=== PATIENT | female | born 1945 | race American Indian/Alaskan Native ===

== ENCOUNTER 2016-12-10 11:34 | Emergency (ER) | payer MEDICARE, OTHER ==
[2016-12-10 12:04] VITALS: TEMP 98.1; O2SAT 99; BMI 25.9
--- NOTE | 2016-12-10 12:32 | ED PDOC ---
Arrival/HPI - General Historian: Patient <Janna Christianson - Last Filed: 12/10/16 17:42> - History of Present Illness Time/Duration: Other (1 month) Symptom Onset: Gradual Symptom Course: Unchanged Severity Level: Mild Activities at Onset: Rest <Alejandro Nixon - Last Filed: 12/10/16 19:41> - General Chief Complaint: Abdominal Pain Time Seen by Provider: 12/10/16 12:10 - History of Present Illness Narrative History of Present Illness (Text): 12/10/16 12:29 This is a 70Y F with PMH HTN, NIDDM, PUD who came in today for abdominal pain with diarrhea x 1 month. The patient reports that the abdominal pain is located in the epigastric region described as burning and has been radiating to her back , but denies nausea or vomiting. She also has been having on and off constipation with the diarrhea, but denies black stools or blood in stool. The patient started Terazosin and Rovustatin 2 weeks ago and reports she has been getting generalized body aches with feeling hot and cold. She is not sure why she is taking the Terazosin. She was talking to her pharmacist and told the patient that she should come to the ED for her symptoms. 12/10/16 13:43 (Janna Christianson) Past Medical History - Provider Review Nursing Documentation Reviewed: Yes - Infectious Disease Hx of Infectious Diseases: None - Cardiac Hx Cardiac Disorders: Yes Hx Hypertension: Yes - Pulmonary Hx Respiratory Disorders: No - Neurological Hx Neurological Disorder: Yes Hx Dizziness: Yes (vertigo) - HEENT Hx HEENT Disorder: Yes (reading glasses) - Renal Hx Renal Disorder: No - Endocrine/Metabolic Hx Endocrine Disorders: Yes Hx Diabetes Mellitus Type 2: Yes - Hematological/Oncological Hx Blood Disorders: No - Integumentary Hx Dermatological Disorder: No - Musculoskeletal/Rheumatological Hx Falls: No - Gastrointestinal Hx Gastrointestinal Disorders: Yes (chronic constipation) Hx Gastroesophageal Reflux: Yes Other/Comment: s/p colonoscopy/endoscopy with polyp removal - Genitourinary/Gynecological Hx Genitourinary Disorders: No - Psychiatric Hx Psychophysiologic Disorder: Yes Hx Depression: Yes Hx Substance Use: No - Surgical History Hx Appendectomy: Yes Hx Orthopedic Surgery: Yes (R foot orn ligament repair) Other/Comment: section x3 - Anesthesia Hx Anesthesia Reactions: No Hx Malignant Hyperthermia: No <MimaJanna gan - Last Filed: 12/10/16 17:42> Family/Social History - Physician Review Nursing Documentation Reviewed: Yes Family/Social History: Hypertension Smoking Status: Never Smoked Hx Alcohol Use: No Hx Substance Use: No <LeighaEdilson hewittJanna - Last Filed: 12/10/16 17:42> Allergies/Home Meds <LeighamarcelinaJanna - Last Filed: 12/10/16 17:42> <TiffaniAlejandro - Last Filed: 12/10/16 19:41> Allergies/Adverse Reactions: Allergies Penicillins Allergy (Verified 12/10/16 12:04) SWELLING Home Medications: Home Meds Medication Instructions Recorded Confirmed metFORMIN [glucOPHAGE] 500 mg PO DAILY 02/06/16 12/10/16 Pantoprazole Sodium [Protonix] 40 mg PO DAILY 02/07/16 12/10/16 Zolpidem [Ambien] 10 mg PO HS 07/12/16 12/10/16 Donepezil [Aricept] 5 mg PO DAILY 12/10/16 12/10/16 Rosuvastatin Calcium [Crestor] 10 mg PO DAILY 12/10/16 12/10/16 Terazosin [Hytrin] 1 mg PO HS 12/10/16 12/10/16 amLODIPine [Norvasc] 10 mg PO DAILY 12/10/16 12/10/16 Review of Systems - Physician Review All systems were reviewed & negative as marked: Yes - Review of Systems Constitutional: Normal. absent: Fatigue, Weight Change, Fevers Eyes: Normal. absent: Vision Changes, Photophobia ENT: Normal. absent: Hearing Changes Respiratory: Normal. absent: SOB, Cough Cardiovascular: Normal. absent: Chest Pain, Palpitations Gastrointestinal: Abdominal Pain, Stool Changes, Constipation, Diarrhea. absent : Nausea, Vomiting, Hematochezia, Hematemesis, Food Intolerance Genitourinary Female: Normal. absent: Dysuria, Frequency Musculoskeletal: Arthralgias, Myalgias Skin: Normal. absent: Rash, Pruritis, Skin Lesions Neurological: Normal. absent: Headache, Dizziness, Focal Weakness Endocrine: Normal Hemo/Lymphatic: Normal. absent: Adenopathy Psychiatric: Normal. absent: Anxiety, Depression <LeighamarcelinaJanna - Last Filed: 12/10/16 17:42> Physical Exam Vital Signs Reviewed: Yes Temperature: Afebrile Blood Pressure: Hypertensive Pulse: Regular Respiratory Rate: Normal Appearance: Positive for: Well-Appearing, Non-Toxic, Comfortable Pain Distress: None Mental Status: Positive for: Alert and Oriented X 3 - Systems Exam Head: Present: Atraumatic, Normocephalic Pupils: Present: PERRL Extroacular Muscles: Present: EOMI Conjunctiva: Present: Normal Mouth: Present: Moist Mucous Membranes Neck: Present: Normal Range of Motion Respiratory/Chest: Present: Clear to Auscultation, Good Air Exchange. No: Respiratory Distress, Accessory Muscle Use Cardiovascular: Present: Regular Rate and Rhythm, Normal S1, S2. No: Murmurs Abdomen: Present: Normal Bowel Sounds. No: Tenderness, Distention, Peritoneal Signs Back: Present: Normal Inspection Upper Extremity: Present: Normal Inspection. No: Cyanosis, Edema Lower Extremity: Present: Normal Inspection. No: Edema Neurological: Present: GCS=15, CN II-XII Intact, Speech Normal Skin: Present: Warm, Dry, Normal Color. No: Rashes Psychiatric: Present: Alert, Oriented x 3, Normal Insight, Normal Concentration <Janna Christianson - Last Filed: 12/10/16 17:42> <Alejandro Nixon - Last Filed: 12/10/16 19:41> Vital Signs Temp Pulse Resp BP Pulse Ox 12/10/16 17:28 75 18 155/75 H 99 12/10/16 16:25 79 18 158/79 H 99 12/10/16 12:00 98.1 F 84 16 162/83 H 99 Medical Decision Making Re-evaluation Time: 14:45 Reassessment Condition: Unchanged - Lab Interpretations I have reviewed the lab results: Yes Interpretation: All labs normal - RAD Interpretation Driver Sales: Radiologist - EKG Interpretation Interpreted by ED Physician: Yes Type: 12 lead EKG <Janna Christianson - Last Filed: 12/10/16 17:42> <Alejandro Nixon - Last Filed: 12/10/16 19:41> ED Course and Treatment: 12/10/16 12:33 Impression: This is a 70Y F with PMH of HTN, NIDDM, and PUD here for abdominal pain x 1 month and worsening myalgias for 2 weeks. DDX: Rhabdo secondary to statin v. peptic ulcer v. r/o DE Plan: -- EKG, CXR -- CT abd/pelvis -- CBC, CMP, Cardiac ISO, CK --Reassess Prior Visits: Notes and results from previous visits were reviewed. Progress Note: Labs within normal limits. No acute findings seen on CXR and CT abd/pelvis. Will order CTA to r/o dissection and give tramadol and Protonix for pain/ discomfort. Patient reports pain is much better. She does complain of anxiety. Xanax 0.25mg given. Discharge Instructions: Re-evaluation. Patient feels better. Discussed results and plan with patient who expresses understanding. All questions answered and there is agreement with the plan to discharge home with instructions. Patient stable for discharge. Return if symptoms persist or worsen. 12/10/16 17:13 (Janna Christianson) In agreement with resident note, which includes further HPI details. Patient was seen and evaluated with resident, came up with plan and treatment together. 12/10/16 19:39 Patient with long-standing symptoms that she says started after starting the statin - workup is negative including negative CTA showing no dissection. Patient told to stop the statin and f/u pmd - she says she will not f/u Dr. Ross but will go to Dr. Yan. (Alejandro Nixon) - Lab Interpretations Lab Results: 12/10/16 12:30 12/10/16 12:30 Lab Results 12/10/16 12:30: Urine Color Yellow, Urine Appearance Clear, Urine pH 6.5, Ur Specific [place] <= 1.005, Urine Protein Negative, Urine Glucose (UA) Negative, Urine Ketones Negative, Urine Blood Negative, Urine Nitrate Negative, Urine Bilirubin Negative, Urine Urobilinogen 0.2, Ur Leukocyte Esterase Negative 12/10/16 12:30: Sodium 139, Potassium 4.1, Chloride 103, Carbon Dioxide 28, Anion Gap 12, BUN 12, Creatinine 0.8, Est GFR ( Amer) > 60, Est GFR (Non- Af Amer) > 60, Random Glucose 112 H, Calcium 9.7, Total Bilirubin 0.5, AST 31, ALT 31, Alkaline Phosphatase 74, Lactate Dehydrogenase 621, Total Creatine Kinase 329 H, CK-MB (CK-2) 1.0, CK-MB (CK-2) % Cancelled, Troponin I < 0.01, Total Protein 7.9, Albumin 4.8, Globulin 3.1, Albumin/Globulin Ratio 1.5 12/10/16 12:30: WBC 7.4 D, RBC 4.56, Hgb 12.8, Hct 38.7, MCV 84.9, MCH 28.1, MCHC 33.1, RDW 13.7, Plt Count 257, MPV 10.7 - RAD Interpretation Narrative RAD Interpretations (Text): CT abd/pelvis without contrast HISTORY: abdominal pain radiating to back with diarrhea COMPARISON: 07/15/2016 TECHNIQUE: Without contrast.. This CT exam was performed using one or more of the following dose reduction techniques: Automated exposure control, adjustment of the mA and/or kV according to patient size, and/or use of iterative reconstruction technique. FINDINGS: LOWER THORAX: Unremarkable. LIVER: Unremarkable. No gross lesion or ductal dilatation. GALLBLADDER AND BILE DUCTS: Unremarkable. PANCREAS: Unremarkable. No gross lesion or ductal dilatation. SPLEEN: Unremarkable. ADRENALS: Unremarkable. No mass. KIDNEYS AND URETERS: Left upper pole renal cyst, 1.6 cm unchanged from prior CT examination. No other renal mass. No renal calculus or hydronephrosis. VASCULATURE: Unremarkable. No aortic aneurysm. BOWEL: No bowel obstruction. No abnormal bowel loops are identified. Gastric mural thickening likely due to inadequate distention. APPENDIX: Not identified. No secondary findings of appendicitis. PERITONEUM: Unremarkable. No free fluid. No free air. LYMPH NODES: Unremarkable. No enlarged lymph nodes. BLADDER: Unremarkable. REPRODUCTIVE: Unremarkable uterus. BONES: No acute fracture. Grade 1 anterolisthesis at L4-5 without spondylolysis. OTHER FINDINGS: None. IMPRESSION: No abnormality of the bowel. No bowel obstruction. No evidence of ileus. Mural thickening of the stomach likely due to inadequate distention. No other acute abnormality identified. Chest XR (Portable) COMPARISON: 07/12/2016 FINDINGS: LUNGS: No active pulmonary disease. PLEURA: No significant pleural effusion identified, no pneumothorax apparent. CARDIOVASCULAR: Normal. OSSEOUS STRUCTURES: No significant abnormalities. VISUALIZED UPPER ABDOMEN: Normal. OTHER FINDINGS: None. IMPRESSION: No active disease. 12/10/16 17:42 CT abdomen and pelvis with IV contrast Indication: Chest pain, abdominal pain, back pain Technique: Contiguous axial images utilizing CT angiography dissection protocol. Coronal and Sagittal reformats generated and reviewed. This CT exam was performed using 1 or more of the falling dose reduction techniques: Automated exposure control, adjustment of the MAA and/or kV according to patient size, and/or use of iterative reconstruction technique. Radiation dose: Total exam DLP = 1372.96 MGy-cm. Comparison: CT abdomen and pelvis with IV and oral contrast performed 07/15/16 Findings: Visualized portions of the thyroid gland appear unremarkable. Heart size appears top normal. No evidence of significant pericardial effusion. Mild dependent atelectasis. No focal consolidation. No pleural effusion. No pneumothorax. The thoracic and abdominal aorta appears within normal limits of caliber. No evidence of dissection. 16 mm low-density lesion, left kidney; possibly cyst. Hypoattenuation of the liver compatible with hepatic steatosis. The spleen, kidneys, pancreas, adrenal glands, and gallbladder appear otherwise unremarkable. The stomach is nondistended. Lack of oral contrast limits evaluation for bowel pathology. The bowel loops appear within normal limits of caliber without evidence of intestinal obstruction. There is no definite free air. Uterus is present. The urinary bladder appears unremarkable. No acute osseous abnormality is detected. Impression: No evidence of thoracic or abdominal aortic aneurysm or dissection. Hepatic steatosis. 16 mm probable left renal cyst. (Jnana Christianson) Radiology Orders: 12/10/16 12:21 CXR [CHEST PORTABLE] [RAD] Stat 12/10/16 12:26 ABD & PELVIS W/O PO OR IV CONT [CT] Stat 12/10/16 13:48 ANGIOGRAPHY DISECTION PROTOCOL [CT] Stat - EKG Interpretation EKG Interpretation (Text): 12/10/16 13:51 Hr@66. Intervals within normal limits. NSR. L axis deviation. LVH (Janna Christianson) - Medication Orders Current Medication Orders: Discontinued Medications Alprazolam (Xanax) 0.25 mg PO STAT STA PRN Reason: Protocol Stop: 12/10/16 17:13 Last Admin: 12/10/16 17:30 Dose: 0.25 mg Iodixanol (Visipaque 320 Mg/Ml 100 Ml) Confirm Administered Dose 100 ml IV .STK- MED ONE Stop: 12/10/16 15:57 Pantoprazole Sodium (Protonix Inj) 40 mg IVP STAT STA Stop: 12/10/16 14:46 Last Admin: 12/10/16 14:55 Dose: 40 mg Tramadol/Acetaminophen (Ultracet 37.5/325 Mg) 1 tab PO STAT STA Stop: 12/10/16 13:49 Last Admin: 12/10/16 14:33 Dose: 1 tab - PA / BUNCHER HAND / Resident Statement / has reviewed & agrees with the documentation as recorded. / has examined the patient and agrees with the treatment plan. <Alejandro Nixon - Last Filed: 12/10/16 19:41> Disposition/Present on Arrival - Present on Arrival Any Indicators Present on Arrival: No History of DVT/PE: No History of Uncontrolled Diabetes: No Urinary Catheter: No History of Decub. Ulcer: No History Surgical Site Infection Following: None - Disposition Have Diagnosis and Disposition been Completed?: Yes Disposition Time: 17:01 Patient Plan: Discharge <Janna Christianson - Last Filed: 12/10/16 17:42> <Alejandro Nixon - Last Filed: 12/10/16 19:41> - Disposition Diagnosis: GERD (gastroesophageal reflux disease) Disposition: HOME/ ROUTINE Condition: FAIR Discharge Instructions (ExitCare): Diet for Ulcers and Gastritis (GEN), Gastroesophageal Reflux Disease (ED) Print Language: TURKMEN Additional Instructions: Ms. Campos, thank you for letting us take care of you today. Your provider was Dr. Christianson. You were treated for GERD and gastritis. The emergency medical care you received today was directed at your acute symptoms. If you were prescribed any medication, please fill it and take as directed. It may take several days for your symptoms to resolve. Return to the Emergency Department if your symptoms worsen, do not improve, or if you have any other problems. Please contact your doctor or call one of the physicians/clinics you have been referred to that are listed on the Patient Visit Information form that is included in your discharge packet. Bring any paperwork you were given at discharge with you along with any medications you are taking to your follow up visit. Our treatment cannot replace ongoing medical care by a primary care provider (PCP) outside of the emergency department. Thank you for allowing the [facility] team to be part of your care today. If you had an X-Ray or CT scan: A Radiologist will review the ED reading if any change in treatment is needed we will contact you. Please follow up with Dr. Yan in 1 week. Stop taking Rovustatin and follow up with Dr. Yan. Do not take Metformin for 2 days because you have had IV contrast. Please restart Metformin on December 13. Please follow up with a crisis intervention specialist for peptic ulcer disease. Referrals: [facility] [Outside] - Follow up with primary Erick Yan MD [Primary Care Provider] - Follow up with primary Juan Jose Clifford MD [Staff Provider] - Follow up with primary Gaston Jerez MD [Medical Doctor] - Follow up with primary
[2016-12-10 13:08] LABS: HEMATOCRIT 38.7 % (36.0-48.0); MEAN CELL VOLUME 84.9 fL (80.0-105.0); MEAN CORPUSCULAR HEMOGLOBIN 28.1 pg (25.0-35.0); MEAN CORPUSCULAR HGB CONC 33.1 g/dl (31.0-37.0); MEAN PLATELET VOLUME 10.7 fl (7.0-11.0); RED CELL DISTRIBUTION WIDTH 13.7 % (11.5-14.5); WHITE BLOOD COUNT 7.4 10^3/ul (4.5-11.0)
[2016-12-10 13:11] LABS: ALB/GLOB RATIO 1.5 (1.1-1.8); ALKALINE PHOSPHATASE 74 U/L (38-133); ALT/SGPT 31 U/L (7-56); AST/SGOT 31 U/L (15-39); BILIRUBIN,TOTAL 0.5 mg/dL (0.2-1.3); BLOOD UREA NITROGEN 12 mg/dL (7-21); CALCIUM 9.7 mg/dL (8.4-10.5); CARBON DIOXIDE 28 mmol/L (21-33); CHLORIDE 103 mmol/L (98-107); GFR AFRICAN-AMERICAN > 60; GLUCOSE,RANDOM 112 mg/dL (70-110); POTASSIUM 4.1 mmol/L (3.6-5.0); SODIUM 139 mmol/L (132-148); TOTAL PROTEIN 7.9 g/dL (5.8-8.3)
[2016-12-10 13:23] LABS: PH,URINE 6.5 (4.7-8.0); URINE BILIRUBIN NEGATIVE (NEGATIVE); URINE BLOOD NEGATIVE (NEGATIVE); URINE GLUCOSE (UA) NEGATIVE (NEGATIVE); URINE KETONE NEGATIVE (NEGATIVE); URINE LEUKOCYTE ESTERASE NEGATIVE Leu/uL (NEGATIVE); URINE PROTEIN NEGATIVE mg/dL (<30 mg/dL); URINE UROBILINOGEN 0.2 E.U./dL (<1 E.U./dL)
--- NOTE | 2016-12-10 13:26 | CT ---
PROCEDURE: CT Abdomen and Pelvis without intravenous contrast HISTORY: abdominal pain radiating to back with diarrhea COMPARISON: 07/15/2016 TECHNIQUE: Without contrast.. Contrast Dose: 0 Radiation dose: Total exam DLP = 400.01 mGy-cm. This CT exam was performed using one or more of the following dose reduction techniques: Automated exposure control, adjustment of the mA and/or kV according to patient size, and/or use of iterative reconstruction technique. FINDINGS: LOWER THORAX: Unremarkable. LIVER: Unremarkable. No gross lesion or ductal dilatation. GALLBLADDER AND BILE DUCTS: Unremarkable. PANCREAS: Unremarkable. No gross lesion or ductal dilatation. SPLEEN: Unremarkable. ADRENALS: Unremarkable. No mass. KIDNEYS AND URETERS: Left upper pole renal cyst, 1.6 cm unchanged from prior CT examination. No other renal mass. No renal calculus or hydronephrosis. VASCULATURE: Unremarkable. No aortic aneurysm. BOWEL: No bowel obstruction. No abnormal bowel loops are identified. Gastric mural thickening likely due to inadequate distention. APPENDIX: Not identified. No secondary findings of appendicitis. PERITONEUM: Unremarkable. No free fluid. No free air. LYMPH NODES: Unremarkable. No enlarged lymph nodes. BLADDER: Unremarkable. REPRODUCTIVE: Unremarkable uterus. BONES: No acute fracture. Grade 1 anterolisthesis at L4-5 without spondylolysis. OTHER FINDINGS: None. IMPRESSION: No abnormality of the bowel. No bowel obstruction. No evidence of ileus. Mural thickening of the stomach likely due to inadequate distention. No other acute abnormality identified.
[2016-12-10 13:36] LABS: URINE APPEARANCE CLEAR (CLEAR); URINE COLOR YELLOW (YELLOW)
[2016-12-10 13:37] LABS: TROPONIN I < 0.01 ng/mL
--- NOTE | 2016-12-10 13:41 | RAD ---
HISTORY: pain COMPARISON: 07/12/2016 FINDINGS: LUNGS: No active pulmonary disease. PLEURA: No significant pleural effusion identified, no pneumothorax apparent. CARDIOVASCULAR: Normal. OSSEOUS STRUCTURES: No significant abnormalities. VISUALIZED UPPER ABDOMEN: Normal. OTHER FINDINGS: None. IMPRESSION: No active disease.
[2016-12-10] MEDS ORDERED: TraMADol/Apap 37.5/325 mg Tab PO STA (13:48)
[2016-12-10] MEDS ORDERED: Iodixanol 320 MG/ML 100 ML BOTTLE IV ONE (15:56)
[2016-12-10 16:25] VITALS: RESP 18
[2016-12-10 17:29] VITALS: BP 155/75; PULSE 75
--- NOTE | 2016-12-10 17:29 | CT ---
CT abdomen and pelvis with IV contrast Indication: Chest pain, abdominal pain, back pain Technique: Contiguous axial images utilizing CT angiography dissection protocol. Coronal and Sagittal reformats generated and reviewed. Oral contrast was not administered. 100 cc visi opaque [address] exam was performed using 1 or more of the falling dose reduction techniques: Automated exposure control, adjustment of the MAA and/or kV according to patient size, and/or use of iterative reconstruction technique. Radiation dose: Total exam DLP = 1372.96 MGy-cm. Comparison: CT abdomen and pelvis with IV and oral contrast performed 07/15/16 Findings: Visualized portions of the thyroid gland appear unremarkable. Heart size appears top normal. No evidence of significant pericardial effusion. Mild dependent atelectasis. No focal consolidation. No pleural effusion. No pneumothorax. The thoracic and abdominal aorta appears within normal limits of caliber. No evidence of dissection. 16 mm low-density lesion, left kidney; possibly cyst. Hypoattenuation of the liver compatible with hepatic steatosis. The spleen, kidneys, pancreas, adrenal glands, and gallbladder appear otherwise unremarkable. The stomach is nondistended. Lack of oral contrast limits evaluation for bowel pathology. The bowel loops appear within normal limits of caliber without evidence of intestinal obstruction. There is no definite free air. Uterus is present. The urinary bladder appears unremarkable. No acute osseous abnormality is detected. Impression: No evidence of thoracic or abdominal aortic aneurysm or dissection. Hepatic steatosis. 16 mm probable left renal cyst.
--- NOTE | 2016-12-11 01:33 | CARD ---
APPROVED REPORT EKG Measurement Heart [id number] <Conclusion> Normal sinus rhythm Left axis deviation Voltage criteria for left ventricular hypertrophy Abnormal ECG
== END 2016-12-10 17:42 | disposition home or self-care (01) ==
LOC: ED 11:34
DX: K21.9 Gastro-esophageal reflux disease without esophagitis (principal); E11.9 Type 2 diabetes mellitus without complications; I10 Essential (primary) hypertension
CPT/HCPCS: 71010; 71275; 74175; 74176; 80053; 81003; 82550; 82553; 83615; 84484; 85027; 87086; 93005; 96374; 99284; C9113; Q9967

== ENCOUNTER 2017-02-09 14:36 | Observation (INO) | payer MEDICARE, OTHER ==
[2017-02-09] MEDS ORDERED: Morphine 2 mg/ml ISec IVP STA ×2 (14:59→16:25)
[2017-02-09] MEDS ORDERED: Sodium Chloride 0.9% 500 ML IV STA (14:59)
--- NOTE | 2017-02-09 15:03 | ED PDOC ---
Arrival/HPI - General Chief Complaint: Abdominal Pain Time Seen by Provider: 02/09/17 14:43 Historian: Patient - History of Present Illness Narrative History of Present Illness (Text): 02/09/17 15:00 71yr old female presents today with diffuse abdominal pain greatest in the upper abdomen. pt states she was eating lunch and after lunch she developed sudden onset of severe sharp stabbing abdominal pain radiating to the back. denies cp or sob. no fever/chills. c/o nausea. no vomiting or diarrhea. no dizziness or weakness. denies numbness, weakness, or tingling in the lower extremities. Pt states she has never had pain this severe before. no other complaints. Time/Duration: Prior to Arrival Symptom Onset: Sudden Symptom Course: Unchanged Quality: Stabbing Severity Level: 10 Past Medical History - Provider Review Nursing Documentation Reviewed: Yes - Travel History Have you recently traveled outside [place] w/in the past 3 mons?: No - Infectious Disease Hx of Infectious Diseases: None - Reproductive Menopause: Yes - Cardiac Hx Cardiac Disorders: Yes Hx Hypertension: Yes - Pulmonary Hx Respiratory Disorders: No - Neurological Hx Neurological Disorder: Yes Hx Dizziness: Yes (vertigo) - HEENT Hx HEENT Disorder: Yes (reading glasses) - Renal Hx Renal Disorder: No - Endocrine/Metabolic Hx Endocrine Disorders: Yes Hx Diabetes Mellitus Type 2: Yes - Hematological/Oncological Hx Blood Disorders: No - Integumentary Hx Dermatological Disorder: No - Musculoskeletal/Rheumatological Hx Falls: No - Gastrointestinal Hx Gastrointestinal Disorders: Yes (chronic constipation) Hx Gastroesophageal Reflux: Yes Other/Comment: s/p colonoscopy/endoscopy with polyp removal - Genitourinary/Gynecological Hx Genitourinary Disorders: No - Psychiatric Hx Psychophysiologic Disorder: Yes Hx Depression: Yes Hx Substance Use: No - Surgical History Hx Appendectomy: Yes Hx Orthopedic Surgery: Yes (R foot orn ligament repair) Other/Comment: section x3 - Anesthesia Hx Anesthesia: Yes Hx Anesthesia Reactions: No Hx Malignant Hyperthermia: No Family/Social History - Physician Review Nursing Documentation Reviewed: Yes Family/Social History: Unknown Family HX Smoking Status: Never Smoked Hx Alcohol Use: No Hx Substance Use: No Allergies/Home Meds Allergies/Adverse Reactions: Allergies Penicillins Allergy (Verified 02/09/17 14:52) SWELLING Home Medications: Home Meds Medication Instructions Recorded Confirmed metFORMIN [glucOPHAGE] 500 mg PO DAILY 02/06/16 02/09/17 Donepezil [Aricept] 5 mg PO DAILY 12/10/16 02/09/17 Rosuvastatin Calcium [Crestor] 10 mg PO DAILY 12/10/16 02/09/17 Terazosin [Hytrin] 1 mg PO HS 12/10/16 02/09/17 amLODIPine [Norvasc] 10 mg PO DAILY 12/10/16 02/09/17 Review of Systems - Review of Systems Constitutional: absent: Fatigue, Fevers Respiratory: absent: SOB, Cough Cardiovascular: absent: Chest Pain Gastrointestinal: Abdominal Pain, Nausea. absent: Diarrhea, Vomiting Genitourinary Female: absent: Dysuria, Frequency, Hematuria Musculoskeletal: Back Pain. absent: Arthralgias Skin: absent: Rash, Pruritis Neurological: absent: Headache, Dizziness Psychiatric: absent: Anxiety, Depression Physical Exam Vital Signs Reviewed: Yes Vital Signs Temp Pulse Resp BP Pulse Ox 02/09/17 18:30 55 L 15 127/78 97 02/09/17 16:25 69 16 129/99 H 99 02/09/17 14:48 97.7 F 85 20 130/82 99 Temperature: Afebrile Blood Pressure: Normal Pulse: Regular Respiratory Rate: Normal Appearance: Positive for: Well-Appearing, Non-Toxic, Uncomfortable Pain Distress: None Mental Status: Positive for: Alert and Oriented X 3 - Systems Exam Head: Present: Atraumatic Mouth: Present: Moist Mucous Membranes Neck: Present: Normal Range of Motion Respiratory/Chest: Present: Clear to Auscultation, Good Air Exchange. No: Respiratory Distress, Accessory Muscle Use Cardiovascular: Present: Regular Rate and Rhythm Abdomen: Present: Tenderness (diffuse tendernes, greatest in the upper abdomen, ruq, epigastric. ), Normal Bowel Sounds, Guarding. No: Distention, Peritoneal Signs, Rebound Back: Present: Normal Inspection. No: CVA Tenderness, Midline Tenderness, Paraspinal Tenderness Upper Extremity: Present: Normal ROM Lower Extremity: Present: Normal ROM Neurological: Present: GCS=15 Skin: Present: Warm, Dry, Normal Color. No: Rashes Psychiatric: Present: Alert, Oriented x 3 Medical Decision Making ED Course and Treatment: 02/09/17 15:06 Patient is nontoxic well appearing with stable vital signs presenting with severe diffuse abdominal pain CBC wnl CMP glucose; 156 Amylase wnl Lipase wnl Urinalysis wnl cxr; wnl ekg; sinus rhythm with first-degree AV block at 64 bpm, left axis deviation no ST elevations CAT scan : CT CHEST WITH CONTRAST: LUNGS: Bilateral basilar dependent atelectasis identified without definitive mass. The central airways are clear. MEDIASTINUM: Once again there is no evidence of aortic dissection throughout the chest and abdomen. The aorta is normal in caliber throughout, through its bifurcation. It is widely patent. No aneurysmal dilatation. No significant lymphadenopathy in the mediastinum. Cardiomegaly is noted. There is no pulmonary vascular derangement identified. LYMPH NODES: Unremarkable. PLEURA: Unremarkable. No pneumothorax. No pleural fluid. BONES: Multilevel thoracic spondylosis including severe degenerative disc disease at the T11-12 disc interspace. OTHER FINDINGS: None. CT ABDOMEN AND PELVIS: LIVER: Unremarkable. No gross lesion or ductal dilatation. GALLBLADDER AND BILE DUCTS: Unremarkable. PANCREAS: Unremarkable. No gross lesion or ductal dilatation. SPLEEN: Unremarkable. ADRENALS: Unremarkable. No mass. KIDNEYS AND URETERS: Stable 1.5 cm cyst upper pole left kidney. Right kidney remains unremarkable diffusely. No obstructive uropathy bilaterally. VASCULATURE: Unremarkable. No aortic aneurysm. BOWEL: Splenic flexure is interposed between the right-sided abdominal wall in the right lobe liver once again. No obstruction. No gross mural thickening. APPENDIX: Normal appendix. PERITONEUM: Unremarkable. No free fluid. No free air. LYMPH NODES: Unremarkable. No enlarged lymph nodes. BLADDER: Unremarkable. REPRODUCTIVE: Unremarkable. BONES: Severe degenerate disease at L2-3 with a grade 1 spondylolisthesis seen at L4-5 , L4 slightly anterior to L5. OTHER FINDINGS: None. IMPRESSION: No evidence to suggest thoracic aortic dissection or aneurysm with the abdominal aorta also normal appearing once again. No signal interval change. Bilateral basilar dependent atelectasis. Stable left renal cyst again noted. Lesser additional findings as discussed above. Patient reassessment: pt with continued pain; requiring multiple doses of pain medications. pt of dr. navarrete; case discussed with dr. marquez; will admit observational status to med/surg with GI consult. dr cohen. Discussed all results with patient in depth Impression: Abdominal pain, intractable observational status to med/surg - Lab Interpretations Lab Results: 02/09/17 14:55 02/09/17 14:55 Lab Results 02/09/17 17:45: Urine Color Yellow, Urine Appearance Clear, Urine pH 6.5, Ur Specific [place] 1.010, Urine Protein Negative, Urine Glucose (UA) Negative, Urine Ketones Negative, Urine Blood Negative, Urine Nitrate Negative, Urine Bilirubin Negative, Urine Urobilinogen 0.2, Ur Leukocyte Esterase Negative 02/09/17 14:55: PT 10.7, INR 0.99, APTT 22.0 L 02/09/17 14:55: WBC 10.1 D, RBC 4.52, Hgb 12.5, Hct 38.5, MCV 85.2, MCH 27.7, MCHC 32.5, RDW 14.3, Plt Count 230, MPV 10.1, Gran % 69.3 H, Lymph % (Auto) 25.2 , Arthur % (Auto) 4.5, Eos % (Auto) 0.7 L, Baso % (Auto) 0.3, Gran # 6.97 H, Lymph # 2.5, Arthur # 0.5, Eos # 0.1, Baso # 0.03 02/09/17 14:55: Sodium 141, Potassium 4.0, Chloride 103, Carbon Dioxide 30, Anion Gap 12, BUN 17, Creatinine 0.7, Est GFR ( Amer) > 60, Est GFR (Non- Af Amer) > 60, Random Glucose 156 H, Calcium 9.3, Total Bilirubin 0.4, AST 26, ALT 26, Alkaline Phosphatase 86, Lactate Dehydrogenase 484, Total Creatine Kinase 136, Troponin I < 0.01, Total Protein 7.0, Albumin 4.2, Globulin 2.8, Albumin/Globulin Ratio 1.5, Amylase 91, Lipase 99 - RAD Interpretation Radiology Orders: 02/09/17 14:54 CHEST PORTABLE [RAD] Stat 02/09/17 14:58 ANGIOGRAPHY DISECTION PROTOCOL [CT] Stat - Medication Orders Current Medication Orders: Amlodipine Besylate (Norvasc) 10 mg PO DAILY [facility] Atorvastatin Calcium (Lipitor) 40 mg PO DAILY [facility] Donepezil HCl (Aricept) 5 mg PO DAILY [facility] Sodium Chloride (Sodium Chloride 0.9%) 1,000 mls @ 70 mls/hr IV .[id number] STA Stop: 02/10/17 08:52 Non-Formulary Medication (Terazosin [Hytrin]) 1 mg PO HS TRISTA Discontinued Medications Sodium Chloride (Sodium Chloride 0.9%) 500 mls @ 999 mls/hr IV .Q31M STA Stop: 02/09/17 15:29 Last Admin: 02/09/17 15:17 Dose: 999 mls/hr Iohexol (Omnipaque 350 100 Ml) Confirm Administered Dose 350 mg .ROUTE .STK-MED ONE Stop: 02/09/17 15:36 Morphine Sulfate (Morphine) 2 mg IVP STAT STA Stop: 02/09/17 15:00 Last Admin: 02/09/17 15:17 Dose: 2 mg Morphine Sulfate (Morphine) 2 mg IVP STAT STA Stop: 02/09/17 16:26 Last Admin: 02/09/17 16:31 Dose: 2 mg Morphine Sulfate (Morphine) 4 mg IVP STAT STA Stop: 02/09/17 18:30 Last Admin: 02/09/17 18:40 Dose: 4 mg Ondansetron HCl (Zofran Inj) 4 mg IVP STAT STA Stop: 02/09/17 15:00 Last Admin: 02/09/17 15:16 Dose: 4 mg Pantoprazole Sodium (Protonix Inj) 40 mg IVP STAT STA Stop: 02/09/17 15:00 Last Admin: 02/09/17 15:17 Dose: 40 mg Disposition/Present on Arrival - Present on Arrival Any Indicators Present on Arrival: No History of DVT/PE: No History of Uncontrolled Diabetes: No Urinary Catheter: No History of Decub. Ulcer: No History Surgical Site Infection Following: None - Disposition Have Diagnosis and Disposition been Completed?: Yes Diagnosis: Intractable abdominal pain Disposition: HOSPITALIZED Disposition Time: 18:00 Patient Plan: Observation Condition: FAIR
[2017-02-09 15:09] LABS: ADD MANUAL DIFF? NO
[2017-02-09 15:17] LABS: BASO # 0.03 K/mm3 (0.0-2.0); BASO % 0.3 % (0.0-3.0); EOS # 0.1 (0.0-0.7); EOS % 0.7 % (1.5-5.0); GRAN # 6.97 (1.4-6.5); GRAN % 69.3 % (50.0-68.0); HEMATOCRIT 38.5 % (36.0-48.0); LYMPH # 2.5 (1.2-3.4); LYMPH % 25.2 % (22.0-35.0); MEAN CELL VOLUME 85.2 fL (80.0-105.0); MEAN CORPUSCULAR HEMOGLOBIN 27.7 pg (25.0-35.0); MEAN CORPUSCULAR HGB CONC 32.5 g/dl (31.0-37.0); MEAN PLATELET VOLUME 10.1 fl (7.0-11.0); MONO # 0.5 (0.1-0.6); MONO % 4.5 % (1.0-6.0); PLATELET COUNT 230 10^3/uL (120.0-450.0); RED CELL DISTRIBUTION WIDTH 14.3 % (11.5-14.5); WHITE BLOOD COUNT 10.1 10^3/ul (4.5-11.0)
--- NOTE | 2017-02-09 15:18 | RAD ---
HISTORY: abd pain COMPARISON: Portable chest 12/10/2016. FINDINGS: LUNGS: No active pulmonary disease. PLEURA: No significant pleural effusion identified, no pneumothorax apparent. CARDIOVASCULAR: Normal. OSSEOUS STRUCTURES: No significant abnormalities. VISUALIZED UPPER ABDOMEN: Gas seen distending the gastric viscous medially inferior to the left hemidiaphragm. Interposed colon is seen between the right hemidiaphragm and liver at the right hemidiaphragm. OTHER FINDINGS: None. IMPRESSION: No acute infiltrate or pleural effusion. Caps
[2017-02-09 15:25] LABS: ALB/GLOB RATIO 1.5 (1.1-1.8); ALKALINE PHOSPHATASE 86 U/L (38-133); ALT/SGPT 26 U/L (7-56); AMYLASE 91 U/L (35-125); AST/SGOT 26 U/L (15-39); BILIRUBIN,TOTAL 0.4 mg/dL (0.2-1.3); BLOOD UREA NITROGEN 17 mg/dL (7-21); CALCIUM 9.3 mg/dL (8.4-10.5); CARBON DIOXIDE 30 mmol/L (21-33); CHLORIDE 103 mmol/L (98-107); GFR AFRICAN-AMERICAN > 60; GLUCOSE,RANDOM 156 mg/dL (70-110); LIPASE 99 U/L (23-300); SODIUM 141 mmol/L (132-148)
[2017-02-09 15:27] LABS: INR 0.99 (0.93-1.08)
[2017-02-09] MEDS ORDERED: Iohexol 350 MG/100 ML VIAL ONE (15:35)
[2017-02-09 15:39] LABS: TROPONIN I < 0.01 ng/mL
--- NOTE | 2017-02-09 16:52 | CT ---
PROCEDURE: CT Chest, Abdomen and Pelvis with intravenous contrast HISTORY: abd pain COMPARISON: chest abdomen and pelvis CT examination dated 12/10/2016 TECHNIQUE: Following intravenous administration 100 contrast material, a CT examination of the chest, abdomen and pelvis was performed to evaluate the abdominal AA and thoracic aortic segments for dissection. Comparison is made to prior chest abdomen and pelvis CT examination dated 12/10/2016. I V dose administered: Omnipaque 350, 96 cc Radiation dose: Total exam DLP = 738 mGy-cm. This CT exam was performed using one or more of the following dose reduction techniques: Automated exposure control, adjustment of the mA and/or kV according to patient size, and/or use of iterative reconstruction technique. FINDINGS: CT CHEST WITH CONTRAST: LUNGS: Bilateral basilar dependent atelectasis identified without definitive mass. The central airways are clear. MEDIASTINUM: Once again there is no evidence of aortic dissection throughout the chest and abdomen. The aorta is normal in caliber throughout, through its bifurcation. It is widely patent. No aneurysmal dilatation. No significant lymphadenopathy in the mediastinum. Cardiomegaly is noted. There is no pulmonary vascular derangement identified. LYMPH NODES: Unremarkable. PLEURA: Unremarkable. No pneumothorax. No pleural fluid. BONES: Multilevel thoracic spondylosis including severe degenerative disc disease at the T11-12 disc interspace. OTHER FINDINGS: None. CT ABDOMEN AND PELVIS: LIVER: Unremarkable. No gross lesion or ductal dilatation. GALLBLADDER AND BILE DUCTS: Unremarkable. PANCREAS: Unremarkable. No gross lesion or ductal dilatation. SPLEEN: Unremarkable. ADRENALS: Unremarkable. No mass. KIDNEYS AND URETERS: Stable 1.5 cm cyst upper pole left kidney. Right kidney remains unremarkable diffusely. No obstructive uropathy bilaterally. VASCULATURE: Unremarkable. No aortic aneurysm. BOWEL: Splenic flexure is interposed between the right-sided abdominal wall in the right lobe liver once again. No obstruction. No gross mural thickening. APPENDIX: Normal appendix. PERITONEUM: Unremarkable. No free fluid. No free air. LYMPH NODES: Unremarkable. No enlarged lymph nodes. BLADDER: Unremarkable. REPRODUCTIVE: Unremarkable. BONES: Severe degenerate disease at L2-3 with a grade 1 spondylolisthesis seen at L4-5, L4 slightly anterior to L5. OTHER FINDINGS: None. IMPRESSION: No evidence to suggest thoracic aortic dissection or aneurysm with the abdominal aorta also normal appearing once again. No signal interval change. Bilateral basilar dependent atelectasis. Stable left renal cyst again noted. Lesser additional findings as discussed above.
[2017-02-09 17:56] LABS: PH,URINE 6.5 (4.7-8.0); URINE BILIRUBIN NEGATIVE (NEGATIVE); URINE BLOOD NEGATIVE (NEGATIVE); URINE GLUCOSE (UA) NEGATIVE (NEGATIVE); URINE KETONE NEGATIVE (NEGATIVE); URINE LEUKOCYTE ESTERASE NEGATIVE Leu/uL (NEGATIVE); URINE PROTEIN NEGATIVE mg/dL (<30 mg/dL); URINE UROBILINOGEN 0.2 E.U./dL (<1 E.U./dL)
[2017-02-09 17:59] LABS: URINE APPEARANCE CLEAR (CLEAR); URINE COLOR YELLOW (YELLOW)
[2017-02-09] MEDS ORDERED: Morphine 4 mg/ml ISec IVP STA (18:29)
[2017-02-09] MEDS ORDERED: Sodium Chloride 0.9% 1,000 ML IV STA (18:35)
[2017-02-09 20:54] VITALS: BMI 24.5
[2017-02-09] MEDS ORDERED: Morphine 4 mg/ml ISec IVP PRN (21:00)
[2017-02-09] MEDS: TERAZOSIN 1 MG PO SCH (21:18)
[2017-02-10] MEDS: Insulin Reg-LOW-Coverage SC SCH ×3 (11:15→21:38)
[2017-02-10] MEDS ORDERED: Sodium Chloride 0.9% 1,000 ML IV SCH (14:00)
[2017-02-10] MEDS ORDERED: Propofol 10 mg/ml Inj (20 ML) ONE ×2 (14:17→14:33)
--- NOTE | 2017-02-10 16:04 | CON ---
DATE: REASON FOR CONSULTATION: Seen and examined at the bedside earlier today. The chart was reviewed. Request for consult is for intractable abdominal pain. HISTORY OF PRESENT ILLNESS: This is a 71-year-old female with a past medical history of diabetes mellitus, GERD, chronic constipation, hypertension, history of polyps, peptic ulcer disease, came to the emergency room with complaints of diffuse pain, mostly in upper abdomen. The patient states that the pain occurs after eating lunch. She had an acute onset that was described as a severe sharp stabbing pain that radiated to her back. Denies any fevers or chills. No shortness of breath or chest pain. She does complain of nausea. No vomiting or diarrhea. On admission she had a CT angio and reported no evidence of thoracic aorta dissection or aneurysm with abdominal aorta. The patient states that she had an endoscopy in [facility] around June 2016. She had peptic ulcers, ulcers were found, and she was placed on stomach medication. She also had a colonoscopy at the same time and she was found to have polyps. She did have soft stool. No reports of any melena or bright red blood per rectum. She was admitted back on July 2016 for hyponatremia at that time. She was seen by Dr. Maya in GI for complaint of constipation and headache. A CT scan of the abdomen and pelvis was done in July and that was with oral and IV and that was unremarkable. Previous possible abnormal loop of the bowel in the right upper quadrant has been resolved. She did have another CAT scan done on November 2016 without contrast and that was negative for any abnormality bowel. No obstruction. No evidence of ileus. There was gastric mural thickening, but likely due to inadequate distention. PAST MEDICAL HISTORY: GI colon polyp, peptic ulcer disease, diabetes mellitus, GERD, chronic constipation, vertigo, arthritis, glaucoma, history of dizziness, and vertigo. PAST SURGICAL HISTORY: She had appendectomy, x2, right foot ligament repair, colonoscopy, and endoscopy in 2015. ALLERGIES: PENICILLIN. MEDICATIONS: Reviewed as per SEP. FAMILY HISTORY: Normocephalic at this time. SOCIAL HISTORY: Denies tobacco, ETOH, or drug. REVIEW OF SYSTEMS: Systems reviewed with positive findings. See HPI. PHYSICAL EXAMINATION: HEENT: Sclerae is anicteric. NECK: Supple. CARDIAC: S1 and S2. LUNGS: Decreased breath sounds, but good air entry. No rales or wheeze. ABDOMEN: Bowel sounds. Soft. Not distended. There is positive tenderness in the mid abdomen, in the epigastric right upper quadrant area. No rebound, guarding, or organomegaly. EXTREMITIES: Positive pedal pulses. No edema. NEUROLOGIC: Awake, alert, and oriented. LABORATORY DATA: CT angio report reviewed shows for aortic dissection through the chest and abdomen. Aorta is normal in caliber throughout. Through its bifurcation it is widely dilatation. No aneurysmal dilatation. No significant lymphadenopathy in the mediastinum. Cardiomegaly is noted. There is no pulmonary vascular derangement identified. Liver, gallbladder, and pancreas are unremarkable, as well as spleen and adrenals. There is a stable 1.5 cyst in the upper pole of the left kidney. The splenic flexures between the right-sided abdominal wall and the right lobe of the liver. Once no obstruction. No gross mural thickening. ASSESSMENT: This is a 71-year-old female with a past medical history of peptic ulcer disease, gastroesophageal reflux disease, chronic constipation, history of colon polyps, hypertension came to the emergency room with complaints of diffuse abdominal pain after eating postprandial. She does have a history of peptic ulcer disease, rule out any gastroparesis. CT angiogram was negative for any evidence of aortic dissection or aneurysmal dilatation. PLAN: Discussed with the patient. We will do endoscopy this afternoon. The patient was offered a clear liquid diet, but she does not want to eat right now. We will continue IV fluids for hydration. Continue PPI. We will reorder her Protonix 40. She is on Norvasc and insulin coverage. Thank you for this consult and for allowing us to participate in your patient's care. We will make further recommendations based upon the patient's clinical course. The patient was seen and case discussed with Dr. Jerez. COURT Jones
--- NOTE | 2017-02-10 17:16 | HP ---
DATE: 02/10/2017 PRIMARY DOCTOR: Dr. Jones. HISTORY OF PRESENT ILLNESS: This is a 71-year-old female who was coming into the hospital on complaining of abdominal pain. She says it is diffuse. She states that the pain started after lunch yesterday. She said it was 10/10. She said it was sharp at times and stabbing at times. She denies any nausea or any diarrhea. No chest pain, no vomiting, no fevers or chills. No back pain. No dysuria or frequency. No nocturia. She got multiple doses of morphine to help to control her pain. She says this morning, she is hungry. She says that she had an endoscopy many years ago at [facility] and had ulcers that was treated and improved. All other review of symptoms are within normal limits except what is mentioned. ALLERGIES: PENICILLIN. HOME MEDICATIONS: Glucophage, Aricept, Crestor, Hytrin, Norvasc. PAST MEDICAL HISTORY: Diabetes, dyslipidemia, and hypertension. SOCIAL HISTORY: She does not smoke. Denies alcohol and substance abuse. FAMILY HISTORY: Noncontributory. PHYSICAL EXAMINATION: VITAL SIGNS: Temperature is 97.7, pulse of 85, respirations 20, blood pressure is 130/82, O2 saturation is 99%. GENERAL: The patient is lying in bed, flat, and in no apparent distress. HEAD AND NECK EXAM: Atraumatic, normocephalic. Conjunctivae are pink. Throat is clear and mouth with moist mucosa. Oropharynx is benign. EYES: Extraocular movements are intact. PERRLA. NECK: Supple. No JVD, thyromegaly, or adenopathy. No bruits. HEART: S1 and S2 regular rate and rhythm. No murmurs, rubs, or gallops. LUNGS: Clear to auscultation bilaterally. No wheezing, rales, or rhonchi appreciated. No retractions on exam. ABDOMEN: Bowel sounds are positive, soft. There is a flank tenderness. No rebound. No guarding. No hepatosplenomegaly. EXTREMITIES: No cyanosis, clubbing, or edema. NEUROLOGIC: No facial asymmetry. Tongue is midline. No uvula deviation. Power is 5/5 in upper extremity and 5/5 in lower extremity. Sensation is normal in upper extremities and lower extremities. PSYCHIATRIC: Awake, alert, oriented x3. No anxiety or depression symptoms. Good insight. Normal affect. GENITOURINARY: No CVA tenderness. VASCULAR: 2+ pulses in carotid and pedal pulses. SKIN: No erythema or abnormal nodules noted. SPINE: Normal curvature. LYMPHADENOPATHY: No anterior cervical or posterior cervical adenopathy. No inguinal adenopathy. CT scan of the chest done shows no evidence of thoracic aortic dissection or aneurysm with abdominal aorta also being normal. She has severe degenerative disease of L2-L3. Chest x-ray shows no acute infiltrates. ASSESSMENT: 1. Abdominal pain. 2. Diabetes type 2. 3. Hypertension. 4. Dyslipidemia. 5. 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 6. Left renal cyst. PLAN: The patient is currently comfortable. She is on warfarin for pain. She is n.p.o. We will get GI to evaluate the patient. Her blood work has reviewed and is fairly normal. She has a white count 10.1, hemoglobin 12.5. Her amylase and lipase is normal. Creatinine function is normal with creatinine is being 0.7. Urinalysis is normal, no abnormalities. I will place her on a finger strips. She is going to continue her Norvasc for hypertension. She is on terazosin for hypertension as well as she is on Aricept. We will await input from the consultants. Paddy Cross MD
--- NOTE | 2017-02-10 18:43 | CARD ---
APPROVED REPORT EKG Measurement Heart [id number] <Conclusion> Sinus rhythm with 1st degree AV block Possible Left atrial enlargement Left axis deviation Left ventricular hypertrophy Nonspecific T wave abnormality Abnormal ECG
[2017-02-11] MEDS: TERAZOSIN 1 MG PO SCH (00:04)
[2017-02-11] MEDS ORDERED: Sodium Chloride 0.9% 1,000 ML IV SCH (06:07)
--- NOTE | 2017-02-11 06:47 | CP.PCM.CON ---
<Pee Garcia - Last Filed: 02/11/17 06:41> History of Present Illness - History of Present Illness History of Present Illness: SURGERY CONSULT NOTE FOR DR. NORWOOD 71F presents to [facility] with abdominal pain that have resolved. Patient states pain stated on Friday after eating. The pain was described as diffuse and radiating to the pain. Not associated with nausea/vomiting, no fevers/chills. Patient denies change in bowel function. She is now eating soft diet and tolerating it well. PMH: DM, HTN, HLD PSH: , appendectomy Social: denies tobacco, alcohol, illicit drugs Allergies: penicillins Past Patient History - Infectious Disease Hx of Infectious Diseases: None - Past Social History Smoking Status: Never Smoked - CARDIAC Hx Cardiac Disorders: Yes Hx Hypertension: Yes - PULMONARY Hx Respiratory Disorders: No - NEUROLOGICAL Hx Neurological Disorder: Yes Hx Dizziness: Yes (vertigo) - HEENT Hx HEENT Problems: Yes (reading glasses) - RENAL Hx Chronic Kidney Disease: No - ENDOCRINE/METABOLIC Hx Endocrine Disorders: Yes Hx Diabetes Mellitus Type 2: Yes - HEMATOLOGICAL/ONCOLOGICAL Hx Blood Transfusions: No - INTEGUMENTARY Hx Dermatological Problems: No - MUSCULOSKELETAL/RHEUMATOLOGICAL Hx Falls: No - GASTROINTESTINAL Hx Gastrointestinal Disorders: Yes (chronic constipation) Hx Gastroesophageal Reflux: Yes Other/Comment: s/p colonoscopy/endoscopy with polyp removal - GENITOURINARY/GYNECOLOGICAL Hx Genitourinary Disorders: No - PSYCHIATRIC Hx Psychophysiologic Disorder: Yes Hx Depression: Yes Hx Substance Use: No - SURGICAL HISTORY Hx Surgeries: Yes - ANESTHESIA Hx Anesthesia Reactions: No Hx Malignant Hyperthermia: No Meds Allergies/Adverse Reactions: Allergies Allergy/AdvReac Type Severity Reaction Status Date / Time Penicillins Allergy SWELLING Verified 02/09/17 14:52 - Medications Medications: Current Medications Acetaminophen (Tylenol 325mg Tab) 650 mg PO Q4H PRN PRN Reason: Headache Amlodipine Besylate (Norvasc) 10 mg PO DAILY [facility] Last Admin: 02/10/17 09:32 Dose: 10 mg Atorvastatin Calcium (Lipitor) 40 mg PO DAILY [facility] Last Admin: 02/10/17 09:31 Dose: Not Given Donepezil HCl (Aricept) 5 mg PO DAILY [facility] Last Admin: 02/10/17 09:31 Dose: Not Given Sodium Chloride (Sodium Chloride 0.9%) 1,000 mls @ 50 mls/hr IV .Q20H [facility] Insulin Human Regular (Humulin R Low) 0 units SC ACHS TRISTA PRN Reason: Protocol Last Admin: 02/10/17 21:38 Dose: Not Given Morphine Sulfate (Morphine) 4 mg IVP Q4H PRN PRN Reason: Pain, severe (8-10) Last Admin: 02/10/17 21:31 Dose: 4 mg Non-Formulary Medication (Terazosin [Hytrin]) 1 mg PO HS [facility] Last Admin: 02/11/17 00:04 Dose: Not Given Pantoprazole Sodium (Protonix Inj) 40 mg IVP DAILY [facility] Last Admin: 02/10/17 16:42 Dose: 40 mg Physical Exam - Constitutional Appears: Non-toxic, No Acute Distress - Head Exam Head Exam: ATRAUMATIC - Eye Exam Eye Exam: EOMI, PERRL - ENT Exam ENT Exam: Mucous Membranes Moist - Respiratory Exam Respiratory Exam: Clear to Auscultation Bilateral, NORMAL BREATHING PATTERN - Cardiovascular Exam Cardiovascular Exam: REGULAR RHYTHM, +S1, +S2 - GI/Abdominal Exam GI & Abdominal Exam: Soft. absent: Distended, Firm, Guarding, Rebound, Rigid, Tenderness - Extremities Exam Extremities exam: Negative for: pedal edema, tenderness - Neurological Exam Neurological exam: Alert, Oriented x3 - Psychiatric Exam Psychiatric exam: Normal Affect, Normal Mood - Skin Skin Exam: Dry, Intact, Normal Color, Warm Results - Vital Signs Recent Vital Signs: Last Vital Signs Temp 98.3 F 02/10/17 16:00 Pulse 54 L 02/10/17 16:00 Resp 18 02/10/17 16:00 BP 143/78 02/10/17 16:00 Pulse Ox 96 02/10/17 16:00 - Labs Result Diagrams: 02/09/17 14:55 02/09/17 14:55 Labs: Laboratory Results - last 24 hr 02/10/17 02/10/17 02/10/17 08:39 10:59 16:28 POC Glucose (mg/dL) 94 105 87 02/10/17 21:27 POC Glucose (mg/dL) 128 H Assessment & Plan - Assessment and Plan (Free Text) Assessment: 71F presents with abdominal pain, surgery consulted for partial gastric torsion as seen on endoscopy Plan: - symptoms resolved - ADAT, pain control - serial abdominal exams - No surgical intervention at this time Further recs discuss with Dr. Sergio Garcia, PGY2 <Haider Nicholas - Last Filed: 02/11/17 08:09> Meds - Medications Medications: Current Medications Acetaminophen (Tylenol 325mg Tab) 650 mg PO Q4H PRN PRN Reason: Headache Amlodipine Besylate (Norvasc) 10 mg PO DAILY [facility] Last Admin: 02/10/17 09:32 Dose: 10 mg Atorvastatin Calcium (Lipitor) 40 mg PO DAILY [facility] Last Admin: 02/10/17 09:31 Dose: Not Given Donepezil HCl (Aricept) 5 mg PO DAILY [facility] Last Admin: 02/10/17 09:31 Dose: Not Given Sodium Chloride (Sodium Chloride 0.9%) 1,000 mls @ 50 mls/hr IV .Q20H [facility] Insulin Human Regular (Humulin R Low) 0 units SC ACHS TRISTA PRN Reason: Protocol Last Admin: 02/10/17 21:38 Dose: Not Given Morphine Sulfate (Morphine) 4 mg IVP Q4H PRN PRN Reason: Pain, severe (8-10) Last Admin: 02/10/17 21:31 Dose: 4 mg Non-Formulary Medication (Terazosin [Hytrin]) 1 mg PO HS [facility] Last Admin: 02/11/17 00:04 Dose: Not Given Pantoprazole Sodium (Protonix Inj) 40 mg IVP DAILY [facility] Last Admin: 02/10/17 16:42 Dose: 40 mg Results - Vital Signs Recent Vital Signs: Last Vital Signs Temp 97.9 F 02/11/17 08:05 Pulse 54 L 02/11/17 08:05 Resp 20 02/11/17 08:05 BP 128/81 02/11/17 08:05 Pulse Ox 97 02/11/17 08:05 - Labs Result Diagrams: 02/09/17 14:55 02/09/17 14:55 Labs: Laboratory Results - last 24 hr 02/10/17 02/10/17 02/10/17 08:39 10:59 16:28 POC Glucose (mg/dL) 94 105 87 02/10/17 21:27 POC Glucose (mg/dL) 128 H Assessment & Plan - Assessment and Plan (Free Text) Plan: Pt to be seen by Dr Norwood this morning clear for d/c from surgery if tolerating regular diet instruct pt to return if sx return or worsen -Yu, PGY3
[2017-02-11 06:55] VITALS: RESP 20
[2017-02-11 06:57] VITALS: PULSE 54; O2SAT 97
--- NOTE | 2017-02-11 07:22 | DS ---
HISTORY OF PRESENT ILLNESS: This is a 71-year-old female who is coming into the hospital with abdominal pain. The patient was given multiple doses of morphine for her pain. She had consultation with Dr. Jerez who had done an EGD. The patient was not having gastric torsion. After the procedure, she had improvement of her symptoms. She is the way for a surgical evaluation. She has no complaints of any headaches or dizziness, no nausea. She states the pain is resolved. PHYSICAL EXAMINATION VITAL SIGNS: Temperature is 98.3, pulse is 54, blood pressure is 143/78, respirations 18, O2 saturation is 96%. GENERAL: The patient is lying in bed, flat, comfortable. HEENT: No oral lesion. Anicteric sclerae. Moist mucosa. NECK: No JVD, adenopathy, or thyromegaly. CARDIOVASCULAR: S1 and S2, regular. No murmurs, rubs, or gallops. LUNGS: Clear to auscultation bilaterally. No wheeze, rales, or rhonchi. ABDOMEN: Bowel sounds are positive, soft, nontender and nondistended. EXTREMITIES: No cyanosis, clubbing or edema. ASSESSMENT: 1. Abdominal pain secondary to gastric torsion. 2. Gastric polyps. 3. Gastritis. 4. Hiatal hernia. 5. Diabetes type 2. 6. Hypertension. 7. Dyslipidemia. 8. 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 9. Left renal cyst. PLAN: The patient is currently comfortable. He is going to continue on Lipitor for dyslipidemia and morphine for pain. The patient has neurovascular hypertension. He is on Protonix daily for gastritis. The patient is on Tylenol as needed. He is on IV fluids. We will await further input from surgery. I do not think that at this point there is surgical intervention that needs to be done. She continues to tolerate her diet today. We will discharge home and will follow up as an outpatient with primary care doctor. CONDITION: Stable. ACTIVITIES: As tolerated. Paddy Cross MD
[2017-02-11 07:40] VITALS: TEMP 97.9
[2017-02-11] MEDS: Insulin Reg-LOW-Coverage SC SCH (08:47)
[2017-02-11 09:48] VITALS: BP 128/88
--- NOTE | 2017-02-23 19:30 | CP.PCM.CON ---
Past Patient History - Infectious Disease Hx of Infectious Diseases: None - Past Social History Smoking Status: Never Smoked - CARDIAC Hx Cardiac Disorders: Yes Hx Hypertension: Yes - PULMONARY Hx Respiratory Disorders: No - NEUROLOGICAL Hx Neurological Disorder: Yes Hx Dizziness: Yes (vertigo) - HEENT Hx HEENT Problems: Yes (reading glasses) - RENAL Hx Chronic Kidney Disease: No - ENDOCRINE/METABOLIC Hx Endocrine Disorders: Yes Hx Diabetes Mellitus Type 2: Yes - HEMATOLOGICAL/ONCOLOGICAL Hx Blood Transfusions: No - INTEGUMENTARY Hx Dermatological Problems: No - MUSCULOSKELETAL/RHEUMATOLOGICAL Hx Falls: No - GASTROINTESTINAL Hx Gastrointestinal Disorders: Yes (chronic constipation) Hx Gastroesophageal Reflux: Yes Other/Comment: s/p colonoscopy/endoscopy with polyp removal - GENITOURINARY/GYNECOLOGICAL Hx Genitourinary Disorders: No - PSYCHIATRIC Hx Psychophysiologic Disorder: Yes Hx Depression: Yes Hx Substance Use: No - SURGICAL HISTORY Hx Surgeries: Yes - ANESTHESIA Hx Anesthesia Reactions: No Hx Malignant Hyperthermia: No Meds Home Medications: Home Medication List Medication Instructions Recorded Confirmed Type metFORMIN [glucOPHAGE] 500 mg PO DAILY #0 02/11/17 02/09/17 Rx Allergies/Adverse Reactions: Allergies Allergy/AdvReac Type Severity Reaction Status Date / Time Penicillins Allergy SWELLING Verified 02/09/17 14:52 Results - Vital Signs Recent Vital Signs: Last Vital Signs Temp 97.9 F 02/11/17 08:12 Pulse 54 L 02/11/17 08:12 Resp 20 02/11/17 08:12 BP 128/88 02/11/17 09:45 Pulse Ox 97 02/11/17 08:12 - Labs Result Diagrams: 02/09/17 14:55 02/09/17 14:55 Assessment & Plan - Assessment and Plan (Free Text) Assessment: this 71-year-old patient with a history of recurrent abdominal pain admitted with a worsening of the symptoms squeezing type of pain on and off patient did have CT ANGIO which was reviewed patient would benefit from upper GI endoscopy risk benefits and alternatives explained informed consent was obtained This is a delayed dictation patient was ultimately seen along with the jacquie lee APN on 02/10/17 at 11 AM. Patient subsequently underwent upper GI endoscopy. The patient was again seen on the floor post procedure explained in detail about the findings requested for surgical evaluation for partial gastric torsion which was un twisted during EGD. Patient probably has intermittent episodes of this incomplete torsion which could explain her cramping squeezing type of pain. - Date & Time Date: 02/10/17 Time: 11:00
== END 2017-02-11 10:41 | disposition home or self-care (01) ==
LOC: ED 14:36 → ERH 18:38 → 5RNO 20:13
PROVIDERS: ADMIT Internal Medicine Nephrology; ATTEND Internal Medicine Nephrology
DX: K31.7 Polyp of stomach and duodenum (principal); K31.89 Other diseases of stomach and duodenum; K29.70 Gastritis, unspecified, without bleeding; K44.9 Diaphragmatic hernia without obstruction or gangrene; I10 Essential (primary) hypertension; E78.5 Hyperlipidemia, unspecified; E11.9 Type 2 diabetes mellitus without complications; N28.1 Cyst of kidney, acquired; M47.896 Other spondylosis, lumbar region; K21.9 Gastro-esophageal reflux disease without esophagitis; K59.09 Other constipation; K27.9 Peptic ulcer, site unspecified, unspecified as acute or chronic, without hemorrhage or perforation; H40.9 Unspecified glaucoma; R42 Dizziness and giddiness; Z79.84 Long term (current) use of oral hypoglycemic drugs; Z88.0 Allergy status to penicillin
CPT/HCPCS: 43239; 71010; 71275; 74175; 80053; 81003; 82150; 82550; 82948; 83615; 83690; 84484; 85025; 85610; 85730; 88305; 88342; 93005; 96361; 96374; 96375; 96376; 99285; C9113; G0378; J2001; J2270; J2405; J2704; J3010; J7040; Q9967

== ENCOUNTER 2018-09-19 18:05 | Inpatient (IN) | payer MEDICARE ==
[2018-09-19] MEDS ORDERED: Morphine 2 mg/ml ISec IVP STA ×2 (18:43→19:22)
[2018-09-19] MEDS ORDERED: Sodium Chloride 0.9% 500 ML IV STA (18:43)
--- NOTE | 2018-09-19 19:08 | ED PDOC ---
Arrival/HPI - General Chief Complaint: Abdominal Pain Historian: Patient - History of Present Illness Narrative History of Present Illness (Text): 09/19/18 19:03 A 72 year old female presents to the emergency department complaining of sudden onset of upper abdominal pain at about noon today. Patient reports pain radiates to her back and has been constant and progressively worsening. States last moved her bowels this morning, which was normal. Patient denies any chest pain, shortness of breath, vomiting, bloody/dark stools. Also, patient mentions abdominal pain is similar to when she was last admitted here in 2017. She denies any exertional symptoms. States that she feels like burping. Pain has been progressively worsening and at times is worse with certain positions. Pain will radiate from left to right side and to the back at times. No pleuritic pain. Past Medical History - Provider Review Nursing Documentation Reviewed: Yes - Infectious Disease Hx of Infectious Diseases: None - Reproductive Menopause: Yes - Cardiac Hx Cardiac Disorders: Yes Hx Hypertension: Yes - Pulmonary Hx Respiratory Disorders: No - Neurological Hx Neurological Disorder: Yes Hx Dizziness: Yes (vertigo) - HEENT Hx HEENT Disorder: Yes (reading glasses) - Renal Hx Renal Disorder: No - Endocrine/Metabolic Hx Endocrine Disorders: Yes Hx Diabetes Mellitus Type 2: Yes - Hematological/Oncological Hx Blood Transfusions: No - Integumentary Hx Dermatological Disorder: No - Musculoskeletal/Rheumatological Hx Falls: No - Gastrointestinal Hx Gastrointestinal Disorders: Yes (chronic constipation) Hx Gastroesophageal Reflux: Yes Other/Comment: s/p colonoscopy/endoscopy with polyp removal - Genitourinary/Gynecological Hx Genitourinary Disorders: No - Psychiatric Hx Psychophysiologic Disorder: Yes Hx Depression: Yes Hx Substance Use: No - Surgical History Hx Appendectomy: Yes Hx Orthopedic Surgery: Yes (R foot orn ligament repair) Other/Comment: section x3 - Anesthesia Hx Anesthesia Reactions: No Hx Malignant Hyperthermia: No Family/Social History - Physician Review Nursing Documentation Reviewed: Yes Family/Social History: No Known Family HX Smoking Status: Never Smoked Hx Alcohol Use: No Hx Substance Use: No Allergies/Home Meds Allergies/Adverse Reactions: Allergies Penicillins Allergy (Verified 02/09/17 14:52) SWELLING Home Medications: Home Meds Medication Instructions Recorded Confirmed Donepezil [Aricept] 5 mg PO DAILY 12/10/16 02/09/17 Rosuvastatin Calcium [Crestor] 10 mg PO DAILY 12/10/16 02/09/17 Terazosin [Hytrin] 1 mg PO HS 12/10/16 02/09/17 amLODIPine [Norvasc] 10 mg PO DAILY 12/10/16 02/09/17 Review of Systems - Review of Systems Constitutional: Fatigue. absent: Fevers Eyes: absent: Vision Changes ENT: absent: Hearing Changes Respiratory: absent: SOB, Cough Cardiovascular: absent: Chest Pain, GRADY Gastrointestinal: Abdominal Pain, Stool Changes, Nausea. absent: Diarrhea, Appetite Changes, Hematochezia, Hematemesis Genitourinary Female: absent: Dysuria, Frequency, Vaginal Bleeding Musculoskeletal: absent: Back Pain, Neck Pain Skin: absent: Rash Neurological: absent: Headache, Dizziness, Focal Weakness Endocrine: absent: Polyuria Hemo/Lymphatic: absent: Easy Bleeding Psychiatric: absent: Depression Physical Exam - Physical Exam Narrative Physical Exam (Text): Head: Atraumatic. Normocephalic. Eyes: PERRL. EOMI. Conjunctivae are not pale. Sclera anicteric. ENT: Mucous membranes are dry.. Neck: Supple. Full ROM. No JVD. No lymphadenopathy. Cardiovascular: Regular rate. Regular rhythm. No murmurs, rubs, or gallops. Distal pulses are 2+ and symmetric. Pulmonary/Chest: No evidence of respiratory distress. Clear to auscultation bilaterally. No wheezing, rales or rhonchi. Abdominal: Soft but diffusely tender in upper quadrants. Hypoactive bowel sounds. No pulsatile masses. Rebound in upper quadrants. Back: No CVA tenderness. No midline tenderness. Extremities: No edema. No cyanosis. No clubbing. Full range of motion in all extremities. No calf tenderness. Skin: Skin is warm and dry. No petechiae. No purpura. Rectal: patient at this time too uncomortable to position, will reassess Neurological: Alert, awake, and oriented. Motor and sensory exam intact. Psychiatric: Good eye contact. Normal interaction, affect, and behavior. Vital Signs Reviewed: Yes Vital Signs Temp Pulse Resp BP Pulse Ox 09/19/18 18:05 98.3 F 93 H 18 142/92 H 98 Temperature: Afebrile Appearance: Positive for: Ill-Appearing Pain Distress: Severe Mental Status: Positive for: Alert and Oriented X 3 Medical Decision Making ED Course and Treatment: 09/19/18 19:04 Impression: 72 year old female with abdominal pain. Pain is progressively more severe over past 6 hours after reported sudden onset. She has hx of diabetes and HTN however significantly she has has prior episode of this pain which was described as a gastric volvulus per review of prior consultations from past admissions. Plan: -cardiac monitoring -stat surgical consultation based on exam -iv fluids -iv pain medication -serial exams -stat ct abdomen/pelvis -stat gi consultations Progress Notes: 09/19/18 19:04 Immediately after evaluation of patient, reviewed past records and consulted surgery for suspicion of acute abdomen. Also, consulted Dr. Jerez for garment parts cutter machine, who reports patient had prior gastric volvules. At this time, will keep patient NPO, and administer IV Fluids, IV Morphine, and Zofran. 09/19/18 19:36 With serial exams, patient has episodes of bradycardia when she sits up, suspect vagal episode as quickly resolved with repositioning. NO syncope or LOC or ch est pain noted. IV fluids continued. Morphine ordered as patient with severe pain and was closely monitored as pain medication administered. Dr. Wood from surgical team evaluated patient in ED. I communicated also directly with Dr. Jeronimo, surgeon on-call. These consultations obtained prior to labs or CT as patient with suspicious hx and exam for acute abdominal process. CT and labs pending at this time. 09/19/18 20:25 Dr. Jerez updated. Surgical team has reviewed CT, still awaiting radiologist read although patient still with pain, mildly inproved but remains severe. NG tube to be placed buy surgical team. I have communicated with Dr. Cross covering for patient's PMD, updated PMD on patient's presentation as well as consultations. Patient will be admitted to ICU given concern for acute abdominal process with comorbities. Case d/w Dr. Burgos, outboard motor mechanic, who had evaluated patient in ED and reviewed case with surgical team. Care turned over to ICU team. 09/19/18 20:26 Based on past history I am suspicious of gastric volvulus, although given hx of diabetes and risk factors for cardiac disease, have recommended icu admission. 09/19/2018 Abd/Pelvis CT FINDINGS: LUNG BASES: The lung bases appear clear. No pleural effusions are seen. LIVER: Unremarkable. GALLBLADDER AND BILE DUCTS: The gallbladder appears within normal limits. No radioopaque gallstones are seen. No biliary ductal dilatation is evident. PANCREAS: Unremarkable. SPLEEN: Unremarkable. ADRENAL GLANDS: Unremarkable. KIDNEYS, URETERS, AND BLADDER: The kidneys appear within normal limits. There is no hydronephrosis or hydroureter. No urinary calculi are seen. The urinary bladder is normal in size and configuration. STOMACH AND BOWEL: The stomach is mildly distended with fluid and thick walled consistent with gastritis. Dilated loops of small bowel are noted with "fecalization" and apparent transition point distally highly suspicious for obstruction. Consider follow-up with CT performed without IV and oral contrast. A very redundant ascending colon is noted. The ascending colon is filled with liquid stool and fluid in the hepatic flexure region. This could be compatible with colitis involving the ascending colon. Infectious or inflammatory etiologies are thought most likely. APPENDIX: No evidence of acute appendicitis on CT examination. PERITONEUM: No free fluid. No free air. LYMPH NODES: No lymphadenopathy is evident. REPRODUCTIVE: Unremarkable as visualized. VASCULATURE: No evidence of abdominal aortic aneurysm. BONES: No aggressive appearing osseous lesion. No acute osseous pathology evident. There is evidence of degenerative disc disease at T11-12 and L2-3. Grade 1 anterior spondylolisthesis of L4 on L5 is noted. No pars defects are detected. IMPRESSION: 1. Dilated loops of small bowel are noted with "fecalization" and apparent transition point distally highly suspicious for obstruction. Consider follow-up with CT performed without IV and oral contrast. 2. Gastritis. 3. Colitis of the ascending colon; most pronounced in the hepatic flexure region. Dictator: Trey Guteirres MD CT reviewed by surgical team and gastroenterology team. Patient denies any abdominal pain or diarrhea prior to sudden onset this afternoon. She denies any recent fevers or chills or nausea or vomiting PRIOR to onset of symptoms today. - Critical Care Critical Care Minutes: 60 minutes - RAD Interpretation Radiology Orders: 09/19/18 18:42 CHEST PORTABLE [RAD] Stat 09/19/18 18:45 ABD & PELVIS W/O PO OR IV CONT [CT] Stat - Medication Orders Current Medication Orders: Sodium Chloride (Sodium Chloride 0.9%) 500 mls @ 1,000 mls/hr IV .Q30M STA Stop: 09/19/18 19:12 Last Admin: 09/19/18 18:56 Dose: 1,000 mls/hr eMAR Start Stop Document 09/19/18 18:56 GMD (Rec: 09/19/18 18:56 GMD [email or web address]) Intravenous Solution Start Date 09/19/18 Start Time 18:56 End Date 09/19/18 End time 19:26 Total Infusion Time 30 Discontinued Medications Famotidine (Pepcid) 20 mg IVP STAT STA Stop: 09/19/18 18:44 Last Admin: 09/19/18 18:56 Dose: 20 mg IVP Administration Document 09/19/18 18:56 GMD (Rec: 09/19/18 18:56 GMD [id number]) Charges for Administration # of IVP Administrations 1 Morphine Sulfate (Morphine) 2 mg IVP STAT STA Stop: 09/19/18 18:44 Last Admin: 09/19/18 18:56 Dose: 2 mg MAR Pain Assessment Document 09/19/18 18:56 GMD (Rec: 09/19/18 18:56 GMD [email or web address]) Pain Reassessment Is this a pain reassessment? No IVP Administration Document 09/19/18 18:56 GMD (Rec: 09/19/18 18:56 GMD [email or web address]) Charges for Administration # of IVP Administrations 1 Ondansetron HCl (Zofran Inj) 4 mg IVP ONCE ONE Stop: 09/19/18 18:54 Last Admin: 09/19/18 18:58 Dose: 4 mg IVP Administration Document 09/19/18 18:58 GMD (Rec: 09/19/18 18:58 GMD [id number]) Charges for Administration # of IVP Administrations 1 - Scribe Statement The provider has reviewed the documentation as recorded by the Layne Del Toro Provider Scribe Attestation: All medical record entries made by the Scribe were at my direction and personally dictated by me. I have reviewed the chart and agree that the record accurately reflects my personal performance of the history, physical exam, [facility] decision making, and the department course for this patient. I have also personally directed, reviewed, and agree with the discharge instructions and disposition. Disposition/Present on Arrival - Present on Arrival Any Indicators Present on Arrival: No History of DVT/PE: No History of Uncontrolled Diabetes: No Urinary Catheter: No History of Decub. Ulcer: No History Surgical Site Infection Following: None - Disposition Have Diagnosis and Disposition been Completed?: Yes Diagnosis: Abdominal pain, Intractable abdominal pain, Bowel obstruction Disposition: HOSPITALIZED Disposition Time: 19:59 Patient Plan: Admission, ICU Patient Problems: Current Active Problems Problem Status Onset Abdominal pain Acute Bowel obstruction Acute Intractable abdominal pain Acute Condition: CRITICAL
[2018-09-19] MEDS ORDERED: Sodium Chloride 0.9% 1,000 ML IV STA (19:22)
[2018-09-19 19:32] LABS: BASO # 0.02 K/mm3 (0.0-2.0); BASO % 0.3 % (0.0-3.0); EOS # 0.1 (0.0-0.7); EOS % 0.9 % (1.5-5.0); HEMOGLOBIN 13.1 g/dL (12.0-16.0); LYMPH # 1.7 (1.2-3.4); LYMPH % 25.4 % (22.0-35.0); MEAN CELL VOLUME 86.8 fl (80.0-105.0); MEAN CORPUSCULAR HEMOGLOBIN 27.1 pg (25.0-35.0); MEAN CORPUSCULAR HGB CONC 31.2 g/dl (31.0-37.0); MEAN PLATELET VOLUME 10.1 fl (7.0-11.0); MONO # 0.3 (0.1-0.6); MONO % 4.6 % (1.0-6.0); RBC 4.84 10^6/uL (3.5-6.1); RED CELL DISTRIBUTION WIDTH 13.9 % (11.5-14.5); WHITE BLOOD COUNT 6.8 10^3/uL (4.5-11.0)
[2018-09-19 19:35] LABS: VENOUS BLOOD GAS BASE EXCESS 3.1 mmol/L (0.0-2.0); VENOUS BLOOD GAS PO2 45 mm/Hg (30-55); VENOUS BLOOD PH 7.34 (7.32-7.43)
[2018-09-19 19:41] LABS: INR 0.96; PROTHROMBIN TIME 10.7 SECONDS (9.4-12.5)
[2018-09-19 19:43] LABS: ALB/GLOB RATIO 1.6 (1.1-1.8); ALBUMIN 4.8 g/dL (3.0-4.8); ALT/SGPT 38 U/L (7-56); AMYLASE 115 U/L (35-125); AST/SGOT 34 U/L (14-36); BLOOD UREA NITROGEN 15 mg/dL (7-21); CALCIUM 9.7 mg/dL (8.4-10.5); GFR NON-AFRICAN AMERICAN > 60; LIPASE 90 U/L (23-300)
[2018-09-19 19:53] LABS: TROPONIN I < 0.01 ng/mL
--- NOTE | 2018-09-19 19:58 | CP.PCM.CON ---
History of Present Illness - History of Present Illness History of Present Illness: 72F with HTN, DM,PUD, GERD, constipation, arthritis, B/L varicose veins, glaucoma, hx of dizziness/ vertigo presents with abdominal pain to [facility] ED. Patient reports feeling sudden epigastric pain this afternoon which increased in severity as time went on. Patient denied fever/chills, nausea/vomiting, hematemesis/hematochezia, dysuria. At time of examination patient was retching. During NGT insertion attempt patient vomitted approximately 500ccs. After some time NGT insertion was attempted once again. NGT was inserted successfully and ~500ccs of gastric contents evacuated. Upon reevaluation, patient stated her pain had significantly improved and felt much more comfortable. 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, wears reading glasses PMD: Ambika Mccormick at [facility] Home meds: HCTZ, Metformin, Metamucil, Senna, Protonix, Lexapro, Benicar Past Patient History - Infectious Disease Hx of Infectious Diseases: None - Past Social History Smoking Status: Never Smoked - CARDIAC Hx Cardiac Disorders: Yes Hx Hypertension: Yes - PULMONARY Hx Respiratory Disorders: No - NEUROLOGICAL Hx Neurological Disorder: Yes Hx Dizziness: Yes (vertigo) - HEENT Hx HEENT Problems: Yes (reading glasses) - RENAL Hx Chronic Kidney Disease: No - ENDOCRINE/METABOLIC Hx Endocrine Disorders: Yes Hx Diabetes Mellitus Type 2: Yes - HEMATOLOGICAL/ONCOLOGICAL Hx Blood Transfusions: No - INTEGUMENTARY Hx Dermatological Problems: No - MUSCULOSKELETAL/RHEUMATOLOGICAL Hx Falls: No - GASTROINTESTINAL Hx Gastrointestinal Disorders: Yes (chronic constipation) Hx Gastroesophageal Reflux: Yes Other/Comment: s/p colonoscopy/endoscopy with polyp removal - GENITOURINARY/GYNECOLOGICAL Hx Genitourinary Disorders: No - PSYCHIATRIC Hx Psychophysiologic Disorder: Yes Hx Depression: Yes Hx Substance Use: No - SURGICAL HISTORY Hx Appendectomy: Yes Hx Orthopedic Surgery: Yes (R foot orn ligament repair) Other/Comment: section x3 - ANESTHESIA Hx Anesthesia Reactions: No Hx Malignant Hyperthermia: No Meds Allergies/Adverse Reactions: Allergies Allergy/AdvReac Type Severity Reaction Status Date / Time Penicillins Allergy SWELLING Verified 02/09/17 14:52 - Medications Medications: Current Medications Sodium Chloride (Sodium Chloride 0.9%) 1,000 mls @ 1,000 mls/hr IV .Q1H STA Stop: 09/19/18 20:21 Physical Exam - Constitutional Appears: Non-toxic, No Acute Distress - Head Exam Head Exam: NORMOCEPHALIC - Eye Exam Eye Exam: EOMI, Normal appearance - ENT Exam ENT Exam: Mucous Membranes Moist, Normal Exam - Respiratory Exam Respiratory Exam: NORMAL BREATHING PATTERN - Cardiovascular Exam Cardiovascular Exam: +S1, +S2 - GI/Abdominal Exam GI & Abdominal Exam: Soft, Tenderness. absent: Distended, Firm, Guarding, Rebound, Rigid Additional comments: epigastric tenderness - Neurological Exam Neurological exam: Alert, Oriented x3 - Psychiatric Exam Psychiatric exam: Normal Mood - Skin Skin Exam: Dry, Intact, Warm Results - Vital Signs Recent Vital Signs: Last Vital Signs Temp 98.3 F 09/19/18 18:05 Pulse 66 09/19/18 19:09 Resp 18 09/19/18 19:09 BP 104/67 09/19/18 19:09 Pulse Ox 98 09/19/18 19:09 - Labs Result Diagrams: 09/19/18 19:20 09/19/18 19:20 Labs: Laboratory Results - last 24 hr 09/19/18 09/19/18 09/19/18 19:20 19:20 19:20 WBC 6.8 RBC 4.84 Hgb 13.1 Hct 42.0 MCV 86.8 MCH 27.1 MCHC 31.2 RDW 13.9 Plt Count 254 MPV 10.1 Neut % (Auto) 68.8 H Lymph % (Auto) 25.4 [place] % (Auto) 4.6 Eos % (Auto) 0.9 L Baso % (Auto) 0.3 Lymph # (Auto) 1.7 [place] # (Auto) 0.3 Eos # (Auto) 0.1 Baso # (Auto) 0.02 Absolute Neuts (auto) 4.65 PT 10.7 INR 0.96 APTT 30.0 pO2 45 VBG pH 7.34 VBG pCO2 56.0 VBG HCO3 30.2 H VBG Total CO2 31.9 H VBG O2 Sat (Calc) 84.6 H VBG Base Excess 3.1 H VBG Potassium 4.5 Sodium 141.0 Chloride 105.0 Glucose 169 H Lactate 1.7 FiO2 21.0 Potassium Carbon Dioxide Anion Gap BUN Creatinine Est GFR ( Amer) Est GFR (Non-Af Amer) Random Glucose Calcium Magnesium Total Bilirubin AST ALT Alkaline Phosphatase Lactate Dehydrogenase Total Creatine Kinase Troponin I Total Protein Albumin Globulin Albumin/Globulin Ratio Amylase Lipase Venous Blood Potassium 4.5 09/19/18 19:20 WBC RBC Hgb Hct MCV MCH MCHC RDW Plt Count MPV Neut % (Auto) Lymph % (Auto) [place] % (Auto) Eos % (Auto) Baso % (Auto) Lymph # (Auto) [place] # (Auto) Eos # (Auto) Baso # (Auto) Absolute Neuts (auto) PT INR APTT pO2 VBG pH VBG pCO2 VBG HCO3 VBG Total CO2 VBG O2 Sat (Calc) VBG Base Excess VBG Potassium Sodium 141 Chloride 104 Glucose Lactate FiO2 Potassium 3.9 Carbon Dioxide 31 Anion Gap 10 BUN 15 Creatinine 0.7 Est GFR ( Amer) > 60 Est GFR (Non-Af Amer) > 60 Random Glucose 168 H Calcium 9.7 Magnesium 2.1 Total Bilirubin 0.2 AST 34 ALT 38 Alkaline Phosphatase 98 Lactate Dehydrogenase 623 Total Creatine Kinase 250 H Troponin I < 0.01 Total Protein 7.9 Albumin 4.8 Globulin 3.1 Albumin/Globulin Ratio 1.6 Amylase 115 Lipase 90 Venous Blood Potassium Assessment & Plan - Assessment and Plan (Free Text) Assessment: 72F with abdominal pain with history of partial gastric torsion Plan: NPO IVF NGT to LIS anti-emetics prn analgesic prn Serial abdominal exams No acute surgical intervention at this present time F/u GI recs Will follow D/w Dr. Kandace Martínez PGY3
[2018-09-19] MEDS ORDERED: Lidocaine 2% Jelly (Uro-Jet) TOP ONE (20:13)
[2018-09-19] MEDS ORDERED: metroNIDAZOLE IV 500 mg/100 ml 500 MG/100 ML BAG IV ONE (20:42)
--- NOTE | 2018-09-19 20:55 | CP.PCM.CON ---
<MariliaAnaid - Last Filed: 09/20/18 00:20> History of Present Illness - History of Present Illness History of Present Illness: Anaid Capellan, PGY2, ICU Consult Note for Dr Burgos: CC: abdominal pain This is a 72 year old female with significant PMH partial gastric torsion, HTN, DM, PUD, GERD, is here for abdominal pain that started at 3:30 PM this afternoon today. Patient reports a sharp pain that started in her upper thoracic back, then migrated to her epigastric area, abdominal area. Patient reports that she was doing well until this afternoon, except for mild subjective fevers and chills last night. Patient reports passing hard stools this morning and passing gas as well. However, patient states that she has been burping a lot since this afternoon. Patient states that this episode is similar to her symptoms when she had "gastric torsion" in 01/2017. Denies chest pain, sob, diarrhea, hematochezia, cough, neck pain, headache, jaundice, urinary symptoms, leg swelling. Of note, her last EGD was on 02/10/17, which showed signs of partial gastric torsion, 1 cm hiatal hernia, multiple sessile polyps with biopsy results of gastric fundic polyp. In ED, patient afebrile with stable vitals. CAT abd pelvis showed possible SBO, gastritis, ascending colon colitis. Surgery at bedside, NGT to low intermittent suction placed, put out 600 cc gastric contents. Prior to the NGT entry, patient also vomited approximately 500 cc in ED. Patient reported feeling much better after NGT placement and drainage. GI at bedside as well, recommending monitoring, NPO. Further endoscopic measures as per clinical course. 12 point ROS obtained and negative, except as per HPI. 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, wears reading glasses PMD: Ambika Mccormick at [facility] Home meds: lipitor 10 mg daily, metformin 500 mg daily, protonix 40 mg daily, flexeril 10 mg at bedtime, Linzess Review of Systems - Review of Systems All systems: reviewed and no additional remarkable complaints except Review of Systems: as per hPI Past Patient History - Infectious Disease Hx of Infectious Diseases: None - Past Social History Smoking Status: Never Smoked - CARDIAC Hx Cardiac Disorders: Yes Hx Hypertension: Yes - PULMONARY Hx Respiratory Disorders: No - NEUROLOGICAL Hx Neurological Disorder: Yes Hx Dizziness: Yes (vertigo) - HEENT Hx HEENT Problems: Yes (reading glasses) - RENAL Hx Chronic Kidney Disease: No - ENDOCRINE/METABOLIC Hx Endocrine Disorders: Yes Hx Diabetes Mellitus Type 2: Yes - HEMATOLOGICAL/ONCOLOGICAL Hx Blood Transfusions: No - INTEGUMENTARY Hx Dermatological Problems: No - MUSCULOSKELETAL/RHEUMATOLOGICAL Hx Falls: No - GASTROINTESTINAL Hx Gastrointestinal Disorders: Yes (chronic constipation) Hx Gastroesophageal Reflux: Yes Other/Comment: s/p colonoscopy/endoscopy with polyp removal - GENITOURINARY/GYNECOLOGICAL Hx Genitourinary Disorders: No - PSYCHIATRIC Hx Psychophysiologic Disorder: Yes Hx Depression: Yes Hx Substance Use: No - SURGICAL HISTORY Hx Appendectomy: Yes Hx Orthopedic Surgery: Yes (R foot orn ligament repair) Other/Comment: section x3 - ANESTHESIA Hx Anesthesia Reactions: No Hx Malignant Hyperthermia: No Meds Allergies/Adverse Reactions: Allergies Allergy/AdvReac Type Severity Reaction Status Date / Time Penicillins Allergy SWELLING Verified 02/09/17 14:52 Physical Exam - Constitutional Appears: Non-toxic, No Acute Distress - Head Exam Head Exam: ATRAUMATIC, NORMOCEPHALIC - Eye Exam Eye Exam: EOMI, PERRL. absent: Conjunctival injection, Nystagmus, Scleral icterus Pupil Exam: NORMAL ACCOMODATION, PERRL. absent: Fixed, Irregular, Miosis, Mydriatic, Unequal - ENT Exam ENT Exam: Mucous Membranes Dry - Neck Exam Neck exam: Positive for: Full Rom - Respiratory Exam Respiratory Exam: Clear to Auscultation Bilateral, NORMAL BREATHING PATTERN. absent: Accessory Muscle Use, Prolonged Expiratory Phase, Rhonchi, Wheezes, Stridor - Cardiovascular Exam Cardiovascular Exam: RRR, +S1, +S2. absent: Systolic Murmur - GI/Abdominal Exam GI & Abdominal Exam: Distended, Guarding (RUQ and epigastric region), Hypoactive Bowel Sounds, Tenderness. absent: Firm, Rebound, Rigid - Extremities Exam Extremities exam: Positive for: normal inspection. Negative for: calf tenderness, pedal edema - Neurological Exam Neurological exam: Alert, Oriented x3 - Psychiatric Exam Psychiatric exam: Normal Affect, Normal Mood - Skin Skin Exam: Dry, Normal Color, Warm Results - Vital Signs Recent Vital Signs: Last Vital Signs Temp 98.3 F 09/19/18 18:05 Pulse 84 09/19/18 20:10 Resp 18 09/19/18 20:10 BP 129/84 09/19/18 20:10 Pulse Ox 97 09/19/18 20:10 - Labs Result Diagrams: 09/19/18 19:20 09/19/18 19:20 Labs: Laboratory Results - last 24 hr 09/19/18 09/19/18 09/19/18 19:20 19:20 19:20 WBC 6.8 RBC 4.84 Hgb 13.1 Hct 42.0 MCV 86.8 MCH 27.1 MCHC 31.2 RDW 13.9 Plt Count 254 MPV 10.1 Neut % (Auto) 68.8 H Lymph % (Auto) 25.4 [place] % (Auto) 4.6 Eos % (Auto) 0.9 L Baso % (Auto) 0.3 Lymph # (Auto) 1.7 [place] # (Auto) 0.3 Eos # (Auto) 0.1 Baso # (Auto) 0.02 Absolute Neuts (auto) 4.65 PT 10.7 INR 0.96 APTT 30.0 pO2 45 VBG pH 7.34 VBG pCO2 56.0 VBG HCO3 30.2 H VBG Total CO2 31.9 H VBG O2 Sat (Calc) 84.6 H VBG Base Excess 3.1 H VBG Potassium 4.5 Sodium 141.0 Chloride 105.0 Glucose 169 H Lactate 1.7 FiO2 21.0 Potassium Carbon Dioxide Anion Gap BUN Creatinine Est GFR ( Amer) Est GFR (Non-Af Amer) Random Glucose Calcium Magnesium Total Bilirubin AST ALT Alkaline Phosphatase Lactate Dehydrogenase Total Creatine Kinase CK-MB (CK-2) CK-MB (CK-2) % Troponin I Total Protein Albumin Globulin Albumin/Globulin Ratio Amylase Lipase Venous Blood Potassium 4.5 BBK History Checked 09/19/18 09/19/18 19:20 19:53 WBC RBC Hgb Hct MCV MCH MCHC RDW Plt Count MPV Neut % (Auto) Lymph % (Auto) [place] % (Auto) Eos % (Auto) Baso % (Auto) Lymph # (Auto) [place] # (Auto) Eos # (Auto) Baso # (Auto) Absolute Neuts (auto) PT INR APTT pO2 VBG pH VBG pCO2 VBG HCO3 VBG Total CO2 VBG O2 Sat (Calc) VBG Base Excess VBG Potassium Sodium 141 Chloride 104 Glucose Lactate FiO2 Potassium 3.9 Carbon Dioxide 31 Anion Gap 10 BUN 15 Creatinine 0.7 Est GFR ( Amer) > 60 Est GFR (Non-Af Amer) > 60 Random Glucose 168 H Calcium 9.7 Magnesium 2.1 Total Bilirubin 0.2 AST 34 ALT 38 Alkaline Phosphatase 98 Lactate Dehydrogenase 623 Total Creatine Kinase 250 H CK-MB (CK-2) 1.0 CK-MB (CK-2) % Cancelled Troponin I < 0.01 Total Protein 7.9 Albumin 4.8 Globulin 3.1 Albumin/Globulin Ratio 1.6 Amylase 115 Lipase 90 Venous Blood Potassium BBK History Checked No verified bt Assessment & Plan - Assessment and Plan (Free Text) Assessment: This is a 71 year old female with PMH partial gastric torsion, HTN, DM, PUD, GERD, is here for abdominal pain, found to have partial gastric torsion: Neuro : AAOx3 today. No change in mental status. Cont to monitor. No seizures. CV : BP 129/84, HR 73 NSR. Hx of HTN. Will hold anti-HTN meds for now. Since NPO, will start IVF at 100 cc per surgery. trop negx1, f/u trops x2 in AM. Maintain MAP>65. Hemodynamically stable. Cont to monitor. Pulm: On RA. Saturating well. Maintain O2 sat>90% GI: Abdominal pain: 2/2 partial gastric torsion, SBO vs colitis vs gastritis - received morphine, zofran in ED - Blood, urine cultures - Started on Cipro and flagyl (patient allergic to PCN) - obtain abdominal US, r/o cholecystitis - ID consulted. f/u recs. - GI and surgery consulted. appreciate recs. - NGT placed at bedside by surgery, 600 cc gastric contents drained, to low intermittent suction, continue to monitor output. - No acute GI/surgical intervention for now. Further EGD depending on clinical course. - NPO. - Protonix - Serial abdominal exams - monitor closely Renal : BUN/Cr 15/0.7. Replace lytes, maintain euvolemia. Continue to monitor. ID: - CAT scan showing SBO, colitis - will start Cipro and Flagyl. ID consulted. F/u recs. - afebrile, no leukocytosis. monitor. Endo: BG q6h. NPO. ISS low. Maintain euglycemia. Heme: Stable. Cont to monitor. Psych: Normal mood. DVT ppx -SCD GI ppx - Protonix Case seen, reviewed and discussed with Dr Burgos. <Gely Burgos - Last Filed: 09/20/18 00:37> Meds - Medications Medications: Current Medications Sodium Chloride (Sodium Chloride 0.9%) 1,000 mls @ 100 mls/hr IV .Q10H TRISTA Last Admin: 09/19/18 21:25 Dose: 100 mls/hr Metronidazole (Flagyl) 500 mg in 100 mls @ 100 mls/hr IVPB Q8 TRISTA; Protocol Last Admin: 09/19/18 22:58 Dose: 100 mls/hr Insulin Human Lispro (Humalog Low) 0 units SC ACHS TRISTA; Protocol Morphine Sulfate (Morphine) 2 mg IVP Q4H PRN PRN Reason: Pain, moderate (4-7) Last Admin: 09/19/18 22:18 Dose: 2 mg Pantoprazole Sodium (Protonix Inj) 40 mg IVP DAILY TRISTA Phenol/Menthol (Phenaseptic 1.4% Throat [place]) 0 ml MT Q2H PRN PRN Reason: Sore Throat Last Admin: 09/19/18 21:20 Dose: 3 spray Results - Vital Signs Recent Vital Signs: Last Vital Signs Temp 97.9 F 09/19/18 23:36 Pulse 76 09/20/18 00:20 Resp 16 09/20/18 00:20 BP 144/81 09/20/18 00:00 Pulse Ox 97 09/20/18 00:20 - Labs Result Diagrams: 09/19/18 19:20 09/19/18 19:20 Labs: Laboratory Results - last 24 hr 09/19/18 09/19/18 09/19/18 19:20 19:20 19:20 WBC 6.8 RBC 4.84 Hgb 13.1 Hct 42.0 MCV 86.8 MCH 27.1 MCHC 31.2 RDW 13.9 Plt Count 254 MPV 10.1 Neut % (Auto) 68.8 H Lymph % (Auto) 25.4 [place] % (Auto) 4.6 Eos % (Auto) 0.9 L Baso % (Auto) 0.3 Lymph # (Auto) 1.7 [place] # (Auto) 0.3 Eos # (Auto) 0.1 Baso # (Auto) 0.02 Absolute Neuts (auto) 4.65 PT 10.7 INR 0.96 APTT 30.0 pO2 45 VBG pH 7.34 VBG pCO2 56.0 VBG HCO3 30.2 H VBG Total CO2 31.9 H VBG O2 Sat (Calc) 84.6 H VBG Base Excess 3.1 H VBG Potassium 4.5 Sodium 141.0 Chloride 105.0 Glucose 169 H Lactate 1.7 FiO2 21.0 Potassium Carbon Dioxide Anion Gap BUN Creatinine Est GFR ( Amer) Est GFR (Non-Af Amer) POC Glucose (mg/dL) Random Glucose Calcium Magnesium Total Bilirubin AST ALT Alkaline Phosphatase Lactate Dehydrogenase Total Creatine Kinase CK-MB (CK-2) CK-MB (CK-2) % Troponin I Total Protein Albumin Globulin Albumin/Globulin Ratio Amylase Lipase Venous Blood Potassium 4.5 Blood Type Blood Type Confirm Antibody Screen BBK History Checked 09/19/18 09/19/18 09/19/18 19:20 19:53 20:51 WBC RBC Hgb Hct MCV MCH MCHC RDW Plt Count MPV Neut % (Auto) Lymph % (Auto) [place] % (Auto) Eos % (Auto) Baso % (Auto) Lymph # (Auto) [place] # (Auto) Eos # (Auto) Baso # (Auto) Absolute Neuts (auto) PT INR APTT pO2 VBG pH VBG pCO2 VBG HCO3 VBG Total CO2 VBG O2 Sat (Calc) VBG Base Excess VBG Potassium Sodium 141 Chloride 104 Glucose Lactate FiO2 Potassium 3.9 Carbon Dioxide 31 Anion Gap 10 BUN 15 Creatinine 0.7 Est GFR ( Amer) > 60 Est GFR (Non-Af Amer) > 60 POC Glucose (mg/dL) Random Glucose 168 H Calcium 9.7 Magnesium 2.1 Total Bilirubin 0.2 AST 34 ALT 38 Alkaline Phosphatase 98 Lactate Dehydrogenase 623 Total Creatine Kinase 250 H CK-MB (CK-2) 1.0 CK-MB (CK-2) % Cancelled Troponin I < 0.01 Total Protein 7.9 Albumin 4.8 Globulin 3.1 Albumin/Globulin Ratio 1.6 Amylase 115 Lipase 90 Venous Blood Potassium Blood Type B POSITIVE Blood Type Confirm B POSITIVE Antibody Screen Negative BBK History Checked No verified bt 09/19/18 23:41 WBC RBC Hgb Hct MCV MCH MCHC RDW Plt Count MPV Neut % (Auto) Lymph % (Auto) [place] % (Auto) Eos % (Auto) Baso % (Auto) Lymph # (Auto) [place] # (Auto) Eos # (Auto) Baso # (Auto) Absolute Neuts (auto) PT INR APTT pO2 VBG pH VBG pCO2 VBG HCO3 VBG Total CO2 VBG O2 Sat (Calc) VBG Base Excess VBG Potassium Sodium Chloride Glucose Lactate FiO2 Potassium Carbon Dioxide Anion Gap BUN Creatinine Est GFR ( Amer) Est GFR (Non-Af Amer) POC Glucose (mg/dL) 165 H Random Glucose Calcium Magnesium Total Bilirubin AST ALT Alkaline Phosphatase Lactate Dehydrogenase Total Creatine Kinase CK-MB (CK-2) CK-MB (CK-2) % Troponin I Total Protein Albumin Globulin Albumin/Globulin Ratio Amylase Lipase Venous Blood Potassium Blood Type Blood Type Confirm Antibody Screen BBK History Checked Attending/Attestation - Attestation I have personally seen and examined this patient.: Yes I have fully participated in the care of the patient.: Yes I have reviewed all pertinent clinical information: Yes Notes (Text): 09/20/18 00:37 seen and examined. Discussed with resident and formulated A&P with resident.
[2018-09-19] MEDS ORDERED: Phenol Topical 1.4% Throat Spray (180 ml) MT PRN (20:56)
--- NOTE | 2018-09-19 21:11 | CP.PCM.CON ---
<Cristopher Pfeiffer - Last Filed: 09/19/18 21:07> History of Present Illness - History of Present Illness History of Present Illness: PGY4 GI fellow consult note Patient is a 72-year-old black female with h/o partial gastric torsion, Hiatal hernia, HTN, DM, PUD, GERD, constipation, arthritis, B/L varicose veins, glaucoma, hx of dizziness/ vertigo presenting with abdominal pain. she states that she was in her normal state of health earlier today when in the afternoon she began to notice epigastric discomfort. She describes it as a "bubbly" sensation with some associated back discomfort. No precipitating or alleviating factors. she reports last bowel movement was earlier this a.m. with some mild constipation which is not atypical for her. She denies any nausea vomiting, fevers, chills, dysphagia, weight loss, melena, hematochezia. 12 point review of systems negative other than stated above Last EGD on file dated 02/10/17: signs of partial gastric torsion, 1 cm hiatal hernia, multiple sessile polyps with biopsy results of gastric fundic polyp PMH: see above PSH: Appendectomy, x 2, R foot ligament repair, Colonoscopy w/polypectomy (2016), EGD found to have partial gastric torsion Medications: Reviewed in chart Family history: Denied history of GI problems Social history: Denied 3 Allergies: Penicillinred rash Past Patient History - Infectious Disease Hx of Infectious Diseases: None - Past Social History Smoking Status: Never Smoked - CARDIAC Hx Cardiac Disorders: Yes Hx Hypertension: Yes - PULMONARY Hx Respiratory Disorders: No - NEUROLOGICAL Hx Neurological Disorder: Yes Hx Dizziness: Yes (vertigo) - HEENT Hx HEENT Problems: Yes (reading glasses) - RENAL Hx Chronic Kidney Disease: No - ENDOCRINE/METABOLIC Hx Endocrine Disorders: Yes Hx Diabetes Mellitus Type 2: Yes - HEMATOLOGICAL/ONCOLOGICAL Hx Blood Transfusions: No - INTEGUMENTARY Hx Dermatological Problems: No - MUSCULOSKELETAL/RHEUMATOLOGICAL Hx Falls: No - GASTROINTESTINAL Hx Gastrointestinal Disorders: Yes (chronic constipation) Hx Gastroesophageal Reflux: Yes Other/Comment: s/p colonoscopy/endoscopy with polyp removal - GENITOURINARY/GYNECOLOGICAL Hx Genitourinary Disorders: No - PSYCHIATRIC Hx Psychophysiologic Disorder: Yes Hx Depression: Yes Hx Substance Use: No - SURGICAL HISTORY Hx Appendectomy: Yes Hx Orthopedic Surgery: Yes (R foot orn ligament repair) Other/Comment: section x3 - ANESTHESIA Hx Anesthesia Reactions: No Hx Malignant Hyperthermia: No Meds Allergies/Adverse Reactions: Allergies Allergy/AdvReac Type Severity Reaction Status Date / Time Penicillins Allergy SWELLING Verified 02/09/17 14:52 - Medications Medications: Current Medications Sodium Chloride (Sodium Chloride 0.9%) 1,000 mls @ 100 mls/hr IV .Q10H TRISTA Phenol/Menthol (Phenaseptic 1.4% Throat [place]) 0 ml MT Q2H PRN PRN Reason: Sore Throat Physical Exam - Constitutional Appears: Well, No Acute Distress, Other - Head Exam Head Exam: ATRAUMATIC, NORMAL INSPECTION Additional comments: NG tube in place draining cloudy clear liquid with about 600 cc in the canister - Eye Exam Eye Exam: EOMI. absent: Scleral icterus - ENT Exam ENT Exam: Mucous Membranes Moist. absent: Mucous Membranes Dry - Respiratory Exam Respiratory Exam: Clear to Auscultation Bilateral, NORMAL BREATHING PATTERN. absent: Accessory Muscle Use - Cardiovascular Exam Cardiovascular Exam: REGULAR RHYTHM, RRR - GI/Abdominal Exam GI & Abdominal Exam: Distended (mildly), Normal Bowel Sounds, Soft, Tenderness (mildly tender to palpation in epigastrium and left upper quadrant without guarding). absent: Bruit, Diminished Bowel Sounds, Firm, Guarding, Hernia, Organomegaly, Pulsatile Mass, Rebound, Rigid - Rectal Exam Rectal Exam: Deferred - Extremities Exam Extremities exam: Positive for: normal inspection. Negative for: pedal edema - Neurological Exam Neurological exam: Alert, CN II-XII Intact - Psychiatric Exam Psychiatric exam: Normal Affect, Normal Mood - Skin Skin Exam: Normal Color, Warm Results - Vital Signs Recent Vital Signs: Last Vital Signs Temp 98.3 F 09/19/18 18:05 Pulse 84 09/19/18 20:10 Resp 18 09/19/18 20:10 BP 129/84 09/19/18 20:10 Pulse Ox 97 09/19/18 20:10 - Labs Result Diagrams: 09/19/18 19:20 09/19/18 19:20 Labs: Laboratory Results - last 24 hr 09/19/18 09/19/18 09/19/18 19:20 19:20 19:20 WBC 6.8 RBC 4.84 Hgb 13.1 Hct 42.0 MCV 86.8 MCH 27.1 MCHC 31.2 RDW 13.9 Plt Count 254 MPV 10.1 Neut % (Auto) 68.8 H Lymph % (Auto) 25.4 [place] % (Auto) 4.6 Eos % (Auto) 0.9 L Baso % (Auto) 0.3 Lymph # (Auto) 1.7 [place] # (Auto) 0.3 Eos # (Auto) 0.1 Baso # (Auto) 0.02 Absolute Neuts (auto) 4.65 PT 10.7 INR 0.96 APTT 30.0 pO2 45 VBG pH 7.34 VBG pCO2 56.0 VBG HCO3 30.2 H VBG Total CO2 31.9 H VBG O2 Sat (Calc) 84.6 H VBG Base Excess 3.1 H VBG Potassium 4.5 Sodium 141.0 Chloride 105.0 Glucose 169 H Lactate 1.7 FiO2 21.0 Potassium Carbon Dioxide Anion Gap BUN Creatinine Est GFR ( Amer) Est GFR (Non-Af Amer) Random Glucose Calcium Magnesium Total Bilirubin AST ALT Alkaline Phosphatase Lactate Dehydrogenase Total Creatine Kinase CK-MB (CK-2) CK-MB (CK-2) % Troponin I Total Protein Albumin Globulin Albumin/Globulin Ratio Amylase Lipase Venous Blood Potassium 4.5 Blood Type Blood Type Confirm Antibody Screen BBK History Checked 09/19/18 09/19/18 09/19/18 19:20 19:53 20:51 WBC RBC Hgb Hct MCV MCH MCHC RDW Plt Count MPV Neut % (Auto) Lymph % (Auto) [place] % (Auto) Eos % (Auto) Baso % (Auto) Lymph # (Auto) [place] # (Auto) Eos # (Auto) Baso # (Auto) Absolute Neuts (auto) PT INR APTT pO2 VBG pH VBG pCO2 VBG HCO3 VBG Total CO2 VBG O2 Sat (Calc) VBG Base Excess VBG Potassium Sodium 141 Chloride 104 Glucose Lactate FiO2 Potassium 3.9 Carbon Dioxide 31 Anion Gap 10 BUN 15 Creatinine 0.7 Est GFR ( Amer) > 60 Est GFR (Non-Af Amer) > 60 Random Glucose 168 H Calcium 9.7 Magnesium 2.1 Total Bilirubin 0.2 AST 34 ALT 38 Alkaline Phosphatase 98 Lactate Dehydrogenase 623 Total Creatine Kinase 250 H CK-MB (CK-2) 1.0 CK-MB (CK-2) % Cancelled Troponin I < 0.01 Total Protein 7.9 Albumin 4.8 Globulin 3.1 Albumin/Globulin Ratio 1.6 Amylase 115 Lipase 90 Venous Blood Potassium Blood Type B POSITIVE Blood Type Confirm B POSITIVE Antibody Screen Negative BBK History Checked No verified bt Assessment & Plan - Assessment and Plan (Free Text) Assessment: 72-year-old black female with history of partial gastric torsion, hiatal hernia, diabetes, hypertension, hyperlipidemia, GERD presenting with abdominal pain. #Abdominal pain: Most likely due to gastric torsion given history and CT findings (await final read). NG placed in the ED with significant output and some mild improvement in symptoms already. Bowel movements were normal prior to admission and patient was in normal state of health prior to presentation, with normal bowel movements, and without any SIRS criteria; therefore, doubt acute infectious colitis Plan: Continue NG decompression -Nothing by mouth Can hold off on further imaging for now given NG draining well We will reassess in a.m. and consider EGD pending course please notify if the patient worsens overnight and will consider reevaluation for emergent EGD Patient discussed with Dr. Jerez; please see attestation for further recommendations/changes <Gaston Jerez V - Last Filed: 09/19/18 22:12> Meds - Medications Medications: Current Medications Sodium Chloride (Sodium Chloride 0.9%) 1,000 mls @ 100 mls/hr IV .Q10H TRISTA Last Admin: 09/19/18 21:25 Dose: 100 mls/hr Ciprofloxacin (Cipro 400mg/200ml Dsw) 400 mg in 200 mls @ 133.3 mls/hr IVPB Q12 TRISTA; Protocol Stop: 09/19/18 23:31 Metronidazole (Flagyl) 500 mg in 100 mls @ 100 mls/hr IVPB Q8 TRISTA; Protocol Insulin Human Lispro (Humalog Low) 0 units SC ACHS TRISTA; Protocol Morphine Sulfate (Morphine) 2 mg IVP Q4H PRN PRN Reason: Pain, moderate (4-7) Phenol/Menthol (Phenaseptic 1.4% Throat [place]) 0 ml MT Q2H PRN PRN Reason: Sore Throat Last Admin: 09/19/18 21:20 Dose: 3 spray Results - Vital Signs Recent Vital Signs: Last Vital Signs Temp 98.3 F 09/19/18 18:05 Pulse 76 09/19/18 21:29 Resp 18 09/19/18 21:29 BP 122/82 09/19/18 21:29 Pulse Ox 97 09/19/18 21:29 - Labs Result Diagrams: 09/19/18 19:20 09/19/18 19:20 Labs: Laboratory Results - last 24 hr 09/19/18 09/19/18 09/19/18 19:20 19:20 19:20 WBC 6.8 RBC 4.84 Hgb 13.1 Hct 42.0 MCV 86.8 MCH 27.1 MCHC 31.2 RDW 13.9 Plt Count 254 MPV 10.1 Neut % (Auto) 68.8 H Lymph % (Auto) 25.4 [place] % (Auto) 4.6 Eos % (Auto) 0.9 L Baso % (Auto) 0.3 Lymph # (Auto) 1.7 [place] # (Auto) 0.3 Eos # (Auto) 0.1 Baso # (Auto) 0.02 Absolute Neuts (auto) 4.65 PT 10.7 INR 0.96 APTT 30.0 pO2 45 VBG pH 7.34 VBG pCO2 56.0 VBG HCO3 30.2 H VBG Total CO2 31.9 H VBG O2 Sat (Calc) 84.6 H VBG Base Excess 3.1 H VBG Potassium 4.5 Sodium 141.0 Chloride 105.0 Glucose 169 H Lactate 1.7 FiO2 21.0 Potassium Carbon Dioxide Anion Gap BUN Creatinine Est GFR ( Amer) Est GFR (Non-Af Amer) Random Glucose Calcium Magnesium Total Bilirubin AST ALT Alkaline Phosphatase Lactate Dehydrogenase Total Creatine Kinase CK-MB (CK-2) CK-MB (CK-2) % Troponin I Total Protein Albumin Globulin Albumin/Globulin Ratio Amylase Lipase Venous Blood Potassium 4.5 Blood Type Blood Type Confirm Antibody Screen BBK History Checked 09/19/18 09/19/18 09/19/18 19:20 19:53 20:51 WBC RBC Hgb Hct MCV MCH MCHC RDW Plt Count MPV Neut % (Auto) Lymph % (Auto) [place] % (Auto) Eos % (Auto) Baso % (Auto) Lymph # (Auto) [place] # (Auto) Eos # (Auto) Baso # (Auto) Absolute Neuts (auto) PT INR APTT pO2 VBG pH VBG pCO2 VBG HCO3 VBG Total CO2 VBG O2 Sat (Calc) VBG Base Excess VBG Potassium Sodium 141 Chloride 104 Glucose Lactate FiO2 Potassium 3.9 Carbon Dioxide 31 Anion Gap 10 BUN 15 Creatinine 0.7 Est GFR ( Amer) > 60 Est GFR (Non-Af Amer) > 60 Random Glucose 168 H Calcium 9.7 Magnesium 2.1 Total Bilirubin 0.2 AST 34 ALT 38 Alkaline Phosphatase 98 Lactate Dehydrogenase 623 Total Creatine Kinase 250 H CK-MB (CK-2) 1.0 CK-MB (CK-2) % Cancelled Troponin I < 0.01 Total Protein 7.9 Albumin 4.8 Globulin 3.1 Albumin/Globulin Ratio 1.6 Amylase 115 Lipase 90 Venous Blood Potassium Blood Type B POSITIVE Blood Type Confirm B POSITIVE Antibody Screen Negative BBK History Checked No verified bt Attending/Attestation - Attestation I have personally seen and examined this patient.: No I have fully participated in the care of the patient.: Yes I have reviewed all pertinent clinical information: Yes
[2018-09-19] MEDS: Sodium Chloride 0.9% 1,000 ML IV SCH (21:25)
[2018-09-19] MEDS ORDERED: Morphine 4 mg/ml ISec IVP PRN (21:27)
[2018-09-19] MEDS ORDERED: DiphenhydrAMINE 50 mg/ml Inj IVP STA (21:36)
[2018-09-19] MEDS ORDERED: Ciprofloxacin 400mg/200ml D5W 400 MG/200 ML BAG IVPB SCH (22:00)
[2018-09-19] MEDS: Morphine 2 mg/ml ISec IVP PRN (22:18)
[2018-09-19] MEDS: metroNIDAZOLE IV 500 mg/100 ml 500 MG/100 ML BAG IVPB SCH (22:58)
[2018-09-19] MEDS: Insulin Lispro (humaLOG) LOW Coverage SC SCH (23:00)
[2018-09-19 23:52] VITALS: BMI 27.8
[2018-09-20 01:07] LABS: URINE BILIRUBIN NEGATIVE (NEGATIVE); URINE BLOOD NEGATIVE (NEGATIVE); URINE GLUCOSE (UA) NEGATIVE (NEGATIVE); URINE LEUKOCYTE ESTERASE SMALL Leu/uL (NEGATIVE); URINE PROTEIN NEGATIVE mg/dL (<30 mg/dL); URINE UROBILINOGEN 0.2 E.U./dL (<1 E.U./dL)
[2018-09-20 01:21] LABS: URINE APPEARANCE SL CLOUDY (CLEAR); URINE COLOR LIGHT YELLOW (YELLOW)
[2018-09-20 01:36] LABS: URINE BACTERIA OCC /hpf; URINE EPITHELIAL CELLS 0 - 2 /hpf (0-5); URINE RBC 0 - 2 /hpf (0-2)
[2018-09-20] MEDS: Morphine 2 mg/ml ISec IVP PRN ×3 (03:05→14:29)
[2018-09-20] MEDS: metroNIDAZOLE IV 500 mg/100 ml 500 MG/100 ML BAG IVPB SCH (05:13)
[2018-09-20] MEDS: Insulin Lispro (humaLOG) LOW Coverage SC SCH ×3 (07:51→16:36)
--- NOTE | 2018-09-20 08:17 | CP.PCM.PN ---
Subjective - Date & Time of Evaluation Date of Evaluation: 09/20/18 Time of Evaluation: 07:00 - Subjective Subjective: Surgery Progress note. Dr. Jeronimo Pt seen and examined at bedside this morning. She states that her abdominal pain is improved compared to yesterday. C/o the urge to urinate but is unable to. She denies any more episodes of N/V. NGT in place with 800cc total output since placement. Does admit to passing flatus last night. Objective - Vital Signs/Intake and Output Vital Signs (last 24 hours): Temp Pulse Resp BP Pulse Ox 97.6 F 73 17 147/88 96 09/20/18 04:00 09/20/18 08:00 09/20/18 06:50 09/20/18 06:00 09/20/18 06:50 Intake and Output: 09/20/18 09/20/18 06:59 18:59 Intake Total Output Total Balance - Medications Medications: Current Medications Sodium Chloride (Sodium Chloride 0.9%) 1,000 mls @ 100 mls/hr IV .Q10H TRISTA Last Admin: 09/19/18 21:25 Dose: 100 mls/hr Insulin Human Lispro (Humalog Low) 0 units SC ACHS TRISTA; Protocol Last Admin: 09/20/18 07:51 Dose: Not Given Morphine Sulfate (Morphine) 2 mg IVP Q4H PRN PRN Reason: Pain, moderate (4-7) Last Admin: 09/20/18 07:51 Dose: 2 mg Pantoprazole Sodium (Protonix Inj) 40 mg IVP DAILY TRISTA Phenol/Menthol (Phenaseptic 1.4% Throat [place]) 0 ml MT Q2H PRN PRN Reason: Sore Throat Last Admin: 09/19/18 21:20 Dose: 3 spray - Labs Labs: 09/19/18 19:20 09/19/18 19:20 PT 10.7 SECONDS (9.4-12.5) 09/19/18 19:20 INR 0.96 09/19/18 19:20 APTT 30.0 Seconds (26.9-38.3) 09/19/18 19:20 - Constitutional Appears: Non-toxic, No Acute Distress - Head Exam Head Exam: ATRAUMATIC, NORMAL INSPECTION, NORMOCEPHALIC - Eye Exam Eye Exam: EOMI, Normal appearance. absent: Scleral icterus - ENT Exam ENT Exam: Mucous Membranes Moist - Respiratory Exam Respiratory Exam: NORMAL BREATHING PATTERN. absent: Accessory Muscle Use, Respiratory Distress - Cardiovascular Exam Cardiovascular Exam: absent: JVD - GI/Abdominal Exam GI & Abdominal Exam: Soft. absent: Distended, Firm, Guarding, Rebound Additional comments: Mild tenderness to palpation. - Neurological Exam Neurological Exam: Alert, Awake, Oriented x3 - Psychiatric Exam Psychiatric exam: Normal Affect, Normal Mood - Skin Skin Exam: Dry, Intact, Normal Color, Warm Assessment and Plan - Assessment and Plan (Free Text) Assessment: 72yo F with hx of partial gastric torsion, here with recurrent abd pain. Plan: - Maintain NPO - Conservative management for now - Continue NGT to Low suction for decompression - Pain control - f/u GI recs, consider EGD for re-evaluation - No acute surgical intervention warranted at this time Further recs as per Dr. Kandace Barron PGY2 surgery
--- NOTE | 2018-09-20 09:01 | RAD ---
Date of service: 09/19/2018 HISTORY: chest pain COMPARISON: Portable chest 02/09/2017. FINDINGS: LUNGS: No active pulmonary disease. PLEURA: No significant pleural effusion identified, no pneumothorax apparent. CARDIOVASCULAR: No aortic atherosclerotic calcification present. Normal cardiac size. No pulmonary vascular congestion. OSSEOUS STRUCTURES: No significant abnormalities. VISUALIZED UPPER ABDOMEN: Slightly elevated left hemidiaphragm reiterated. OTHER FINDINGS: None. IMPRESSION: No interval acute cardiopulmonary disease appreciated.
--- NOTE | 2018-09-20 09:36 | RAD ---
Date of service: 09/19/2018 HISTORY: ngt placement COMPARISON: Portable chest 09/19/2018, 7:10 p.m.. FINDINGS: LUNGS: Interval nasogastric tube is in placed terminating in the left hiro abdomen. PLEURA: No significant pleural effusion identified, no pneumothorax apparent. CARDIOVASCULAR: No aortic atherosclerotic calcification present. Normal cardiac size. No pulmonary vascular congestion. OSSEOUS STRUCTURES: No significant abnormalities. VISUALIZED UPPER ABDOMEN: Air is seen in the gastric viscus left upper quadrant which appears somewhat distended. OTHER FINDINGS: None. IMPRESSION: Adequate nasogastric tube deployment. No acute cardiopulmonary disease appreciable.
[2018-09-20 10:23] LABS: HEMOGLOBIN 12.8 g/dL (12.0-16.0); MEAN CELL VOLUME 86.8 fl (80.0-105.0); MEAN CORPUSCULAR HEMOGLOBIN 27.3 pg (25.0-35.0); MEAN CORPUSCULAR HGB CONC 31.4 g/dl (31.0-37.0); MEAN PLATELET VOLUME 10.1 fl (7.0-11.0); RBC 4.69 10^6/uL (3.5-6.1); RED CELL DISTRIBUTION WIDTH 14.1 % (11.5-14.5); WHITE BLOOD COUNT 8.9 10^3/uL (4.5-11.0)
[2018-09-20] MEDS: Sodium Chloride 0.9% 1,000 ML IV SCH (10:30)
--- NOTE | 2018-09-20 10:30 | PN ---
DATE: 09/20/2018 COLLATERAL CLERK NOTE SUBJECTIVE: The patient is resting in bed, but complains of lower abdominal pain that radiates to her back. No nausea or vomiting this morning. No diarrhea. The patient also stated that her bladder feels full and a Wright was placed. The patient had approximately 1000 mL of urine. No present fever, chills. No coughing or congestion. Hemodynamically, she seemed to be stable. The patient has been consulted by GI. PHYSICAL EXAMINATION: VITAL SIGNS: Her temperature is 97.6, pulse is 73, respirations of 17, BP is 147/88. SKIN: Warm and dry. HEENT: Head atraumatic, normocephalic. Eyes, reactive to light. Ears, nose, and throat seemed to be within normal limits. NECK: Supple. No JVD. No thyroid enlargement. No lymph nodes. HEART: Regular rate and rhythm. Normal S1, S2. LUNGS: Reveal good breath sounds bilaterally. ABDOMEN: Soft but tender to palpation in the lower regions. Positive bowel sounds. GENITALIA AND RECTAL: Deferred. MUSCULOSKELETAL: No joint deformities. EXTREMITIES: Reveal trace lower extremity edema. NEUROLOGIC: She seemed to be grossly intact. LABORATORY DATA: As far as her laboratories are concerned, her white count is 6.8, hemoglobin is 13.1, hematocrit 42 with platelets of 254,000. The patient's sodium is 141, potassium 3.9, chloride 104, CO2 of 31 with a BUN of 15, creatinine of 0.7, and glucose of 165. CT of the abdomen as well as chest x-ray readings are pending. IMPRESSION: This patient presents with acute abdominal pain and has a history of gastric volvulus, it is felt that there may be a reoccurrence of the gastric volvulus. The patient has a history of hypertension, diabetes, and is noted to have urinary retention on this admission. PLAN: As far as our plan, GI has been consulted. We are awaiting the reading of the CT scan of the abdomen. The patient has NG tube placement to suction. She has pain meds of morphine and Protonix. She is getting IV fluids. Surgery as well as GI has been consulted as well as Infectious Disease with Dr. West. We will continue to treat aggressively along with the other consultants and the primary care doctor. Jeyson Penaloza MD
[2018-09-20] MEDS ORDERED: DOPamine 400mg/250ml D5W 400 MG/250 ML BAG IV ONE (10:33)
[2018-09-20 10:38] LABS: ALB/GLOB RATIO 1.6 (1.1-1.8); ALBUMIN 4.4 g/dL (3.0-4.8); ALT/SGPT 35 U/L (7-56); AST/SGOT 27 U/L (14-36); BLOOD UREA NITROGEN 11 mg/dL (7-21); CALCIUM 8.7 mg/dL (8.4-10.5); GFR NON-AFRICAN AMERICAN > 60
[2018-09-20] MEDS ORDERED: DOPamine 400mg/250ml D5W 400 MG/250 ML BAG IV PRN (10:42)
[2018-09-20 12:12] LABS: ARTERIAL BLOOD GAS HCO3 26.6 mmol/L (21-28); ARTERIAL BLOOD GAS HEMOGLOBIN 13.1 g/dL (11.7-17.4); ARTERIAL BLOOD GAS PCO2 45 mm/Hg (35-45); ARTERIAL BLOOD GAS PH 7.38 (7.35-7.45)
[2018-09-20] MEDS ORDERED: Midazolam 2 MG/2 ML VIAL ONE (12:45)
[2018-09-20] MEDS ORDERED: Lidocaine PF 2% (5 ml) Inj (For Cardiac Arrhy) ONE (12:46)
--- NOTE | 2018-09-20 12:59 | CP.PCM.PN ---
<Cristopher Pfeiffer - Last Filed: 09/20/18 12:55> Subjective - Date & Time of Evaluation Date of Evaluation: 09/20/18 Time of Evaluation: 12:30 - Subjective Subjective: PGY4 GI fellow progress note Patient lying in bed when seen this morning. She reports some mild dizziness. States the abdominal discomfort is slightly improved but still present. NG has drained at least 1100 mL of cloudy phillips fluid Five-point review of systems negative other than stated above Objective - Vital Signs/Intake and Output Vital Signs (last 24 hours): Temp Pulse Resp BP Pulse Ox 97.4 F L 67 22 119/71 100 09/20/18 08:00 09/20/18 12:00 09/20/18 10:50 09/20/18 10:45 09/20/18 10:50 Intake and Output: 09/20/18 09/20/18 06:59 18:59 Intake Total Output Total 1000 Balance -1000 - Medications Medications: Current Medications Sodium Chloride (Sodium Chloride 0.9%) 1,000 mls @ 100 mls/hr IV .Q10H TRISTA Last Admin: 09/20/18 10:30 Dose: 100 mls/hr Dopamine HCl/Dextrose (Dopamine 400mg/250ml D5w) 400 mg in 250 mls @ 14.254 mls/hr IV .[id number] PRN; Protocol PRN Reason: TITRATE PER MD ORDER Last Admin: 09/20/18 10:30 Dose: 5 mcg/kg/min, 14.254 mls/hr Insulin Human Lispro (Humalog Low) 0 units SC ACHS [facility]; Protocol Last Admin: 09/20/18 12:47 Dose: Not Given Morphine Sulfate (Morphine) 2 mg IVP Q4H PRN PRN Reason: Pain, moderate (4-7) Last Admin: 09/20/18 07:51 Dose: 2 mg Ondansetron HCl (Zofran Inj) 4 mg IVP Q4H PRN PRN Reason: Nausea/Vomiting Pantoprazole Sodium (Protonix Inj) 40 mg IVP DAILY TRISTA Last Admin: 09/20/18 11:13 Dose: 40 mg Phenol/Menthol (Phenaseptic 1.4% Throat [place]) 0 ml MT Q2H PRN PRN Reason: Sore Throat Last Admin: 09/19/18 21:20 Dose: 3 spray - Labs Labs: 09/20/18 10:00 09/20/18 10:00 PT 10.7 SECONDS (9.4-12.5) 09/19/18 19:20 INR 0.96 09/19/18 19:20 APTT 30.0 Seconds (26.9-38.3) 09/19/18 19:20 - Constitutional Appears: Well - Head Exam Head Exam: ATRAUMATIC, NORMAL INSPECTION - Eye Exam Eye Exam: EOMI. absent: Scleral icterus - ENT Exam ENT Exam: Mucous Membranes Dry. absent: Mucous Membranes Moist Additional comments: NG tube in place - Respiratory Exam Respiratory Exam: NORMAL BREATHING PATTERN. absent: Accessory Muscle Use - GI/Abdominal Exam GI & Abdominal Exam: Soft, Tenderness (mildly tender to palpation in epigastrium and left upper quadrant without guarding), Normal Bowel Sounds. absent: Bruit, Distended, Firm, Guarding, Rigid, Pulsatile Mass, Rebound Assessment and Plan - Assessment and Plan (Free Text) Assessment: 72-year-old black female with history of partial gastric torsion, hiatal hernia, diabetes, hypertension, hyperlipidemia, GERD presenting with abdominal pain. #Abdominal pain: Most likely due to gastric torsion given history, CT with possible proximal small bowel obstruction. NG placed in the ED with significant output and some mild improvement in symptoms. Bowel movements were normal prior to admission and patient was in normal state of health prior to presentation, with normal bowel movements, and without any SIRS criteria; therefore, doubt acute infectious colitis #symptomatic bradycardia: Overnight patient with pauses and bradycardia. Primary team plans for pacemaker placement Plan: Continue NG decompression -Nothing by mouth Hold off on EGD at this time pending further cardiac evaluation We will reassess in a.m. and consider EGD pending course Please notify if the patient worsens overnight and will consider reevaluation for emergent EGD Patient seen and examined with Dr. Jerez; please see attestation for further recommendations/changes <Gaston Jerez V - Last Filed: 09/20/18 23:34> Objective - Vital Signs/Intake and Output Vital Signs (last 24 hours): Temp Pulse Resp BP Pulse Ox 98.4 F 59 L 20 159/84 H 100 09/20/18 16:00 09/20/18 18:00 09/20/18 17:10 09/20/18 17:00 09/20/18 17:10 Intake and Output: 09/20/18 09/21/18 18:59 06:59 Intake Total 1254 Output Total 2700 Balance -1446 - Medications Medications: Current Medications Sodium Chloride (Sodium Chloride 0.9%) 1,000 mls @ 100 mls/hr IV .Q10H [facility] Last Admin: 09/20/18 10:30 Dose: 100 mls/hr Insulin Human Lispro (Humalog Low) 0 units SC ACHS [facility]; Protocol Last Admin: 09/20/18 16:36 Dose: Not Given Morphine Sulfate (Morphine) 2 mg IVP Q4H PRN PRN Reason: Pain, moderate (4-7) Last Admin: 09/20/18 14:29 Dose: 2 mg Ondansetron HCl (Zofran Inj) 4 mg IVP Q4H PRN PRN Reason: Nausea/Vomiting Pantoprazole Sodium (Protonix Inj) 40 mg IVP DAILY [facility] Last Admin: 09/20/18 11:13 Dose: 40 mg Phenol/Menthol (Phenaseptic 1.4% Throat [place]) 0 ml MT Q2H PRN PRN Reason: Sore Throat Last Admin: 09/19/18 21:20 Dose: 3 spray Sodium Chloride ([place] Nasal [place]) 0 ml NS Q4H PRN PRN Reason: Nasal congestion - Labs Labs: 09/20/18 10:00 09/20/18 10:00 PT 10.7 SECONDS (9.4-12.5) 09/19/18 19:20 INR 0.96 09/19/18 19:20 APTT 30.0 Seconds (26.9-38.3) 09/19/18 19:20 Attending/Attestation - Attestation I have personally seen and examined this patient.: Yes I have fully participated in the care of the patient.: Yes I have reviewed all pertinent clinical information, including history, physical exam and plan: Yes Notes (Text): This is an addendum to GI progress report dictated by the GI Fellow. The patient was seen and examined earlier. Medical records, lab studies, imagings were reviewed. Last 24 hours events reviewed. Agreed with the above treatment plan as outlined in GI Fellow 's notes with the addition of the following 09/20/18 23:34
--- NOTE | 2018-09-20 13:06 | CT ---
Date of service: 09/19/2018 PROCEDURE: CT Abdomen and Pelvis without intravenous contrast HISTORY: abdominal pain COMPARISON: None. TECHNIQUE: Helical CT of the abdomen and pelvis was performed without oral or intravenous contrast as per referring physician request. Coronal and sagittal reformats were generated.. Contrast dose: None Radiation dose: Total exam DLP = 512.55 mGy-cm. This CT exam was performed using one or more of the following dose reduction techniques: Automated exposure control, adjustment of the mA and/or kV according to patient size, and/or use of iterative reconstruction technique. FINDINGS: LOWER THORAX: Minimal bilateral basilar dependent atelectasis appreciated bilaterally. Mild left hemidiaphragm elevation noted. LIVER: Unremarkable. No gross lesion or ductal dilatation. GALLBLADDER AND BILE DUCTS: Unremarkable. PANCREAS: Unremarkable. No gross lesion or ductal dilatation. SPLEEN: Unremarkable. ADRENALS: Unremarkable. No mass. KIDNEYS AND URETERS: Unremarkable. No hydronephrosis. No solid mass. VASCULATURE: Unremarkable. No aortic aneurysm. No aortic atherosclerotic calcification or mural plaque present. BOWEL: The stomach is distended with retained food fluid and air. Thickening of the antrum may reflect gastritis. There is a loop of distal small bowel which appears interposed between the right lobe of the liver and the abdominal wall/thoracic cage which appears to be obstructing the small bowel with fecalization of more proximal small bowel loops at the right hiro abdomen but without generalized small bowel dilatation appreciated at this time. Retained fecal material is identified in a relatively prominent basis at the mid large-bowel with lesser volumes at the proximal and distal segments. APPENDIX: Not clearly identified. No CT evidence of appendicitis at this time. PERITONEUM: Unremarkable. No free fluid. No free air. LYMPH NODES: No significant lymphadenopathy. BLADDER: Unremarkable. REPRODUCTIVE: Unremarkable. BONES: Degenerative spondylolisthesis L4 anterior to L5. No spondylolysis identified. OTHER FINDINGS: None. IMPRESSION: 1. Findings likely reflect distal small-bowel obstruction with a loop of small bowel interposed between the right lobe liver in the abdominal wall with immediately proximal small bowel fecalized and distended. Clinically correlate further. 2. Possible gastritis. Preliminary report provided by Rachel, 09/19/2018, 8:32 p.m..
--- NOTE | 2018-09-20 13:31 | CON ---
DATE: 09/20/2018 LOCATION: The patient is in CCU 129, bed 7. REASON FOR CONSULTATION: Bradycardia with pauses, hypertension, diabetes and abdominal pain. HISTORY OF PRESENT ILLNESS: A 72-year-old female admitted with sudden onset of abdominal pain. Yesterday, when she started having pain and she also felt nauseated. She felt like to get vomiting, but she did not vomit. Denies chest pain, shortness of breath or palpitations associated with that. The patient has a new feeding tube. The patient still feels nauseated. The patient is a known case of hypertension, diabetes mellitus. Denies any history of anginal symptoms or IA. Denies PND. PAST MEDICAL HISTORY: Positive for hypertension, diabetes, 3 C-sections, torn ligament foot Surgery. PERSONAL HISTORY: Denies smoking. Denies drinking. ALLERGIES: THE PATIENT IS ALLERGIC TO PENICILLIN. SHE SAYS THAT SHE GET SWELLING WITH PENICILLIN. LIST OF HOME MEDICATIONS: Metformin 500 mg p.o. daily, amlodipine 10 mg daily, Hytrin 1 mg daily, Crestor 10 mg daily, Aricept 5 mg daily. REVIEW OF SYSTEMS: All the systems reviewed, positive mentioned in the history, otherwise negative. PHYSICAL EXAMINATION: VITAL SIGNS: On admission blood pressure 144/79, respirations 17, pulse 63 at this present moment. HEENT: Head is normocephalic. Eyes; pupils normal. Conjunctivae normal. Nose and throat normal. NECK: JVP low. Carotid equal. THORAX: AP diameter normal. LUNGS: Clear. CARDIOVASCULAR: S1 and S2. ABDOMEN: Soft, there is tenderness in the epigastrium. No rigidity. EXTREMITIES: No clubbing. No cyanosis. LABORATORY DATA: Shows WBC 8.9, hemoglobin 12.8, hematocrit 40.7, and platelets 211. Sodium 139, potassium 3.7, BUN 11, and creatinine 0.6. Calcium, phosphorus, magnesium normal. AST and ALT normal. Troponin x2 negative. Total protein and albumin are normal. Chest x-ray is clear. EKG showed regular sinus rhythm. OR prolonged nonspecific ST-T changes. Rhythm monitor shows pause of 3 seconds, 1 pause of 6 seconds and 1 pause of 9 seconds pause. With the 9 second pause, the patient complained of dizziness. DIAGNOSES: Episode of pauses of 3 to 9 seconds, hypertension, diabetes mellitus, hypercholesterolemia, 3-9 Seconds sinus pauses, bradycardia, diabetes, hypertension, abdominal pain with nausea. PLAN: Bradycardia,partly may be related to nausea. We will check TSH and we will also do an echocardiogram to assess LV function. In the meantime, we will put also dopamine drip, External Pacemaker and we will check TSH. The patient already on insulin, famotidine 20 mg IV stat was given, Protonix 40 mg IV daily. IV Fluid getting sodium chloride 100 mL an hour. We will check TSH and we will do an echocardiogram and we will monitor closely. The patient also has standby external pacemaker, atropine IV can be also use, if the patient gets symptomatic bradyarrhythmia and we will follow with you closely. Dilcia Zhang MD MTDD
--- NOTE | 2018-09-20 16:33 | CARDCATH ---
PROCEDURE DATE: 09/20/2018 The case was referred to me by Dr. Zhang. The patient was initially admitted for abdominal pain and according to the surgical team was diagnosed with gastric volvulus. The patient was noted to have high-grade AV block with significant pauses for non-conducted atrial beats as long as 9 seconds, they were frequent ones. The patient did report recent new syncopal episode at that time. The plan was initially to place a bedside transvenous temporary pacemaker via internal jugular approach. The consent was obtained from the patient's daughter, however, attempts were unsuccessful. The right internal carotid artery was accessed in such attempt but hemostasis was achieved and they were no complications. A decision was made to proceed with temporary transvenous pacemaker in the medical lab technician under fluoroscopic guidance. The family did sign another consent. The patient was taken to the cardiac medical lab technician. The right groin was prepped and shaved with Betadine and after local infiltration with 1% lidocaine, a 5-[place]ut[place] sheath was placed in the right femoral vein. A 5-[place] temporary transvenous pacemaker was placed in the right ventricular apex and parameters of pacing were established. Testing revealed good position and good threshold which was less than 0.5 mA and the setting of the pacemaker were at 2 mA output, heart rate of 60 with maximum sensitivity. The patient will be taken back to the ICU. Case was discussed with the die inspector, nursing team and Dr. Zhang. Further decision for a need of any permanent pacemaker will be decided by Dr. Zhang from now on and my role was limited to urgent placement of the temporary transvenous pacemaker. In case, the patient needs any endoscopic or surgical intervention under general anesthesia. The nursing team was made aware of the fact that attention has to be paid during the patient movement for any reason not to pull on the pacemaker lead accidentally. Nicholas Jesus MD
--- NOTE | 2018-09-20 18:16 | RAD ---
Date of service: 09/20/2018 HISTORY: F/u gastric torsion post-NG COMPARISON: Abdomen pelvis CT without contrast 09/19/2018. FINDINGS: BOWEL: A nasogastric tube is in placed terminating at the epigastric region. Stomach appears at least partially decompressed. No visible gas in the lumen. No free intra peritoneal gas collection identified. Nonobstructive bowel gas pattern evident. Moderate retained fecal material is seen throughout the large bowel. No definite abnormal internal calcifications with phlebolith like calcification noted at the inferior pelvic soft tissues. BONES: No acute fracture appreciable. OTHER FINDINGS: None. IMPRESSION: Status post nasogastric tube deployment at least decompressing the stomach in part. Nonobstructive bowel gas pattern. No free intra peritoneal gas collection identified.
--- NOTE | 2018-09-20 18:39 | RAD ---
Date of service: 09/20/2018 HISTORY: post pacemaker COMPARISON: Portable chest 09/19/2018. FINDINGS: LUNGS: No active pulmonary disease. PLEURA: No significant pleural effusion identified, no pneumothorax apparent. CARDIOVASCULAR: No aortic atherosclerotic calcification present. Normal cardiac size. No pulmonary vascular congestion. OSSEOUS STRUCTURES: No significant abnormalities. VISUALIZED UPPER ABDOMEN: Nasogastric tube identified the left hiro abdomen with diminished gas seen at the left upper quadrant suggesting decompressing of the stomach. OTHER FINDINGS: None. IMPRESSION: No interval acute infiltrate, pleural effusion or pneumothorax bilaterally. No pulmonary vascular congestion. NG tube unchanged in position.
--- NOTE | 2018-09-20 18:53 | US ---
Date of service: 09/20/2018 HISTORY: rule out cholecystitis COMPARISON: Abdomen CT without contrast 09/19/2018. TECHNIQUE: Sonographic evaluation of the abdomen. FINDINGS: LIVER: Measures 14.9 cm. Normal echogenicity of the liver parenchyma. Normal directional blood flow is seen at the main portal vein. No mass. No intrahepatic bile duct dilatation. GALLBLADDER: Unremarkable. No gallstones. COMMON BILE DUCT: Measures 5.1 mm. No stones. No dilatation. PANCREAS: Unremarkable as visualized. No mass. No significant ductal dilatation. RIGHT KIDNEY: Measures 9.7cm. Normal echogenicity. No calculus, mass, or hydronephrosis. LEFT KIDNEY: Measures 9.8cm. Normal echogenicity. A simple cyst seen at the upper pole medially, measuring 2.7 x 2.2 x 2.5 cm. No calculus, mass, or hydronephrosis. SPLEEN: Normal in size and contour, measuring 7.1 cm greatest dimension. No mass. AORTA: No aneurysmal dilatation. IVC: Unremarkable. OTHER FINDINGS: None. IMPRESSION: 2.7 cm simple cyst upper pole right kidney with remainder of the examination unremarkable.
--- NOTE | 2018-09-20 19:28 | CON ---
DATE OF CONSULTATION: 09/20/2018 The patient was seen earlier today in [facility], bed 7. CHIEF COMPLAINT: Abdominal pain x1 to 2 days duration. HISTORY OF PRESENT ILLNESS: This is a 72-year-old female, who was admitted with abdominal pain, who reports that her back is worsening and progressively getting worse, and she last moved her bowels yesterday, and she denies any chest pain or shortness of breath, and no vomiting. No dysuria or frequency. REVIEW OF SYSTEMS: Reveals the patient to have 12-point review of systems as noted. PAST MEDICAL HISTORY: The patient's past medical history is significant for hypertension, coronary artery disease, diabetes mellitus, GERD, depression, and arthritis. PAST SURGICAL HISTORY: Significant for appendectomy, right foot surgery. ALLERGIES: THE PATIENT STATES SHE IS ALLERGIC TO PENICILLIN. SHE STATES SHE GETS SWELLING. MEDICATIONS: Home medications include metformin, amlodipine, Hytrin, rosuvastatin, and Aricept. PHYSICAL EXAMINATION: GENERAL: The patient is in bed, in no acute distress. However, she appears washed out. VITAL SIGNS: Temperature of 98; pulse of 67, it was up to 101 in the emergency room and also it was 95; respiratory rate of 16, it was up to 30 in the emergency room; blood pressure is 140/80. HEENT: Examination of HEENT is unremarkable. NECK: Supple. LUNGS: Have decreased breath sounds. HEART: Normal S1, S2. ABDOMEN: Soft. There is mild tenderness, but no rebound, no guarding, and no masses. LABORATORY DATA: Laboratory examination reveals a white count of 6.8, platelets of 254. BUN of 15, creatinine of 0.7. Urinalysis is unremarkable. The patient had a chest x-ray, the results are pending. Had a CT scan of the abdomen and pelvis, the results are pending. Emergency room chart by Dr. Charles Morales is reviewed. He states the patient has abdominal pain. The emergency room chart, CT scan results are noted that the patient's gallbladder is normal, lung bases are negative, the liver is unremarkable, pancreas is unremarkable, adrenal glands and kidneys are also unremarkable, there is dilated loops of small bowel, suspicious for small bowel obstruction, and the colitis of ascending colon read by . Consultation by is reviewed, who is the Gastroenterology fellow. His assessment is the patient has partial gastric torsion, without any SIRS criteria. He doubts acute infectious colitis. Dr. Gely Burgos's consultation is also reviewed. Partial gastric torsion is noted. ASSESSMENT AND PLAN: This is a 72-year-old female with history of appendectomy and history of in the past, admitted with abdominal pain with a partial gastric torsion and small bowel obstruction without any leukocytosis. No fevers and WAS ALLERGIC TO PENICILLIN. At this time, the patient is only on Flagyl. We will discontinue the Flagyl, and we will hold off on any antibiotics. We will check on panculture results. I will make further recommendations. Benny West MD
--- NOTE | 2018-09-20 19:51 | CARD ---
APPROVED REPORT Date of service: 09/19/2018 EKG Measurement Heart [id number] <Conclusion> Sinus rhythm with 1st degree AV block Nonspecific T wave abnormality Prolonged QT Abnormal ECG
--- NOTE | 2018-09-20 22:37 | CARD ---
APPROVED REPORT Date of service: 09/20/2018 EKG Measurement Heart [id number] <Conclusion> Sinus rhythm with 1st degree AV block Moderate voltage criteria for LVH, may be normal variant Nonspecific T wave abnormality Abnormal ECG
--- NOTE | 2018-09-20 23:24 | HP ---
DATE OF EXAM: 09/20/2018 CHIEF COMPLAINT AND HISTORY OF PRESENT ILLNESS: This is a 72-year-old female, who has come into the hospital with a past medical history of hypertension, diabetes type 2, reflux, constipation, and is having abdominal pain. The patient says that she started having abdominal pain at mid abdomen. She says that she also has had epigastric discomfort. The pain was getting worse, it was about 8/10. She denied any nausea or vomiting. She says that she has been having difficulty with urinating as well. She denies any fevers or chills. No rectal bleeding. The patient had an NG tube that was placed and had 500 mL of fluid that was taken out. She says she has been having improvement of symptoms after she had her NG tube suction. The patient states that she was here in 2016 and at that time she was having abdominal pain and had a volvulus. She has seen Dr. Jerez and has improvement of her symptoms. She had an EGD done in 01/2017 that showed partial gastric torsion and a 1 cm hiatal hernia. The patient had a CAT scan in the emergency room that showed possible small bowel obstruction and an ascending colitis. She says the morphine does help her pain. Currently her pain is mild, it is about 2 to 3/10. All other review of symptoms are within normal limits except what was mentioned. PAST MEDICAL HISTORY: Previously done is hypertension, GERD, constipation, osteoarthritis, and glaucoma. PAST SURGICAL HISTORY: 1. Right foot ligament repair. 2. EGD and colonoscopy in 2017. 3. Appendectomy. 4. x2. ALLERGIES: PENICILLIN. SOCIAL HISTORY: She denies smoking, drinking or drugs. 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 PHYSICAL EXAMINATION: VITAL SIGNS: Temperature is 98.4, pulse is 68, blood pressure is 153/82, respiration is 18, O2 saturations 100%. Height is 5 feet 5 inches. Weight is 167 pounds. BMI is 27. GENERAL: The patient is lying in bed, comfortable, and in no acute distress. HEENT: Atraumatic and normocephalic. Anicteric sclerae. Moist mucosa. [place] conjunctivae. No oral lesions. NECK: No JVD, anterior and posterior adenopathy, thyromegaly, or bruits. CARDIOVASCULAR: S1 and S2 regular. No murmurs, rubs or gallops. LUNGS: Clear to auscultation bilaterally. No wheezes, rales, or rhonchi. ABDOMEN: Bowel sounds are positive. There is tenderness in the umbilical area. No rebound. No guarding. Decreased bowel sounds. EXTREMITIES: No cyanosis, clubbing, or edema. NEUROLOGIC: No facial asymmetry. Tongue is midline. No uvula deviation. Power is 5/5 upper extremities and lower extremities. Sensation intact in upper extremities and lower extremities. PSYCHIATRIC: She is awake, alert and oriented x3. No anxiety or depression. She has normal affect. GENITOURINARY: No CVA tenderness. VASCULAR: 2+ pulses in the carotid pulses and pedal pulses. SKIN: No erythema or nodules. SPINE: Shows normal curvature. LABORATORY DATA: White count of 6.8, hemoglobin 13.1, and platelet count is 254. INR is 0.96. ABG done shows a pH of 7.38, pCO2 is 45, PaO2 of 138. Lactate is 1.7. Chemistry shows her sodium is 139, potassium is 3.9. She has creatinine of 0.6, troponin is 0.01, albumin is 4.4. Urine shows ketones are negative, blood is negative, nitrites are negative. She had a CT of the abdomen and pelvis that shows distal small bowel obstruction with a loop of small bowel interposed between the right lobe of the liver and the abdominal wall with immediate proximal small bowel fecalized and distended. There is possible gastritis. ASSESSMENT: 1. Right small bowel obstruction. 2. Degenerative joint disease at L4 and L5. 3. Diabetes type 2. 4. Hypertension. 5. Dyslipidemia. 6. Symptomatic bradycardia with syncope. PLAN: The patient is currently admitted to the ICU. She has been seen by multiple consultants including Surgery. GI is also following the patient. The patient had a small bowel obstruction by CAT scan and an NG tube is in place. She has asymptomatic bradycardia. She is being followed by Dr. Zhang. She is on morphine for her pain. The patient is on Protonix daily, is on Zofran as needed. An echo has been ordered by Dr. Zhang. She remains n.p.o. She will get repeat blood work tomorrow. She remains in critical condition in the ICU. She had been on dopamine, but that has been discontinued. The patient did have a procedure by Dr. Jesus and had a transvenous pacer placed. The patient had telemetry strips that showed third degree AV block. Paddy Cross MD
[2018-09-21] MEDS: Sodium Chloride 0.9% 1,000 ML IV SCH ×2 (00:13→17:25)
[2018-09-21] MEDS: Morphine 2 mg/ml ISec IVP PRN ×3 (00:13→21:12)
[2018-09-21] MEDS: Insulin Lispro (humaLOG) LOW Coverage SC SCH ×4 (00:14→23:00)
[2018-09-21 06:14] LABS: BASO # 0.02 K/mm3 (0.0-2.0); BASO % 0.2 % (0.0-3.0); EOS % 0.3 % (1.5-5.0); HEMOGLOBIN 13.2 g/dL (12.0-16.0); LYMPH % 21.8 % (22.0-35.0); MEAN CELL VOLUME 86.9 fl (80.0-105.0); MEAN CORPUSCULAR HEMOGLOBIN 27.1 pg (25.0-35.0); MEAN CORPUSCULAR HGB CONC 31.2 g/dl (31.0-37.0); MEAN PLATELET VOLUME 9.5 fl (7.0-11.0); MONO # 0.9 (0.1-0.6); MONO % 10.2 % (1.0-6.0); RBC 4.87 10^6/uL (3.5-6.1); RED CELL DISTRIBUTION WIDTH 13.9 % (11.5-14.5); WHITE BLOOD COUNT 9.3 10^3/uL (4.5-11.0)
[2018-09-21 06:49] LABS: ALB/GLOB RATIO 1.5 (1.1-1.8); ALT/SGPT 27 U/L (7-56); AST/SGOT 30 U/L (14-36); BLOOD UREA NITROGEN 8 mg/dL (7-21); GFR NON-AFRICAN AMERICAN > 60
[2018-09-21] MEDS ORDERED: Benzocaine/Menthol (Cepacol) Lozenge MT PRN (07:42)
--- NOTE | 2018-09-21 07:51 | CP.CCUPN ---
<George Jiménez - Last Filed: 09/21/18 13:36> CCU Subjective - Physician Review Subjective (Free Text): George Jiménez DO. Critical Care Progress note Patient seen and examined at bedside. No acute events overnight. She is in NAD, reports no symptoms. Abdominal pain resolved, NGT output 250 last night. No acute events overnight. Waiting for pacemaker placement this am. CCU Objective - Vital Signs / Intake & Output Intake and Output (Last 8hrs): Intake & Output 09/20/18 09/21/18 09/21/18 22:59 06:59 14:59 Intake Total 1200 Output Total 1300 Balance -100 Intake: IV 1200 IVF 1200 Output: Gastric Amount 500 Left Nares 500 Urine 800 Urethral (Wright) 800 - Physical Exam Head: Positive for: Atraumatic, Normocephalic Pupils: Positive for: PERRL Extroacular Muscles: Positive for: EOMI Conjunctiva: Positive for: Normal Mouth: Positive for: Moist Mucous Membranes Pharnyx: Positive for: Normal Neck: Positive for: Normal Range of Motion. Negative for: MIDLINE TENDERNESS, JVD, Bruit Respiratory/Chest: Positive for: Clear to Auscultation, Good Air Exchange. Negative for: Accessory Muscle Use, Wheezes, Rhonchi Cardiovascular: Positive for: Regular Rate and Rhythm, Normal S1, S2, Bradycardic Abdomen: Positive for: Normal Bowel Sounds. Negative for: Tenderness Back: Positive for: Normal Inspection. Negative for: CVA Tenderness Neurological: Positive for: GCS=15, CN II-XII Intact, Speech Normal Skin: Positive for: Warm, Dry, Normal Color. Negative for: Rashes Psychiatric: Positive for: Alert, Oriented x 3, Normal Insight - Medications Active Medications: Active Medications Generic Name Dose Route Start Last Admin Trade Name Freq PRN Reason Stop Dose Admin Benzocaine/Menthol 1 matthieu 09/21/18 07:42 Cepacol Sore Throat MT Q2H PRN Sore Throat Sodium Chloride 1,000 mls @ 100 mls/hr 09/19/18 21:15 09/21/18 00:13 Sodium Chloride 0.9% IV 100 mls/hr .Q10H TRISTA Administration Insulin Human Lispro 0 units 09/19/18 22:00 09/21/18 00:14 Humalog Low SC Not Given ACHS TRISTA Protocol Lidocaine 1 ea 09/21/18 10:00 Lidoderm TD DAILY [facility] Morphine Sulfate 2 mg 09/19/18 21:30 09/21/18 00:13 Morphine IVP 2 mg Q4H PRN Administration Pain, moderate (4-7) Ondansetron HCl 4 mg 09/20/18 11:58 Zofran Inj IVP Q4H PRN Nausea/Vomiting Pantoprazole Sodium 40 mg 09/20/18 10:00 09/20/18 11:13 Protonix Inj IVP 40 mg DAILY [facility] Administration Sodium Chloride 0 ml 09/20/18 18:20 [place] Nasal [place] NS Q4H PRN Nasal congestion - Patient Studies Lab Studies: Microbiology Studies 09/19/18 22:15 Blood Culture - Preliminary Blood NO GROWTH AFTER 24 HOURS 09/19/18 22:00 Blood Culture - Preliminary Blood NO GROWTH AFTER 24 HOURS Lab Studies 09/21/18 09/21/18 09/20/18 Range/Units 05:40 05:40 21:52 WBC 9.3 (4.5-11.0) 10^3/uL RBC 4.87 (3.5-6.1) 10^6/uL Hgb 13.2 (12.0-16.0) g/dL Hct 42.3 (36.0-48.0) % MCV 86.9 (80.0-105.0) fl MCH 27.1 (25.0-35.0) pg MCHC 31.2 (31.0-37.0) g/dl RDW 13.9 (11.5-14.5) % Plt Count 166 (120.0-450.0) 10^3/uL MPV 9.5 (7.0-11.0) fl Neut % (Auto) 67.5 (50.0-68.0) % Lymph % (Auto) 21.8 L (22.0-35.0) % [place] % (Auto) 10.2 H (1.0-6.0) % Eos % (Auto) 0.3 L (1.5-5.0) % Baso % (Auto) 0.2 (0.0-3.0) % Lymph # (Auto) 2.0 (1.2-3.4) [place] # (Auto) 0.9 H (0.1-0.6) Eos # (Auto) 0.0 (0.0-0.7) Baso # (Auto) 0.02 (0.0-2.0) K/mm3 Absolute Neuts (auto) 6.25 (1.4-6.5) pCO2 (35-45) mm/Hg pO2 (80-100) mm/Hg HCO3 (21-28) mmol/L ABG pH (7.35-7.45) ABG Total CO2 (22-28) mmol.L ABG O2 Saturation (95-98) % ABG O2 Content (15-23) ML/dl ABG Base Excess (-2.0-3.0) mmol/L ABG Hemoglobin (11.7-17.4) g/dL ABG Carboxyhemoglobin (0.5-1.5) % POC ABG HHb (Measured) (0-5) % ABG Methemoglobin (0.0-3.0) % ABG O2 Capacity (16-24) mL/dl Hgb O2 Saturation (95.0-98.0) % FiO2 % Sodium 138 (132-148) mmol/L Potassium (3.6-5.0) mmol/L Chloride 100 (98-107) mmol/L Carbon Dioxide 33 (21-33) mmol/L Anion Gap (10-20) BUN 8 (7-21) mg/dL Creatinine 0.6 L (0.7-1.2) mg/dl Est GFR ( Amer) > 60 Est GFR (Non-Af Amer) > 60 POC Glucose (mg/dL) 96 (65-110) mg/dL Random Glucose 131 H (70-110) mg/dL Calcium 9.0 (8.4-10.5) mg/dL Phosphorus (2.5-4.5) mg/dL Magnesium 2.4 H (1.7-2.2) mg/dL Total Bilirubin 0.6 (0.2-1.3) mg/dL AST 30 (14-36) U/L ALT 27 (7-56) U/L Alkaline Phosphatase 73 (38-126) U/L Troponin I ng/mL Total Protein 6.8 (5.8-8.3) g/dL Albumin 4.0 (3.0-4.8) g/dL Globulin 2.7 gm/dL Albumin/Globulin Ratio 1.5 (1.1-1.8) TSH 3rd Generation (0.46-4.68) mIU/mL 09/20/18 09/20/18 09/20/18 Range/Units 16:20 12:03 11:06 WBC (4.5-11.0) 10^3/uL RBC (3.5-6.1) 10^6/uL Hgb (12.0-16.0) g/dL Hct (36.0-48.0) % MCV (80.0-105.0) fl MCH (25.0-35.0) pg MCHC (31.0-37.0) g/dl RDW (11.5-14.5) % Plt Count (120.0-450.0) 10^3/uL MPV (7.0-11.0) fl Neut % (Auto) (50.0-68.0) % Lymph % (Auto) (22.0-35.0) % [place] % (Auto) (1.0-6.0) % Eos % (Auto) (1.5-5.0) % Baso % (Auto) (0.0-3.0) % Lymph # (Auto) (1.2-3.4) [place] # (Auto) (0.1-0.6) Eos # (Auto) (0.0-0.7) Baso # (Auto) (0.0-2.0) K/mm3 Absolute Neuts (auto) (1.4-6.5) pCO2 45 (35-45) mm/Hg pO2 138.0 H (80-100) mm/Hg HCO3 26.6 (21-28) mmol/L ABG pH 7.38 (7.35-7.45) ABG Total CO2 28.0 (22-28) mmol.L ABG O2 Saturation 100.0 H (95-98) % ABG O2 Content 18.0 (15-23) ML/dl ABG Base Excess 1.0 (-2.0-3.0) mmol/L ABG Hemoglobin 13.1 (11.7-17.4) g/dL ABG Carboxyhemoglobin 2.1 H (0.5-1.5) % POC ABG HHb (Measured) 0 (0-5) % ABG Methemoglobin 1.1 (0.0-3.0) % ABG O2 Capacity 18.0 (16-24) mL/dl Hgb O2 Saturation 96.7 (95.0-98.0) % FiO2 28.0 % Sodium (132-148) mmol/L Potassium (3.6-5.0) mmol/L Chloride (98-107) mmol/L Carbon Dioxide (21-33) mmol/L Anion Gap (10-20) BUN (7-21) mg/dL Creatinine (0.7-1.2) mg/dl Est GFR ( Amer) Est GFR (Non-Af Amer) POC Glucose (mg/dL) 127 H 144 H (65-110) mg/dL Random Glucose (70-110) mg/dL Calcium (8.4-10.5) mg/dL Phosphorus (2.5-4.5) mg/dL Magnesium (1.7-2.2) mg/dL Total Bilirubin (0.2-1.3) mg/dL AST (14-36) U/L ALT (7-56) U/L Alkaline Phosphatase (38-126) U/L Troponin I ng/mL Total Protein (5.8-8.3) g/dL Albumin (3.0-4.8) g/dL Globulin gm/dL Albumin/Globulin Ratio (1.1-1.8) TSH 3rd Generation (0.46-4.68) mIU/mL 09/20/18 09/20/18 09/20/18 Range/Units 11:00 10:00 10:00 WBC 8.9 D (4.5-11.0) 10^3/uL RBC 4.69 (3.5-6.1) 10^6/uL Hgb 12.8 (12.0-16.0) g/dL Hct 40.7 (36.0-48.0) % MCV 86.8 (80.0-105.0) fl MCH 27.3 (25.0-35.0) pg MCHC 31.4 (31.0-37.0) g/dl RDW 14.1 (11.5-14.5) % Plt Count 211 (120.0-450.0) 10^3/uL MPV 10.1 (7.0-11.0) fl Neut % (Auto) (50.0-68.0) % Lymph % (Auto) (22.0-35.0) % [place] % (Auto) (1.0-6.0) % Eos % (Auto) (1.5-5.0) % Baso % (Auto) (0.0-3.0) % Lymph # (Auto) (1.2-3.4) [place] # (Auto) (0.1-0.6) Eos # (Auto) (0.0-0.7) Baso # (Auto) (0.0-2.0) K/mm3 Absolute Neuts (auto) (1.4-6.5) pCO2 (35-45) mm/Hg pO2 (80-100) mm/Hg HCO3 (21-28) mmol/L ABG pH (7.35-7.45) ABG Total CO2 (22-28) mmol.L ABG O2 Saturation (95-98) % ABG O2 Content (15-23) ML/dl ABG Base Excess (-2.0-3.0) mmol/L ABG Hemoglobin (11.7-17.4) g/dL ABG Carboxyhemoglobin (0.5-1.5) % POC ABG HHb (Measured) (0-5) % ABG Methemoglobin (0.0-3.0) % ABG O2 Capacity (16-24) mL/dl Hgb O2 Saturation (95.0-98.0) % FiO2 % Sodium 139 (132-148) mmol/L Potassium 3.7 (3.6-5.0) mmol/L Chloride 105 (98-107) mmol/L Carbon Dioxide 24 (21-33) mmol/L Anion Gap 14 (10-20) BUN 11 (7-21) mg/dL Creatinine 0.6 L (0.7-1.2) mg/dl Est GFR ( Amer) > 60 Est GFR (Non-Af Amer) > 60 POC Glucose (mg/dL) (65-110) mg/dL Random Glucose 173 H (70-110) mg/dL Calcium 8.7 (8.4-10.5) mg/dL Phosphorus 3.0 (2.5-4.5) mg/dL Magnesium 2.0 (1.7-2.2) mg/dL Total Bilirubin 0.2 (0.2-1.3) mg/dL AST 27 (14-36) U/L ALT 35 (7-56) U/L Alkaline Phosphatase 81 (38-126) U/L Troponin I ng/mL Total Protein 7.2 (5.8-8.3) g/dL Albumin 4.4 (3.0-4.8) g/dL Globulin 2.8 gm/dL Albumin/Globulin Ratio 1.6 (1.1-1.8) TSH 3rd Generation 1.24 (0.46-4.68) mIU/mL 09/20/18 09/20/18 Range/Units 09:20 07:19 WBC (4.5-11.0) 10^3/uL RBC (3.5-6.1) 10^6/uL Hgb (12.0-16.0) g/dL Hct (36.0-48.0) % MCV (80.0-105.0) fl MCH (25.0-35.0) pg MCHC (31.0-37.0) g/dl RDW (11.5-14.5) % Plt Count (120.0-450.0) 10^3/uL MPV (7.0-11.0) fl Neut % (Auto) (50.0-68.0) % Lymph % (Auto) (22.0-35.0) % [place] % (Auto) (1.0-6.0) % Eos % (Auto) (1.5-5.0) % Baso % (Auto) (0.0-3.0) % Lymph # (Auto) (1.2-3.4) [place] # (Auto) (0.1-0.6) Eos # (Auto) (0.0-0.7) Baso # (Auto) (0.0-2.0) K/mm3 Absolute Neuts (auto) (1.4-6.5) pCO2 (35-45) mm/Hg pO2 (80-100) mm/Hg HCO3 (21-28) mmol/L ABG pH (7.35-7.45) ABG Total CO2 (22-28) mmol.L ABG O2 Saturation (95-98) % ABG O2 Content (15-23) ML/dl ABG Base Excess (-2.0-3.0) mmol/L ABG Hemoglobin (11.7-17.4) g/dL ABG Carboxyhemoglobin (0.5-1.5) % POC ABG HHb (Measured) (0-5) % ABG Methemoglobin (0.0-3.0) % ABG O2 Capacity (16-24) mL/dl Hgb O2 Saturation (95.0-98.0) % FiO2 % Sodium (132-148) mmol/L Potassium (3.6-5.0) mmol/L Chloride (98-107) mmol/L Carbon Dioxide (21-33) mmol/L Anion Gap (10-20) BUN (7-21) mg/dL Creatinine (0.7-1.2) mg/dl Est GFR ( Amer) Est GFR (Non-Af Amer) POC Glucose (mg/dL) 162 H (65-110) mg/dL Random Glucose (70-110) mg/dL Calcium (8.4-10.5) mg/dL Phosphorus (2.5-4.5) mg/dL Magnesium (1.7-2.2) mg/dL Total Bilirubin (0.2-1.3) mg/dL AST (14-36) U/L ALT (7-56) U/L Alkaline Phosphatase (38-126) U/L Troponin I < 0.01 ng/mL Total Protein (5.8-8.3) g/dL Albumin (3.0-4.8) g/dL Globulin gm/dL Albumin/Globulin Ratio (1.1-1.8) TSH 3rd Generation (0.46-4.68) mIU/mL Laboratory Results - last 24 hr 09/20/18 09/20/18 09/20/18 07:19 09:20 10:00 WBC 8.9 D RBC 4.69 Hgb 12.8 Hct 40.7 MCV 86.8 MCH 27.3 MCHC 31.4 RDW 14.1 Plt Count 211 MPV 10.1 Neut % (Auto) Lymph % (Auto) [place] % (Auto) Eos % (Auto) Baso % (Auto) Lymph # (Auto) [place] # (Auto) Eos # (Auto) Baso # (Auto) Absolute Neuts (auto) pCO2 pO2 HCO3 ABG pH ABG Total CO2 ABG O2 Saturation ABG O2 Content ABG Base Excess ABG Hemoglobin ABG Carboxyhemoglobin POC ABG HHb (Measured) ABG Methemoglobin ABG O2 Capacity Hgb O2 Saturation FiO2 Sodium Potassium Chloride Carbon Dioxide Anion Gap BUN Creatinine Est GFR ( Amer) Est GFR (Non-Af Amer) POC Glucose (mg/dL) 162 H Random Glucose Calcium Phosphorus Magnesium Total Bilirubin AST ALT Alkaline Phosphatase Troponin I < 0.01 Total Protein Albumin Globulin Albumin/Globulin Ratio TSH 3rd Generation 09/20/18 09/20/18 09/20/18 10:00 11:00 11:06 WBC RBC Hgb Hct MCV MCH MCHC RDW Plt Count MPV Neut % (Auto) Lymph % (Auto) [place] % (Auto) Eos % (Auto) Baso % (Auto) Lymph # (Auto) [place] # (Auto) Eos # (Auto) Baso # (Auto) Absolute Neuts (auto) pCO2 pO2 HCO3 ABG pH ABG Total CO2 ABG O2 Saturation ABG O2 Content ABG Base Excess ABG Hemoglobin ABG Carboxyhemoglobin POC ABG HHb (Measured) ABG Methemoglobin ABG O2 Capacity Hgb O2 Saturation FiO2 Sodium 139 Potassium 3.7 Chloride 105 Carbon Dioxide 24 Anion Gap 14 BUN 11 Creatinine 0.6 L Est GFR ( Amer) > 60 Est GFR (Non-Af Amer) > 60 POC Glucose (mg/dL) 144 H Random Glucose 173 H Calcium 8.7 Phosphorus 3.0 Magnesium 2.0 Total Bilirubin 0.2 AST 27 ALT 35 Alkaline Phosphatase 81 Troponin I Total Protein 7.2 Albumin 4.4 Globulin 2.8 Albumin/Globulin Ratio 1.6 TSH 3rd Generation 1.24 09/20/18 09/20/18 09/20/18 12:03 16:20 21:52 WBC RBC Hgb Hct MCV MCH MCHC RDW Plt Count MPV Neut % (Auto) Lymph % (Auto) [place] % (Auto) Eos % (Auto) Baso % (Auto) Lymph # (Auto) [place] # (Auto) Eos # (Auto) Baso # (Auto) Absolute Neuts (auto) pCO2 45 pO2 138.0 H HCO3 26.6 ABG pH 7.38 ABG Total CO2 28.0 ABG O2 Saturation 100.0 H ABG O2 Content 18.0 ABG Base Excess 1.0 ABG Hemoglobin 13.1 ABG Carboxyhemoglobin 2.1 H POC ABG HHb (Measured) 0 ABG Methemoglobin 1.1 ABG O2 Capacity 18.0 Hgb O2 Saturation 96.7 FiO2 28.0 Sodium Potassium Chloride Carbon Dioxide Anion Gap BUN Creatinine Est GFR ( Amer) Est GFR (Non-Af Amer) POC Glucose (mg/dL) 127 H 96 Random Glucose Calcium Phosphorus Magnesium Total Bilirubin AST ALT Alkaline Phosphatase Troponin I Total Protein Albumin Globulin Albumin/Globulin Ratio [facility] 3rd Generation 09/21/18 09/21/18 05:40 05:40 WBC 9.3 RBC 4.87 Hgb 13.2 Hct 42.3 MCV 86.9 MCH 27.1 MCHC 31.2 RDW 13.9 Plt Count 166 MPV 9.5 Neut % (Auto) 67.5 Lymph % (Auto) 21.8 L [place] % (Auto) 10.2 H Eos % (Auto) 0.3 L Baso % (Auto) 0.2 Lymph # (Auto) 2.0 [place] # (Auto) 0.9 H Eos # (Auto) 0.0 Baso # (Auto) 0.02 Absolute Neuts (auto) 6.25 pCO2 pO2 HCO3 ABG pH ABG Total CO2 ABG O2 Saturation ABG O2 Content ABG Base Excess ABG Hemoglobin ABG Carboxyhemoglobin POC ABG HHb (Measured) ABG Methemoglobin ABG O2 Capacity Hgb O2 Saturation FiO2 Sodium 138 Potassium Chloride 100 Carbon Dioxide 33 Anion Gap BUN 8 Creatinine 0.6 L Est GFR ( Amer) > 60 Est GFR (Non-Af Amer) > 60 POC Glucose (mg/dL) Random Glucose 131 H Calcium 9.0 Phosphorus Magnesium 2.4 H Total Bilirubin 0.6 AST 30 ALT 27 Alkaline Phosphatase 73 Troponin I Total Protein 6.8 Albumin 4.0 Globulin 2.7 Albumin/Globulin Ratio 1.5 [facility] 3rd Generation Radiology Impressions: Radiology Impressions Chest X-Ray 09/19/18 18:42 IMPRESSION: No interval acute cardiopulmonary disease appreciated. Abdomen/Pelvis CT 09/19/18 18:45 IMPRESSION: 1. Findings likely reflect distal small-bowel obstruction with a loop of small bowel interposed between the right lobe liver in the abdominal wall with immediately proximal small bowel fecalized and distended. Clinically correlate further. 2. Possible gastritis. Preliminary report provided by Rachel, 09/19/2018, 8:32 p.m.. Chest X-Ray 09/19/18 20:28 IMPRESSION: Adequate nasogastric tube deployment. No acute cardiopulmonary disease appreciable. Abdomen Ultrasound 09/19/18 21:24 IMPRESSION: 2.7 cm simple cyst upper pole right kidney with remainder of the examination unremarkable. Abdomen X-Ray 09/20/18 10:43 IMPRESSION: Status post nasogastric tube deployment at least decompressing the stomach in part. Nonobstructive bowel gas pattern. No free intra peritoneal gas collection identified. Chest X-Ray 09/20/18 14:22 IMPRESSION: No interval acute infiltrate, pleural effusion or pneumothorax bilaterally. No pulmonary vascular congestion. NG tube unchanged in position. EKG/Cardiology Studies: Cardiology / EKG Studies 09/20/18 09:55 EKG [ELECTROCARDIOGRAM] Stat Comment: Reason For Exam: alan Fingerstick Blood Sugar Results: 96 Review of Systems - Constitutional Constitutional: absent: Fever, Chills - EENT Eyes: As Per HPI Ears: As Per HPI Nose/Mouth/Throat: As Per HPI - Gastrointestinal Gastrointestinal: Heartburn, Nausea. absent: Diarrhea, Dyspepsia, Hematemesis, Vomiting - Genitourinary Genitourinary: absent: Change in Urinary Stream, Dysuria, Flank Pain - Musculoskeletal Musculoskeletal: As Par HPI - Integumentary Integumentary: As Per HPI - Psychiatric Psychiatric: As Per HPI - Endocrine Endocrine: As Per HPI Critical Care Progress Note - Prophylaxis GI Prophylaxis GI: Pepsid - Nutrition Nutrition: Nutrition Category Date Time Status NPO Diet [DIET] Diets 09/19/18 Breakfast Ordered Assessment/Plan - Assessment and Plan (Free Text) Assessment: 72-year-old black female admitted for gastric torsion, on NGT decompression. Found to have complete heart block. Going for transvenous pacing today. Plan: Neuro: -AAOx3 -maintain norothermia GI: -NG output 250 bilious cc overnight -abdominal pain improved -continue NG decompression -continue NPO -continue IVF -consider EGD after pacemaker placement -zofran for nausea -GI/surgery following Cardio: -complete heart block -permanent pacemaker placement today Pulm: -no acute pulmonary symptoms -maintain O2 sat>90% -O2 NC prn Renal -replace lytes, -maintain euvolemia -continue to monitor Endo: -ISS for DM -accucheck -maintain euglucemia MSK: -lidoderm patch for shoulder pain -morphine prn Prophylaxis: -SCD -Protonix Case reviewed and plan discussed with attending physician Dr Fernandes <Tani Fernandes - Last Filed: 09/21/18 17:22> CCU Objective - Vital Signs / Intake & Output Intake and Output (Last 8hrs): Intake & Output 09/21/18 09/21/18 09/21/18 06:59 14:59 22:59 Intake Total 1200 Output Total 2650 Balance -1450 Weight 167 lb Intake: IV 1200 IVF 1200 Output: Urine 2650 Urethral (Wright) 2650 - Medications Active Medications: Active Medications Generic Name Dose Route Start Last Admin Trade Name Freq PRN Reason Stop Dose Admin Benzocaine/Menthol 1 matthieu 09/21/18 07:42 09/21/18 08:21 Cepacol Sore Throat MT 1 matthieu Q2H PRN Administration Sore Throat Sodium Chloride 1,000 mls @ 100 mls/hr 09/19/18 21:15 09/21/18 00:13 Sodium Chloride 0.9% IV 100 mls/hr .Q10H TRISTA Administration Levofloxacin/Dextrose 250 mg in 50 mls @ 50 mls/hr 09/21/18 13:30 09/21/18 13:54 Levaquin 250mg IVPB 09/25/18 23:59 50 mls/hr DAILY TRISTA Administration Protocol Insulin Human Lispro 0 units 09/19/18 22:00 09/21/18 13:46 Humalog Low SC Not Given ACHS TRISTA Protocol Lidocaine 1 ea 09/21/18 10:00 09/21/18 10:00 Lidoderm TD 1 ea DAILY TRISTA Administration Morphine Sulfate 2 mg 09/19/18 21:30 09/21/18 00:13 Morphine IVP 2 mg Q4H PRN Administration Pain, moderate (4-7) Ondansetron HCl 4 mg 09/20/18 11:58 Zofran Inj IVP Q4H PRN Nausea/Vomiting Pantoprazole Sodium 40 mg 09/20/18 10:00 09/21/18 10:30 Protonix Inj IVP 40 mg DAILY TRISTA Administration Sodium Chloride 0 ml 09/20/18 18:20 [place] Nasal [place] NS Q4H PRN Nasal congestion - Patient Studies Lab Studies: Microbiology Studies 09/19/18 22:50 MRSA Culture (Admit) - Final Nose MRSA NOT DETECTED 09/20/18 00:35 Urine Culture - Final Urine Random No Growth (<1,000 CFU/ML) 09/19/18 22:15 Blood Culture - Preliminary Blood NO GROWTH AFTER 24 HOURS 09/19/18 22:00 Blood Culture - Preliminary Blood NO GROWTH AFTER 24 HOURS Lab Studies 09/21/18 09/21/18 09/21/18 Range/Units 07:47 05:40 05:40 WBC 9.3 (4.5-11.0) 10^3/uL RBC 4.87 (3.5-6.1) 10^6/uL Hgb 13.2 (12.0-16.0) g/dL Hct 42.3 (36.0-48.0) % MCV 86.9 (80.0-105.0) fl MCH 27.1 (25.0-35.0) pg MCHC 31.2 (31.0-37.0) g/dl RDW 13.9 (11.5-14.5) % Plt Count 166 (120.0-450.0) 10^3/uL MPV 9.5 (7.0-11.0) fl Neut % (Auto) 67.5 (50.0-68.0) % Lymph % (Auto) 21.8 L (22.0-35.0) % [place] % (Auto) 10.2 H (1.0-6.0) % Eos % (Auto) 0.3 L (1.5-5.0) % Baso % (Auto) 0.2 (0.0-3.0) % Lymph # (Auto) 2.0 (1.2-3.4) [place] # (Auto) 0.9 H (0.1-0.6) Eos # (Auto) 0.0 (0.0-0.7) Baso # (Auto) 0.02 (0.0-2.0) K/mm3 Absolute Neuts (auto) 6.25 (1.4-6.5) Sodium 138 (132-148) mmol/L Potassium 4.7 (3.6-5.0) mmol/L Chloride 100 (98-107) mmol/L Carbon Dioxide 33 (21-33) mmol/L Anion Gap 10 (10-20) BUN 8 (7-21) mg/dL Creatinine 0.6 L (0.7-1.2) mg/dl Est GFR ( Amer) > 60 Est GFR (Non-Af Amer) > 60 POC Glucose (mg/dL) 117 H (65-110) mg/dL Random Glucose 131 H (70-110) mg/dL Calcium 9.0 (8.4-10.5) mg/dL Magnesium 2.4 H (1.7-2.2) mg/dL Total Bilirubin 0.6 (0.2-1.3) mg/dL AST 30 (14-36) U/L ALT 27 (7-56) U/L Alkaline Phosphatase 73 (38-126) U/L Total Protein 6.8 (5.8-8.3) g/dL Albumin 4.0 (3.0-4.8) g/dL Globulin 2.7 gm/dL Albumin/Globulin Ratio 1.5 (1.1-1.8) 09/20/18 Range/Units 21:52 WBC (4.5-11.0) 10^3/uL RBC (3.5-6.1) 10^6/uL Hgb (12.0-16.0) g/dL Hct (36.0-48.0) % MCV (80.0-105.0) fl MCH (25.0-35.0) pg MCHC (31.0-37.0) g/dl RDW (11.5-14.5) % Plt Count (120.0-450.0) 10^3/uL MPV (7.0-11.0) fl Neut % (Auto) (50.0-68.0) % Lymph % (Auto) (22.0-35.0) % [place] % (Auto) (1.0-6.0) % Eos % (Auto) (1.5-5.0) % Baso % (Auto) (0.0-3.0) % Lymph # (Auto) (1.2-3.4) [place] # (Auto) (0.1-0.6) Eos # (Auto) (0.0-0.7) Baso # (Auto) (0.0-2.0) K/mm3 Absolute Neuts (auto) (1.4-6.5) Sodium (132-148) mmol/L Potassium (3.6-5.0) mmol/L Chloride (98-107) mmol/L Carbon Dioxide (21-33) mmol/L Anion Gap (10-20) BUN (7-21) mg/dL Creatinine (0.7-1.2) mg/dl Est GFR ( Amer) Est GFR (Non-Af Amer) POC Glucose (mg/dL) 96 (65-110) mg/dL Random Glucose (70-110) mg/dL Calcium (8.4-10.5) mg/dL Magnesium (1.7-2.2) mg/dL Total Bilirubin (0.2-1.3) mg/dL AST (14-36) U/L ALT (7-56) U/L Alkaline Phosphatase (38-126) U/L Total Protein (5.8-8.3) g/dL Albumin (3.0-4.8) g/dL Globulin gm/dL Albumin/Globulin Ratio (1.1-1.8) Laboratory Results - last 24 hr 09/20/18 09/21/18 09/21/18 21:52 05:40 05:40 WBC 9.3 RBC 4.87 Hgb 13.2 Hct 42.3 MCV 86.9 MCH 27.1 MCHC 31.2 RDW 13.9 Plt Count 166 MPV 9.5 Neut % (Auto) 67.5 Lymph % (Auto) 21.8 L [place] % (Auto) 10.2 H Eos % (Auto) 0.3 L Baso % (Auto) 0.2 Lymph # (Auto) 2.0 [place] # (Auto) 0.9 H Eos # (Auto) 0.0 Baso # (Auto) 0.02 Absolute Neuts (auto) 6.25 Sodium 138 Potassium 4.7 Chloride 100 Carbon Dioxide 33 Anion Gap 10 BUN 8 Creatinine 0.6 L Est GFR ( Amer) > 60 Est GFR (Non-Af Amer) > 60 POC Glucose (mg/dL) 96 Random Glucose 131 H Calcium 9.0 Magnesium 2.4 H Total Bilirubin 0.6 AST 30 ALT 27 Alkaline Phosphatase 73 Total Protein 6.8 Albumin 4.0 Globulin 2.7 Albumin/Globulin Ratio 1.5 09/21/18 07:47 WBC RBC Hgb Hct MCV MCH MCHC RDW Plt Count MPV Neut % (Auto) Lymph % (Auto) [place] % (Auto) Eos % (Auto) Baso % (Auto) Lymph # (Auto) [place] # (Auto) Eos # (Auto) Baso # (Auto) Absolute Neuts (auto) Sodium Potassium Chloride Carbon Dioxide Anion Gap BUN Creatinine Est GFR ( Amer) Est GFR (Non-Af Amer) POC Glucose (mg/dL) 117 H Random Glucose Calcium Magnesium Total Bilirubin AST ALT Alkaline Phosphatase Total Protein Albumin Globulin Albumin/Globulin Ratio Radiology Impressions: Radiology Impressions Abdomen Ultrasound 09/19/18 21:24 IMPRESSION: 2.7 cm simple cyst upper pole right kidney with remainder of the examination unremarkable. Abdomen X-Ray 09/20/18 10:43 IMPRESSION: Status post nasogastric tube deployment at least decompressing the stomach in part. Nonobstructive bowel gas pattern. No free intra peritoneal gas collection identified. Chest X-Ray 09/20/18 14:22 IMPRESSION: No interval acute infiltrate, pleural effusion or pneumothorax bilaterally. No pulmonary vascular congestion. NG tube unchanged in position. Chest X-Ray 09/21/18 13:15 IMPRESSION: Interval placement bipolar pacemaker/defibrillator. In situ NGT in good position. Bibasilar atelectasis left greater than right. Questionable small bilateral effusions right greater than left. EKG/Cardiology Studies: Cardiology / EKG Studies 09/21/18 13:15 ELECTROCARDIOGRAM Stat Comment: Pt is going to CCU Reason For Exam: S/p PPM Critical Care Progress Note - Nutrition Nutrition: Nutrition Category Date Time Status NPO Diet [DIET] Diets 09/19/18 Breakfast Ordered Attending/Attestation - Attestation I have personally seen and examined this patient.: Yes I have fully participated in the care of the patient.: Yes I have reviewed all pertinent clinical information: Yes Notes (Text): 09/21/18 17:21 72 yo with bradycardia, s/p PM now with stable hemodynamics, and respiratory status. has gastric volvulus. GI eyeing tomorrow for EGD. ccm time 40 min
--- NOTE | 2018-09-21 09:30 | CP.PCM.PN ---
<Bisi Rinaldi - Last Filed: 09/21/18 13:43> Subjective - Date & Time of Evaluation Date of Evaluation: 09/21/18 Time of Evaluation: 08:10 - Subjective Subjective: PGY-3 IM progress note for Dr. Cross: Patient became dizzy and syncopied yesterday, EKG with high grade AV block with pauses as long as 9 sec. Patient was placed on dopamine drip, was taking to the cardiac cath and underwent temporary pace maker placement. As per nurse when patient's bed is at 30 degrees, HR still drops to 40s. Patient is awaiting to go to [employer] for permanent pace maker placement. NGT is at suction, drained 200 cc at night ( bilious) . Patient states the abdominal bloating and pain improved. Complaining of body aches. Objective - Vital Signs/Intake and Output Vital Signs (last 24 hours): Temp Pulse Resp BP Pulse Ox 98.4 F 59 L 20 159/84 H 100 09/20/18 16:00 09/21/18 04:00 09/20/18 17:10 09/20/18 17:00 09/20/18 17:10 Intake and Output: 09/21/18 09/21/18 06:59 18:59 Intake Total 1200 Output Total 2650 Balance -1450 - Medications Medications: Current Medications Benzocaine/Menthol (Cepacol Sore Throat) 1 matthieu MT Q2H PRN PRN Reason: Sore Throat Last Admin: 09/21/18 08:21 Dose: 1 matthieu Sodium Chloride (Sodium Chloride 0.9%) 1,000 mls @ 100 mls/hr IV .Q10H [facility] Last Admin: 09/21/18 00:13 Dose: 100 mls/hr Insulin Human Lispro (Humalog Low) 0 units SC ACHS [facility]; Protocol Last Admin: 09/21/18 08:23 Dose: Not Given Lidocaine (Lidoderm) 1 ea TD DAILY [facility] Morphine Sulfate (Morphine) 2 mg IVP Q4H PRN PRN Reason: Pain, moderate (4-7) Last Admin: 09/21/18 00:13 Dose: 2 mg Ondansetron HCl (Zofran Inj) 4 mg IVP Q4H PRN PRN Reason: Nausea/Vomiting Pantoprazole Sodium (Protonix Inj) 40 mg IVP DAILY [facility] Last Admin: 09/20/18 11:13 Dose: 40 mg Sodium Chloride ([place] Nasal [place]) 0 ml NS Q4H PRN PRN Reason: Nasal congestion - Labs Labs: 09/21/18 05:40 09/21/18 05:40 PT 10.7 SECONDS (9.4-12.5) 09/19/18 19:20 INR 0.96 09/19/18 19:20 APTT 30.0 Seconds (26.9-38.3) 09/19/18 19:20 - Constitutional Appears: No Acute Distress - Head Exam Head Exam: ATRAUMATIC, NORMAL INSPECTION, NORMOCEPHALIC - Eye Exam Eye Exam: EOMI, Normal appearance Pupil Exam: NORMAL ACCOMODATION - ENT Exam ENT Exam: Mucous Membranes Moist - Neck Exam Neck Exam: Normal Inspection - Respiratory Exam Respiratory Exam: Clear to Ausculation Bilateral, NORMAL BREATHING PATTERN. absent: Rales, Rhonchi, Wheezes, Respiratory Distress, Stridor - Cardiovascular Exam Cardiovascular Exam: Bradycardia, Tachycardia, REGULAR RHYTHM, RRR, +S1, +S2. absent: Murmur - GI/Abdominal Exam GI & Abdominal Exam: Soft, Normal Bowel Sounds. absent: Distended, Firm, Guarding, Rigid, Tenderness, Rebound - Extremities Exam Extremities Exam: Normal Inspection. absent: Pedal Edema - Neurological Exam Neurological Exam: Alert, Awake, Oriented x3 - Psychiatric Exam Psychiatric exam: Normal Affect, Normal Mood - Skin Skin Exam: Dry, Intact, Warm Assessment and Plan - Assessment and Plan (Free Text) Assessment: 1) Right bowel obstruction - 2) Symptomatic bradycardia due to high degree av block with syncope 3) Degenerative joint disease at L4-L5 4) Diabetes type 2 5) Hypertension 6) Dyslipidemia Plan: S/p temporary pacemaker placement. The patient is awaiting to go for permanent pacemaker placement with Dr. Carrasco. Pending echo. On ISS for DM. On morphine prn for pain. Lidoderm patch for shoulder pain. Cepachol for throat pain. Zofran prn for nausea/vomiting. Protonix for gi prophylaxis. NS@100 CC/hr for hydration due to NPO status. NGT output has decreased, continue to monitor. Surgery and GI on board, currently recommending conservative management. External compressive device for DVT prophylaxis. Patient seen, examined and case discussed with Dr. Cross. <Paddy Cross S - Last Filed: 09/21/18 18:22> Objective - Vital Signs/Intake and Output Vital Signs (last 24 hours): Temp Pulse Resp BP Pulse Ox 98.4 F 103 H 19 157/83 H 90 L 09/20/18 16:00 09/21/18 16:30 09/21/18 16:30 09/21/18 16:00 09/21/18 16:30 Intake and Output: 09/21/18 09/21/18 06:59 18:59 Intake Total 1200 Output Total 2650 Balance -1450 - Medications Medications: Current Medications Benzocaine/Menthol (Cepacol Sore Throat) 1 matthieu MT Q2H PRN PRN Reason: Sore Throat Last Admin: 09/21/18 08:21 Dose: 1 matthieu Sodium Chloride (Sodium Chloride 0.9%) 1,000 mls @ 100 mls/hr IV .Q10H [facility] Last Admin: 09/21/18 17:25 Dose: 100 mls/hr Levofloxacin/Dextrose (Levaquin 250mg) 250 mg in 50 mls @ 50 mls/hr IVPB DAILY [facility]; Protocol Stop: 09/25/18 23:59 Last Admin: 09/21/18 13:54 Dose: 50 mls/hr Insulin Human Lispro (Humalog Low) 0 units SC ACHS [facility]; Protocol Last Admin: 09/21/18 13:46 Dose: Not Given Lidocaine (Lidoderm) 1 ea TD DAILY [facility] Last Admin: 09/21/18 10:00 Dose: 1 ea Morphine Sulfate (Morphine) 2 mg IVP Q4H PRN PRN Reason: Pain, moderate (4-7) Last Admin: 09/21/18 17:23 Dose: 2 mg Ondansetron HCl (Zofran Inj) 4 mg IVP Q4H PRN PRN Reason: Nausea/Vomiting Pantoprazole Sodium (Protonix Inj) 40 mg IVP DAILY [facility] Last Admin: 09/21/18 10:30 Dose: 40 mg Sodium Chloride ([place] Nasal [place]) 0 ml NS Q4H PRN PRN Reason: Nasal congestion - Labs Labs: 09/21/18 05:40 09/21/18 05:40 PT 10.7 SECONDS (9.4-12.5) 09/19/18 19:20 INR 0.96 03/09/19 19:20 APTT 30.0 Seconds (26.9-38.3) 09/19/18 19:20 Assessment and Plan - Assessment and Plan (Free Text) Plan: Pt seen and examined by me. I have reviewed the note of the certified medical coder and I agree with it. I have discussed the assessment and plan with the resident. I have reviewed the medications and the last labs.
--- NOTE | 2018-09-21 09:32 | CP.PCM.PN ---
Subjective - Date & Time of Evaluation Date of Evaluation: 09/21/18 Time of Evaluation: 07:35 - Subjective Subjective: General surgery progress note for Dr. Jeronimo Patient seen and examined this am at bedside. Patient states that she is no longer having abdominal pain. Patient endorses throat pain and right shoulder pain near site of attempted catheter/IV placement. NGT with 100 bilious output overnight. Objective - Vital Signs/Intake and Output Vital Signs (last 24 hours): Temp Pulse Resp BP Pulse Ox 98.4 F 59 L 20 159/84 H 100 09/20/18 16:00 09/21/18 04:00 09/20/18 17:10 09/20/18 17:00 09/20/18 17:10 Intake and Output: 09/21/18 09/21/18 06:59 18:59 Intake Total 1200 Output Total 2650 Balance -1450 - Medications Medications: Current Medications Benzocaine/Menthol (Cepacol Sore Throat) 1 matthieu MT Q2H PRN PRN Reason: Sore Throat Last Admin: 09/21/18 08:21 Dose: 1 matthieu Sodium Chloride (Sodium Chloride 0.9%) 1,000 mls @ 100 mls/hr IV .Q10H [facility] Last Admin: 09/21/18 00:13 Dose: 100 mls/hr Insulin Human Lispro (Humalog Low) 0 units SC ACHS [facility]; Protocol Last Admin: 09/21/18 08:23 Dose: Not Given Lidocaine (Lidoderm) 1 ea TD DAILY [facility] Morphine Sulfate (Morphine) 2 mg IVP Q4H PRN PRN Reason: Pain, moderate (4-7) Last Admin: 09/21/18 00:13 Dose: 2 mg Ondansetron HCl (Zofran Inj) 4 mg IVP Q4H PRN PRN Reason: Nausea/Vomiting Pantoprazole Sodium (Protonix Inj) 40 mg IVP DAILY [facility] Last Admin: 09/20/18 11:13 Dose: 40 mg Sodium Chloride ([place] Nasal [place]) 0 ml NS Q4H PRN PRN Reason: Nasal congestion - Labs Labs: 09/21/18 05:40 09/21/18 05:40 PT 10.7 SECONDS (9.4-12.5) 09/19/18 19:20 INR 0.96 09/19/18 19:20 APTT 30.0 Seconds (26.9-38.3) 09/19/18 19:20 - Constitutional Appears: Well, Non-toxic, No Acute Distress - Head Exam Head Exam: ATRAUMATIC - Eye Exam Eye Exam: EOMI - ENT Exam ENT Exam: Mucous Membranes Moist - Respiratory Exam Respiratory Exam: NORMAL BREATHING PATTERN - Cardiovascular Exam Cardiovascular Exam: REGULAR RHYTHM. absent: Tachycardia Additional comments: cardiac monitoring device in place at right groin, dressing in place - GI/Abdominal Exam GI & Abdominal Exam: Soft. absent: Guarding, Tenderness - Neurological Exam Neurological Exam: Alert, Awake, Oriented x3 - Psychiatric Exam Psychiatric exam: Normal Affect, Normal Mood - Skin Skin Exam: Dry, Intact, Normal Color, Warm Assessment and Plan - Assessment and Plan (Free Text) Assessment: 72 yr old female with hx of partial gastric torsion, consulted for abdominal pain (currently resolved) Plan: - Maintain NPO - Conservative management for now - Continue NGT to Low suction for decompression - Pain control - lidoderm patch to shoulder for pain, cepacol lozenges for throat pain - f/u GI recs, consider EGD for re-evaluation - pt to go for pacemaker placement today per cardiology - No acute surgical intervention warranted at this time Further recs as per Dr. Jeronimo
--- NOTE | 2018-09-21 09:53 | CP.PCM.PN ---
<Julián Morataya - Last Filed: 09/21/18 16:03> Subjective - Date & Time of Evaluation Date of Evaluation: 09/21/18 Time of Evaluation: 09:53 - Subjective Subjective: Julián Morataya PGY2 GI Progress Note for Dr. Jerez Patient was seen and examined at bedside in ICU. There were no acute overnight events. Patient states that her abdominal pain has mainly resolved, and she denies any nausea/vomiting. She is currently being paced with transvenous pacer. NGT output is 250cc and bilious. Objective - Vital Signs/Intake and Output Vital Signs (last 24 hours): Temp Pulse Resp BP Pulse Ox 98.4 F 59 L 20 159/84 H 100 09/20/18 16:00 09/21/18 04:00 09/20/18 17:10 09/20/18 17:00 09/20/18 17:10 Intake and Output: 09/21/18 09/21/18 06:59 18:59 Intake Total 1200 Output Total 2650 Balance -1450 - Medications Medications: Current Medications Benzocaine/Menthol (Cepacol Sore Throat) 1 matthieu MT Q2H PRN PRN Reason: Sore Throat Last Admin: 09/21/18 08:21 Dose: 1 matthieu Sodium Chloride (Sodium Chloride 0.9%) 1,000 mls @ 100 mls/hr IV .Q10H [facility] Last Admin: 09/21/18 00:13 Dose: 100 mls/hr Insulin Human Lispro (Humalog Low) 0 units SC ACHS [facility]; Protocol Last Admin: 09/21/18 08:23 Dose: Not Given Lidocaine (Lidoderm) 1 ea TD DAILY [facility] Morphine Sulfate (Morphine) 2 mg IVP Q4H PRN PRN Reason: Pain, moderate (4-7) Last Admin: 09/21/18 00:13 Dose: 2 mg Ondansetron HCl (Zofran Inj) 4 mg IVP Q4H PRN PRN Reason: Nausea/Vomiting Pantoprazole Sodium (Protonix Inj) 40 mg IVP DAILY [facility] Last Admin: 09/20/18 11:13 Dose: 40 mg Sodium Chloride ([place] Nasal [place]) 0 ml NS Q4H PRN PRN Reason: Nasal congestion - Labs Labs: 09/21/18 05:40 09/21/18 05:40 PT 10.7 SECONDS (9.4-12.5) 09/19/18 19:20 INR 0.96 09/19/18 19:20 APTT 30.0 Seconds (26.9-38.3) 09/19/18 19:20 - Constitutional Appears: Well, Non-toxic, No Acute Distress - Head Exam Head Exam: ATRAUMATIC, NORMAL INSPECTION - Eye Exam Eye Exam: EOMI, Normal appearance, PERRL - ENT Exam ENT Exam: Mucous Membranes Moist Additional comments: NGT in place w/ drainage to the wall - Neck Exam Neck Exam: Full ROM, Normal Inspection - Respiratory Exam Respiratory Exam: NORMAL BREATHING PATTERN. absent: Wheezes, Respiratory Distress - Cardiovascular Exam Cardiovascular Exam: RRR, +S1, +S2 Additional comments: transvenous pacer - GI/Abdominal Exam GI & Abdominal Exam: Soft, Tenderness (mild to deep palpation, epigastric), Normal Bowel Sounds. absent: Distended, Guarding - Extremities Exam Extremities Exam: Full ROM, Normal Inspection - Neurological Exam Neurological Exam: Alert, Awake - Psychiatric Exam Psychiatric exam: Normal Affect, Normal Mood - Skin Skin Exam: Normal Color, Warm Assessment and Plan - Assessment and Plan (Free Text) Assessment: 72-year-old black female with history of partial gastric torsion, hiatal hernia, diabetes, hypertension, hyperlipidemia, GERD presenting with abdominal pain, most likely due to gastric torsion, which is improving w/ NGT decompression. Hospital course complicated by complete heart block, and patient received transvenous pacer and currently being paced. Plan: - Continue NG decompression - Nothing by mouth - Hold off on EGD at this time pending further cardiac evaluation/plans for PPM - We will continue following and consider EGD pending course - Please notify if the patient worsens overnight and will consider reevaluation for emergent EGD Case was reviewed and discussed with Dr. Jerez <Gaston Jerez V - Last Filed: 09/21/18 21:55> Objective - Vital Signs/Intake and Output Vital Signs (last 24 hours): Temp Pulse Resp BP Pulse Ox 98.4 F 103 H 19 157/83 H 90 L 09/20/18 16:00 09/21/18 16:30 09/21/18 16:30 09/21/18 16:00 09/21/18 16:30 - Medications Medications: Current Medications Benzocaine/Menthol (Cepacol Sore Throat) 1 matthieu MT Q2H PRN PRN Reason: Sore Throat Last Admin: 09/21/18 08:21 Dose: 1 matthieu Sodium Chloride (Sodium Chloride 0.9%) 1,000 mls @ 100 mls/hr IV .Q10H [facility] Last Admin: 09/21/18 17:25 Dose: 100 mls/hr Levofloxacin/Dextrose (Levaquin 250mg) 250 mg in 50 mls @ 50 mls/hr IVPB DAILY [facility]; Protocol Stop: 09/25/18 23:59 Last Admin: 09/21/18 13:54 Dose: 50 mls/hr Insulin Human Lispro (Humalog Low) 0 units SC ACHS [facility]; Protocol Last Admin: 09/21/18 13:46 Dose: Not Given Lidocaine (Lidoderm) 1 ea TD DAILY [facility] Last Admin: 09/21/18 10:00 Dose: 1 ea Morphine Sulfate (Morphine) 2 mg IVP Q4H PRN PRN Reason: Pain, moderate (4-7) Last Admin: 09/21/18 21:12 Dose: 2 mg Ondansetron HCl (Zofran Inj) 4 mg IVP Q4H PRN PRN Reason: Nausea/Vomiting Pantoprazole Sodium (Protonix Inj) 40 mg IVP DAILY [facility] Last Admin: 09/21/18 10:30 Dose: 40 mg Sodium Chloride ([place] Nasal [place]) 0 ml NS Q4H PRN PRN Reason: Nasal congestion - Labs Labs: 09/21/18 05:40 09/21/18 05:40 PT 10.7 SECONDS (9.4-12.5) 09/19/18 19:20 INR 0.96 09/19/18 19:20 APTT 30.0 Seconds (26.9-38.3) 09/19/18 19:20 Attending/Attestation - Attestation I have personally seen and examined this patient.: Yes I have fully participated in the care of the patient.: Yes I have reviewed all pertinent clinical information, including history, physical exam and plan: Yes Notes (Text): This is an addendum to GI progress report dictated by the Resident . The patient was seen and examined earlier. Medical records, lab studies, imagings were reviewed. Last 24 hours events reviewed. Agreed with the above treatment plan as outlined in Resident 's notes with the addition of the following Patient was feeling better NG tube was draining bilious dark fluid Status post pacemaker today Discussed with the real estate officer Dr. Carrasco Discussed with anesthesiologist Procedure to be rescheduled in view of recent pacemaker placement and anesthesia concerns Discussed with the patient's family 09/21/18 21:52
[2018-09-21] MEDS: Lidocaine 5% Patch TD SCH (10:00)
[2018-09-21] MEDS ORDERED: Lidocaine PF 2% (5 ml) Inj (For Cardiac Arrhy) ONE (11:04)
[2018-09-21] MEDS ORDERED: Vancomycin 500 mg Inj ONE (11:12)
[2018-09-21] MEDS ORDERED: Midazolam 2 MG/2 ML VIAL ONE (11:48)
[2018-09-21] MEDS ORDERED: Morphine 2 mg/ml ISec ONE (13:01)
[2018-09-21] MEDS: levoFLOXacin 250 mg in D5W 250 MG/50 ML BAG IVPB SCH (13:54)
--- NOTE | 2018-09-21 14:12 | CPOSTOP ---
DATE: 09/21/2018 CARDIOVASCULAR LAB POSTPROCEDURE NOTE PHYSICIAN: Dilcia Carrasco MD [employer] COORDINATOR: INNA Bean. TYPE OF ANESTHESIA: Moderate conscious sedation, total 2 mg of Versed, 100 of fentanyl, and 2 mg of Morphine given periodically; started 1 mg of Versed, 50 of fentanyl. PRE-PROCEDURE DIAGNOSIS: Complete heart block status post temporary venous pacemaker. PROCEDURE PERFORMED: Implantation of permanent pacemaker dual chamber MRI safe. FINDINGS: Complete heart block. FINAL DIAGNOSIS: Complete heart block. POST PROCEDURE CONDITION: The patient's condition is stable. VASCULAR ACCESS SITE: Left subclavian vein. CLOSING DEVICE: Dermabond. TOTAL RADIATION DOSE: 2926.3 milligray unit. TOTAL FLUOROSCOPY TIME: 6 minutes. Dilcia Carrasco MD
--- NOTE | 2018-09-21 14:19 | CARD ---
APPROVED REPORT Date of service: 09/21/2018 EKG Measurement Heart [id number] <Conclusion> Normal sinus rhythm Left axis deviation Minimal voltage criteria for LVH, may be normal variant T wave abnormality, consider inferior ischemia T wave abnormality, consider anterolateral ischemia Prolonged QT Abnormal ECG
--- NOTE | 2018-09-21 14:20 | RAD ---
Date of service: 09/21/2018 HISTORY: Post Pacemaker COMPARISON: Comparison chest 09/20/2018 FINDINGS: Situ NGT, the tip of which has not been included on this film though distal aspect does lie well below EG junction. LUNGS: Mild bibasilar atelectasis left greater than right. Questionable small bilateral effusions right greater than left PLEURA: As above. No pneumothorax apparent. CARDIOVASCULAR: Interval placement bipolar pacemaker/defibrillator. Cardiomegaly. No significant aortic atherosclerotic calcification present. OSSEOUS STRUCTURES: No significant abnormalities. VISUALIZED UPPER ABDOMEN: Normal. OTHER FINDINGS: None. IMPRESSION: Interval placement bipolar pacemaker/defibrillator. In situ NGT in good position. Bibasilar atelectasis left greater than right. Questionable small bilateral effusions right greater than left.
--- NOTE | 2018-09-21 14:48 | CARD ---
APPROVED REPORT Date of service: 09/21/2018 HISTORY The Patient is a 72 year-old female with a history of HTN admitted with Abdominal pain and complette Heart Block with Multiple pauses ranging from 3- 9 seconds with near syncope, requiring TVP in emergency on weekend. PROCEDURES Insertion Dual Chamber Pacemaker INDICATIONS SSS CHB Multiple pauses ranging from 3-9 seconds with near syncope S/p TVP in emergency on weekend CONSCIOUS SEDATION AGENTS Versed Fentanyl and 2 mg IV morphine IMPLANTED DEVICES Ventricular lead 5076-52 Medtronic Active lead , MRI Safe Atrial Lead 5076-45 Medtronic Active Lead, MRI safe Pulse generator, Medtronic ROSALBA XT DR LUISA garcia OPERATIVE NOTE The patient was brought to the Cardiac Catheterization Laboratory in a fasting state and was prepped and draped in a sterile manner. The left subclavian region was infiltrated with 2% Lidocaine, subcutaneous anesthesia. A transverse incision was made in the left upper chest cavity. The subcutaneous pocket was formed via blunt dissection. Percutaneous venous access was achieved and an introducer sheath was inserted into the Lt Subclavian vein. Through the introducer sheaths, the atrial and ventricular lead wires were positioned in the right atrial apppendage and right ventricular apex respectively, utilizing fluorscopic guidance. The atrial and ventricular leads were advanced over the wires under fluoroscopic guidance and positioned in the right atria and right ventricle respectively. Capturing and sensing thresholds were verified. THE ATRIAL ELECTRODE PARAMETERS P WAVE 3.0 THRESHOLD0.6 RESISTANCE 659 THE VENTRICULAR ELECTRODE PARAMETERS R WAVE 12.7 THRESHOLD0.5 RESISTANCE 879 The atrial and ventricular leads were then secured using 0 Silk sutures. The subcutaneous pocket was irrigated with Betadine.The atrial and ventricular leads were attached to the appropriate receptacles on the pulse generator and set screws firmly tightened to insure adequate contact and stability. The leads and pulse generator were placed into the subcutaneous pocket. Sharp and sponge counts were confirmed to be correct. At this time the pocket was closed subcutaneously with a 2.0 Vicryl and the skin was closed with a 4.0 Vicryl .The operative site was dressed in sterile fashion. The patient tolerated the procedure well and was transferred tot floor in stable condition. COMPLICATIONS The patient tolerated the procedure well and there were no complications associated with the procedure. CONCLUSION Successful Implantation on DDDR ,MRI safe ( pt can have MRI in future if needed), and removal of TVP from right femoral vein. CC; Drs. Cross/ Leatha.
--- NOTE | 2018-09-21 17:19 | CARD ---
APPROVED REPORT Date of service: 09/21/2018 EXAM: Two-dimensional and M-mode echocardiogram with Doppler and color Doppler. INDICATION BRADYCARDIA/HTN 2D DIMENSIONS Left Atrium (2D)3.9 (1.6-4.0cm)IVSd1.1 (0.7-1.1cm) LVDd3.8 (3.9-5.9cm)PWd1.2 (0.7-1.1cm) LVDs2.6 (2.5-4.0cm)FS (%) 32.7 % LVEF (%)62.0 (>50%) M-Mode DIMENSIONS Aortic Root3.50 (2.2-3.7cm)Aortic Cusp Exc.1.80 (1.5-2.0cm) Aortic Valve AoV Peak Robdlmmr589.0cm/[place] Peak GR.6mmHg Mitral Valve MV E Dnjkhege64.9cm/sMV A Yoranyru38.3cm/sE/A ratio0.6 TDI Lateral E' Peak V12.60cm/sMedial E' Peak V6.53cm/sE/Lateral E'4.0 E/Medial E'7.6 Pulmonary Valve PV Peak Mwecepwa03.2cm/sPV Peak Grad.2mmHg Tricuspid Valve TR Peak Ukxabvoa173us/sRAP [id number] Peak Gr.57mmHg [id number] LEFT VENTRICLE The left ventricle is normal size. There is borderline concentric left ventricular hypertrophy. Proximal septal thickening is noted. The left ventricular function is normal.EF-55-60% Septal motion consistent with conduction abnormality. Transmitral Doppler flow pattern is Grade III-reversible restrictive diastolic dysfunction. No left ventricle thrombus noted on this study. There is no ventricular septal defect visualized. There is no left ventricular aneurysm. There is no mass noted in the left ventricle. RIGHT VENTRICLE The right ventricle is normal size. There is normal right ventricular wall thickness. The right ventricular systolic function is normal. There is a pacemaker lead in the right ventricle. ATRIA The left atrium size is normal. The right atrium size is normal. There is a catheter/pacemaker lead seen in the right atrium. The interatrial septum is intact with no evidence for an atrial septal defect. AORTIC VALVE The aortic valve is thickened but opens well. No aortic regurgitation is present. There is no aortic valvular stenosis. There is no aortic valvular vegetation. MITRAL VALVE The mitral valve is thickened but opens well. Mitral regurgitation is trace. There is no mitral valve stenosis. There is no evidence of mitral valve prolapse. TRICUSPID VALVE The tricuspid valve leaflets are thickened , but open well. There is severe tricuspid regurgitation.RVSP-67 mmof Hg. There is moderate to severe pulmonary hypertension. There is no tricuspid valve stenosis. There is no tricuspid valve prolapse or vegetation. PULMONIC VALVE The pulmonary valve is normal in structure. There is no pulmonic valvular regurgitation. There is no pulmonic valvular stenosis. GREAT VESSELS The aortic root is normal in size. The ascending aorta is normal in size. The pulmonary artery is normal. The IVC is normal in size and collapses >50% with inspiration. PERICARDIAL EFFUSION There is no pleural effusion. There is no pericardial effusion. <Conclusion> The left ventricle is normal size. There is borderline concentric left ventricular hypertrophy. The left ventricular function is normal.EF-55-60% Mitral regurgitation is trace. There is severe tricuspid regurgitation.RVSP-67 mmof Hg. There is moderate to severe pulmonary hypertension. The IVC is normal in size and collapses >50% with inspiration. There is no pericardial effusion. PPM lead noted in RA/RV.
--- NOTE | 2018-09-21 21:42 | PN ---
DATE: 09/21/2018 SUBJECTIVE: Patient was seen and examined. I do agree with the note of the medical education specialist. I was involved in the plan of care. The patient had a syncopal episode and a temporary pacer was placed. The patient was also placed on Dopamine. She is going today for a permanent pacemaker by Dr. Carrasco. The patient says her abdominal pain is better. She is having less output from her NG tube. She has a history of diabetes. She is on IV fluids with normal saline. The patient has degeneration of her discs at L4-L5 and her pain is controlled. She has history of diabetes type 2 and is on insulin sliding scale with coverage. She has dyslipidemia. I did speak to the patient's family at the bedside to give updates on the patient's diagnosis and plan of care. Patient is on IV Protonix. She is going to continue with IV fluids. She is on Zofran. She currently remains n.p.o. because she has a small bowel obstruction. Paddy Cross MD
--- NOTE | 2018-09-21 21:49 | PN ---
DATE: 09/21/2018 SUBJECTIVE: The patient is in bed, in no acute distress, nontoxic. PHYSICAL EXAMINATION: VITAL SIGNS: Temperature is 98, blood pressure is 159/80, respiratory rate of 18. HEENT: Unremarkable. NECK: Supple. LUNGS: Have decreased breath sounds. HEART: Normal S1 and S2. ABDOMEN: Soft and nontender. LABORATORY DATA: Laboratory examination reveals a white count of 9.3, hemoglobin of 13. BUN of 8, creatinine of 0.6. Urinalysis is noted. Microbiology reveals the blood cultures are negative and nasal MRSA is not detected. ASSESSMENT AND PLAN: This is a 72-year-old female, seen earlier this morning in room 129, bed 7 and a history of appendectomy, history of section. Admitted with abdominal pain, partial gastric torsion and small bowel obstruction without any systemic signs, allergic to penicillin. The patient is off antibiotics at this point. Dr. Carrasco's postprocedure report is reviewed. The patient is with complete heart block, status post temporary venous pacemaker. We will follow closely with you. The patient is diabetic, hypertensive, dyslipidemia, degenerative joint disease and now complete heart block. The patient is not having exposure to any ticks; however, we will request two-step Lyme testing with a reflex western blot. Benny West MD
--- NOTE | 2018-09-22 06:49 | CP.PCM.PN ---
<Julián Morataya - Last Filed: 09/22/18 10:34> Subjective - Date & Time of Evaluation Date of Evaluation: 09/22/18 Time of Evaluation: 07:28 - Subjective Subjective: Julián Morataya PGY2 GI Progress Note for Dr. Jerez Patient was seen and examined at bedside. she has been transferred out of ICU to telemetry. There were no acute overnight events. Patient's abdominal pain has mainly resolved, and her NGT output has been decreasing. Objective - Vital Signs/Intake and Output Vital Signs (last 24 hours): Temp Pulse Resp BP Pulse Ox 98.4 F 101 H 16 131/84 89 L 09/20/18 16:00 09/22/18 04:20 09/22/18 04:20 09/22/18 04:00 09/22/18 04:20 - Medications Medications: Current Medications Benzocaine/Menthol (Cepacol Sore Throat) 1 matthieu MT Q2H PRN PRN Reason: Sore Throat Last Admin: 09/21/18 08:21 Dose: 1 matthieu Sodium Chloride (Sodium Chloride 0.9%) 1,000 mls @ 100 mls/hr IV .Q10H TRISTA Last Admin: 09/21/18 17:25 Dose: 100 mls/hr Levofloxacin/Dextrose (Levaquin 250mg) 250 mg in 50 mls @ 50 mls/hr IVPB DAILY TRISTA; Protocol Stop: 09/25/18 23:59 Last Admin: 09/21/18 13:54 Dose: 50 mls/hr Insulin Human Lispro (Humalog Low) 0 units SC ACHS TRISTA; Protocol Last Admin: 09/21/18 23:00 Dose: Not Given Lidocaine (Lidoderm) 1 ea TD DAILY TRISTA Last Admin: 09/21/18 10:00 Dose: 1 ea Morphine Sulfate (Morphine) 2 mg IVP Q4H PRN PRN Reason: Pain, moderate (4-7) Last Admin: 09/21/18 21:12 Dose: 2 mg Ondansetron HCl (Zofran Inj) 4 mg IVP Q4H PRN PRN Reason: Nausea/Vomiting Pantoprazole Sodium (Protonix Inj) 40 mg IVP DAILY TRISTA Last Admin: 09/21/18 10:30 Dose: 40 mg Sodium Chloride ([place] Nasal [place]) 0 ml NS Q4H PRN PRN Reason: Nasal congestion - Labs Labs: 09/21/18 05:40 09/21/18 05:40 PT 10.7 SECONDS (9.4-12.5) 09/19/18 19:20 INR 0.96 09/19/18 19:20 APTT 30.0 Seconds (26.9-38.3) 09/19/18 19:20 - Constitutional Appears: Well, Non-toxic, No Acute Distress - Head Exam Head Exam: ATRAUMATIC, NORMAL INSPECTION - Eye Exam Eye Exam: EOMI, Normal appearance, PERRL - ENT Exam ENT Exam: Mucous Membranes Moist Additional comments: NGT in place w/ drainage to the wall (<100cc light bilious output at time of examination) - Neck Exam Neck Exam: Full ROM, Normal Inspection - Respiratory Exam Respiratory Exam: NORMAL BREATHING PATTERN. absent: Wheezes, Respiratory Distress - Cardiovascular Exam Cardiovascular Exam: RRR, +S1, +S2 - GI/Abdominal Exam GI & Abdominal Exam: Soft, Tenderness (epigastric, to deep palpation), Normal Bowel Sounds. absent: Distended, Guarding - Extremities Exam Extremities Exam: Full ROM, Normal Inspection - Neurological Exam Neurological Exam: Alert, Awake - Psychiatric Exam Psychiatric exam: Normal Affect, Normal Mood - Skin Skin Exam: Normal Color, Warm Assessment and Plan - Assessment and Plan (Free Text) Assessment: 72-year-old black female with history of partial gastric torsion, hiatal hernia, diabetes, hypertension, hyperlipidemia, GERD presenting with abdominal pain, most likely due to gastric torsion, which is improving w/ NGT decompression. Hospital course complicated by complete heart block for which patient received PPM. Plan: - replete K - Plan to pull NGT out today since symptoms are improving - CXR showing large left pneumothorax noted; f/u CXR jet AM - continue to monitor patient and symptoms - will require EGD, possibly tomorrow; will evaluate patient w/ CXR and symptoms in AM - please notify resident if patient's symptoms worsen - GI PPX Case was reviewed and discussed with attending, Dr. Jerez <Gaston Jerez V - Last Filed: 09/22/18 23:54> Objective - Vital Signs/Intake and Output Vital Signs (last 24 hours): Temp Pulse Resp BP Pulse Ox 98.3 F 92 H 20 130/80 89 L 09/22/18 17:32 09/22/18 22:00 09/22/18 17:32 09/22/18 17:32 09/22/18 04:20 Intake and Output: 09/22/18 09/23/18 18:59 06:59 Intake Total 2800 Output Total 1000 Balance 1800 - Medications Medications: Current Medications Benzocaine/Menthol (Cepacol Sore Throat) 1 matthieu MT Q2H PRN PRN Reason: Sore Throat Last Admin: 09/21/18 08:21 Dose: 1 matthieu Diphenhydramine HCl (Benadryl) 25 mg IVP HS PRN PRN Reason: Insomnia Last Admin: 09/22/18 22:51 Dose: 25 mg Sodium Chloride (Sodium Chloride 0.9%) 1,000 mls @ 100 mls/hr IV .Q10H TRISTA Last Admin: 09/22/18 20:15 Dose: Not Given Levofloxacin/Dextrose (Levaquin 250mg) 250 mg in 50 mls @ 50 mls/hr IVPB DAILY TRISTA; Protocol Stop: 09/25/18 23:59 Last Admin: 09/22/18 10:25 Dose: 50 mls/hr Insulin Human Lispro (Humalog Low) 0 units SC ACHS TRISTA; Protocol Last Admin: 09/22/18 21:26 Dose: Not Given Lidocaine (Lidoderm) 1 ea TD DAILY TRISTA Last Admin: 09/22/18 10:25 Dose: 1 ea Metoprolol Tartrate (Lopressor) 5 mg IVP Q6 PRN PRN Reason: Heart rate Morphine Sulfate (Morphine) 2 mg IVP Q4H PRN PRN Reason: Pain, moderate (4-7) Last Admin: 09/22/18 13:31 Dose: 2 mg Ondansetron HCl (Zofran Inj) 4 mg IVP Q4H PRN PRN Reason: Nausea/Vomiting Pantoprazole Sodium (Protonix Inj) 40 mg IVP DAILY TRISTA Last Admin: 09/22/18 10:24 Dose: 40 mg Sodium Chloride ([place] Nasal [place]) 0 ml NS Q4H PRN PRN Reason: Nasal congestion - Labs Labs: 09/22/18 05:35 09/22/18 18:06 PT 13.8 SECONDS (9.4-12.5) H 09/22/18 10:52 INR 1.22 09/22/18 10:52 APTT 31.0 Seconds (26.9-38.3) 09/22/18 10:52 Attending/Attestation - Attestation I have personally seen and examined this patient.: Yes I have fully participated in the care of the patient.: Yes I have reviewed all pertinent clinical information, including history, physical exam and plan: Yes Notes (Text): This is an addendum to GI progress report dictated by the veterinary medical officer. The patient was seen and examined earlier. Medical records, lab studies, imagings were reviewed. Last 24 hours events reviewed. Agreed with the above treatment plan as outlined in resident 's notes with the addition of the following 09/22/18 23:53
[2018-09-22 06:50] LABS: BASO # 0.02 K/mm3 (0.0-2.0); BASO % 0.2 % (0.0-3.0); EOS % 0.1 % (1.5-5.0); HEMOGLOBIN 12.8 g/dL (12.0-16.0); LYMPH # 1.7 (1.2-3.4); LYMPH % 21.1 % (22.0-35.0); MEAN CELL VOLUME 86.7 fl (80.0-105.0); MEAN CORPUSCULAR HEMOGLOBIN 26.5 pg (25.0-35.0); MEAN CORPUSCULAR HGB CONC 30.5 g/dl (31.0-37.0); MEAN PLATELET VOLUME 10.5 fl (7.0-11.0); MONO # 0.7 (0.1-0.6); MONO % 8.2 % (1.0-6.0); RBC 4.83 10^6/uL (3.5-6.1); RED CELL DISTRIBUTION WIDTH 13.7 % (11.5-14.5); WHITE BLOOD COUNT 8.2 10^3/uL (4.5-11.0)
[2018-09-22 07:21] LABS: ALB/GLOB RATIO 1.4 (1.1-1.8); ALBUMIN 3.5 g/dL (3.0-4.8); ALT/SGPT 26 U/L (7-56); AST/SGOT 29 U/L (14-36); BLOOD UREA NITROGEN 14 mg/dL (7-21); CALCIUM 8.7 mg/dL (8.4-10.5); GFR NON-AFRICAN AMERICAN > 60
[2018-09-22] MEDS: Insulin Lispro (humaLOG) LOW Coverage SC SCH ×4 (08:00→21:26)
--- NOTE | 2018-09-22 08:07 | CP.PCM.PN ---
Subjective - Date & Time of Evaluation Date of Evaluation: 09/22/18 Time of Evaluation: 07:35 - Subjective Subjective: General surgery progress note for Dr. Jeronimo Patient seen and examined this am at bedside. No acute events overnight. pacemaker placed yesterday. Previous right femoral insertion site cdi with dressing in place. patient has no c/o f/c, n/v, abdominal pain, CP, SOB/ She would like to have the NGT removed as soon as possible. Objective - Vital Signs/Intake and Output Vital Signs (last 24 hours): Temp Pulse Resp BP Pulse Ox 98.4 F 101 H 16 131/84 89 L 09/20/18 16:00 09/22/18 04:20 09/22/18 04:20 09/22/18 04:00 09/22/18 04:20 Intake and Output: 09/22/18 09/22/18 06:59 18:59 Intake Total 1200 Output Total 1000 Balance 200 - Medications Medications: Current Medications Benzocaine/Menthol (Cepacol Sore Throat) 1 matthieu MT Q2H PRN PRN Reason: Sore Throat Last Admin: 09/21/18 08:21 Dose: 1 matthieu Sodium Chloride (Sodium Chloride 0.9%) 1,000 mls @ 100 mls/hr IV .Q10H TRISTA Last Admin: 09/21/18 17:25 Dose: 100 mls/hr Levofloxacin/Dextrose (Levaquin 250mg) 250 mg in 50 mls @ 50 mls/hr IVPB DAILY TRISTA; Protocol Stop: 09/25/18 23:59 Last Admin: 09/21/18 13:54 Dose: 50 mls/hr Insulin Human Lispro (Humalog Low) 0 units SC ACHS TRISTA; Protocol Last Admin: 09/21/18 23:00 Dose: Not Given Lidocaine (Lidoderm) 1 ea TD DAILY TRISTA Last Admin: 09/21/18 10:00 Dose: 1 ea Morphine Sulfate (Morphine) 2 mg IVP Q4H PRN PRN Reason: Pain, moderate (4-7) Last Admin: 09/21/18 21:12 Dose: 2 mg Ondansetron HCl (Zofran Inj) 4 mg IVP Q4H PRN PRN Reason: Nausea/Vomiting Pantoprazole Sodium (Protonix Inj) 40 mg IVP DAILY TRISTA Last Admin: 09/21/18 10:30 Dose: 40 mg Sodium Chloride ([place] Nasal [place]) 0 ml NS Q4H PRN PRN Reason: Nasal congestion - Labs Labs: 09/22/18 05:35 09/22/18 05:35 PT 10.7 SECONDS (9.4-12.5) 09/19/18 19:20 INR 0.96 09/19/18 19:20 APTT 30.0 Seconds (26.9-38.3) 09/19/18 19:20 - Constitutional Appears: Well, Non-toxic, No Acute Distress - Head Exam Head Exam: ATRAUMATIC - Eye Exam Eye Exam: EOMI - ENT Exam ENT Exam: Mucous Membranes Moist - Respiratory Exam Respiratory Exam: NORMAL BREATHING PATTERN - Cardiovascular Exam Cardiovascular Exam: REGULAR RHYTHM - GI/Abdominal Exam GI & Abdominal Exam: Soft. absent: Guarding, Tenderness, Rebound Additional comments: NGT in place with 50 cc bilious output in canister - Extremities Exam Extremities Exam: absent: Calf Tenderness - Neurological Exam Neurological Exam: Alert, Awake, Oriented x3 - Psychiatric Exam Psychiatric exam: Normal Affect, Normal Mood - Skin Skin Exam: Dry, Intact, Normal Color, Warm Assessment and Plan - Assessment and Plan (Free Text) Assessment: 72 yr old female with hx of partial gastric torsion, consulted for abdominal pain (currently resolved), s/p pacemaker placement (Dr. Carrasco) POD 1 Plan: - Maintain NPO - Conservative management for now - Continue NGT to Low suction for decompression - Pain control - f/u GI recs, consider EGD for re-evaluation - No acute surgical intervention warranted at this time Further recs as per Dr. Kandace He, PGY 1
--- NOTE | 2018-09-22 08:26 | PN ---
DATE: 09/21/2018 REASON FOR CONSULTATION AND FOLLOWUP: The patient , bradycardia with pause, hypertension, diabetes, abdominal pain, status post temporary venous pacemaker right femoral vein. SUBJECTIVE: The patient is having chest pain, feels uncomfortable from the NG tube, wanted to get the tube out. lying flat on the bed. PHYSICAL EXAMINATION: VITAL SIGNS: Temperature afebrile, heart rate 59, blood pressure 159/84. HEENT: PERRLA. Extraocular muscles intact. NECK: Supple. No carotid bruits. No thyromegaly. CHEST: Clear to auscultation. HEART: S1 and S2, regular. ABDOMEN: Soft. EXTREMITIES: Clubbing and cyanosis negative. LABORATORY DATA: WBC 9.3, hemoglobin 13, hematocrit 42.6, platelet count 166. Chemistry showed sodium 138, potassium 4.7, chloride 100, carbon dioxide 33, anion gap of , creatinine 0.6. IMPRESSION: A 72-year-old female with past medical history significant for hypertension, diabetes, admitted with abdominal pain, found to be multiple pauses status post TVP yesterday by Dr. Jesus. Risks and benefits already discussed. RECOMMENDATION: Implantation of permanent pacemaker. Discussed risks, benefits and alternatives with the patient, patient's family, daughter, and son-in-law. We will proceed for permanent pacemaker today around 12 noon, between 11 and 12. We will keep n.p.o. I discussed with the nursing staff. Discussed with the taking care of the patient. We will follow with you. Thank you for providing us the opportunity in taking care of the patient, Karissa Campos with GI workup as part of the permanent pacemaker. Dilcia Carrasco MD
--- NOTE | 2018-09-22 09:30 | CP.PCM.PN ---
<Bisi Rinaldi - Last Filed: 09/22/18 11:45> Subjective - Date & Time of Evaluation Date of Evaluation: 09/22/18 Time of Evaluation: 06:40 - Subjective Subjective: IM resident progress note for Dr. Cross's service Patient s/p permanent pacemaker yesterday. Patient with no complaints. The abdominal pain has improved. NGT with bilious 500 in the last 24 hours. Denies cp or sob. Denies palpitations. Objective - Vital Signs/Intake and Output Vital Signs (last 24 hours): Temp Pulse Resp BP Pulse Ox 98.4 F 101 H 16 131/84 89 L 09/20/18 16:00 09/22/18 04:20 09/22/18 04:20 09/22/18 04:00 09/22/18 04:20 Intake and Output: 09/22/18 09/22/18 06:59 18:59 Intake Total 1200 Output Total 1000 Balance 200 - Medications Medications: Current Medications Benzocaine/Menthol (Cepacol Sore Throat) 1 matthieu MT Q2H PRN PRN Reason: Sore Throat Last Admin: 09/21/18 08:21 Dose: 1 matthieu Sodium Chloride (Sodium Chloride 0.9%) 1,000 mls @ 100 mls/hr IV .Q10H TRISTA Last Admin: 09/21/18 17:25 Dose: 100 mls/hr Levofloxacin/Dextrose (Levaquin 250mg) 250 mg in 50 mls @ 50 mls/hr IVPB DAILY TRISTA; Protocol Stop: 09/25/18 23:59 Last Admin: 09/21/18 13:54 Dose: 50 mls/hr Potassium Chloride (Potassium Chloride 10 Meq/100 Ml) 10 meq in 100 mls @ 50 mls/hr IVPB Q2H TRISTA Stop: 09/22/18 17:29 Insulin Human Lispro (Humalog Low) 0 units SC ACHS TRISTA; Protocol Last Admin: 09/22/18 08:00 Dose: Not Given Lidocaine (Lidoderm) 1 ea TD DAILY TRISTA Last Admin: 09/21/18 10:00 Dose: 1 ea Morphine Sulfate (Morphine) 2 mg IVP Q4H PRN PRN Reason: Pain, moderate (4-7) Last Admin: 09/21/18 21:12 Dose: 2 mg Ondansetron HCl (Zofran Inj) 4 mg IVP Q4H PRN PRN Reason: Nausea/Vomiting Pantoprazole Sodium (Protonix Inj) 40 mg IVP DAILY TRISTA Last Admin: 09/21/18 10:30 Dose: 40 mg Sodium Chloride ([place] Nasal [place]) 0 ml NS Q4H PRN PRN Reason: Nasal congestion - Labs Labs: 09/22/18 05:35 09/22/18 05:35 PT 10.7 SECONDS (9.4-12.5) 09/19/18 19:20 INR 0.96 09/19/18 19:20 APTT 30.0 Seconds (26.9-38.3) 09/19/18 19:20 - Constitutional Appears: No Acute Distress - Head Exam Head Exam: ATRAUMATIC, NORMAL INSPECTION, NORMOCEPHALIC - Eye Exam Eye Exam: Normal appearance, PERRL - ENT Exam ENT Exam: Mucous Membranes Moist Additional comments: NGT in place, in suction. - Neck Exam Neck Exam: Normal Inspection - Respiratory Exam Respiratory Exam: Clear to Ausculation Bilateral, NORMAL BREATHING PATTERN. absent: Rales, Rhonchi, Wheezes, Respiratory Distress, Stridor - Cardiovascular Exam Cardiovascular Exam: REGULAR RHYTHM, RRR, +S1, +S2. absent: Murmur Additional comments: Paced rhythm - GI/Abdominal Exam GI & Abdominal Exam: Soft, Normal Bowel Sounds. absent: Distended, Firm, Guarding, Rigid, Tenderness, Organomegaly, Rebound - Extremities Exam Extremities Exam: Normal Inspection. absent: Pedal Edema - Back Exam Back Exam: NORMAL INSPECTION - Neurological Exam Neurological Exam: Alert, Awake, Oriented x3 - Psychiatric Exam Psychiatric exam: Normal Affect, Normal Mood - Skin Skin Exam: Dry, Warm Additional comments: left upper chest with clean dressing over the pacemaker insertion site. Assessment and Plan - Assessment and Plan (Free Text) Assessment: 1) Right bowel obstruction - 2) Symptomatic bradycardia due to high degree av block with syncope s/p permanent pacemaker 3) Degenerative joint disease at L4-L5 4) Diabetes type 2 5) Hypertension 6) Dyslipidemia 7) Tricuspid regurgitation 8) Moderate Pulmonary htn 9) Hypokalemia 10) Large left pneumothorax Plan: Patient with paced rhythm on tele. Repeat chest x-ray this AM with pneumothorax, chest tube to be placed by surgery. NGT to be discontinued per GI, with repeat chest x-ray in the morning. Will replete potassium. Continue with protonix for gi prophylaxis. On ISS for DM. Zofran prn for nausea. On IV hydration at NS@100 cc/hr. ID is also on the case, cultures so far negative for 48 hrs. Patient seen, examined and case discussed with Dr. Cross. <Paddy Cross - Last Filed: 09/22/18 17:54> Objective - Vital Signs/Intake and Output Vital Signs (last 24 hours): Temp Pulse Resp BP Pulse Ox 98.3 F 98 H 20 130/80 89 L 09/22/18 17:32 09/22/18 17:32 09/22/18 17:32 09/22/18 17:32 09/22/18 04:20 Intake and Output: 09/22/18 09/22/18 06:59 18:59 Intake Total 1200 Output Total 1000 Balance 200 - Medications Medications: Current Medications Benzocaine/Menthol (Cepacol Sore Throat) 1 matthieu MT Q2H PRN PRN Reason: Sore Throat Last Admin: 09/21/18 08:21 Dose: 1 matthieu Sodium Chloride (Sodium Chloride 0.9%) 1,000 mls @ 100 mls/hr IV .Q10H TRISTA Last Admin: 09/21/18 17:25 Dose: 100 mls/hr Levofloxacin/Dextrose (Levaquin 250mg) 250 mg in 50 mls @ 50 mls/hr IVPB DAILY TRISTA; Protocol Stop: 09/25/18 23:59 Last Admin: 09/22/18 10:25 Dose: 50 mls/hr Insulin Human Lispro (Humalog Low) 0 units SC ACHS TRISTA; Protocol Last Admin: 09/22/18 17:17 Dose: Not Given Lidocaine (Lidoderm) 1 ea TD DAILY TRISTA Last Admin: 09/22/18 10:25 Dose: 1 ea Metoprolol Tartrate (Lopressor) 5 mg IVP Q6 PRN PRN Reason: Heart rate Morphine Sulfate (Morphine) 2 mg IVP Q4H PRN PRN Reason: Pain, moderate (4-7) Last Admin: 09/22/18 13:31 Dose: 2 mg Ondansetron HCl (Zofran Inj) 4 mg IVP Q4H PRN PRN Reason: Nausea/Vomiting Pantoprazole Sodium (Protonix Inj) 40 mg IVP DAILY TRISTA Last Admin: 09/22/18 10:24 Dose: 40 mg Sodium Chloride ([place] Nasal [place]) 0 ml NS Q4H PRN PRN Reason: Nasal congestion - Labs Labs: 09/22/18 05:35 09/22/18 05:35 PT 13.8 SECONDS (9.4-12.5) H 09/22/18 10:52 INR 1.22 09/22/18 10:52 APTT 31.0 Seconds (26.9-38.3) 09/22/18 10:52 Assessment and Plan - Assessment and Plan (Free Text) Assessment: small bowel obstruction Plan: Pt seen and examined by me. I have reviewed the note of the medical service technician and I agree with it. I have discussed the assessment and plan with the resident. I have reviewed the medications and the last labs.
--- NOTE | 2018-09-22 09:58 | RAD ---
Date of service: 09/22/2018 HISTORY: Status post pacemaker COMPARISON: 09/21/2018 TECHNIQUE: Chest PA and lateral FINDINGS: LINES AND TUBES: The nasogastric tube terminates in the stomach. LUNG AND PLEURA: The right lung is well inflated and clear. Interval development of large left pneumothorax with compressive atelectasis of the left lung. No mediastinal shift. No pleural effusions. HEART AND MEDIASTINUM: Mild cardiomegaly. There is stable position of left-sided permanent pacing device with leads terminating in right atrium and right ventricle. No aortic atherosclerotic calcifications present. The hilar and mediastinal contours are within normal limits. SKELETAL STRUCTURES: The bony structures are within normal limits for the patient's age. VISUALIZED UPPER ABDOMEN: Normal. OTHER FINDINGS: None. IMPRESSION: Interval development of large left pneumothorax with compressive atelectasis of the left lung. No evidence for mediastinal shift. Critical findings were discussed with nurse Shira Montanez on 09/22/2018 at 9:50 a.m.
[2018-09-22] MEDS: Lidocaine 5% Patch TD SCH (10:25)
[2018-09-22] MEDS: levoFLOXacin 250 mg in D5W 250 MG/50 ML BAG IVPB SCH (10:25)
[2018-09-22 11:54] LABS: INR 1.22; PROTHROMBIN TIME 13.8 SECONDS (9.4-12.5)
[2018-09-22] MEDS ORDERED: Metoprolol 1 mg/ml Inj IVP PRN (12:36)
[2018-09-22] MEDS: Morphine 2 mg/ml ISec IVP PRN (13:31)
--- NOTE | 2018-09-22 14:30 | RAD ---
Date of service: 09/22/2018 HISTORY: s/p chest tube insertion on the left for pneumo COMPARISON: Plain radiograph performed earlier the same day. FINDINGS: LUNGS: The lungs are well inflated. There is minimal bibasilar atelectasis. PLEURA: There is interval placement of a left chest tube with complete resolution of the large left pneumothorax and re-expansion of the left lung. No large pleural effusions. CARDIOVASCULAR: The heart is normal in size. There is unfolding of the aorta. There are aortic atherosclerotic calcifications present. There is stable position of left-sided dual lead permanent pacing device. OSSEOUS STRUCTURES: Within normal limits for the patient's age. VISUALIZED UPPER ABDOMEN: Normal. OTHER FINDINGS: None. IMPRESSION: 1. Status post left chest tube placement interval complete re-expansion of the left lung and resolution of the large left pneumothorax. No residual pneumothorax. 2. No acute findings.
--- NOTE | 2018-09-22 15:09 | PN ---
DATE: 09/22/2018 REASON FOR CONSULTATION: Bradycardia, pause, hypertension, diabetes, abdominal pain, status post permanent pacemaker and this morning x-ray shows pneumothorax. SUBJECTIVE: The patient denies any chest pain, shortness of breath any palpation. The patient is in 2R, 269, bed 1. OBJECTIVE: GENERAL: Not in apparent distress. VITAL SIGNS: Temperature afebrile, heart rate 101 and blood pressure 131/84. HEENT: PERRLA. Extraocular muscles intact. NECK: Supple. No carotid bruit or thyromegaly. CHEST: Clear to auscultation. HEART: S1 and S2, regular. ABDOMEN: Soft. EXTREMITIES: Clubbing and cyanosis negative. LABORATORY DATA: Blood work up as follows; WBC 8.2, hemoglobin 12.6, hematocrit 41.9 and platelet count 140. Chemistry shows sodium 139, potassium 2.8, chloride 103, carbon dioxide 28, anion gap of 11, BUN 14 and creatinine 0.4. Chest x-ray read as large left pneumothorax, but no midline shift or shift of mediastinum. Interval development of large pneumothorax compressive atelectasis of the left lung. No evidence of mediastinal shift. IMPRESSION: A 72-year-old female with past medical history of hypertension, diabetes, admitted with abdominal pain, possible intestinal obstruction, status post wire was placed by Dr. Jesus because of bradycardia and multiple pauses. Yesterday the patient underwent implantation of permanent pacemaker dual chamber, [employer], MRI safe. This morning chest x-ray followup showed large pneumothorax. Hypokalemia as well. The patient had an echocardiography yesterday that revealed ejection fraction of 55% to 60%, trace mitral regurgitation, severe tricuspid regurgitation, systolic pressure 67, moderate severe pulmonary hypertension. RECOMMENDATION: Aggressively supplement potassium, GI followup. A surgical consult as well as Interventional Radiology consult for placement of the chest tube for reexpansion of the lung. The patient's daughter Esperanza Hernandez called on telephone number [phone] and informed about the pneumothorax and the chest tube and also discussed with the patient. Dr. Cross is also aware of that. We will follow with you. Repeat chest x-ray tomorrow after the chest tube is done. Blood workup in the morning. Thank you Dr. Cross, for providing us the opportunity in taking care of the patient . Dilcia Carrasco MD
--- NOTE | 2018-09-22 15:32 | CP.PCM.CON ---
History of Present Illness - History of Present Illness History of Present Illness: Cardiothoracic Consult Note. Dr. Foreman. 72yo F with PMHx of HTN, DM,PUD, GERD, constipation, arthritis, B/L varicose veins, glaucoma, hx of dizziness/ vertigo who came to the hospital due to recurrent N/V and abdominal pain. Patient noted to have a history of partial gastric torsion, conservatively managed. During the hospital stay, patient noted to have sinus pauses and cardiology consulted for pacemaker placement. Patient obtained pacemaker yesterday with post-placement CXR unremarkable. Chest Xray this morning with evidence of large left sided pneumothorax and cardiothoracic surgery was consulted for further evaluation. PMHx: HTN, DM, PUD, GERD, constipation, arthritis, B/L varicose veins, glaucoma, hx of dizziness/ vertigo PSHx: Appendectomy, x 2, R foot ligament repair, Colonoscopy w/polypectomy (2016), EGD found to have partial gastric torsion Social Hx: Denies tobacco use, Denies ETOH use, Denies illicit drugs Family Hx: Non-contributory Allergy: PCN (swelling) Review of Systems - Review of Systems All systems: reviewed and no additional remarkable complaints except - Cardiovascular Cardiovascular: Dyspnea, Dyspnea on Exertion. absent: Chest Pain - Respiratory Respiratory: Dyspnea, Dyspnea on Exertion - Gastrointestinal Gastrointestinal: absent: Abdominal Pain, Diarrhea, Nausea, Vomiting Past Patient History - Infectious Disease Hx of Infectious Diseases: None - Past Medical History & Family History Past Medical History?: No Past Family History: Reviewed and not pertinent - Past Social History Smoking Status: Never Smoked Alcohol: None Drugs: Denies - CARDIAC Hx Cardiac Disorders: Yes Hx Hypertension: Yes - PULMONARY Hx Respiratory Disorders: No - NEUROLOGICAL Hx Neurological Disorder: Yes Hx Dizziness: Yes (vertigo) - HEENT Hx HEENT Problems: Yes (reading glasses) - RENAL Hx Chronic Kidney Disease: No - ENDOCRINE/METABOLIC Hx Endocrine Disorders: Yes Hx Diabetes Mellitus Type 2: Yes - HEMATOLOGICAL/ONCOLOGICAL Hx Blood Transfusions: No - INTEGUMENTARY Hx Dermatological Problems: No - MUSCULOSKELETAL/RHEUMATOLOGICAL Hx Falls: No - GASTROINTESTINAL Hx Gastrointestinal Disorders: Yes (chronic constipation) Hx Gastroesophageal Reflux: Yes Other/Comment: s/p colonoscopy/endoscopy with polyp removal - GENITOURINARY/GYNECOLOGICAL Hx Genitourinary Disorders: No - PSYCHIATRIC Hx Psychophysiologic Disorder: Yes Hx Depression: Yes Hx Substance Use: No - SURGICAL HISTORY Hx Appendectomy: Yes Hx Orthopedic Surgery: Yes (R foot orn ligament repair) Other/Comment: section x3 - ANESTHESIA Hx Anesthesia Reactions: No Hx Malignant Hyperthermia: No Meds Allergies/Adverse Reactions: Allergies Allergy/AdvReac Type Severity Reaction Status Date / Time Penicillins Allergy SWELLING Verified 02/09/17 14:52 - Medications Medications: Current Medications Benzocaine/Menthol (Cepacol Sore Throat) 1 matthieu MT Q2H PRN PRN Reason: Sore Throat Last Admin: 09/21/18 08:21 Dose: 1 matthieu Sodium Chloride (Sodium Chloride 0.9%) 1,000 mls @ 100 mls/hr IV .Q10H TRISTA Last Admin: 09/21/18 17:25 Dose: 100 mls/hr Levofloxacin/Dextrose (Levaquin 250mg) 250 mg in 50 mls @ 50 mls/hr IVPB DAILY TRISTA; Protocol Stop: 09/25/18 23:59 Last Admin: 09/22/18 10:25 Dose: 50 mls/hr Potassium Chloride (Potassium Chloride 10 Meq/100 Ml) 10 meq in 100 mls @ 50 mls/hr IVPB Q2H TRISTA Stop: 09/22/18 17:29 Last Admin: 09/22/18 12:42 Dose: 50 mls/hr Insulin Human Lispro (Humalog Low) 0 units SC ACHS TRISTA; Protocol Last Admin: 09/22/18 12:30 Dose: Not Given Lidocaine (Lidoderm) 1 ea TD DAILY TRISTA Last Admin: 09/22/18 10:25 Dose: 1 ea Metoprolol Tartrate (Lopressor) 5 mg IVP Q6 PRN PRN Reason: Heart rate Morphine Sulfate (Morphine) 2 mg IVP Q4H PRN PRN Reason: Pain, moderate (4-7) Last Admin: 09/22/18 13:31 Dose: 2 mg Ondansetron HCl (Zofran Inj) 4 mg IVP Q4H PRN PRN Reason: Nausea/Vomiting Pantoprazole Sodium (Protonix Inj) 40 mg IVP DAILY TRISTA Last Admin: 09/22/18 10:24 Dose: 40 mg Sodium Chloride ([place] Nasal [place]) 0 ml NS Q4H PRN PRN Reason: Nasal congestion Physical Exam - Constitutional Appears: Well, Non-toxic, No Acute Distress - Head Exam Head Exam: ATRAUMATIC, NORMAL INSPECTION, NORMOCEPHALIC - Eye Exam Eye Exam: EOMI, Normal appearance. absent: Scleral icterus - ENT Exam ENT Exam: Mucous Membranes Moist - Respiratory Exam Respiratory Exam: NORMAL BREATHING PATTERN Additional comments: Decreased breath sounds left chest - Cardiovascular Exam Cardiovascular Exam: absent: JVD - GI/Abdominal Exam GI & Abdominal Exam: Soft. absent: Tenderness - Extremities Exam Extremities exam: Positive for: normal inspection. Negative for: calf tenderness - Neurological Exam Neurological exam: Alert, Oriented x3 - Psychiatric Exam Psychiatric exam: Normal Affect, Normal Mood - Skin Skin Exam: Dry, Intact, Normal Color, Warm Results - Vital Signs Recent Vital Signs: Last Vital Signs Temp 99.8 F H 09/22/18 12:00 Pulse 116 H 09/22/18 12:00 Resp 18 09/22/18 12:00 BP 127/81 09/22/18 12:00 Pulse Ox 89 L 09/22/18 04:20 - Labs Result Diagrams: 09/22/18 05:35 09/22/18 05:35 Labs: Laboratory Results - last 24 hr 09/21/18 09/22/18 09/22/18 21:42 05:35 05:35 WBC 8.2 RBC 4.83 Hgb 12.8 Hct 41.9 MCV 86.7 MCH 26.5 MCHC 30.5 L RDW 13.7 Plt Count 140 MPV 10.5 Neut % (Auto) 70.4 H Lymph % (Auto) 21.1 L [place] % (Auto) 8.2 H Eos % (Auto) 0.1 L Baso % (Auto) 0.2 Lymph # (Auto) 1.7 [place] # (Auto) 0.7 H Eos # (Auto) 0.0 Baso # (Auto) 0.02 Absolute Neuts (auto) 5.77 PT INR APTT Sodium 139 Potassium 2.8 L* D Chloride 103 Carbon Dioxide 28 Anion Gap 11 BUN 14 Creatinine 0.7 Est GFR ( Amer) > 60 Est GFR (Non-Af Amer) > 60 POC Glucose (mg/dL) 109 Random Glucose 104 Calcium 8.7 Magnesium 2.1 Total Bilirubin 0.6 AST 29 ALT 26 Alkaline Phosphatase 63 Total Protein 6.1 Albumin 3.5 Globulin 2.6 Albumin/Globulin Ratio 1.4 09/22/18 10:52 WBC RBC Hgb Hct MCV MCH MCHC RDW Plt Count MPV Neut % (Auto) Lymph % (Auto) [place] % (Auto) Eos % (Auto) Baso % (Auto) Lymph # (Auto) [place] # (Auto) Eos # (Auto) Baso # (Auto) Absolute Neuts (auto) PT 13.8 H INR 1.22 APTT 31.0 Sodium Potassium Chloride Carbon Dioxide Anion Gap BUN Creatinine Est GFR ( Amer) Est GFR (Non-Af Amer) POC Glucose (mg/dL) Random Glucose Calcium Magnesium Total Bilirubin AST ALT Alkaline Phosphatase Total Protein Albumin Globulin Albumin/Globulin Ratio Assessment & Plan - Assessment and Plan (Free Text) Assessment: 72yo F who is s/p pacemaker placement by cardiology. CardioThoracic surgery consulted for left pneumothorax. Plan: - Will place left 8F chest tube at bedside today - Continue Chest Tube to pleurvac and to continuous wall suction - Pain management - Continuous SpO2 monitoring - f/u repeat CXR in AM Further recs as per Dr. Christi Barron PGY2 Surgery
--- NOTE | 2018-09-22 15:56 | PCM.PROC ---
Procedures Attestation:: I certify that I have explained the specified Operation(s) or Procedure(s), risks, benefits and reasonable alternatives to the Patient and/or other person responsible. The opportunity was given to ask questions and all questions answered - Chest Tube Chest Tube Location: Mid-Axillary Left Size of Tube (cm): 8 (paraguayan) Chest Tube Procedure: Chlorhexidine Tube Sutured to Skin: Yes Sterile Dressing Applied: Yes Anesthesia: Lidocaine 1% Incision Made With: #11 blade Post Procedure: sutured to skin, sterile dressing applied, air occlusive dressing Tube Drainage: blood (minimal) Post Procedure CXR?: Yes Patient Tolerated Procedure: Yes Progress: written consent obtained and witnessed by nurse, timeout performed with nurse as witness naming patient, side and procedure to be performed, patient tolerated procedure well, pulse oximeter monitoring used throughout procedure with improvement afterwards
--- NOTE | 2018-09-22 19:04 | RAD ---
Date of service: 09/22/2018 HISTORY: s/p chest tube insertion COMPARISON: 09/22/2018. FINDINGS: LUNGS: No active pulmonary disease. PLEURA: Uncoiled chest tube identified peripherally in the left pleural space. Similar position identified previously. CARDIOVASCULAR: No atherosclerotic calcification present No radiographic findings to suggest acute or significant cardiovascular disease. OSSEOUS STRUCTURES: No significant abnormalities. VISUALIZED UPPER ABDOMEN: Normal. OTHER FINDINGS: None. IMPRESSION: Stable position of chest tube in the left pleural space
[2018-09-22] MEDS: Sodium Chloride 0.9% 1,000 ML IV SCH (20:15)
[2018-09-22] MEDS ORDERED: DiphenhydrAMINE 50 mg/ml Inj IVP PRN (20:16)
--- NOTE | 2018-09-22 22:37 | PN ---
DATE: 09/22/2018 The patient was seen and examined. I do agree with the note of the certified medical records coder. The patient has small bowel obstruction. The patient has symptomatic bradycardia and has a permanent pacemaker. She has developed pneumothorax, and just she has a bypass surgery. She has diabetes type 2, hypertension. She also has hypokalemia on her labs done today that I reviewed. The patient is going to have her potassium replaced. She is on antibiotics with Levaquin. She is getting morphine for pain. She is on IV fluids. She is currently n.p.o. She is on the telemetry floor. Paddy Cross MD
--- NOTE | 2018-09-23 00:45 | PN ---
DATE: 09/22/2018 SUBJECTIVE: The patient is seen in bed, in no acute distress, and nontoxic. PHYSICAL EXAMINATION: VITAL SIGNS: Temperature is 98, blood pressure is 130/80, respiratory rate is 20, and heart rate is 98. HEENT: Unremarkable. NECK: Supple. LUNGS: Have decreased breath sounds. HEART: Normal S1 and S2. ABDOMEN: Soft. LABORATORY DATA: Reveals a white count of 8.2. Chemistries are noted. Urinalysis is noted. Microbiology is negative. REVIEW OF ORDERS: Reveals the patient was given Levaquin by Dr. Carrasco. ASSESSMENT AND PLAN: This is a 72-year-old female seen earlier today with history of section, appendectomy, admitted with abdominal pain, gastric torsion, small bowel obstruction, and ALLERGIC TO PENICILLIN and the patient complete heart block. Upon further questioning today, the patient said that she lives in [place], has no pets, no exposure to any deer or no exposure to any dogs. No reason to consider Lyme's disease, we will put serology has been ordered and we will check on that. We will discontinue Levaquin. We will discuss with Dr. Carrasco. Benny West MD
[2018-09-23] MEDS: Sodium Chloride 0.9% 1,000 ML IV SCH (00:55)
[2018-09-23] MEDS: Morphine 2 mg/ml ISec IVP PRN (02:24)
--- NOTE | 2018-09-23 07:42 | CP.PCM.PN ---
<Bisi Rinadli - Last Filed: 09/23/18 12:41> Subjective - Date & Time of Evaluation Date of Evaluation: 09/23/18 Time of Evaluation: 06:35 - Subjective Subjective: IM resident progress note for Dr. Cross Last night patient's Wright catheter was removed and patient was unable to void thus Wright catheter was reinserted. Patient states she otherwise had a good night sleep. Complaining of left and right shoulder pain, states the Lidoderm patch is helping. Denies chest pain, and sob. States the abdominal pain has improved. No fever or chills. Left sided chest tube in place, to water seal, no output overnight. Objective - Vital Signs/Intake and Output Vital Signs (last 24 hours): Temp Pulse Resp BP Pulse Ox 98.1 F 74 20 159/82 H 98 09/23/18 06:00 09/23/18 06:00 09/23/18 06:00 09/23/18 06:00 09/23/18 06:00 Intake and Output: 09/23/18 09/23/18 06:59 18:59 Intake Total 0 Output Total 700 Balance -700 - Medications Medications: Current Medications Benzocaine/Menthol (Cepacol Sore Throat) 1 matthieu MT Q2H PRN PRN Reason: Sore Throat Last Admin: 09/21/18 08:21 Dose: 1 matthieu Diphenhydramine HCl (Benadryl) 25 mg IVP HS PRN PRN Reason: Insomnia Last Admin: 09/22/18 22:51 Dose: 25 mg Levofloxacin/Dextrose (Levaquin 250mg) 250 mg in 50 mls @ 50 mls/hr IVPB DAILY TRISTA; Protocol Stop: 09/25/18 23:59 Last Admin: 09/22/18 10:25 Dose: 50 mls/hr Dextrose (Dextrose 5% In Water 1000 Ml) 1,000 mls @ 100 mls/hr IV .Q10H TRISTA Last Admin: 09/23/18 02:32 Dose: 100 mls/hr Insulin Human Lispro (Humalog Low) 0 units SC ACHS TRISTA; Protocol Last Admin: 09/22/18 21:26 Dose: Not Given Lidocaine (Lidoderm) 1 ea TD DAILY TRISTA Last Admin: 09/22/18 10:25 Dose: 1 ea Metoprolol Tartrate (Lopressor) 5 mg IVP Q6 PRN PRN Reason: Heart rate Morphine Sulfate (Morphine) 2 mg IVP Q4H PRN PRN Reason: Pain, moderate (4-7) Last Admin: 09/23/18 02:24 Dose: 2 mg Ondansetron HCl (Zofran Inj) 4 mg IVP Q4H PRN PRN Reason: Nausea/Vomiting Pantoprazole Sodium (Protonix Inj) 40 mg IVP DAILY TRISTA Last Admin: 09/22/18 10:24 Dose: 40 mg Sodium Chloride ([place] Nasal [place]) 0 ml NS Q4H PRN PRN Reason: Nasal congestion - Labs Labs: 09/22/18 05:35 09/22/18 18:06 PT 13.8 SECONDS (9.4-12.5) H 09/22/18 10:52 INR 1.22 09/22/18 10:52 APTT 31.0 Seconds (26.9-38.3) 09/22/18 10:52 - Constitutional Appears: No Acute Distress - Head Exam Head Exam: ATRAUMATIC, NORMAL INSPECTION, NORMOCEPHALIC - Eye Exam Eye Exam: Normal appearance, PERRL - ENT Exam ENT Exam: Mucous Membranes Moist - Neck Exam Neck Exam: Normal Inspection - Respiratory Exam Respiratory Exam: Clear to Ausculation Bilateral, NORMAL BREATHING PATTERN. absent: Rales, Rhonchi, Wheezes, Respiratory Distress, Stridor - Cardiovascular Exam Cardiovascular Exam: REGULAR RHYTHM, RRR, +S1, +S2. absent: Gallop, Irregular Rhythm, JVD, Rubs, Murmur - GI/Abdominal Exam GI & Abdominal Exam: Soft, Tenderness (Mild lower left quadrant), Normal Bowel Sounds. absent: Distended, Firm, Guarding, Rebound - Extremities Exam Extremities Exam: Normal Inspection. absent: Pedal Edema - Neurological Exam Neurological Exam: Alert, Awake, Oriented x3 - Psychiatric Exam Psychiatric exam: Normal Affect, Normal Mood - Skin Skin Exam: Dry, Warm Additional comments: Left upper chest with clean dressing from pacemaker insertion, no signs of infection noted. Left sided chest tube in place with clean dressing. Assessment and Plan - Assessment and Plan (Free Text) Assessment: 1) Distal small bowel obstruction 2) Symptomatic bradycardia due to high degree AV block with syncope s/p permanent pacemaker 3) Large left pneumothorax 4) Uncontrolled htn 5) Acute normocytic anemia likely dilutional 6) Hypokalemia 7) Degenerative joint disease at L4-L5 8) Diabetes type 2 9) Hypertension 10) Dyslipidemia 11) Tricuspid regurgitation 12) Moderate Pulmonary htn Plan: Urinary retention likely from patient being bed bound, will attempt voiding trial once patient is more active. Patient is getting Benadryl hs prn for insomnia, Levaquin for prophylaxis against pacemaker insertion site infection. Continue lidoderm for shoulder pain, Lopressor prn for tachycardia. On morphine prn for pain, zofran prn for nausea, and protonix for gi prophylaxis. Patient is NPO pending GI interventions. Surgery is following for pneumothorax, chest tube now to water seal, repeat chest x-ray pending. Patient's h/h dropped from 12.8 to 10.9 likely iatrogenic from blood draw and blood loss from chest tube insertion with some dilution component. Will monitor for now and repeat cbc in the morning. Patient has hypokalemia and potassium is being repleted. Patient's fluid is switched to D5W due to NPO status, will monitor for hyper and hypoglycemia. Insulin sliding scale is onboard. Patient seen, examined and case discussed with Dr. Cross. <Paddy Cross S - Last Filed: 09/23/18 18:21> Objective - Vital Signs/Intake and Output Vital Signs (last 24 hours): Temp Pulse Resp BP Pulse Ox 98.1 F 66 18 167/109 H 98 09/23/18 12:00 09/23/18 18:01 09/23/18 12:00 09/23/18 18:01 09/23/18 06:00 Intake and Output: 09/23/18 09/23/18 06:59 18:59 Intake Total 0 Output Total 700 Balance -700 - Medications Medications: Current Medications Benzocaine/Menthol (Cepacol Sore Throat) 1 matthieu MT Q2H PRN PRN Reason: Sore Throat Last Admin: 09/21/18 08:21 Dose: 1 matthieu Diphenhydramine HCl (Benadryl) 25 mg IVP HS PRN PRN Reason: Insomnia Last Admin: 09/22/18 22:51 Dose: 25 mg Levofloxacin/Dextrose (Levaquin 250mg) 250 mg in 50 mls @ 50 mls/hr IVPB DAILY TRISTA; Protocol Stop: 09/25/18 23:59 Last Admin: 09/22/18 10:25 Dose: 50 mls/hr Dextrose (Dextrose 5% In Water 1000 Ml) 1,000 mls @ 50 mls/hr IV .Q20H TRISTA Last Admin: 09/23/18 14:45 Dose: 50 mls/hr Insulin Human Lispro (Humalog Low) 0 units SC ACHS TRISTA; Protocol Last Admin: 09/23/18 17:39 Dose: Not Given Lidocaine (Lidoderm) 1 ea TD DAILY [facility] Last Admin: 09/23/18 11:42 Dose: 1 ea Metoprolol Tartrate (Lopressor) 5 mg IVP Q6 PRN PRN Reason: Systolic Blood Pressure Last Admin: 09/23/18 18:01 Dose: 5 mg Morphine Sulfate (Morphine) 2 mg IVP Q4H PRN PRN Reason: Pain, moderate (4-7) Last Admin: 09/23/18 02:24 Dose: 2 mg Ondansetron HCl (Zofran Inj) 4 mg IVP Q4H PRN PRN Reason: Nausea/Vomiting Pantoprazole Sodium (Protonix Inj) 40 mg IVP DAILY [facility] Last Admin: 09/23/18 11:42 Dose: 40 mg Sodium Chloride ([place] Nasal [place]) 0 ml NS Q4H PRN PRN Reason: Nasal congestion - Labs Labs: 09/23/18 07:30 09/23/18 14:00 PT 13.8 SECONDS (9.4-12.5) H 09/22/18 10:52 INR 1.22 09/22/18 10:52 APTT 31.0 Seconds (26.9-38.3) 09/22/18 10:52 Assessment and Plan - Assessment and Plan (Free Text) Plan: Pt seen and examined by me. I have reviewed the note of the medical records director and I agree with it. I have discussed the assessment and plan with the resident. I have reviewed the medications and the last labs.
--- NOTE | 2018-09-23 07:50 | CP.PCM.PN ---
Subjective - Date & Time of Evaluation Date of Evaluation: 09/23/18 Time of Evaluation: 06:50 - Subjective Subjective: Awake, no distress, lying in bed Reason for consultation and follow up: Cardiac evaluation of bradycardia, pauses, status post permanent pacemaker, history of hypertension, status post left chest tube insertion for pneumothorax Seen and examined by me and Dr. Carrasco Objective - Vital Signs/Intake and Output Vital Signs (last 24 hours): Temp Pulse Resp BP Pulse Ox 98.1 F 74 20 159/82 H 98 09/23/18 06:00 09/23/18 06:00 09/23/18 06:00 09/23/18 06:00 09/23/18 06:00 Intake and Output: 09/23/18 09/23/18 06:59 18:59 Intake Total 0 Output Total 700 Balance -700 - Medications Medications: Current Medications Benzocaine/Menthol (Cepacol Sore Throat) 1 matthieu MT Q2H PRN PRN Reason: Sore Throat Last Admin: 09/21/18 08:21 Dose: 1 matthieu Diphenhydramine HCl (Benadryl) 25 mg IVP HS PRN PRN Reason: Insomnia Last Admin: 09/22/18 22:51 Dose: 25 mg Levofloxacin/Dextrose (Levaquin 250mg) 250 mg in 50 mls @ 50 mls/hr IVPB DAILY TRISTA; Protocol Stop: 09/25/18 23:59 Last Admin: 09/22/18 10:25 Dose: 50 mls/hr Dextrose (Dextrose 5% In Water 1000 Ml) 1,000 mls @ 100 mls/hr IV .Q10H TRISTA Last Admin: 09/23/18 02:32 Dose: 100 mls/hr Insulin Human Lispro (Humalog Low) 0 units SC ACHS TRISTA; Protocol Last Admin: 09/22/18 21:26 Dose: Not Given Lidocaine (Lidoderm) 1 ea TD DAILY TRISTA Last Admin: 09/22/18 10:25 Dose: 1 ea Metoprolol Tartrate (Lopressor) 5 mg IVP Q6 PRN PRN Reason: Heart rate Morphine Sulfate (Morphine) 2 mg IVP Q4H PRN PRN Reason: Pain, moderate (4-7) Last Admin: 09/23/18 02:24 Dose: 2 mg Ondansetron HCl (Zofran Inj) 4 mg IVP Q4H PRN PRN Reason: Nausea/Vomiting Pantoprazole Sodium (Protonix Inj) 40 mg IVP DAILY TRISTA Last Admin: 09/22/18 10:24 Dose: 40 mg Sodium Chloride ([place] Nasal [place]) 0 ml NS Q4H PRN PRN Reason: Nasal congestion - Labs Labs: 09/22/18 05:35 09/22/18 18:06 PT 13.8 SECONDS (9.4-12.5) H 09/22/18 10:52 INR 1.22 09/22/18 10:52 APTT 31.0 Seconds (26.9-38.3) 09/22/18 10:52 - Constitutional Appears: Non-toxic, No Acute Distress - Head Exam Head Exam: NORMAL INSPECTION, NORMOCEPHALIC - Eye Exam Eye Exam: Normal appearance Pupil Exam: NORMAL ACCOMODATION - ENT Exam ENT Exam: Mucous Membranes Moist - Respiratory Exam Respiratory Exam: Decreased Breath Sounds, NORMAL BREATHING PATTERN Additional comments: left chest tube - Cardiovascular Exam Cardiovascular Exam: REGULAR RHYTHM, +S1, +S2 Additional comments: PPM left chest - GI/Abdominal Exam GI & Abdominal Exam: Soft, Normal Bowel Sounds - Exam Additional comments: gallagher catheter - Extremities Exam Extremities Exam: Full ROM, Normal Capillary Refill - Neurological Exam Neurological Exam: Alert, Awake, Oriented x3 - Psychiatric Exam Psychiatric exam: Normal Affect, Normal Mood - Skin Skin Exam: Dry, Normal Color, Warm Assessment and Plan - Assessment and Plan (Free Text) Assessment: A 72 year old female who came in to the ER due to abdominal pain possible intestinal obstruction. On EKG showed bradycardia with pauses. Heart rate did not respond to Dopamine drip. External transvenous pacing wire was inserted by Dr. Jesus and a dual chamber permanent pacemaker [employer], (MRI safe) was inserted by Dr. Carrasco. History of hypertension, diabetes, depression, GERD, vertigo. Recent echo showed LVEF of 55-60%, trace MR, severe tricuspid regurgitation, RVSP 67mmHg, moderate to severe pulmonary hypertension. Chest X ray post PPM insertion showed large left pneumothorax requiring left chest tube insertion. For repeat chest X ray today. No distress. GI work up in progress. Plan: No distress Post insertion of left chest tube due to large pneumothorax For repeat chest X ray today to evaluate pneumothorax Heart rate stable Blood pressure stable Continue current treatment Continue current medications GI work up in progress. Will follow up Plan and treatment discussed with Dr. Carrasco
[2018-09-23 08:09] LABS: BASO # 0.02 K/mm3 (0.0-2.0); BASO % 0.3 % (0.0-3.0); EOS # 0.1 (0.0-0.7); EOS % 0.9 % (1.5-5.0); HEMOGLOBIN 10.9 g/dL (12.0-16.0); MEAN CELL VOLUME 85.6 fl (80.0-105.0); MEAN CORPUSCULAR HGB CONC 31.6 g/dl (31.0-37.0); MEAN PLATELET VOLUME 10.4 fl (7.0-11.0); MONO # 0.6 (0.1-0.6); MONO % 8.5 % (1.0-6.0); RBC 4.03 10^6/uL (3.5-6.1); RED CELL DISTRIBUTION WIDTH 13.7 % (11.5-14.5); WHITE BLOOD COUNT 6.8 10^3/uL (4.5-11.0)
[2018-09-23 08:17] LABS: ALB/GLOB RATIO 1.2 (1.1-1.8); ALT/SGPT 24 U/L (7-56); AST/SGOT 27 U/L (14-36); BLOOD UREA NITROGEN 16 mg/dL (7-21); CALCIUM 8.3 mg/dL (8.4-10.5); GFR NON-AFRICAN AMERICAN > 60
[2018-09-23] MEDS: Insulin Lispro (humaLOG) LOW Coverage SC SCH ×4 (08:31→22:15)
[2018-09-23] MEDS: Lidocaine 5% Patch TD SCH (11:42)
--- NOTE | 2018-09-23 11:53 | RAD ---
Date of service: 09/23/2018 HISTORY: F/u for pneumothorax COMPARISON: September 22, 2018. Time of the most recent examination: 18:19. FINDINGS: LUNGS: New lower lobe infiltrates/atelectasis. PLEURA: Uncoiled chest tube in the left pleural space unchanged. No visible pneumothorax. CARDIOVASCULAR: No atherosclerotic calcification present No radiographic findings to suggest acute or significant cardiovascular disease. Position/ configuration of pacemaker device: Satisfactory. OSSEOUS STRUCTURES: No significant abnormalities. VISUALIZED UPPER ABDOMEN: Normal. OTHER FINDINGS: None. IMPRESSION: Stable findings in the left pleural space. Uncoiled catheter identified common no pneumothorax. Low lung volumes, a suboptimal inspiratory effort with accentuation of pulmonary markings at the lung bases with new atelectasis/infiltrates.
--- NOTE | 2018-09-23 12:07 | CP.PCM.PN ---
Subjective - Date & Time of Evaluation Date of Evaluation: 09/23/18 Time of Evaluation: 09:15 - Subjective Subjective: Cardiothoracic surgery note for Dr. Foreman Patient seen and examined this morning. states she is feeling well and would like to eat soon. was told by GI team she will remain NPO for pending EGD evaluation. had gallagher placed overnight d/t urinary retention. Otherwise denies f/c, n/v, abdominal pain stool changes, CP and SOB. Chest tube in place, placed to water seal, no air leak. no new drainage overnight. Objective - Vital Signs/Intake and Output Vital Signs (last 24 hours): Temp Pulse Resp BP Pulse Ox 98.1 F 74 20 159/82 H 98 09/23/18 06:00 09/23/18 06:00 09/23/18 06:00 09/23/18 06:00 09/23/18 06:00 Intake and Output: 09/23/18 09/23/18 06:59 18:59 Intake Total 0 Output Total 700 Balance -700 - Medications Medications: Current Medications Benzocaine/Menthol (Cepacol Sore Throat) 1 matthieu MT Q2H PRN PRN Reason: Sore Throat Last Admin: 09/21/18 08:21 Dose: 1 matthieu Diphenhydramine HCl (Benadryl) 25 mg IVP HS PRN PRN Reason: Insomnia Last Admin: 09/22/18 22:51 Dose: 25 mg Levofloxacin/Dextrose (Levaquin 250mg) 250 mg in 50 mls @ 50 mls/hr IVPB DAILY [facility]STA; Protocol Stop: 09/25/18 23:59 Last Admin: 09/22/18 10:25 Dose: 50 mls/hr Dextrose (Dextrose 5% In Water 1000 Ml) 1,000 mls @ 50 mls/hr IV .Q20H TRISTA Potassium Chloride (Potassium Chloride 10 Meq/100 Ml) 10 meq in 100 mls @ 50 mls/hr IVPB Q2H [facility]STA Stop: 09/23/18 12:29 Last Admin: 09/23/18 11:42 Dose: 50 mls/hr Potassium Chloride (Potassium Chloride 20 Meq/100 Ml) 20 meq in 100 mls @ 50 mls/hr IVPB Q2H TRISTA Stop: 09/23/18 13:14 Insulin Human Lispro (Humalog Low) 0 units SC ACHS [facility]; Protocol Last Admin: 09/23/18 11:58 Dose: Not Given Lidocaine (Lidoderm) 1 ea TD DAILY [facility]STA Last Admin: 09/23/18 11:42 Dose: 1 ea Metoprolol Tartrate (Lopressor) 5 mg IVP Q6 PRN PRN Reason: Heart rate Morphine Sulfate (Morphine) 2 mg IVP Q4H PRN PRN Reason: Pain, moderate (4-7) Last Admin: 09/23/18 02:24 Dose: 2 mg Ondansetron HCl (Zofran Inj) 4 mg IVP Q4H PRN PRN Reason: Nausea/Vomiting Pantoprazole Sodium (Protonix Inj) 40 mg IVP DAILY TRISTA Last Admin: 09/23/18 11:42 Dose: 40 mg Sodium Chloride ([place] Nasal [place]) 0 ml NS Q4H PRN PRN Reason: Nasal congestion - Labs Labs: 09/23/18 07:30 09/23/18 07:30 PT 13.8 SECONDS (9.4-12.5) H 09/22/18 10:52 INR 1.22 09/22/18 10:52 APTT 31.0 Seconds (26.9-38.3) 09/22/18 10:52 - Constitutional Appears: Well, Non-toxic, No Acute Distress - Head Exam Head Exam: ATRAUMATIC - Eye Exam Eye Exam: EOMI - ENT Exam ENT Exam: Mucous Membranes Moist - Respiratory Exam Respiratory Exam: Clear to Ausculation Bilateral, NORMAL BREATHING PATTERN. absent: Accessory Muscle Use - Cardiovascular Exam Cardiovascular Exam: REGULAR RHYTHM - GI/Abdominal Exam GI & Abdominal Exam: Soft. absent: Guarding, Tenderness, Rebound - Back Exam Back Exam: absent: CVA tenderness (L) - Neurological Exam Neurological Exam: Alert, Awake, Oriented x3 - Psychiatric Exam Psychiatric exam: Normal Affect, Normal Mood - Skin Skin Exam: Dry, Normal Color, Warm Assessment and Plan - Assessment and Plan (Free Text) Assessment: 72yo F who is s/p pacemaker placement by cardiology. CardioThoracic surgery consulted for left pneumothorax. Plan: - chest tube to water seal this am - repeat cxr at noon - may wait until after EGD procedure to remove chest tube - will discuss with Dr. Kellen He, PGY 1
[2018-09-23] MEDS ORDERED: Metoprolol 1 mg/ml Inj IVP PRN (12:55)
--- NOTE | 2018-09-23 15:28 | RAD ---
Date of service: 09/23/2018 HISTORY: Status post chest tube insertion COMPARISON: No prior. Comparison chest dated 09/23/2018 at 0559 hr. FINDINGS: LUNGS: In situ left-sided chest tube unchanged persistent mild but improved bibasilar atelectasis and/or infiltrates and small bilateral effusions. PLEURA: As above. Suspect tiny left-sided pneumothorax CARDIOVASCULAR: No significant aortic atherosclerotic calcification present. Cardiomegaly.. No change bipolar pacemaker/defibrillator. Pulmonary vasculature appears slightly less congested OSSEOUS STRUCTURES: No significant abnormalities. VISUALIZED UPPER ABDOMEN: Normal. OTHER FINDINGS: None. IMPRESSION: In situ left-sided chest tube unchanged persistent mild but improved bibasilar atelectasis and/or infiltrates and small bilateral effusions.. Suspect tiny left apical pneumothorax
--- NOTE | 2018-09-23 17:46 | CP.PCM.PN ---
<Georgia Dollhan - Last Filed: 09/23/18 17:43> Subjective - Date & Time of Evaluation Date of Evaluation: 09/23/18 Time of Evaluation: 17:43 - Subjective Subjective: Patient is doing well. Chest tube resolved pneumothorax. She is hungry. Objective - Vital Signs/Intake and Output Vital Signs (last 24 hours): Temp Pulse Resp BP Pulse Ox 98.1 F 72 18 168/87 H 98 09/23/18 12:00 09/23/18 12:00 09/23/18 12:00 09/23/18 12:00 09/23/18 06:00 Intake and Output: 09/23/18 09/23/18 06:59 18:59 Intake Total 0 Output Total 700 Balance -700 - Medications Medications: Current Medications Benzocaine/Menthol (Cepacol Sore Throat) 1 matthieu MT Q2H PRN PRN Reason: Sore Throat Last Admin: 09/21/18 08:21 Dose: 1 matthieu Diphenhydramine HCl (Benadryl) 25 mg IVP HS PRN PRN Reason: Insomnia Last Admin: 09/22/18 22:51 Dose: 25 mg Levofloxacin/Dextrose (Levaquin 250mg) 250 mg in 50 mls @ 50 mls/hr IVPB DAILY [facility]STA; Protocol Stop: 09/25/18 23:59 Last Admin: 09/22/18 10:25 Dose: 50 mls/hr Dextrose (Dextrose 5% In Water 1000 Ml) 1,000 mls @ 50 mls/hr IV .Q20H TRISTA Last Admin: 09/23/18 14:45 Dose: 50 mls/hr Insulin Human Lispro (Humalog Low) 0 units SC ACHS [facility]; Protocol Last Admin: 09/23/18 17:39 Dose: Not Given Lidocaine (Lidoderm) 1 ea TD DAILY TRISTA Last Admin: 09/23/18 11:42 Dose: 1 ea Metoprolol Tartrate (Lopressor) 5 mg IVP Q6 PRN PRN Reason: Systolic Blood Pressure Morphine Sulfate (Morphine) 2 mg IVP Q4H PRN PRN Reason: Pain, moderate (4-7) Last Admin: 09/23/18 02:24 Dose: 2 mg Ondansetron HCl (Zofran Inj) 4 mg IVP Q4H PRN PRN Reason: Nausea/Vomiting Pantoprazole Sodium (Protonix Inj) 40 mg IVP DAILY TRISTA Last Admin: 09/23/18 11:42 Dose: 40 mg Sodium Chloride ([place] Nasal [place]) 0 ml NS Q4H PRN PRN Reason: Nasal congestion - Labs Labs: 09/23/18 07:30 09/23/18 14:00 PT 13.8 SECONDS (9.4-12.5) H 09/22/18 10:52 INR 1.22 09/22/18 10:52 APTT 31.0 Seconds (26.9-38.3) 09/22/18 10:52 - Constitutional Appears: Non-toxic, No Acute Distress - ENT Exam ENT Exam: Mucous Membranes Moist, Normal Exam - Respiratory Exam Respiratory Exam: Clear to Ausculation Bilateral, NORMAL BREATHING PATTERN - Cardiovascular Exam Cardiovascular Exam: REGULAR RHYTHM, +S1, +S2 - GI/Abdominal Exam GI & Abdominal Exam: Soft, Hypoactive Bowel Sounds. absent: Tenderness - Neurological Exam Neurological Exam: Alert, Awake, Oriented x3 Assessment and Plan - Assessment and Plan (Free Text) Assessment: 72-year-old black female with history of partial gastric torsion, hiatal hernia, diabetes, hypertension, hyperlipidemia, GERD presenting with abdominal pain, most likely due to gastric torsion, which is improving w/ NGT decompression. Hospital course complicated by complete heart block for which patient received PPM. She develop pneumothorax after PPM and chest tube placed 09/22/18. Plan: - replete K - Clear liquid diet, NPO PM - continue to monitor patient and symptoms - EGD tomorrow - GI PPX Case was reviewed and discussed with attending, Dr. Jerez <Gaston Jerez V - Last Filed: 09/23/18 23:40> Objective - Vital Signs/Intake and Output Vital Signs (last 24 hours): Temp Pulse Resp BP Pulse Ox 97.1 F L 66 19 167/109 H 98 09/23/18 18:00 09/23/18 18:01 09/23/18 18:00 09/23/18 18:01 09/23/18 06:00 - Medications Medications: Current Medications Acetaminophen (Tylenol 325mg Tab) 650 mg PO Q6H PRN PRN Reason: Pain, Mild (1-3) Last Admin: 09/23/18 20:38 Dose: 650 mg Benzocaine/Menthol (Cepacol Sore Throat) 1 matthieu MT Q2H PRN PRN Reason: Sore Throat Last Admin: 09/21/18 08:21 Dose: 1 matthieu Diphenhydramine HCl (Benadryl) 25 mg IVP HS PRN PRN Reason: Insomnia Last Admin: 09/22/18 22:51 Dose: 25 mg Hydralazine HCl (Apresoline) 10 mg IVP Q6 PRN PRN Reason: Bood pressure Potassium Chloride 40 meq/ (Sodium Chloride) 1,020 mls @ 50 mls/hr IV .[id number] ONE Stop: 09/24/18 14:45 Last Admin: 09/23/18 20:24 Dose: Not Given Insulin Human Lispro (Humalog Low) 0 units SC ACHS [facility]; Protocol Last Admin: 09/23/18 22:15 Dose: Not Given Lidocaine (Lidoderm) 1 ea TD DAILY TRISTA Last Admin: 09/23/18 11:42 Dose: 1 ea Metoprolol Tartrate (Lopressor) 5 mg IVP Q6 PRN PRN Reason: Systolic Blood Pressure Last Admin: 09/23/18 18:01 Dose: 5 mg Morphine Sulfate (Morphine) 2 mg IVP Q4H PRN PRN Reason: Pain, moderate (4-7) Last Admin: 09/23/18 02:24 Dose: 2 mg Ondansetron HCl (Zofran Inj) 4 mg IVP Q4H PRN PRN Reason: Nausea/Vomiting Pantoprazole Sodium (Protonix Inj) 40 mg IVP DAILY TRISTA Last Admin: 09/23/18 11:42 Dose: 40 mg Sodium Chloride ([place] Nasal [place]) 0 ml NS Q4H PRN PRN Reason: Nasal congestion - Labs Labs: 09/23/18 07:30 09/23/18 14:00 PT 13.8 SECONDS (9.4-12.5) H 09/22/18 10:52 INR 1.22 09/22/18 10:52 APTT 31.0 Seconds (26.9-38.3) 09/22/18 10:52 Attending/Attestation - Attestation I have personally seen and examined this patient.: Yes I have fully participated in the care of the patient.: Yes I have reviewed all pertinent clinical information, including history, physical exam and plan: Yes Notes (Text): This is an addendum to GI progress report dictated by the GI Fellow. The patient was seen and examined earlier. Medical records, lab studies, imagings were reviewed. Last 24 hours events reviewed. Agreed with the above treatment plan as outlined in GI Fellow 's notes with the addition of the following supplement potassium Patient was feeling hungry wants to eat Status post pacemaker , pneumothorax, status post chest tube placement Questionable gastric volvulus reduced NG tube draining biliary fluid which was discontinued We will start the patient on clear liquid diet Schedule the patient for EGD tomorrow 09/23/18 23:38
[2018-09-23] MEDS: Potassium Chloride 40 MEQ in Sodium Chloride 0.45% 1,000 ML IV ONE ×2 (20:00→20:24)
--- NOTE | 2018-09-23 21:13 | PN ---
DATE: 09/23/2018 SUBJECTIVE: The patient was seen and examined. I do agree with the note of the medical front desk specialist. The patient has a potassium of 3.0. She had a pneumothorax in the left chest after her pacemaker placement. She has a chest tube that has been placed. I did speak to the surgeon on the case. The patient will most likely need surgery and will need clearance from Cardiology. The patient is being followed by Dr. Jerez from . She had urinary retention and has had a Wright, will most likely need to have the Wright taken out and a voiding trail given. The patient is on morphine for nausea. She says her abdominal pain is controlled. She is going to need replacement of her potassium. She is getting D5W and this is most likely the cause of her hyponatremia. We will discontinue the patient's D5W and will start her on D5 normal saline and place potassium. Paddy Cross MD
--- NOTE | 2018-09-23 22:36 | PN ---
DATE: 09/23/2018 SUBJECTIVE: The patient is in bed. Patient was seen earlier this morning in room 269, bed 1. No fevers. No chills. No nausea. PHYSICAL EXAMINATION VITAL SIGNS: Temperature is 98, blood pressure is , respiratory rate of 18, heart rate of 66. HEENT: Unremarkable. NECK: Supple. LUNGS: Have decreased breath sounds. HEART: Normal S1 and S2. ABDOMEN: Soft. LABORATORY DATA: Reveals a white count of 6.8, hemoglobin of 10, BUN of 15, creatinine of 0.6. Urinalysis is noted. Microbiology reveals the blood cultures are negative. Urine cultures are negative. Chest x-ray is left-sided in situ chest tube unchanged, persistent, mild, but improved. ASSESSMENT AND PLAN: A 72-year-old female with partial gastric torsion hernia, diabetes, hypertension, hyperlipidemia, and gastroesophageal reflux disease presenting with abdominal pain probably due to the gastric torsion and an improvement in nasogastric tube decompression. Patient developed a complete heart block requiring a permanent pacemaker and developed a pneumothorax after pacemaker and chest tube was placed. From Infectious Disease point of view, the patient is no exposure to dogs. She lives in [place] and has no pets. No exposure to deer. However, Lyme serology was tested because of the complete heart block and the results are pending. We will discontinue the Levaquin. Perioperatively it was started by Dr. Carrasco. No need for Levaquin at this point. We will follow with you. PATIENT IS ALLERGIC TO PENICILLIN. Benny West MD
--- NOTE | 2018-09-24 00:54 | CP.PCM.PN ---
Subjective - Date & Time of Evaluation Date of Evaluation: 09/24/18 Time of Evaluation: 00:48 - Subjective Subjective: Patient was seen by me at bedside. Because tylenol was ordered by resident physician for headache. Has no complaints now. Had no dizziness, weakness, paraesthesia, nausea,vomiting. Medical record was reviewed. BP now is 160/109. Lopressor was given. States that headache is going away. Medical record was reviewed. This 72 year old woman was admitted with mid abdominal pain and epigastric discomfort. Has PMH of HTN,GERD,OA, glaucoma, allergy to PCN,appendectomy, x 2. Objective - Vital Signs/Intake and Output Vital Signs (last 24 hours): Temp Pulse Resp BP Pulse Ox 97.9 F 84 19 144/85 100 09/24/18 00:01 09/24/18 00:01 09/24/18 00:01 09/23/18 21:30 09/24/18 00:01 - Medications Medications: Current Medications Acetaminophen (Tylenol 325mg Tab) 650 mg PO Q6H PRN PRN Reason: Pain, Mild (1-3) Last Admin: 09/23/18 20:38 Dose: 650 mg Benzocaine/Menthol (Cepacol Sore Throat) 1 matthieu MT Q2H PRN PRN Reason: Sore Throat Last Admin: 09/21/18 08:21 Dose: 1 matthieu Diphenhydramine HCl (Benadryl) 25 mg IVP HS PRN PRN Reason: Insomnia Last Admin: 09/22/18 22:51 Dose: 25 mg Hydralazine HCl (Apresoline) 10 mg IVP Q6 PRN PRN Reason: Bood pressure Potassium Chloride 40 meq/ (Sodium Chloride) 1,020 mls @ 50 mls/hr IV .[id number] ONE Stop: 09/24/18 14:45 Last Admin: 09/23/18 20:24 Dose: Not Given Insulin Human Lispro (Humalog Low) 0 units SC ACHS TRISTA; Protocol Last Admin: 09/23/18 22:15 Dose: Not Given Lidocaine (Lidoderm) 1 ea TD DAILY TRISTA Last Admin: 09/23/18 11:42 Dose: 1 ea Metoprolol Tartrate (Lopressor) 5 mg IVP Q6 PRN PRN Reason: Systolic Blood Pressure Last Admin: 09/23/18 18:01 Dose: 5 mg Morphine Sulfate (Morphine) 2 mg IVP Q4H PRN PRN Reason: Pain, moderate (4-7) Last Admin: 09/23/18 02:24 Dose: 2 mg Ondansetron HCl (Zofran Inj) 4 mg IVP Q4H PRN PRN Reason: Nausea/Vomiting Pantoprazole Sodium (Protonix Inj) 40 mg IVP DAILY TRISTA Last Admin: 09/23/18 11:42 Dose: 40 mg Sodium Chloride ([place] Nasal [place]) 0 ml NS Q4H PRN PRN Reason: Nasal congestion - Labs Labs: 09/23/18 07:30 09/23/18 14:00 PT 13.8 SECONDS (9.4-12.5) H 09/22/18 10:52 INR 1.22 09/22/18 10:52 APTT 31.0 Seconds (26.9-38.3) 09/22/18 10:52 - Constitutional Appears: Well, No Acute Distress - Head Exam Head Exam: ATRAUMATIC, NORMAL INSPECTION, NORMOCEPHALIC - Eye Exam Eye Exam: Normal appearance - ENT Exam ENT Exam: Normal External Ear Exam - Neck Exam Neck Exam: Normal Inspection - Respiratory Exam Respiratory Exam: NORMAL BREATHING PATTERN - Cardiovascular Exam Cardiovascular Exam: absent: JVD - GI/Abdominal Exam GI & Abdominal Exam: absent: Distended - Rectal Exam Rectal Exam: Deferred - Exam Additional comments: Deferred. - Extremities Exam Extremities Exam: Normal Inspection - Back Exam Back Exam: NORMAL INSPECTION - Neurological Exam Neurological Exam: Alert, Awake, Oriented x3 - Psychiatric Exam Psychiatric exam: Normal Affect, Normal Mood - Skin Skin Exam: Normal Color Assessment and Plan - Assessment and Plan (Free Text) Assessment: Headache Elevated blood pressure reading. HTN GERD OA History constipation Plan: Hydralazine was administered. Asked to administer Lopressor 25 mg PO x 1. Continue present management.
[2018-09-24] MEDS: Morphine 2 mg/ml ISec IVP PRN (00:57)
--- NOTE | 2018-09-24 06:41 | CP.PCM.PN ---
Subjective - Date & Time of Evaluation Date of Evaluation: 09/24/18 Time of Evaluation: 06:30 - Subjective Subjective: IM resident progress note for Dr. Cross's service Patient with no acute overnight. Patient states she had pudding and and clear liquid with no nausea or vomiting. States the abdomen is sore. Patient admits to passing small gas, no bowel movement yet. Denies cp or sob. Admits to pain at the site of chest tube. Objective - Vital Signs/Intake and Output Vital Signs (last 24 hours): Temp Pulse Resp BP Pulse Ox 98.4 F 88 19 147/88 99 09/24/18 06:00 09/24/18 06:00 09/24/18 06:00 09/24/18 06:00 09/24/18 06:00 Intake and Output: 09/23/18 09/24/18 18:59 06:59 Intake Total 180 Output Total 1400 Balance -1220 - Medications Medications: Current Medications Acetaminophen (Tylenol 325mg Tab) 650 mg PO Q6H PRN PRN Reason: Pain, Mild (1-3) Last Admin: 09/23/18 20:38 Dose: 650 mg Benzocaine/Menthol (Cepacol Sore Throat) 1 matthieu MT Q2H PRN PRN Reason: Sore Throat Last Admin: 09/21/18 08:21 Dose: 1 matthieu Diphenhydramine HCl (Benadryl) 25 mg IVP HS PRN PRN Reason: Insomnia Last Admin: 09/22/18 22:51 Dose: 25 mg Hydralazine HCl (Apresoline) 10 mg IVP Q6 PRN PRN Reason: Bood pressure Last Admin: 09/24/18 00:51 Dose: 10 mg Potassium Chloride 40 meq/ (Sodium Chloride) 1,020 mls @ 50 mls/hr IV .[id number] ONE Stop: 09/24/18 14:45 Last Admin: 09/23/18 20:00 Dose: 50 mls/hr Insulin Human Lispro (Humalog Low) 0 units SC ACHS [facility]; Protocol Last Admin: 09/23/18 22:15 Dose: Not Given Lidocaine (Lidoderm) 1 ea TD DAILY TRISTA Last Admin: 09/23/18 11:42 Dose: 1 ea Metoprolol Tartrate (Lopressor) 5 mg IVP Q6 PRN PRN Reason: Systolic Blood Pressure Last Admin: 09/23/18 18:01 Dose: 5 mg Morphine Sulfate (Morphine) 2 mg IVP Q4H PRN PRN Reason: Pain, moderate (4-7) Last Admin: 09/24/18 00:57 Dose: 2 mg Ondansetron HCl (Zofran Inj) 4 mg IVP Q4H PRN PRN Reason: Nausea/Vomiting Pantoprazole Sodium (Protonix Inj) 40 mg IVP DAILY TRISTA Last Admin: 09/23/18 11:42 Dose: 40 mg Sodium Chloride ([place] Nasal [place]) 0 ml NS Q4H PRN PRN Reason: Nasal congestion - Labs Labs: 09/23/18 07:30 09/23/18 14:00 PT 13.8 SECONDS (9.4-12.5) H 09/22/18 10:52 INR 1.22 09/22/18 10:52 APTT 31.0 Seconds (26.9-38.3) 09/22/18 10:52 - Constitutional Appears: No Acute Distress - Head Exam Head Exam: ATRAUMATIC, NORMAL INSPECTION, NORMOCEPHALIC - Eye Exam Eye Exam: EOMI, Normal appearance, PERRL. absent: Scleral icterus Pupil Exam: NORMAL ACCOMODATION - ENT Exam ENT Exam: Mucous Membranes Moist, Normal Exam - Neck Exam Neck Exam: Normal Inspection - Respiratory Exam Respiratory Exam: Clear to Ausculation Bilateral, NORMAL BREATHING PATTERN. ab sent: Prolonged Expiratory Phase, Rales, Rhonchi, Wheezes, Respiratory Distress, Stridor Additional comments: + left sided chest tube in place, on water seal. - Cardiovascular Exam Cardiovascular Exam: Tachycardia, REGULAR RHYTHM, RRR, +S1. absent: Diastolic murmur, Gallop, Irregular Rhythm, JVD, Rubs, +S2, Murmur - GI/Abdominal Exam GI & Abdominal Exam: Soft, Tenderness (left lower quadrant ), Normal Bowel Sounds. absent: Distended, Firm, Guarding, Rigid, Organomegaly, Pulsatile Mass, Rebound - Neurological Exam Neurological Exam: Alert, Awake, Oriented x3 - Psychiatric Exam Psychiatric exam: Normal Affect, Normal Mood - Skin Skin Exam: Dry, Warm Assessment and Plan - Assessment and Plan (Free Text) Plan: Patient is for possible EGD today. X-ray with resolution of pneumothorax. Chest tube is to water seal pending removal. Potassium improved. Patient is with IV hydration for NPO status. Patient has hydralazine and metoprolol prn for htn and tachycardia. Tylenol prn for fever. On ISS for DM. Morphine prn for pain, and zofran prn for nausea/vomiting. Will follow up with surgery post EGD for recommendation. Protonix for gi prophylaxis. Compressive device for DVT prophylaxis. patient seen, examined and case discussed with Dr. Cross.
[2018-09-24 07:15] LABS: BASO # 0.02 K/mm3 (0.0-2.0); BASO % 0.2 % (0.0-3.0); EOS # 0.1 (0.0-0.7); EOS % 0.8 % (1.5-5.0); HEMOGLOBIN 11.6 g/dL (12.0-16.0); LYMPH # 1.2 (1.2-3.4); LYMPH % 13.1 % (22.0-35.0); MEAN CELL VOLUME 84.7 fl (80.0-105.0); MEAN CORPUSCULAR HEMOGLOBIN 27.2 pg (25.0-35.0); MEAN CORPUSCULAR HGB CONC 32.1 g/dl (31.0-37.0); MEAN PLATELET VOLUME 10.2 fl (7.0-11.0); MONO # 0.6 (0.1-0.6); MONO % 6.7 % (1.0-6.0); RBC 4.26 10^6/uL (3.5-6.1); RED CELL DISTRIBUTION WIDTH 13.5 % (11.5-14.5)
[2018-09-24 07:35] LABS: ALB/GLOB RATIO 1.4 (1.1-1.8); ALBUMIN 3.5 g/dL (3.0-4.8); ALT/SGPT 23 U/L (7-56); AST/SGOT 25 U/L (14-36); BLOOD UREA NITROGEN 10 mg/dL (7-21); CALCIUM 8.9 mg/dL (8.4-10.5); GFR NON-AFRICAN AMERICAN > 60
--- NOTE | 2018-09-24 07:51 | RAD ---
Date of service: 09/24/2018 HISTORY: pain COMPARISON: Portable chest 09/23/2018 12 p.m.. FINDINGS: LUNGS: Minimal bibasilar atelectasis evident, favored over infiltrates. Left chest tube appears in situ with approximately 2.2 cm of it within the left intrathoracic space. PLEURA: No visible pneumothorax bilaterally. Borderline left pleural effusion. None is apparent at the right. CARDIOVASCULAR: No aortic atherosclerotic calcification present. Normal cardiac size. No pulmonary vascular congestion. Bipolar permanent pacemaker again evident. OSSEOUS STRUCTURES: No significant abnormalities. VISUALIZED UPPER ABDOMEN: Normal. OTHER FINDINGS: None. IMPRESSION: Left chest tube not significantly changed in position with no visible left pneumothorax evident. Borderline left pleural effusion. None appreciated at the right. Limited bibasilar atelectasis favored over infiltrates once again.
--- NOTE | 2018-09-24 07:55 | CP.PCM.PN ---
Subjective - Date & Time of Evaluation Date of Evaluation: 09/24/18 Time of Evaluation: 07:53 - Subjective Subjective: Willowuniqueluke Lanaleksanderfabian PGY1 Progress Note for Dr. Jeronimo Pt was examined at bedside this morning. She denies any fever, chills, shortness of breath, nausea, vomiting, or diarrhea. She reports some pain at the chest tube insertion site. Objective - Vital Signs/Intake and Output Vital Signs (last 24 hours): Temp Pulse Resp BP Pulse Ox 98.4 F 88 19 147/88 99 09/24/18 06:00 09/24/18 06:00 09/24/18 06:00 09/24/18 06:00 09/24/18 06:00 Intake and Output: 09/24/18 09/24/18 06:59 18:59 Intake Total 780 Output Total 1400 Balance -620 - Medications Medications: Current Medications Acetaminophen (Tylenol 325mg Tab) 650 mg PO Q6H PRN PRN Reason: Pain, Mild (1-3) Last Admin: 09/23/18 20:38 Dose: 650 mg Benzocaine/Menthol (Cepacol Sore Throat) 1 matthieu MT Q2H PRN PRN Reason: Sore Throat Last Admin: 09/21/18 08:21 Dose: 1 matthieu Diphenhydramine HCl (Benadryl) 25 mg IVP HS PRN PRN Reason: Insomnia Last Admin: 09/22/18 22:51 Dose: 25 mg Hydralazine HCl (Apresoline) 10 mg IVP Q6 PRN PRN Reason: Bood pressure Last Admin: 09/24/18 00:51 Dose: 10 mg Potassium Chloride 40 meq/ (Sodium Chloride) 1,020 mls @ 50 mls/hr IV .[id number] ONE Stop: 09/24/18 14:45 Last Admin: 09/23/18 20:00 Dose: 50 mls/hr Insulin Human Lispro (Humalog Low) 0 units SC ACHS TRISTA; Protocol Last Admin: 09/23/18 22:15 Dose: Not Given Lidocaine (Lidoderm) 1 ea TD DAILY TRISTA Last Admin: 09/23/18 11:42 Dose: 1 ea Metoprolol Tartrate (Lopressor) 5 mg IVP Q6 PRN PRN Reason: Systolic Blood Pressure Last Admin: 09/23/18 18:01 Dose: 5 mg Morphine Sulfate (Morphine) 2 mg IVP Q4H PRN PRN Reason: Pain, moderate (4-7) Last Admin: 09/24/18 00:57 Dose: 2 mg Ondansetron HCl (Zofran Inj) 4 mg IVP Q4H PRN PRN Reason: Nausea/Vomiting Pantoprazole Sodium (Protonix Inj) 40 mg IVP DAILY TRISTA Last Admin: 09/23/18 11:42 Dose: 40 mg Sodium Chloride ([place] Nasal [place]) 0 ml NS Q4H PRN PRN Reason: Nasal congestion - Labs Labs: 09/24/18 07:00 09/24/18 07:00 PT 13.8 SECONDS (9.4-12.5) H 09/22/18 10:52 INR 1.22 09/22/18 10:52 APTT 31.0 Seconds (26.9-38.3) 09/22/18 10:52 - Constitutional Appears: Well, No Acute Distress - Head Exam Head Exam: ATRAUMATIC, NORMOCEPHALIC - Eye Exam Eye Exam: EOMI, Normal appearance Pupil Exam: NORMAL ACCOMODATION - ENT Exam ENT Exam: Mucous Membranes Moist - Respiratory Exam Respiratory Exam: Decreased Breath Sounds, NORMAL BREATHING PATTERN. absent: Rales, Rhonchi, Wheezes - Cardiovascular Exam Cardiovascular Exam: REGULAR RHYTHM, +S1, +S2. absent: Gallop, Rubs, Murmur - GI/Abdominal Exam GI & Abdominal Exam: Soft, Normal Bowel Sounds. absent: Distended, Tenderness - Extremities Exam Extremities Exam: Normal Inspection. absent: Pedal Edema - Back Exam Additional comments: L chest tube in place, site clean/dry/intact - Neurological Exam Neurological Exam: Alert, Awake, Oriented x3 - Psychiatric Exam Psychiatric exam: Normal Affect, Normal Mood - Skin Skin Exam: Normal Color Assessment and Plan - Assessment and Plan (Free Text) Assessment: 72 yr old female with hx of partial gastric torsion, consulted for abdominal pain s/p pacemaker placement (Dr. Carrasco) POD 3 Plan: - will plan for gastropexy tomorrow 09/25/[address] and medical/cardiac clearances - f/u GI recs - Pain control - NPO past MN Further recs as per Dr. Jeronimo
--- NOTE | 2018-09-24 08:02 | CP.PCM.PN ---
Subjective - Date & Time of Evaluation Date of Evaluation: 09/24/18 Time of Evaluation: 06:50 - Subjective Subjective: CT surgery Progress note. Dr. Foreman Pt seen and examined at bedside. No acute events overnight. Denies any SOB/CP. Going for an EGD today. No new complaints. CT in place with no output, to [facility]. Objective - Vital Signs/Intake and Output Vital Signs (last 24 hours): Temp Pulse Resp BP Pulse Ox 98.4 F 88 19 147/88 99 09/24/18 06:00 09/24/18 06:00 09/24/18 06:00 09/24/18 06:00 09/24/18 06:00 Intake and Output: 09/24/18 09/24/18 06:59 18:59 Intake Total 780 Output Total 1400 Balance -620 - Medications Medications: Current Medications Acetaminophen (Tylenol 325mg Tab) 650 mg PO Q6H PRN PRN Reason: Pain, Mild (1-3) Last Admin: 09/23/18 20:38 Dose: 650 mg Benzocaine/Menthol (Cepacol Sore Throat) 1 matthieu MT Q2H PRN PRN Reason: Sore Throat Last Admin: 09/21/18 08:21 Dose: 1 matthieu Diphenhydramine HCl (Benadryl) 25 mg IVP HS PRN PRN Reason: Insomnia Last Admin: 09/22/18 22:51 Dose: 25 mg Hydralazine HCl (Apresoline) 10 mg IVP Q6 PRN PRN Reason: Bood pressure Last Admin: 09/24/18 00:51 Dose: 10 mg Potassium Chloride 40 meq/ (Sodium Chloride) 1,020 mls @ 50 mls/hr IV .[id number] ONE Stop: 09/24/18 14:45 Last Admin: 09/23/18 20:00 Dose: 50 mls/hr Insulin Human Lispro (Humalog Low) 0 units SC ACHS TRISTA; Protocol Last Admin: 09/23/18 22:15 Dose: Not Given Lidocaine (Lidoderm) 1 ea TD DAILY TRISTA Last Admin: 09/23/18 11:42 Dose: 1 ea Metoprolol Tartrate (Lopressor) 5 mg IVP Q6 PRN PRN Reason: Systolic Blood Pressure Last Admin: 09/23/18 18:01 Dose: 5 mg Morphine Sulfate (Morphine) 2 mg IVP Q4H PRN PRN Reason: Pain, moderate (4-7) Last Admin: 09/24/18 00:57 Dose: 2 mg Ondansetron HCl (Zofran Inj) 4 mg IVP Q4H PRN PRN Reason: Nausea/Vomiting Pantoprazole Sodium (Protonix Inj) 40 mg IVP DAILY TRISTA Last Admin: 09/23/18 11:42 Dose: 40 mg Sodium Chloride ([place] Nasal [place]) 0 ml NS Q4H PRN PRN Reason: Nasal congestion - Labs Labs: 09/24/18 07:00 09/24/18 07:00 PT 13.8 SECONDS (9.4-12.5) H 09/22/18 10:52 INR 1.22 09/22/18 10:52 APTT 31.0 Seconds (26.9-38.3) 09/22/18 10:52 - Constitutional Appears: Well, Non-toxic, No Acute Distress - Head Exam Head Exam: ATRAUMATIC, NORMAL INSPECTION, NORMOCEPHALIC - Eye Exam Eye Exam: EOMI, Normal appearance. absent: Scleral icterus - ENT Exam ENT Exam: Mucous Membranes Moist - Respiratory Exam Respiratory Exam: NORMAL BREATHING PATTERN. absent: Accessory Muscle Use, Respiratory Distress Additional comments: Left chest tube in place. To waterseal, no air leaks noted. - Cardiovascular Exam Cardiovascular Exam: RRR. absent: JVD - GI/Abdominal Exam GI & Abdominal Exam: Soft. absent: Distended, Guarding, Tenderness, Rebound - Neurological Exam Neurological Exam: Alert, Awake, Oriented x3 - Skin Skin Exam: Dry, Intact, Normal Color, Warm Assessment and Plan - Assessment and Plan (Free Text) Assessment: 72yo F w left sided pneumothorax. S/p left pigtail chest tube placement POD 2. Plan: - continue chest tube to waterseal - Patient going for EDG w/ GI today, will repeat CXR and consider removing pigtail after procedure - Pain control Further recs as per Dr. Kellen Barron PGY2 surgery
--- NOTE | 2018-09-24 08:11 | CP.PCM.PN ---
Subjective - Date & Time of Evaluation Date of Evaluation: 09/24/18 Time of Evaluation: 06:40 - Subjective Subjective: Awake, no distress, lying in bed Reason for consultation and follow up: Cardiac evaluation of bradycardia, pauses, status post permanent pacemaker, history of hypertension, status post left chest tube insertion for pneumothorax Seen and examined by me and Dr. Carrasco Objective - Vital Signs/Intake and Output Vital Signs (last 24 hours): Temp Pulse Resp BP Pulse Ox 98.4 F 88 19 147/88 99 09/24/18 06:00 09/24/18 06:00 09/24/18 06:00 09/24/18 06:00 09/24/18 06:00 Intake and Output: 09/24/18 09/24/18 06:59 18:59 Intake Total 780 Output Total 1400 Balance -620 - Medications Medications: Current Medications Acetaminophen (Tylenol 325mg Tab) 650 mg PO Q6H PRN PRN Reason: Pain, Mild (1-3) Last Admin: 09/23/18 20:38 Dose: 650 mg Benzocaine/Menthol (Cepacol Sore Throat) 1 matthieu MT Q2H PRN PRN Reason: Sore Throat Last Admin: 09/21/18 08:21 Dose: 1 matthieu Diphenhydramine HCl (Benadryl) 25 mg IVP HS PRN PRN Reason: Insomnia Last Admin: 09/22/18 22:51 Dose: 25 mg Hydralazine HCl (Apresoline) 10 mg IVP Q6 PRN PRN Reason: Bood pressure Last Admin: 09/24/18 00:51 Dose: 10 mg Potassium Chloride 40 meq/ (Sodium Chloride) 1,020 mls @ 50 mls/hr IV .[id number] ONE Stop: 09/24/18 14:45 Last Admin: 09/23/18 20:00 Dose: 50 mls/hr Insulin Human Lispro (Humalog Low) 0 units SC ACHS TRITSA; Protocol Last Admin: 09/23/18 22:15 Dose: Not Given Lidocaine (Lidoderm) 1 ea TD DAILY TRISTA Last Admin: 09/23/18 11:42 Dose: 1 ea Metoprolol Tartrate (Lopressor) 5 mg IVP Q6 PRN PRN Reason: Systolic Blood Pressure Last Admin: 09/23/18 18:01 Dose: 5 mg Morphine Sulfate (Morphine) 2 mg IVP Q4H PRN PRN Reason: Pain, moderate (4-7) Last Admin: 09/24/18 00:57 Dose: 2 mg Ondansetron HCl (Zofran Inj) 4 mg IVP Q4H PRN PRN Reason: Nausea/Vomiting Pantoprazole Sodium (Protonix Inj) 40 mg IVP DAILY TRISTA Last Admin: 09/23/18 11:42 Dose: 40 mg Sodium Chloride ([place] Nasal [place]) 0 ml NS Q4H PRN PRN Reason: Nasal congestion - Labs Labs: 09/24/18 07:00 09/24/18 07:00 PT 13.8 SECONDS (9.4-12.5) H 09/22/18 10:52 INR 1.22 09/22/18 10:52 APTT 31.0 Seconds (26.9-38.3) 09/22/18 10:52 - Constitutional Appears: Non-toxic, No Acute Distress - Eye Exam Eye Exam: Normal appearance - ENT Exam ENT Exam: Mucous Membranes Dry - Cardiovascular Exam Cardiovascular Exam: +S1, +S2 Additional comments: V pacing Left chest PPM Left chest tube - GI/Abdominal Exam GI & Abdominal Exam: Soft, Normal Bowel Sounds - Extremities Exam Extremities Exam: Full ROM, Normal Capillary Refill - Neurological Exam Neurological Exam: Alert, Awake, Oriented x3 - Psychiatric Exam Psychiatric exam: Normal Affect, Normal Mood - Skin Skin Exam: Dry, Normal Color, Warm Assessment and Plan - Assessment and Plan (Free Text) Assessment: A 72 year old female who came in to the ER due to abdominal pain possible intestinal obstruction. On EKG showed bradycardia with pauses. Heart rate did n ot respond to Dopamine drip. External transvenous pacing wire was inserted by Dr. Jesus and a dual chamber permanent pacemaker [employer], (MRI safe) was inserted by Dr. Carrasco. History of hypertension, diabetes, depression, GERD, vertigo. Recent echo showed LVEF of 55-60%, trace MR, severe tricuspid regurgitation, RVSP 67mmHg, moderate to severe pulmonary hypertension. Chest X ray post PPM insertion showed large left pneumothorax requiring left chest tube insertion. Repeat chest X ray today resolved pneumothorax. Cleared from cardiac standpoint for EGD with moderate risk. For EGD today. Possible removal of chest tube today. Plan: Complaints of pain at chest tube site PRN Morphine given Repeat chest X ray resolved pneumothorax Possible discontinue chest tube today Heart rate stable Blood pressure stable Continue current treatment Continue current medications EGD today Will follow up Plan and treatment discussed with Dr. Carrasco
[2018-09-24] MEDS: Insulin Lispro (humaLOG) LOW Coverage SC SCH ×4 (08:37→23:07)
[2018-09-24] MEDS ORDERED: Propofol 10 mg/ml Inj (20 ML) ONE (09:36)
[2018-09-24] MEDS ORDERED: Sodium Chloride 0.9% 1,000 ML IV SCH (10:15)
[2018-09-24] MEDS ORDERED: Barium Sulfate Susp 2.1% w/v, 2.0% w/w 450 mL Bottle PO ONE (10:26)
[2018-09-24] MEDS: Lidocaine 5% Patch TD SCH (11:13)
--- NOTE | 2018-09-24 12:52 | PN ---
DATE: 09/24/2018 SUBJECTIVE: The patient is in bed in no acute distress, nontoxic. PHYSICAL EXAMINATION: VITAL SIGNS: Temperature is 98, blood pressure is 145/80, respiratory rate of 20, heart rate of 96. HEENT: Unremarkable. NECK: Supple. LUNGS: Have decreased breath sounds. HEART: Normal S1, S2. ABDOMEN: Soft, nontender. LABORATORY EXAMINATION: Reveals a white count of 9, hemoglobin of 11, BUN of 10, creatinine of 0.5. Urinalysis is noted. Microbiology reveals the urine culture, blood cultures are negative. MRSA screen is negative. Review of orders reveals the Lyme serology is pending and review of orders reveals the patient to be off of antibiotics. ASSESSMENT AND PLAN: A 72-year-old female with partial gastric torsion hernia, diabetes, hypertension, hyperlipidemia, gastroesophageal reflux disease, presenting with abdominal pain probably secondary to gastric torsion improvement with nasogastric tube decompression and developed a complete heart block and pacemaker is placed and the patient developed a pneumothorax after pacemaker, chest tube was placed. The patient has not had any exposure to dogs no setting for exposure Lyme disease, I will check on the Lyme, currently off of antibiotics. Benny West MD
--- NOTE | 2018-09-24 12:52 | RAD ---
Date of service: 09/24/2018 HISTORY: s/p EGD and chest tube insertion COMPARISON: Portable chest 09/24/2018. FINDINGS: LUNGS: Left lateral chest tube not significantly changed in position. Trace left apical pneumothorax suggested. None is seen the right. Limited bibasilar atelectasis favored over infiltrates once again. No right pleural effusion. Generator from pacemaker obscures left costophrenic sulcus. No large or moderate size left pleural effusion. PLEURA: As above. CARDIOVASCULAR: Calcific atherosclerotic changes are seen related to the thoracic aorta. Normal cardiac size. No pulmonary vascular congestion. Pacemaker reiterated. OSSEOUS STRUCTURES: No significant abnormalities. VISUALIZED UPPER ABDOMEN: Normal. OTHER FINDINGS: None. IMPRESSION: Left chest tube unchanged in position. Trace left apical pneumothorax questioned. Limited bilateral basilar atelectasis favored over infiltrate once again. No pulmonary vascular congestion.
[2018-09-24] MEDS ORDERED: Iohexol 350 MG/100 ML VIAL ONE (12:55)
--- NOTE | 2018-09-24 17:47 | CT ---
Date of service: 09/24/2018 PROCEDURE: CT Abdomen and Pelvis with contrast HISTORY: evaluate gastric volvulus post-EGD COMPARISON: Abdomen pelvis CT without contrast 09/19/2018. TECHNIQUE: Following oral and intravenous contrast administration, a CT examination of the abdomen and pelvis was performed from the domes of the diaphragms to the symphysis pubis with reformatted datasets provided not only axial but also sagittal and coronal series. Contrast dose: Omnipaque 350, 100 cc Radiation dose: Total exam DLP = 501.83 mGy-cm. This CT exam was performed using one or more of the following dose reduction techniques: Automated exposure control, adjustment of the mA and/or kV according to patient size, and/or use of iterative reconstruction technique. FINDINGS: Initial CT examination did not captured the upper half of the liver and left upper quadrant superior section. Patient was returned to CT to complete the examination some time afterwards. LOWER THORAX: Images through the visualize lung bases reveal minimal bilateral pleural effusions and bilateral basilar compression atelectasis favored over infiltrates. Cardiomegaly reiterated with pacemaker leads at right heart. Left chest tube incidentally noted with minimal pneumothorax associated. LIVER: No distinct interval change appreciable. GALLBLADDER AND BILE DUCTS: Gallbladder is contracted with mild mural thickening but no cholelithiasis or pericholecystic fluid collection. CBD caliber remains normal. PANCREAS: Unremarkable. No gross lesion or ductal dilatation. SPLEEN: Unremarkable. ADRENALS: Unremarkable. No mass. KIDNEYS AND URETERS: Stable left renal cyst, measuring 3.0 x 2.1 cm at the upper pole medially. No obstructive uropathy bilaterally or right renal parenchymal finding.. VASCULATURE: Unremarkable. No aortic aneurysm. No aortic atherosclerotic calcification or mural plaque present. BOWEL: Initially, the stomach was moderately distended with retained oral contrast material, however, delayed images demonstrate near complete collapse of the stomach. No definite bowel obstruction evident. Interval reduce retained fecal material throughout the majority of the colon however there is prominent residual fecal material in the rectum. APPENDIX: No CT evidence of appendicitis. PERITONEUM: Unremarkable. No free fluid. No free air. LYMPH NODES: Unremarkable. No enlarged lymph nodes. BLADDER: Urinary bladder is decompressed by Wright catheter. REPRODUCTIVE: Unremarkable. BONES: Grade 1 L4-5 spondylolisthesis stable. OTHER FINDINGS: None. IMPRESSION: 1. Interval decompression of the stomach. No local reactive perigastric change or fluid collection within the perineum. 2. No apparent bowel obstruction. Diminishing retained fecal material throughout the colon though still prominent at the rectum.
[2018-09-25 06:40] LABS: INR 1.12; PARTIAL THROMBOPLASTIN TIME 28.2 Seconds (26.9-38.3); PROTHROMBIN TIME 12.6 SECONDS (9.4-12.5)
--- NOTE | 2018-09-25 06:45 | CP.PCM.PN ---
<Bisi Rinaldi - Last Filed: 09/25/18 10:47> Subjective - Date & Time of Evaluation Date of Evaluation: 09/25/18 Time of Evaluation: 06:30 - Subjective Subjective: IM resident progress note for Dr. Cross's service. Patient with no acute events. Patient is s/p EGD yesterday. Patient states she good night sleep. Denies cp or sob. Admits to pain around the chest tube. States the abdominal pain has improved. No nausea, vomiting or diarrhea. No fever or chills. Objective - Vital Signs/Intake and Output Vital Signs (last 24 hours): Temp Pulse Resp BP Pulse Ox 98.0 F 82 18 114/75 95 09/25/18 05:57 09/25/18 05:57 09/25/18 05:57 09/25/18 05:57 09/25/18 05:57 Intake and Output: 09/24/18 09/25/18 18:59 06:59 Intake Total 1140 Output Total 2450 Balance -1310 - Medications Medications: Current Medications Acetaminophen (Tylenol 325mg Tab) 650 mg PO Q6H PRN PRN Reason: Pain, Mild (1-3) Last Admin: 09/25/18 02:43 Dose: 650 mg Amlodipine Besylate (Norvasc) 10 mg PO DAILY TRISTA Benzocaine/Menthol (Cepacol Sore Throat) 1 matthieu MT Q2H PRN PRN Reason: Sore Throat Last Admin: 09/21/18 08:21 Dose: 1 matthieu Diphenhydramine HCl (Benadryl) 25 mg IVP HS PRN PRN Reason: Insomnia Last Admin: 09/22/18 22:51 Dose: 25 mg Hydralazine HCl (Apresoline) 10 mg IVP Q6 PRN PRN Reason: Bood pressure Last Admin: 09/24/18 00:51 Dose: 10 mg Insulin Human Lispro (Humalog Low) 0 units SC ACHS TRISTA; Protocol Last Admin: 09/24/18 23:07 Dose: Not Given Lidocaine (Lidoderm) 1 ea TD DAILY TRISTA Last Admin: 09/24/18 11:13 Dose: 1 ea Metoprolol Tartrate (Lopressor) 5 mg IVP Q6 PRN PRN Reason: Systolic Blood Pressure Last Admin: 09/23/18 18:01 Dose: 5 mg Metoprolol Tartrate (Lopressor) 25 mg PO BID [facility] Last Admin: 09/24/18 17:59 Dose: 25 mg Morphine Sulfate (Morphine) 2 mg IVP Q4H PRN PRN Reason: Pain, moderate (4-7) Last Admin: 09/24/18 00:57 Dose: 2 mg Ondansetron HCl (Zofran Inj) 4 mg IVP Q4H PRN PRN Reason: Nausea/Vomiting Pantoprazole Sodium (Protonix Inj) 40 mg IVP DAILY [facility] Last Admin: 09/24/18 11:13 Dose: 40 mg Sodium Chloride ([place] Nasal [place]) 0 ml NS Q4H PRN PRN Reason: Nasal congestion - Labs Labs: 09/24/18 07:00 09/24/18 07:00 PT 12.6 SECONDS (9.4-12.5) H 09/25/18 06:00 INR 1.12 09/25/18 06:00 APTT 28.2 Seconds (26.9-38.3) 09/25/18 06:00 - Constitutional Appears: No Acute Distress - Head Exam Head Exam: ATRAUMATIC, NORMAL INSPECTION, NORMOCEPHALIC - Eye Exam Eye Exam: Normal appearance. absent: Scleral icterus Pupil Exam: NORMAL ACCOMODATION - ENT Exam ENT Exam: Mucous Membranes Moist - Neck Exam Neck Exam: Normal Inspection - Respiratory Exam Respiratory Exam: Clear to Ausculation Bilateral, NORMAL BREATHING PATTERN. absent: Rales, Rhonchi, Wheezes, Respiratory Distress, Stridor Additional comments: Left sided chest tube Left upper chest with clean dressing from pace maker insertion. - Cardiovascular Exam Cardiovascular Exam: REGULAR RHYTHM, RRR, +S1, +S2. absent: Diastolic murmur, Gallop, JVD, Rubs, Murmur - GI/Abdominal Exam GI & Abdominal Exam: Soft, Normal Bowel Sounds. absent: Distended, Firm, Guarding, Rigid, Tenderness, Rebound - Extremities Exam Extremities Exam: Normal Inspection. absent: Pedal Edema - Back Exam Back Exam: NORMAL INSPECTION - Neurological Exam Neurological Exam: Alert, Awake, Oriented x3 - Psychiatric Exam Psychiatric exam: Normal Affect, Normal Mood - Skin Skin Exam: Dry, Normal Color, Warm Assessment and Plan - Assessment and Plan (Free Text) Assessment: 1) Distal small bowel obstruction 2) Symptomatic bradycardia due to high degree AV block with syncope s/p permanent pacemaker 3) Large left pneumothorax s/p chest tube, with resolution on x-ray 4) Hypertension 5) Acute normocytic anemia likely dilutional 6) Hypokalemia- resolved 7) Degenerative joint disease at L4-L5 8) Diabetes type 2 9) Dyslipidemia 10) Tricuspid regurgitation 11) Moderate Pulmonary htn Plan: Repeat CT on 09/24 post EGD with no obstruction. Chest tube in place, on water seal, repeat chest x-rays with no new pneumothorax. Patient is scheduled for possible gastropexy this morning. Patient has hydralazine and metoprolol prn for htn and tachycardia. Tylenol prn for fever. On ISS for DM. Morphine prn for pain, and zofran prn for nausea/vomiting. Protonix for gi prophylaxis. Co mpressive device for DVT prophylaxis due to scheduled surgery. Patient will need PT evaluation post surgery. Patient seen, examined, and case disucssed with Dr. Cross. <Paddy Cross S - Last Filed: 09/25/18 18:49> Objective - Vital Signs/Intake and Output Vital Signs (last 24 hours): Temp Pulse Resp BP Pulse Ox 97.6 F 93 H 18 100/70 100 09/25/18 12:00 09/25/18 18:25 09/25/18 15:49 09/25/18 12:00 09/25/18 15:01 Intake and Output: 09/25/18 09/25/18 06:59 18:59 Intake Total 1140 Output Total 2450 Balance -1310 - Medications Medications: Current Medications Acetaminophen (Tylenol 325mg Tab) 650 mg PO Q6H PRN PRN Reason: Pain, Mild (1-3) Last Admin: 09/25/18 02:43 Dose: 650 mg Amlodipine Besylate (Norvasc) 10 mg PO DAILY TRISTA Last Admin: 09/25/18 12:26 Dose: Not Given Benzocaine/Menthol (Cepacol Sore Throat) 1 matthieu MT Q2H PRN PRN Reason: Sore Throat Last Admin: 09/21/18 08:21 Dose: 1 matthieu Diphenhydramine HCl (Benadryl) 25 mg IVP Q4H PRN PRN Reason: Itching / Pruritus Last Admin: 09/25/18 18:20 Dose: 25 mg Hydralazine HCl (Apresoline) 10 mg IVP Q6 PRN PRN Reason: Bood pressure Last Admin: 09/24/18 00:51 Dose: 10 mg Sodium Chloride (Sodium Chloride 0.9%) 1,000 mls @ 100 mls/hr IV .Q10H [facility] Insulin Human Lispro (Humalog Low) 0 units SC ACHS TRISTA; Protocol Last Admin: 09/25/18 16:50 Dose: Not Given Lidocaine (Lidoderm) 1 ea TD DAILY [facility] Last Admin: 09/25/18 12:55 Dose: 1 ea Metoprolol Tartrate (Lopressor) 5 mg IVP Q6 PRN PRN Reason: Systolic Blood Pressure Last Admin: 09/23/18 18:01 Dose: 5 mg Metoprolol Tartrate (Lopressor) 25 mg PO BID [facility] Last Admin: 09/25/18 17:39 Dose: Not Given Morphine Sulfate (Morphine) 2 mg IVP Q4H PRN PRN Reason: Pain, moderate (4-7) Last Admin: 09/25/18 18:05 Dose: 2 mg Ondansetron HCl (Zofran Inj) 4 mg IVP Q4H PRN PRN Reason: Nausea/Vomiting Pantoprazole Sodium (Protonix Inj) 40 mg IVP DAILY [facility] Last Admin: 09/25/18 12:55 Dose: 40 mg Sodium Chloride ([place] Nasal [place]) 0 ml NS Q4H PRN PRN Reason: Nasal congestion - Labs Labs: 09/25/18 06:00 09/25/18 06:00 PT 12.6 SECONDS (9.4-12.5) H 09/25/18 06:00 INR 1.12 09/25/18 06:00 APTT 28.2 Seconds (26.9-38.3) 09/25/18 06:00 Assessment and Plan - Assessment and Plan (Free Text) Assessment: Pt was seen and examined. This is a late entry. The note of the expert medical writer was reviewed and I agree the note. The plan of care was discussed with the resident.The labs and medications has been reviewed.
[2018-09-25 06:53] LABS: BASO # 0.02 K/mm3 (0.0-2.0); BASO % 0.4 % (0.0-3.0); EOS # 0.1 (0.0-0.7); EOS % 2.5 % (1.5-5.0); HEMOGLOBIN 11.4 g/dL (12.0-16.0); LYMPH # 1.5 (1.2-3.4); LYMPH % 27.1 % (22.0-35.0); MEAN CELL VOLUME 85.4 fl (80.0-105.0); MEAN CORPUSCULAR HEMOGLOBIN 26.8 pg (25.0-35.0); MEAN CORPUSCULAR HGB CONC 31.4 g/dl (31.0-37.0); MEAN PLATELET VOLUME 10.7 fl (7.0-11.0); MONO # 0.6 (0.1-0.6); RBC 4.25 10^6/uL (3.5-6.1); RED CELL DISTRIBUTION WIDTH 13.5 % (11.5-14.5); WHITE BLOOD COUNT 5.6 10^3/uL (4.5-11.0)
[2018-09-25 07:17] LABS: ALB/GLOB RATIO 1.3 (1.1-1.8); ALBUMIN 3.5 g/dL (3.0-4.8); ALT/SGPT 20 U/L (7-56); AST/SGOT 25 U/L (14-36); BLOOD UREA NITROGEN 7 mg/dL (7-21); CALCIUM 9.4 mg/dL (8.4-10.5); GFR NON-AFRICAN AMERICAN > 60
[2018-09-25] MEDS ORDERED: Bupivacaine 0.5% 50 ML IJ ONE (07:21)
[2018-09-25] MEDS: Insulin Lispro (humaLOG) LOW Coverage SC SCH ×4 (07:46→22:00)
--- NOTE | 2018-09-25 07:47 | CP.PCM.PN ---
Subjective - Date & Time of Evaluation Date of Evaluation: 09/25/18 Time of Evaluation: 06:45 - Subjective Subjective: Awake, no distress, lying in bed Reason for consultation and follow up: Cardiac evaluation of bradycardia, pauses, status post permanent pacemaker, history of hypertension, status post removal left chest tube insertion for pneumothorax, post EGD. Seen and examined by me and Dr. Carrasco Objective - Vital Signs/Intake and Output Vital Signs (last 24 hours): Temp Pulse Resp BP Pulse Ox 98.0 F 82 18 114/75 95 09/25/18 05:57 09/25/18 05:57 09/25/18 05:57 09/25/18 05:57 09/25/18 05:57 Intake and Output: 09/25/18 09/25/18 06:59 18:59 Intake Total 1140 Output Total 2450 Balance -1310 - Medications Medications: Current Medications Acetaminophen (Tylenol 325mg Tab) 650 mg PO Q6H PRN PRN Reason: Pain, Mild (1-3) Last Admin: 09/25/18 02:43 Dose: 650 mg Amlodipine Besylate (Norvasc) 10 mg PO DAILY TRISTA Benzocaine/Menthol (Cepacol Sore Throat) 1 matthieu MT Q2H PRN PRN Reason: Sore Throat Last Admin: 09/21/18 08:21 Dose: 1 matthieu Diphenhydramine HCl (Benadryl) 25 mg IVP HS PRN PRN Reason: Insomnia Last Admin: 09/22/18 22:51 Dose: 25 mg Hydralazine HCl (Apresoline) 10 mg IVP Q6 PRN PRN Reason: Bood pressure Last Admin: 09/24/18 00:51 Dose: 10 mg Insulin Human Lispro (Humalog Low) 0 units SC ACHS TRISTA; Protocol Last Admin: 09/24/18 23:07 Dose: Not Given Lidocaine (Lidoderm) 1 ea TD DAILY TRISTA Last Admin: 09/24/18 11:13 Dose: 1 ea Metoprolol Tartrate (Lopressor) 5 mg IVP Q6 PRN PRN Reason: Systolic Blood Pressure Last Admin: 09/23/18 18:01 Dose: 5 mg Metoprolol Tartrate (Lopressor) 25 mg PO BID TRISTA Last Admin: 09/24/18 17:59 Dose: 25 mg Morphine Sulfate (Morphine) 2 mg IVP Q4H PRN PRN Reason: Pain, moderate (4-7) Last Admin: 09/24/18 00:57 Dose: 2 mg Ondansetron HCl (Zofran Inj) 4 mg IVP Q4H PRN PRN Reason: Nausea/Vomiting Pantoprazole Sodium (Protonix Inj) 40 mg IVP DAILY [facility]STA Last Admin: 09/24/18 11:13 Dose: 40 mg Sodium Chloride ([place] Nasal [place]) 0 ml NS Q4H PRN PRN Reason: Nasal congestion - Labs Labs: 09/25/18 06:00 09/25/18 06:00 PT 12.6 SECONDS (9.4-12.5) H 09/25/18 06:00 INR 1.12 09/25/18 06:00 APTT 28.2 Seconds (26.9-38.3) 09/25/18 06:00 - Constitutional Appears: Non-toxic, No Acute Distress - Head Exam Head Exam: NORMAL INSPECTION, NORMOCEPHALIC - Eye Exam Eye Exam: Normal appearance Pupil Exam: NORMAL ACCOMODATION - ENT Exam ENT Exam: Mucous Membranes Moist - Respiratory Exam Respiratory Exam: Decreased Breath Sounds, Clear to Ausculation Bilateral, NORMAL BREATHING PATTERN Additional comments: left chest tube - Cardiovascular Exam Cardiovascular Exam: +S1, +S2 Additional comments: PPM, V pacing - GI/Abdominal Exam GI & Abdominal Exam: Soft, Normal Bowel Sounds - Extremities Exam Extremities Exam: Full ROM, Normal Capillary Refill - Neurological Exam Neurological Exam: Alert, Awake, Oriented x3 - Psychiatric Exam Psychiatric exam: Normal Affect, Normal Mood - Skin Skin Exam: Dry, Normal Color, Warm Assessment and Plan - Assessment and Plan (Free Text) Assessment: A 72 year old female who came in to the ER due to abdominal pain possible intestinal obstruction. On EKG showed bradycardia with pauses. Heart rate did not respond to Dopamine drip. External transvenous pacing wire was inserted by Dr. Jesus and a dual chamber permanent pacemaker [employer], (MRI safe) was inserted by Dr. Carrasco. History of hypertension, diabetes, depression, GERD, verti go. Recent echo showed LVEF of 55-60%, trace MR, severe tricuspid regurgitation, RVSP 67mmHg, moderate to severe pulmonary hypertension. Chest X ray post PPM insertion showed large left pneumothorax requiring left chest tube insertion. Repeat chest X ray today resolved pneumothorax. Post EGD yesterday, gastritis, gastric polyps. For gastropexy today. Cleared for procedure with moderate risk Plan: No distress For gastropexy today Cleared for procedure from cardiac standpoint Heart rate stable Blood pressure stable Cardiac status stable Continue current treatment Continue current medications Will follow up Plan and treatment discussed with Dr. Carrasco
[2018-09-25] MEDS ORDERED: Propofol 10 mg/ml Inj (20 ML) ONE (07:50)
[2018-09-25] MEDS ORDERED: Midazolam 2 MG/2 ML VIAL ONE (07:50)
[2018-09-25] MEDS ORDERED: Etomidate 20 mg/10ml Inj IV ONE (07:50)
[2018-09-25] MEDS ORDERED: Rocuronium 10 mg/ml (5 ml) ONE (07:52)
[2018-09-25] MEDS ORDERED: Succinylcholine 200 mg/10 ml Inj IV ONE (07:52)
[2018-09-25] MEDS ORDERED: ePHEDrine 50 mg/ml Inj ONE (07:55)
[2018-09-25] MEDS ORDERED: Phenylephrine 10 mg/ml Inj ONE (08:04)
[2018-09-25] MEDS ORDERED: Neostigmine Methylsulfate 3mg/3ml Syringe IV ONE (09:25)
[2018-09-25] MEDS ORDERED: Glycopyrrolate 0.2 mg/ml (2ml vial) ONE (09:25)
[2018-09-25] MEDS ORDERED: HYDROmorphone 0.5 mg/0.5 ml ISec IVP PRN (09:46)
[2018-09-25] MEDS ORDERED: Sodium Chloride 0.9% 1,000 ML IV SCH (10:00)
--- NOTE | 2018-09-25 10:03 | PCM.SURG1 ---
Surgeon's Initial Post Op Note - Surgeon's Notes Surgeon: Dr. Jeronimo General Superintendent: Dr. Wood, PGY 3, Dr. He PGY 1 Type of Anesthesia: General Endo Anesthesia Administered By: Dr. Sullivan Pre-Operative Diagnosis: hx of gastric torsion, possible hiatal hernia Operative Findings: large redundant stomach, intact hiatus Post-Operative Diagnosis: large redundant stomach, hx of gastric torsion Operation Performed: Laparoscopic gastropexy, EGD Specimen/Specimens Removed: none Estimated Blood Loss: EBL {In ML}: 10 Blood Products Given: N/A Drains Used: No Drains Post-Op Condition: Fair Date of Surgery/Procedure: 09/25/18 Time of Surgery/Procedure: 08:30
[2018-09-25] MEDS ORDERED: HYDROmorphone 0.5 mg/0.5 ml ISec IVP ONE ×3 (10:07→11:25)
[2018-09-25] MEDS ORDERED: HYDROmorphone 0.5 mg/0.5 ml ISec ONE ×3 (10:09→11:27)
--- NOTE | 2018-09-25 10:19 | RAD ---
Date of service: 09/25/2018 HISTORY: left pneumo, interval changes COMPARISON: Chest x-ray 09/24/2018 TECHNIQUE: Chest one view . FINDINGS: LUNGS: Bibasilar atelectasis again seen. PLEURA: Small left pneumothorax, mildly increased from prior exam. Probable small bilateral pleural effusions. CARDIOVASCULAR: Heart size is within normal limits. No atherosclerotic calcification present.There is a 2-lead left-sided pacemaker/AICD with leads overlying the regions of the right atrium and right ventricle. OSSEOUS STRUCTURES: No acute fracture identified. VISUALIZED UPPER ABDOMEN: Unremarkable. OTHER FINDINGS: None. IMPRESSION: Small left pneumothorax, mildly increased from prior exam. Additional findings as above.
--- NOTE | 2018-09-25 12:12 | CON ---
DATE: 09/25/2018 PULMONARY CONSULTATION: REFERRING PHYSICIAN: Dr. Pdady Cross REASON FOR PULMONARY CONSULTATION: Left pneumothorax. History is obtained via extensive discussion with the night nurse. I have also reviewed the chart at length, discussed the case with the patient at length. The patient is a 72-year-old female, with past medical history significant for partial gastric torsion, hiatal hernia, hypertension, diabetes mellitus, peptic ulcer disease, who presented to [facility] - originally on 09/19/2018 - with a one-day history of worsening abdominal pain. CAT scan of the abdomen and pelvis was done. The CAT scan was read as possible small-bowel obstruction versus partial gastric torsion. The patient was thus admitted for additional evaluation. On 09/20/2018, Cardiology was consulted because of bradycardia with frequent pauses. The patient then went for a pacemaker insertion on 09/21/2018. The following day, chest x-ray was done - which showed a large left pneumothorax. Chest tube was then placed by Surgery. I am thus asked to evaluate on this case for additional management. The patient is not short of breath at rest. She does not have a history of dyspnea on exertion. The patient does state to an occasional cough with no sputum production. There is no history of chest pain, coughing up of blood, or chest pain - brought on with deep respirations. The patient has had low-grade fevers during the admission. The fevers seemed to have resolved. No history of chills or infectious exposure. No history of night sweats, weight loss, or appetite change prior to the above events. No history of calf pains. No history of syncope or diaphoresis. No history of recent travel or trauma. REVIEW OF SYSTEMS: No acute urinary symptoms. No new neurologic or musculoskeletal complaints. Rest of the review of systems is negative. ALLERGIES: TO PENICILLIN. SOCIAL HISTORY: Negative for tobacco, negative for alcohol. FAMILY HISTORY No inheritable diseases. HOME MEDICATIONS: Include Glucophage, Norvasc, Hytrin, Crestor, Aricept. PHYSICAL EXAMINATION: GENERAL: The patient appears quite comfortable this morning. She is not short of breath at rest. VITALS: Temperature is 98, pulse 82, respirations 18, blood pressure 114/75. Oxygen saturation on nasal cannula is 95-99%. HEENT: Normocephalic, atraumatic. No JVD. CARDIOVASCULAR: Systolic ejection murmur at the lower left sternal border. No S3 gallop. LUNGS: Decreased breath sounds at the bases. No rhonchi. No wheezing. EXTREMITIES: Mild edema. No cyanosis, no clubbing. Calves are nontender to palpation. GASTROINTESTINAL: Abdomen is soft. It is mildly distended and tender to palpation. Bowel sounds are positive. SKIN: No acute rash. NEUROLOGIC: Exam limited at the present time. PERTINENT LABORATORY DATA: Chest x-ray was done this morning and reviewed. I do suspect a small left apical pneumothorax. Official results are pending. CBC: White count 9.0K, hemoglobin 11.6, hematocrit 36.1, platelets of 92,000. IMPRESSION: 1. Left pneumothorax. 2. Status post permanent pacemaker insertion. 3. Cardiac arrhythmias. 4. Partial gastric torsion. 5. Mild anemia. PLAN: Again, I did discuss the case with the night nurse at length. I have also reviewed the chart at length, and discussed the case with the patient at length. The patient presented to [facility] - originally on 09/19/2018 - with a one-day history of worsening abdominal pain. Abdominal and pelvic CAT scan was then done in the emergency room. Findings were consistent with possible small-bowel obstruction versus gastric torsion. The patient was thus admitted for additional evaluation. In addition, during the initial part of her hospital stay, the patient also experienced bradycardia with significant sinus pauses. Pacemaker insertion was then done on 09/21/2018. As above, on 09/22/2018, a large left pneumothorax was identified. Chest tube was then placed. I did review the chest x-ray from this morning. I do suspect a small left apical pneumothorax is present. Official results are pending. I would continue with the chest tube management as per Surgery. In addition to the above, the chest x-ray also shows some minimal atelectatic changes at the bases. I will order an incentive spirometer to be used. I did discuss the case with the Surgical team this morning. The patient is for laparoscopic gastropexy later this morning. Clinical status of the patient certainly appears improved - compared to the initial presentation. However, given the above, the future status/prognosis for this patient does remain guarded. I will continue to follow the patient closely with you. Thank you very much for this pulmonary consultation. Richardson Garza MD [facility]
[2018-09-25] MEDS: Lidocaine 5% Patch TD SCH (12:55)
[2018-09-25] MEDS: Morphine 2 mg/ml ISec IVP PRN ×3 (14:35→22:07)
--- NOTE | 2018-09-25 17:40 | CP.PCM.PN ---
<Julián Morataya - Last Filed: 09/25/18 17:47> Subjective - Date & Time of Evaluation Date of Evaluation: 09/25/18 Time of Evaluation: 16:39 - Subjective Subjective: Julián Morataya PGY2 GI Progress Note for Dr. Jerez Patient was seen and examined at bedside. She is s/p gastropexy POD 1. She is complaining of moderate abdominal pain. She still has chest tube in place. She denies fevers/chills. Objective - Vital Signs/Intake and Output Vital Signs (last 24 hours): Temp Pulse Resp BP Pulse Ox 97.6 F 93 H 18 100/70 100 09/25/18 12:00 09/25/18 15:45 09/25/18 15:49 09/25/18 12:00 09/25/18 15:01 Intake and Output: 09/25/18 09/25/18 06:59 18:59 Intake Total 1140 Output Total 2450 Balance -1310 - Medications Medications: Current Medications Acetaminophen (Tylenol 325mg Tab) 650 mg PO Q6H PRN PRN Reason: Pain, Mild (1-3) Last Admin: 09/25/18 02:43 Dose: 650 mg Amlodipine Besylate (Norvasc) 10 mg PO DAILY TRISTA Last Admin: 09/25/18 12:26 Dose: Not Given Benzocaine/Menthol (Cepacol Sore Throat) 1 matthieu MT Q2H PRN PRN Reason: Sore Throat Last Admin: 09/21/18 08:21 Dose: 1 matthieu Diphenhydramine HCl (Benadryl) 25 mg IVP HS PRN PRN Reason: Insomnia Last Admin: 09/22/18 22:51 Dose: 25 mg Hydralazine HCl (Apresoline) 10 mg IVP Q6 PRN PRN Reason: Bood pressure Last Admin: 09/24/18 00:51 Dose: 10 mg Insulin Human Lispro (Humalog Low) 0 units SC ACHS TRISTA; Protocol Last Admin: 09/25/18 16:50 Dose: Not Given Lidocaine (Lidoderm) 1 ea TD DAILY TRISTA Last Admin: 09/25/18 12:55 Dose: 1 ea Metoprolol Tartrate (Lopressor) 5 mg IVP Q6 PRN PRN Reason: Systolic Blood Pressure Last Admin: 09/23/18 18:01 Dose: 5 mg Metoprolol Tartrate (Lopressor) 25 mg PO BID [facility] Last Admin: 09/25/18 12:26 Dose: Not Given Morphine Sulfate (Morphine) 2 mg IVP Q4H PRN PRN Reason: Pain, moderate (4-7) Last Admin: 09/25/18 14:35 Dose: 2 mg Ondansetron HCl (Zofran Inj) 4 mg IVP Q4H PRN PRN Reason: Nausea/Vomiting Pantoprazole Sodium (Protonix Inj) 40 mg IVP DAILY [facility] Last Admin: 09/25/18 12:55 Dose: 40 mg Sodium Chloride ([place] Nasal [place]) 0 ml NS Q4H PRN PRN Reason: Nasal congestion - Labs Labs: 09/25/18 06:00 09/25/18 06:00 PT 12.6 SECONDS (9.4-12.5) H 09/25/18 06:00 INR 1.12 09/25/18 06:00 APTT 28.2 Seconds (26.9-38.3) 09/25/18 06:00 - Constitutional Appears: Well, Non-toxic, No Acute Distress - Head Exam Head Exam: ATRAUMATIC, NORMAL INSPECTION - Eye Exam Eye Exam: EOMI, Normal appearance, PERRL - ENT Exam ENT Exam: Mucous Membranes Moist, Normal Oropharynx - Neck Exam Neck Exam: Full ROM, Normal Inspection - Respiratory Exam Respiratory Exam: NORMAL BREATHING PATTERN. absent: Respiratory Distress Additional comments: left chest tube in place - Cardiovascular Exam Cardiovascular Exam: RRR, +S1, +S2 - GI/Abdominal Exam GI & Abdominal Exam: Soft, Normal Bowel Sounds - Exam Additional comments: gallagher in place - Extremities Exam Extremities Exam: Full ROM, Normal Inspection - Neurological Exam Neurological Exam: Alert, Awake - Psychiatric Exam Psychiatric exam: Normal Affect, Normal Mood - Skin Skin Exam: Normal Color, Warm Assessment and Plan - Assessment and Plan (Free Text) Assessment: 72-year-old black female with history of partial gastric torsion, hiatal hernia, diabetes, hypertension, hyperlipidemia, GERD presenting with abdominal pain, most likely due to gastric torsion, which is improving w/ NGT decompression. Hospital course complicated by complete heart block for which patient received PPM, and pneumothorax after PPM and chest tube placed 09/22/18. Pneumothorax is improving. Patient is post EGD and Gastropexy by Surgical team POD0. Plan: - advance diet per surgical team - awaiting pathology - PTX for PPX - no further plans for endoscopy - further recs per Dr. Jerez Case was reviewed with Dr. Jerez <Gaston Jerez V - Last Filed: 09/25/18 20:04> Objective - Vital Signs/Intake and Output Vital Signs (last 24 hours): Temp Pulse Resp BP Pulse Ox 97.6 F 93 H 18 100/70 100 09/25/18 12:00 09/25/18 18:25 09/25/18 15:49 09/25/18 12:00 09/25/18 15:01 Intake and Output: 09/25/18 09/26/18 18:59 06:59 Intake Total 0 Output Total 100 Balance -100 - Medications Medications: Current Medications Acetaminophen (Tylenol 325mg Tab) 650 mg PO Q6H PRN PRN Reason: Pain, Mild (1-3) Last Admin: 09/25/18 02:43 Dose: 650 mg Amlodipine Besylate (Norvasc) 10 mg PO DAILY TRISTA Last Admin: 09/25/18 12:26 Dose: Not Given Benzocaine/Menthol (Cepacol Sore Throat) 1 matthieu MT Q2H PRN PRN Reason: Sore Throat Last Admin: 09/21/18 08:21 Dose: 1 matthieu Diphenhydramine HCl (Benadryl) 25 mg IVP Q4H PRN PRN Reason: Itching / Pruritus Last Admin: 09/25/18 18:20 Dose: 25 mg Hydralazine HCl (Apresoline) 10 mg IVP Q6 PRN PRN Reason: Bood pressure Last Admin: 09/24/18 00:51 Dose: 10 mg Sodium Chloride (Sodium Chloride 0.9%) 1,000 mls @ 100 mls/hr IV .Q10H TRISTA Insulin Human Lispro (Humalog Low) 0 units SC ACHS TRISTA; Protocol Last Admin: 09/25/18 16:50 Dose: Not Given Lidocaine (Lidoderm) 1 ea TD DAILY TRISTA Last Admin: 09/25/18 12:55 Dose: 1 ea Metoprolol Tartrate (Lopressor) 5 mg IVP Q6 PRN PRN Reason: Systolic Blood Pressure Last Admin: 09/23/18 18:01 Dose: 5 mg Metoprolol Tartrate (Lopressor) 25 mg PO BID [facility] Last Admin: 09/25/18 17:39 Dose: Not Given Morphine Sulfate (Morphine) 2 mg IVP Q4H PRN PRN Reason: Pain, moderate (4-7) Last Admin: 09/25/18 18:05 Dose: 2 mg Ondansetron HCl (Zofran Inj) 4 mg IVP Q4H PRN PRN Reason: Nausea/Vomiting Pantoprazole Sodium (Protonix Inj) 40 mg IVP DAILY [facility] Last Admin: 09/25/18 12:55 Dose: 40 mg Sodium Chloride ([place] Nasal [place]) 0 ml NS Q4H PRN PRN Reason: Nasal congestion - Labs Labs: 09/25/18 06:00 09/25/18 06:00 PT 12.6 SECONDS (9.4-12.5) H 09/25/18 06:00 INR 1.12 09/25/18 06:00 APTT 28.2 Seconds (26.9-38.3) 09/25/18 06:00 Attending/Attestation - Attestation I have personally seen and examined this patient.: Yes I have fully participated in the care of the patient.: Yes I have reviewed all pertinent clinical information, including history, physical exam and plan: Yes Notes (Text): This patient was seen and evaluated here earlier along with the resident. Imaging studies were reviewed. Surgical note was reviewed. Status post a gastropexy Advance diet as per ID 09/25/18 20:03
[2018-09-25] MEDS ORDERED: DiphenhydrAMINE 50 mg/ml Inj IVP PRN (18:16)
--- NOTE | 2018-09-25 21:32 | PN ---
DATE: 09/25/2018 HOSPITAL COURSE: Patient was seen and examined. I do agree with the note of medical staff director. I was involved in the plan of care. The patient had a small bowel obstruction. She had surgery done today and it went well. I spoke with Surgeon, took over the details. She has history of hypertension, it is controlled. She has a pacemaker because of symptomatic bradycardia. Paddy Cross MD
--- NOTE | 2018-09-26 00:01 | PN ---
DATE: 09/25/2018 SUBJECTIVE: The patient is in bed in no acute distress. PHYSICAL EXAMINATION: VITAL SIGNS: Temperature of 98, blood pressure is 100/70, respiratory rate of 18, heart rate of 93. HEENT: Unremarkable. NECK: Supple. LUNGS: Have decreased breath sounds. HEART: Normal S1, S2. ABDOMEN: Soft. LABORATORY DATA: Reveals a white count of 5.6, hemoglobin of 11 and platelets of 102. Chemistry reveals a BUN of 7, creatinine of 0.6. Lyme serology screen is negative. ASSESSMENT AND PLAN: A 72-year-old female seen earlier this morning in room 269, bed 1 with partial gastric torsion, hernia, diabetes, hypertension, hyperlipidemia, gastroesophageal reflux disease, presented with abdominal pain probably secondary to gastric torsion, improvement with nasogastric tube decompression, developed a complete heart block and pacemaker is placed and developed a pneumothorax after pacemaker. Chest tube was placed. The patient has not had any exposure to dogs. Her Lyme screen is negative. Currently off of antibiotics. Benny West MD
[2018-09-26] MEDS: Sodium Chloride 0.9% 1,000 ML IV SCH ×3 (04:30→23:54)
[2018-09-26] MEDS: Morphine 2 mg/ml ISec IVP PRN (06:19)
[2018-09-26 07:05] LABS: BASO # 0.01 K/mm3 (0.0-2.0); BASO % 0.1 % (0.0-3.0); EOS # 0.1 (0.0-0.7); EOS % 0.8 % (1.5-5.0); HEMOGLOBIN 11.5 g/dL (12.0-16.0); LYMPH % 12.6 % (22.0-35.0); MEAN CELL VOLUME 87.7 fl (80.0-105.0); MEAN CORPUSCULAR HEMOGLOBIN 26.7 pg (25.0-35.0); MEAN CORPUSCULAR HGB CONC 30.5 g/dl (31.0-37.0); MEAN PLATELET VOLUME 10.2 fl (7.0-11.0); MONO # 0.8 (0.1-0.6); MONO % 10.7 % (1.0-6.0); RBC 4.3 10^6/uL (3.5-6.1); RED CELL DISTRIBUTION WIDTH 13.9 % (11.5-14.5); WHITE BLOOD COUNT 7.8 10^3/uL (4.5-11.0)
[2018-09-26 07:27] LABS: BLOOD UREA NITROGEN 14 mg/dL (7-21); GFR NON-AFRICAN AMERICAN > 60
--- NOTE | 2018-09-26 07:35 | PN ---
DATE: 09/26/2018 PULMONARY PROGRESS NOTE SUBJECTIVE: The patient appears comfortable this morning. She is not short of breath at rest. PHYSICAL EXAMINATION VITAL SIGNS: Temperature is 97.9, pulse on the monitor is 104, respiratory rate 18/20, blood pressure 116/71. Oxygen saturation on nasal cannula is 95%. HEENT: Normocephalic, atraumatic. No JVD. CARDIOVASCULAR: Systolic ejection murmur at the lower left sternal border. No S3 gallop. LUNGS: Decreased breath sounds at the bases. No rhonchi. No wheezing. GI: Abdomen is soft. It is mildly distended and tender to palpation. Bowel sounds are decreased. EXTREMITIES: Mild edema. No cyanosis, no clubbing. Calves are nontender to palpation. SKIN: No acute rash. NEUROLOGIC: Limited at the present time. IMPRESSION 1. Left pneumothorax. 2. Status post permanent pacemaker insertion. 3. Cardiac arrhythmias. 4. Partial gastric torsion. Status post surgery. 5. Mild anemia. PLAN: The patient appears comfortable this morning. She is not short of breath at rest. She does state to feeling better overall. I did discuss the case with the night nurse at length. The night nurse stated the patient had a good night. On physical exam, there is no significant bronchospasm noted. In addition, there is no significant alveolar-arterial gradient. I will continue with the patient on frequent incentive spirometry. I have also ordered a chest x-ray for this morning -- not done yet. Inputs by Infectious Disease, Surgery, and Cardiology are also noted. Clinical status of the patient is certainly improved -- compared to the initial presentation. However, given the above, the future status/prognosis for this patient does remain guarded. I will discuss the above with Dr. Cross. Richardson Garza MD [facility]
[2018-09-26] MEDS: Insulin Lispro (humaLOG) LOW Coverage SC SCH ×4 (07:59→22:02)
--- NOTE | 2018-09-26 08:07 | CP.PCM.PN ---
Subjective - Date & Time of Evaluation Date of Evaluation: 09/26/18 Time of Evaluation: 07:05 - Subjective Subjective: General Surgery progress note for Dr. Jeronimo and CT surgery progress note for Dr. Foreman Patient seen and examined this am at bedside. No acute events overnight. Patient states her pain is well controlled, no n/v and she is passing gas. Patient otherwise denies VEGAS, CP, SOB, extremity pain/weakness. Objective - Vital Signs/Intake and Output Vital Signs (last 24 hours): Temp Pulse Resp BP Pulse Ox 97.9 F 109 H 95 H 116/71 19 L 09/26/18 05:44 09/26/18 05:44 09/26/18 05:44 09/26/18 00:00 09/26/18 05:44 Intake and Output: 09/26/18 09/26/18 06:59 18:59 Intake Total 1200 Output Total 200 Balance 1000 - Medications Medications: Current Medications Acetaminophen (Tylenol 325mg Tab) 650 mg PO Q6H PRN PRN Reason: Pain, Mild (1-3) Last Admin: 09/25/18 02:43 Dose: 650 mg Amlodipine Besylate (Norvasc) 10 mg PO DAILY [facility] Last Admin: 09/25/18 12:26 Dose: Not Given Benzocaine/Menthol (Cepacol Sore Throat) 1 matthieu MT Q2H PRN PRN Reason: Sore Throat Last Admin: 09/21/18 08:21 Dose: 1 matthieu Diphenhydramine HCl (Benadryl) 25 mg IVP Q4H PRN PRN Reason: Itching / Pruritus Last Admin: 09/25/18 18:20 Dose: 25 mg Hydralazine HCl (Apresoline) 10 mg IVP Q6 PRN PRN Reason: Bood pressure Last Admin: 09/24/18 00:51 Dose: 10 mg Sodium Chloride (Sodium Chloride 0.9%) 1,000 mls @ 100 mls/hr IV .Q10H TRISTA Last Admin: 09/26/18 04:30 Dose: 100 mls/hr Insulin Human Lispro (Humalog Low) 0 units SC ACHS TRISTA; Protocol Last Admin: 09/26/18 07:59 Dose: Not Given Lidocaine (Lidoderm) 1 ea TD DAILY [facility]STA Last Admin: 09/25/18 12:55 Dose: 1 ea Metoprolol Tartrate (Lopressor) 5 mg IVP Q6 PRN PRN Reason: Systolic Blood Pressure Last Admin: 09/23/18 18:01 Dose: 5 mg Metoprolol Tartrate (Lopressor) 25 mg PO BID [facility] Last Admin: 09/25/18 17:39 Dose: Not Given Morphine Sulfate (Morphine) 2 mg IVP Q4H PRN PRN Reason: Pain, moderate (4-7) Last Admin: 09/26/18 06:19 Dose: 2 mg Ondansetron HCl (Zofran Inj) 4 mg IVP Q4H PRN PRN Reason: Nausea/Vomiting Pantoprazole Sodium (Protonix Inj) 40 mg IVP DAILY [facility] Last Admin: 09/25/18 12:55 Dose: 40 mg Sodium Chloride ([place] Nasal [place]) 0 ml NS Q4H PRN PRN Reason: Nasal congestion - Labs Labs: 09/26/18 06:00 09/26/18 06:00 PT 12.6 SECONDS (9.4-12.5) H 09/25/18 06:00 INR 1.12 09/25/18 06:00 APTT 28.2 Seconds (26.9-38.3) 09/25/18 06:00 - Constitutional Appears: Well, Non-toxic, No Acute Distress - Head Exam Head Exam: ATRAUMATIC, NORMOCEPHALIC - Eye Exam Eye Exam: EOMI - ENT Exam ENT Exam: Mucous Membranes Moist - Respiratory Exam Respiratory Exam: NORMAL BREATHING PATTERN Additional comments: chest tube in place to water seal no air leak - Cardiovascular Exam Cardiovascular Exam: REGULAR RHYTHM - GI/Abdominal Exam GI & Abdominal Exam: Soft, Tenderness (appropriate inciaional tenderness) - Extremities Exam Extremities Exam: absent: Calf Tenderness - Neurological Exam Neurological Exam: Alert, Awake, Oriented x3 - Psychiatric Exam Psychiatric exam: Normal Affect, Normal Mood - Skin Skin Exam: Dry, Intact, Normal Color, Warm Assessment and Plan - Assessment and Plan (Free Text) Assessment: 72 yr old female with hx of gastric torsion and ventricular pauses s/p pacemaker placement POD 5, s/p chest tube placement POD 4, s/p laparoscopic gastropexy POD 1, recovering well Plan: - plan to remove chest tube today after AM CXR - CLD today - encourage OOBTC and activity as tolerated - pain control - possible void trial tomorrow - will discuss with Dr. Jeronimo and Dr. Kellen He, PGY 1
--- NOTE | 2018-09-26 08:20 | CP.PCM.PN ---
<Bisi Rinaldi - Last Filed: 09/26/18 09:39> Subjective - Date & Time of Evaluation Date of Evaluation: 09/26/18 Time of Evaluation: 06:55 - Subjective Subjective: IM Resident progress note for Dr. Cross's service ' Patient is s/p gastropexy POD#1. As per nurse, patient complained of body aches all night. Patient states she wasn't able to sleep. Patient complaining of pain around the chest tube. Patient states the abdominal pain is only mild. Patient admits to small flatus. Denies cp or sob. Patient desaturated to 88% while on room air last night, however improved with nasal cannula. No diarrhea or nausea. Objective - Vital Signs/Intake and Output Vital Signs (last 24 hours): Temp Pulse Resp BP Pulse Ox 97.9 F 109 H 95 H 116/71 19 L 09/26/18 05:44 09/26/18 05:44 09/26/18 05:44 09/26/18 00:00 09/26/18 05:44 Intake and Output: 09/26/18 09/26/18 06:59 18:59 Intake Total 1200 Output Total 200 Balance 1000 - Medications Medications: Current Medications Acetaminophen (Tylenol 325mg Tab) 650 mg PO Q6H PRN PRN Reason: Pain, Mild (1-3) Last Admin: 09/25/18 02:43 Dose: 650 mg Amlodipine Besylate (Norvasc) 10 mg PO DAILY [facility] Last Admin: 09/25/18 12:26 Dose: Not Given Benzocaine/Menthol (Cepacol Sore Throat) 1 matthieu MT Q2H PRN PRN Reason: Sore Throat Last Admin: 09/21/18 08:21 Dose: 1 matthieu Diphenhydramine HCl (Benadryl) 25 mg IVP Q4H PRN PRN Reason: Itching / Pruritus Last Admin: 09/25/18 18:20 Dose: 25 mg Hydralazine HCl (Apresoline) 10 mg IVP Q6 PRN PRN Reason: Bood pressure Last Admin: 09/24/18 00:51 Dose: 10 mg Sodium Chloride (Sodium Chloride 0.9%) 1,000 mls @ 100 mls/hr IV .Q10H [facility] Last Admin: 09/26/18 04:30 Dose: 100 mls/hr Insulin Human Lispro (Humalog Low) 0 units SC ACHS [facility]; Protocol Last Admin: 09/26/18 07:59 Dose: Not Given Lidocaine (Lidoderm) 1 ea TD DAILY [facility] Last Admin: 09/25/18 12:55 Dose: 1 ea Metoprolol Tartrate (Lopressor) 5 mg IVP Q6 PRN PRN Reason: Systolic Blood Pressure Last Admin: 09/23/18 18:01 Dose: 5 mg Metoprolol Tartrate (Lopressor) 25 mg PO BID [facility] Last Admin: 09/25/18 17:39 Dose: Not Given Morphine Sulfate (Morphine) 2 mg IVP Q4H PRN PRN Reason: Pain, moderate (4-7) Last Admin: 09/26/18 06:19 Dose: 2 mg Ondansetron HCl (Zofran Inj) 4 mg IVP Q4H PRN PRN Reason: Nausea/Vomiting Pantoprazole Sodium (Protonix Inj) 40 mg IVP DAILY [facility] Last Admin: 09/25/18 12:55 Dose: 40 mg Sodium Chloride ([place] Nasal [place]) 0 ml NS Q4H PRN PRN Reason: Nasal congestion - Labs Labs: 09/26/18 06:00 09/26/18 06:00 PT 12.6 SECONDS (9.4-12.5) H 09/25/18 06:00 INR 1.12 09/25/18 06:00 APTT 28.2 Seconds (26.9-38.3) 09/25/18 06:00 - Constitutional Appears: No Acute Distress, Chronically Ill - Head Exam Head Exam: ATRAUMATIC, NORMAL INSPECTION, NORMOCEPHALIC - Eye Exam Eye Exam: Normal appearance Pupil Exam: NORMAL ACCOMODATION - ENT Exam ENT Exam: Mucous Membranes Dry - Neck Exam Neck Exam: Normal Inspection - Respiratory Exam Respiratory Exam: Clear to Ausculation Bilateral, NORMAL BREATHING PATTERN. absent: Rales, Rhonchi, Wheezes, Respiratory Distress, Stridor Additional comments: + left sided chest tube, on water seal. - Cardiovascular Exam Cardiovascular Exam: Diastolic murmur, REGULAR RHYTHM, RRR, +S1, Murmur. absent: Bradycardia, Tachycardia, Gallop, JVD, Rubs - GI/Abdominal Exam GI & Abdominal Exam: Soft, Tenderness (around the incision sites. ), Normal Bowel Sounds. absent: Distended, Firm, Guarding, Rigid, Rebound Additional comments: + small surgical incisions with clean dressing. - Extremities Exam Extremities Exam: Normal Inspection. absent: Pedal Edema - Back Exam Back Exam: NORMAL INSPECTION - Neurological Exam Neurological Exam: Alert, Awake, Oriented x3 - Psychiatric Exam Psychiatric exam: Normal Affect, Normal Mood - Skin Skin Exam: Normal Color, Warm Additional comments: left upper chest with pacemaker insertion site, clean dressing. Assessment and Plan - Assessment and Plan (Free Text) Assessment: 1) Distal small bowel obstruction s/p EGD day# 2 and gastropexy POD#1 2) Symptomatic bradycardia due to high degree AV block with syncope s/p permanent pacemaker on 3 3) Large left pneumothorax s/p chest tube, with resolution on x-ray 4) Hypertension 5) Acute normocytic anemia-stable 6) Hypokalemia- resolved 7) Degenerative joint disease at L4-L5 8) Diabetes type 2 9) Dyslipidemia 10) Tricuspid regurgitation 11) Moderate Pulmonary htn 12) h/o gastric torsion Plan: Patient is s/p EGD revealing erosive gastropathy and mild gastric polyps. Patient subsequently had gastropexy POD#1 due to possible recurrent gastric torsion. Plan is to repeat chest x-ray, then remove chest tube if no new pneumothorax. Patient will need to get out of bed to chair, and PT evaluation. For urinary retention, will attempt voiding trial tomorrow once patient's pain is controlled and patient is more mobile. Will resume po meds once diet is advanced. Continue with hydralazine and metoprolol prn for htn and tachycardia. Tylenol prn for fever. On ISS for DM. Morphine prn for pain, and zofran prn for nausea/vomiting. Protonix for gi prophylaxis. Heparin sc for DVT prophylaxis. Patient seen, examined, and case discussed with Dr. Cross. <Paddy Cross - Last Filed: 09/26/18 19:04> Objective - Vital Signs/Intake and Output Vital Signs (last 24 hours): Temp Pulse Resp BP Pulse Ox 97.9 F 99 H 20 108/99 H 98 09/26/18 18:00 09/26/18 18:00 09/26/18 18:00 09/26/18 18:00 09/26/18 18:00 Intake and Output: 09/26/18 09/27/18 18:59 06:59 Intake Total 1300 Balance 1300 - Medications Medications: Current Medications Acetaminophen (Tylenol 325mg Tab) 650 mg PO Q6H PRN PRN Reason: Pain, Mild (1-3) Last Admin: 09/25/18 02:43 Dose: 650 mg Amlodipine Besylate (Norvasc) 10 mg PO DAILY [facility] Last Admin: 09/26/18 10:17 Dose: 10 mg Benzocaine/Menthol (Cepacol Sore Throat) 1 matthieu MT Q2H PRN PRN Reason: Sore Throat Last Admin: 09/21/18 08:21 Dose: 1 matthieu Donepezil HCl (Aricept) 5 mg PO DAILY [facility] Heparin Sodium (Porcine) (Heparin) 5,000 units SC Q8 [facility]; Protocol Last Admin: 09/26/18 13:53 Dose: 5,000 units Hydralazine HCl (Apresoline) 10 mg IVP Q6 PRN PRN Reason: Bood pressure Last Admin: 09/24/18 00:51 Dose: 10 mg Sodium Chloride (Sodium Chloride 0.9%) 1,000 mls @ 100 mls/hr IV .Q10H [facility] Last Admin: 09/26/18 13:54 Dose: 100 mls/hr Insulin Human Lispro (Humalog Low) 0 units SC ACHS [facility]; Protocol Last Admin: 09/26/18 17:12 Dose: 2 unit Lidocaine (Lidoderm) 1 ea TD DAILY [facility] Last Admin: 09/26/18 10:32 Dose: 1 ea Metoprolol Tartrate (Lopressor) 5 mg IVP Q6 PRN PRN Reason: Systolic Blood Pressure Last Admin: 09/23/18 18:01 Dose: 5 mg Metoprolol Tartrate (Lopressor) 25 mg PO BID [facility] Last Admin: 09/26/18 17:20 Dose: 25 mg Morphine Sulfate (Morphine) 2 mg IVP Q4H PRN PRN Reason: Pain, moderate (4-7) Last Admin: 09/26/18 06:19 Dose: 2 mg Ondansetron HCl (Zofran Inj) 4 mg IVP Q4H PRN PRN Reason: Nausea/Vomiting Pantoprazole Sodium (Protonix Ec Tab) 40 mg PO 0600 [facility] Sodium Chloride ([place] Nasal [place]) 0 ml NS Q4H PRN PRN Reason: Nasal congestion Zolpidem Tartrate (Ambien) 5 mg PO HS PRN; Protocol PRN Reason: Insomnia - Labs Labs: 09/26/18 06:00 09/26/18 06:00 PT 12.6 SECONDS (9.4-12.5) H 09/25/18 06:00 INR 1.12 09/25/18 06:00 APTT 28.2 Seconds (26.9-38.3) 09/25/18 06:00 Assessment and Plan - Assessment and Plan (Free Text) Assessment: Pt was seen and examined. I agree with the note of the nuclear medical technologist. I was involved in the plan of care. Plan: Pt was seen and examined. I agree with the note of the nuclear medical technologist. I was involved in the plan of care.
[2018-09-26] MEDS: Lidocaine 5% Patch TD SCH (10:32)
--- NOTE | 2018-09-26 11:30 | CP.PCM.PN ---
<Jim Doll - Last Filed: 09/26/18 11:28> Subjective - Date & Time of Evaluation Date of Evaluation: 09/26/18 Time of Evaluation: 11:28 - Subjective Subjective: Tolerating CLD today. Denies BMs or passing flatus. No abdominal pain. Objective - Vital Signs/Intake and Output Vital Signs (last 24 hours): Temp Pulse Resp BP Pulse Ox 97.9 F 102 H 95 H 136/87 19 L 09/26/18 05:44 09/26/18 10:18 09/26/18 05:44 09/26/18 10:18 09/26/18 05:44 Intake and Output: 09/26/18 09/26/18 06:59 18:59 Intake Total 1200 Output Total 200 Balance 1000 - Medications Medications: Current Medications Acetaminophen (Tylenol 325mg Tab) 650 mg PO Q6H PRN PRN Reason: Pain, Mild (1-3) Last Admin: 09/25/18 02:43 Dose: 650 mg Amlodipine Besylate (Norvasc) 10 mg PO DAILY [facility] Last Admin: 09/26/18 10:17 Dose: 10 mg Benzocaine/Menthol (Cepacol Sore Throat) 1 matthieu MT Q2H PRN PRN Reason: Sore Throat Last Admin: 09/21/18 08:21 Dose: 1 matthieu Diphenhydramine HCl (Benadryl) 25 mg IVP Q4H PRN PRN Reason: Itching / Pruritus Last Admin: 09/25/18 18:20 Dose: 25 mg Heparin Sodium (Porcine) (Heparin) 5,000 units SC Q8 [facility]; Protocol Hydralazine HCl (Apresoline) 10 mg IVP Q6 PRN PRN Reason: Bood pressure Last Admin: 09/24/18 00:51 Dose: 10 mg Sodium Chloride (Sodium Chloride 0.9%) 1,000 mls @ 100 mls/hr IV .Q10H [facility] Last Admin: 09/26/18 04:30 Dose: 100 mls/hr Insulin Human Lispro (Humalog Low) 0 units SC ACHS [facility]; Protocol Last Admin: 09/26/18 07:59 Dose: Not Given Lidocaine (Lidoderm) 1 ea TD DAILY [facility] Last Admin: 09/26/18 10:32 Dose: 1 ea Metoprolol Tartrate (Lopressor) 5 mg IVP Q6 PRN PRN Reason: Systolic Blood Pressure Last Admin: 09/23/18 18:01 Dose: 5 mg Metoprolol Tartrate (Lopressor) 25 mg PO BID [facility] Last Admin: 09/26/18 10:18 Dose: 25 mg Morphine Sulfate (Morphine) 2 mg IVP Q4H PRN PRN Reason: Pain, moderate (4-7) Last Admin: 09/26/18 06:19 Dose: 2 mg Ondansetron HCl (Zofran Inj) 4 mg IVP Q4H PRN PRN Reason: Nausea/Vomiting Pantoprazole Sodium (Protonix Inj) 40 mg IVP DAILY [facility] Last Admin: 09/26/18 10:17 Dose: 40 mg Sodium Chloride ([place] Nasal [place]) 0 ml NS Q4H PRN PRN Reason: Nasal congestion - Labs Labs: 09/26/18 06:00 09/26/18 06:00 PT 12.6 SECONDS (9.4-12.5) H 09/25/18 06:00 INR 1.12 09/25/18 06:00 APTT 28.2 Seconds (26.9-38.3) 09/25/18 06:00 - Constitutional Appears: Non-toxic, No Acute Distress - Head Exam Head Exam: ATRAUMATIC, NORMAL INSPECTION - ENT Exam ENT Exam: Mucous Membranes Moist, Normal Exam - Respiratory Exam Respiratory Exam: Clear to Ausculation Bilateral, NORMAL BREATHING PATTERN - Cardiovascular Exam Cardiovascular Exam: REGULAR RHYTHM, +S1, +S2 - GI/Abdominal Exam GI & Abdominal Exam: Soft, Hypoactive Bowel Sounds. absent: Tenderness - Neurological Exam Neurological Exam: Alert, Awake, Oriented x3 - Psychiatric Exam Psychiatric exam: Normal Affect, Normal Mood Assessment and Plan - Assessment and Plan (Free Text) Assessment: 72-year-old black female with history of partial gastric torsion, hiatal hernia, diabetes, hypertension, hyperlipidemia, GERD presenting with abdominal pain, most likely due to gastric torsion, which is improving w/ NGT decompression. Hospital course complicated by complete heart block for which patient received P PM, and pneumothorax after PPM and chest tube placed 09/22/18. Pneumothorax is improving. Patient is post EGD and Gastropexy by Surgical team 09/25/18. Plan: - advance diet per surgical team - awaiting pathology - no further plans for endoscopy Case was reviewed with Dr. Meri, see attestation <Gaston Jerez V - Last Filed: 09/26/18 16:27> Objective - Vital Signs/Intake and Output Vital Signs (last 24 hours): Temp Pulse Resp BP Pulse Ox 97.7 F 97 H 18 121/80 19 L 09/26/18 12:00 09/26/18 14:00 09/26/18 12:00 09/26/18 12:00 09/26/18 05:44 Intake and Output: 09/26/18 09/26/18 06:59 18:59 Intake Total 1200 Output Total 200 Balance 1000 - Medications Medications: Current Medications Acetaminophen (Tylenol 325mg Tab) 650 mg PO Q6H PRN PRN Reason: Pain, Mild (1-3) Last Admin: 09/25/18 02:43 Dose: 650 mg Amlodipine Besylate (Norvasc) 10 mg PO DAILY [facility] Last Admin: 09/26/18 10:17 Dose: 10 mg Benzocaine/Menthol (Cepacol Sore Throat) 1 matthieu MT Q2H PRN PRN Reason: Sore Throat Last Admin: 09/21/18 08:21 Dose: 1 matthieu Donepezil HCl (Aricept) 5 mg PO DAILY [facility] Heparin Sodium (Porcine) (Heparin) 5,000 units SC Q8 [facility]; Protocol Last Admin: 09/26/18 13:53 Dose: 5,000 units Hydralazine HCl (Apresoline) 10 mg IVP Q6 PRN PRN Reason: Bood pressure Last Admin: 09/24/18 00:51 Dose: 10 mg Sodium Chloride (Sodium Chloride 0.9%) 1,000 mls @ 100 mls/hr IV .Q10H [facility] Last Admin: 09/26/18 13:54 Dose: 100 mls/hr Insulin Human Lispro (Humalog Low) 0 units SC ACHS [facility]; Protocol Last Admin: 09/26/18 12:23 Dose: Not Given Lidocaine (Lidoderm) 1 ea TD DAILY [facility] Last Admin: 09/26/18 10:32 Dose: 1 ea Metoprolol Tartrate (Lopressor) 5 mg IVP Q6 PRN PRN Reason: Systolic Blood Pressure Last Admin: 09/23/18 18:01 Dose: 5 mg Metoprolol Tartrate (Lopressor) 25 mg PO BID [facility] Last Admin: 09/26/18 10:18 Dose: 25 mg Morphine Sulfate (Morphine) 2 mg IVP Q4H PRN PRN Reason: Pain, moderate (4-7) Last Admin: 09/26/18 06:19 Dose: 2 mg Ondansetron HCl (Zofran Inj) 4 mg IVP Q4H PRN PRN Reason: Nausea/Vomiting Pantoprazole Sodium (Protonix Ec Tab) 40 mg PO 0600 [facility] Sodium Chloride ([place] Nasal [place]) 0 ml NS Q4H PRN PRN Reason: Nasal congestion Zolpidem Tartrate (Ambien) 5 mg PO HS PRN; Protocol PRN Reason: Insomnia - Labs Labs: 09/26/18 06:00 09/26/18 06:00 PT 12.6 SECONDS (9.4-12.5) H 09/25/18 06:00 INR 1.12 09/25/18 06:00 APTT 28.2 Seconds (26.9-38.3) 09/25/18 06:00 Attending/Attestation - Attestation I have personally seen and examined this patient.: Yes I have fully participated in the care of the patient.: Yes I have reviewed all pertinent clinical information, including history, physical exam and plan: Yes Notes (Text): This is an addendum to the progress report dictated by GI fellow. Patient was seen and evaluated here earlier and reviewed with the GI fellow. Patient is on clear liquid diet tolerating Status post a gastropexy for probable gastric volvulus, status post permanent pacemaker for bradycardia episodes Status post EGD gastric erosions follow-up pathology Continue PPI Patient was advised to small frequent meals and a low residue diet. Advance diet as per surgery 09/26/18 16:24
--- NOTE | 2018-09-26 12:33 | RAD ---
Date of service: 09/26/2018 HISTORY: follow up COMPARISON: Multiple serial examinations preceding the most recent study: September 25, 2018. 05:57. FINDINGS: LUNGS: Left lower lobe infiltrate. PLEURA: Left pleural effusion. Small left apical pneumothorax marked on the study. The tip of chest tube identified on the prior study to be within the pleural space is now obscured CARDIOVASCULAR: No atherosclerotic calcification present No radiographic findings to suggest acute or significant cardiovascular disease. Position/ configuration of pacemaker device: Satisfactory. OSSEOUS STRUCTURES: No significant abnormalities. VISUALIZED UPPER ABDOMEN: Normal. OTHER FINDINGS: None. IMPRESSION: Indeterminate position of previously identified pigtail catheter, tip. This likely resides outside the chest cavity/pleural space. Small apical pneumothorax on the left. This is a new finding. Stable left lower lobe infiltrate. Stable left pleural effusion.
--- NOTE | 2018-09-26 17:14 | RAD ---
Date of service: 09/26/2018 HISTORY: s/p chest tube removal COMPARISON: September 26, 2018 09:23. FINDINGS: LUNGS: No significant interval change compared to the prior examination(s). PLEURA: Interval increase in small apical pneumothorax. CARDIOVASCULAR: No significant interval change compared to the prior examination(s). OSSEOUS STRUCTURES: No significant abnormalities. VISUALIZED UPPER ABDOMEN: Normal. OTHER FINDINGS: None. IMPRESSION: Slight increase in left apical pneumothorax following chest tube removal. Otherwise, no interval change.
--- NOTE | 2018-09-26 21:56 | PN ---
DATE: 09/26/2018 SUBJECTIVE: The patient was seen and examined. I do agree with the note of the emergency medical technician/driver involved in primary care. The patient is currently comfortable. She has a chest tube in place. The patient's chest tube almost had to be taken out. She has a Wright and this will also need to be taken out once she is ambulating. The patient has a history of hypertension. She had distal bowel obstruction and had a gastropexy. She also had a pacemaker that was placed. She currently feels well. LABORATORY DATA: Her labs were reviewed. She has no elevated white cell count. Labs are basically normal. ASSESSMENT AND PLAN: She is currently eating well and her pain is controlled. Paddy Cross MD
[2018-09-27] MEDS: Pantoprazole 40 mg EC Tab PO SCH (05:30)
[2018-09-27 07:43] LABS: BASO # 0.03 K/mm3 (0.0-2.0); BASO % 0.4 % (0.0-3.0); EOS # 0.2 (0.0-0.7); EOS % 3.5 % (1.5-5.0); HEMOGLOBIN 10.6 g/dL (12.0-16.0); LYMPH # 1.7 (1.2-3.4); LYMPH % 24.9 % (22.0-35.0); MEAN CELL VOLUME 86.5 fl (80.0-105.0); MEAN CORPUSCULAR HGB CONC 31.2 g/dl (31.0-37.0); MONO # 0.7 (0.1-0.6); MONO % 10.1 % (1.0-6.0); RBC 3.93 10^6/uL (3.5-6.1); RED CELL DISTRIBUTION WIDTH 13.8 % (11.5-14.5); WHITE BLOOD COUNT 6.8 10^3/uL (4.5-11.0)
[2018-09-27] MEDS: Insulin Lispro (humaLOG) LOW Coverage SC SCH ×4 (07:47→21:36)
--- NOTE | 2018-09-27 07:58 | CP.PCM.PN ---
Subjective - Date & Time of Evaluation Date of Evaluation: 09/27/18 Time of Evaluation: 07:53 - Subjective Subjective: Surgery Progress Note for Dr. Jeronimo and Dr. Barraza 72F seen and evaluated at bedside this morning. No acute events overnight. Patient on 4L NC, decreased to 2L today. Pending voiding trial today. No complaints this morning. Tolerating clears. Denies f/c, n/v/d, SOB, CP, or urinary symptoms. Objective - Vital Signs/Intake and Output Vital Signs (last 24 hours): Temp Pulse Resp BP Pulse Ox 98.4 F 88 18 123/84 97 09/27/18 05:55 09/27/18 05:55 09/27/18 05:55 09/27/18 05:55 09/27/18 05:55 Intake and Output: 09/27/18 09/27/18 06:59 18:59 Intake Total 2040 Output Total 625 Balance 1415 - Medications Medications: Current Medications Acetaminophen (Tylenol 325mg Tab) 650 mg PO Q6H PRN PRN Reason: Pain, Mild (1-3) Last Admin: 09/25/18 02:43 Dose: 650 mg Amlodipine Besylate (Norvasc) 10 mg PO DAILY [facility] Last Admin: 09/26/18 10:17 Dose: 10 mg Benzocaine/Menthol (Cepacol Sore Throat) 1 matthieu MT Q2H PRN PRN Reason: Sore Throat Last Admin: 09/21/18 08:21 Dose: 1 matthieu Donepezil HCl (Aricept) 5 mg PO DAILY [facility] Heparin Sodium (Porcine) (Heparin) 5,000 units SC Q8 [facility]; Protocol Last Admin: 09/27/18 05:29 Dose: 5,000 units Hydralazine HCl (Apresoline) 10 mg IVP Q6 PRN PRN Reason: Bood pressure Last Admin: 09/24/18 00:51 Dose: 10 mg Sodium Chloride (Sodium Chloride 0.9%) 1,000 mls @ 100 mls/hr IV .Q10H [facility] Last Admin: 09/26/18 23:54 Dose: 100 mls/hr Insulin Human Lispro (Humalog Low) 0 units SC ACHS [facility]; Protocol Last Admin: 09/27/18 07:47 Dose: Not Given Lidocaine (Lidoderm) 1 ea TD DAILY [facility] Last Admin: 09/26/18 10:32 Dose: 1 ea Metoprolol Tartrate (Lopressor) 5 mg IVP Q6 PRN PRN Reason: Systolic Blood Pressure Last Admin: 09/23/18 18:01 Dose: 5 mg Metoprolol Tartrate (Lopressor) 25 mg PO BID [facility] Last Admin: 09/26/18 17:20 Dose: 25 mg Morphine Sulfate (Morphine) 2 mg IVP Q4H PRN PRN Reason: Pain, moderate (4-7) Last Admin: 09/26/18 06:19 Dose: 2 mg Ondansetron HCl (Zofran Inj) 4 mg IVP Q4H PRN PRN Reason: Nausea/Vomiting Pantoprazole Sodium (Protonix Ec Tab) 40 mg PO 0600 [facility] Last Admin: 09/27/18 05:30 Dose: 40 mg Sodium Chloride ([place] Nasal [place]) 0 ml NS Q4H PRN PRN Reason: Nasal congestion Zolpidem Tartrate (Ambien) 5 mg PO HS PRN; Protocol PRN Reason: Insomnia Last Admin: 09/26/18 23:11 Dose: 5 mg - Labs Labs: 09/27/18 07:00 09/26/18 06:00 PT 12.6 SECONDS (9.4-12.5) H 09/25/18 06:00 INR 1.12 09/25/18 06:00 APTT 28.2 Seconds (26.9-38.3) 09/25/18 06:00 - Constitutional Appears: Well, Non-toxic, No Acute Distress - Head Exam Head Exam: ATRAUMATIC, NORMAL INSPECTION, NORMOCEPHALIC - Eye Exam Eye Exam: EOMI - ENT Exam ENT Exam: Mucous Membranes Moist - Respiratory Exam Respiratory Exam: NORMAL BREATHING PATTERN. absent: Wheezes, Respiratory Distress - Cardiovascular Exam Cardiovascular Exam: REGULAR RHYTHM. absent: Tachycardia - GI/Abdominal Exam GI & Abdominal Exam: Soft, Normal Bowel Sounds. absent: Tenderness - Neurological Exam Neurological Exam: Alert, Awake, Oriented x3 - Psychiatric Exam Psychiatric exam: Normal Affect, Normal Mood - Skin Skin Exam: Dry, Intact, Normal Color, Warm Assessment and Plan - Assessment and Plan (Free Text) Assessment: 72F, PMH of gastric torsion and ventricular pauses s/p pacemaker placement POD6, s/p chest tube placement POD5, s/p laparoscopic gastropexy POD2, recovering well Plan: - AM CXR shows resolved L apical PTX - 2L on NC; aim to wean off O2 today - CLD today, will consider advancing - Encourage OOBTC and activity as tolerated - Pain control - Void trial today - D/w Dr. Jeronimo and Dr. Kellen Sprague PGY 1
[2018-09-27 08:23] LABS: ALBUMIN 2.8 g/dL (3.0-4.8); ALT/SGPT 20 U/L (7-56); AST/SGOT 29 U/L (14-36); BLOOD UREA NITROGEN 12 mg/dL (7-21); CALCIUM 8.5 mg/dL (8.4-10.5); GFR NON-AFRICAN AMERICAN > 60
--- NOTE | 2018-09-27 08:39 | CP.PCM.PN ---
<Bisi Rinaldi - Last Filed: 09/27/18 10:57> Subjective - Date & Time of Evaluation Date of Evaluation: 09/27/18 Time of Evaluation: 06:55 - Subjective Subjective: IM Resident progress note for Dr. Cross's service Patient with no acute events last night. Patient states she slept better, the pain improved, just mild soreness in the abdomen. Would like to get out of bed today. The breathing has improved. Denies chest pain. Admits to flatus, no bowel movement yet. Tolerating liquid diet. No nausea or vomiting. Objective - Vital Signs/Intake and Output Vital Signs (last 24 hours): Temp Pulse Resp BP Pulse Ox 98.4 F 88 18 123/84 97 09/27/18 05:55 09/27/18 05:55 09/27/18 05:55 09/27/18 05:55 09/27/18 05:55 Intake and Output: 09/27/18 09/27/18 06:59 18:59 Intake Total 2040 Output Total 625 Balance 1415 - Medications Medications: Current Medications Acetaminophen (Tylenol 325mg Tab) 650 mg PO Q6H PRN PRN Reason: Pain, Mild (1-3) Last Admin: 09/25/18 02:43 Dose: 650 mg Amlodipine Besylate (Norvasc) 10 mg PO DAILY [facility] Last Admin: 09/26/18 10:17 Dose: 10 mg Benzocaine/Menthol (Cepacol Sore Throat) 1 matthieu MT Q2H PRN PRN Reason: Sore Throat Last Admin: 09/21/18 08:21 Dose: 1 matthieu Donepezil HCl (Aricept) 5 mg PO DAILY [facility] Heparin Sodium (Porcine) (Heparin) 5,000 units SC Q8 [facility]; Protocol Last Admin: 09/27/18 05:29 Dose: 5,000 units Sodium Chloride (Sodium Chloride 0.9%) 1,000 mls @ 100 mls/hr IV .Q10H [facility] Last Admin: 09/26/18 23:54 Dose: 100 mls/hr Insulin Human Lispro (Humalog Low) 0 units SC ACHS [facility]; Protocol Last Admin: 09/27/18 07:47 Dose: Not Given Lidocaine (Lidoderm) 1 ea TD DAILY [facility] Last Admin: 09/26/18 10:32 Dose: 1 ea Metoprolol Tartrate (Lopressor) 25 mg PO BID [facility] Last Admin: 09/26/18 17:20 Dose: 25 mg Morphine Sulfate (Morphine) 2 mg IVP Q4H PRN PRN Reason: Pain, moderate (4-7) Last Admin: 09/26/18 06:19 Dose: 2 mg Ondansetron HCl (Zofran Inj) 4 mg IVP Q4H PRN PRN Reason: Nausea/Vomiting Pantoprazole Sodium (Protonix Ec Tab) 40 mg PO 0600 [facility] Last Admin: 09/27/18 05:30 Dose: 40 mg Sodium Chloride ([place] Nasal [place]) 0 ml NS Q4H PRN PRN Reason: Nasal congestion Zolpidem Tartrate (Ambien) 5 mg PO HS PRN; Protocol PRN Reason: Insomnia Last Admin: 09/26/18 23:11 Dose: 5 mg - Labs Labs: 09/27/18 07:00 09/27/18 07:00 PT 12.6 SECONDS (9.4-12.5) H 09/25/18 06:00 INR 1.12 09/25/18 06:00 APTT 28.2 Seconds (26.9-38.3) 09/25/18 06:00 - Constitutional Appears: No Acute Distress, Chronically Ill - Head Exam Head Exam: ATRAUMATIC, NORMAL INSPECTION, NORMOCEPHALIC - Eye Exam Eye Exam: Normal appearance - ENT Exam ENT Exam: Mucous Membranes Moist - Neck Exam Neck Exam: Normal Inspection - Respiratory Exam Respiratory Exam: Clear to Ausculation Bilateral, NORMAL BREATHING PATTERN. absent: Rales, Rhonchi, Wheezes, Respiratory Distress, Stridor - Cardiovascular Exam Cardiovascular Exam: REGULAR RHYTHM, RRR, +S1, +S2. absent: Bradycardia, Tachycardia, Diastolic murmur, Gallop, Irregular Rhythm, JVD, Rubs, Murmur - GI/Abdominal Exam GI & Abdominal Exam: Soft, Tenderness (mild, at the incision site.), Normal Bowel Sounds. absent: Distended, Firm, Guarding, Rigid, Organomegaly, Rebound - Exam Additional comments: + Gallagher catheter in place. - Extremities Exam Extremities Exam: Normal Inspection. absent: Pedal Edema - Back Exam Back Exam: NORMAL INSPECTION. absent: tenderness, vertebral tenderness - Neurological Exam Neurological Exam: Alert, Awake, Oriented x3 - Psychiatric Exam Psychiatric exam: Normal Affect, Normal Mood - Skin Skin Exam: Normal Color, Warm Additional comments: Left upper chest with clean dressing from pacemaker insertion, clean dressing on the abdomen from surgery. Assessment and Plan - Assessment and Plan (Free Text) Assessment: 1) Distal small bowel obstruction s/p EGD day# 3 and gastropexy POD#2 2) Symptomatic bradycardia due to high degree AV block with syncope s/p permanent pacemaker on 3 3) Large left pneumothorax s/p chest tube removal 4) Hypertension 5) Acute normocytic anemia 6) Hypokalemia- resolved 7) Degenerative joint disease at L4-L5 8) Diabetes type 2 9) Dyslipidemia 10) Tricuspid regurgitation 11) Moderate Pulmonary htn 12) h/o gastric torsion 13) Erosive gastropathy 14) mild dementia Plan: Pneumothorax resolved on repeat x-ray this morning, will monitor O2 sats off of oxygen. Patient is hemodynamically stable, will discontinue tele. Will attempt trial of void in order to dc the gallagher. Out of bed to chair today. Advance diet per surgery. Continue with Norvasc, metoprolol to stabilize HR. ISS for DM. Tylenol prn for fever and zofran prn for nausea. Morphine prn for pain. On Donepezil for mild dementia, and prn hs Ambien for insomnia. On Protonix for gi prophylaxis. Heparin sc for DVT prophylaxis. Patient seen, examined, and case discussed with Dr. Cross. <Paddy Cross - Last Filed: 09/27/18 16:13> Objective - Vital Signs/Intake and Output Vital Signs (last 24 hours): Temp Pulse Resp BP Pulse Ox 98.4 F 88 18 141/82 97 09/27/18 05:55 09/27/18 05:55 09/27/18 05:55 09/27/18 09:58 09/27/18 05:55 Intake and Output: 09/27/18 09/27/18 06:59 18:59 Intake Total 0 Output Total 625 Balance 1415 - Medications Medications: Current Medications Acetaminophen (Tylenol 325mg Tab) 650 mg PO Q6H PRN PRN Reason: Pain, Mild (1-3) Last Admin: 09/25/18 02:43 Dose: 650 mg Amlodipine Besylate (Norvasc) 10 mg PO DAILY [facility] Last Admin: 09/27/18 09:58 Dose: 10 mg Benzocaine/Menthol (Cepacol Sore Throat) 1 matthieu MT Q2H PRN PRN Reason: Sore Throat Last Admin: 09/21/18 08:21 Dose: 1 matthieu Donepezil HCl (Aricept) 5 mg PO DAILY [facility] Last Admin: 09/27/18 09:58 Dose: 5 mg Heparin Sodium (Porcine) (Heparin) 5,000 units SC Q8 [facility]; Protocol Last Admin: 09/27/18 14:36 Dose: 5,000 units Insulin Human Lispro (Humalog Low) 0 units SC ACHS [facility]; Protocol Last Admin: 09/27/18 11:54 Dose: Not Given Lidocaine (Lidoderm) 1 ea TD DAILY [facility] Last Admin: 09/27/18 09:57 Dose: 1 ea Metoprolol Tartrate (Lopressor) 25 mg PO BID [facility] Last Admin: 09/27/18 09:58 Dose: 25 mg Morphine Sulfate (Morphine) 2 mg IVP Q4H PRN PRN Reason: Pain, moderate (4-7) Last Admin: 09/27/18 11:56 Dose: 2 mg Ondansetron HCl (Zofran Inj) 4 mg IVP Q4H PRN PRN Reason: Nausea/Vomiting Last Admin: 09/27/18 11:57 Dose: 4 mg Pantoprazole Sodium (Protonix Ec Tab) 40 mg PO 0600 [facility] Last Admin: 09/27/18 05:30 Dose: 40 mg Sodium Chloride ([place] Nasal [place]) 0 ml NS Q4H PRN PRN Reason: Nasal congestion Zolpidem Tartrate (Ambien) 5 mg PO HS PRN; Protocol PRN Reason: Insomnia Last Admin: 09/26/18 23:11 Dose: 5 mg - Labs Labs: 09/27/18 07:00 09/27/18 07:00 PT 12.6 SECONDS (9.4-12.5) H 09/25/18 06:00 INR 1.12 09/25/18 06:00 APTT 28.2 Seconds (26.9-38.3) 09/25/18 06:00 Assessment and Plan - Assessment and Plan (Free Text) Plan: Pt is seen and examined by me. I have reviewed the note of the manager medical affairs and I agree with the note. I have discussed the asssessment and the plan with the resident. I have reviewed the medications and last labs.
[2018-09-27] MEDS ORDERED: Potassium & Sodium Phosphate PO ONE (09:00)
[2018-09-27] MEDS: Sodium Chloride 0.9% 1,000 ML IV SCH (09:54)
[2018-09-27] MEDS: Lidocaine 5% Patch TD SCH (09:57)
--- NOTE | 2018-09-27 10:57 | PN ---
DATE: 09/27/2018 SUBJECTIVE: The patient is in bed in no acute distress, nontoxic. OBJECTIVE: VITAL SIGNS: On exam, temperature is 98, blood pressure is 123/80, respiratory rate of 18, heart rate of 81. HEENT: Unremarkable. NECK: Supple. LUNGS: Have decreased breath sounds. HEART: Normal S1, S2. ABDOMEN: Soft, nontender. LABORATORY EXAMINATION: Reveals a white count of 6.8, hemoglobin of 10, platelets of 96. Chemistries reveals a BUN of 12, creatinine 0.6. Urinalysis is noted. Serology is noted. ASSESSMENT AND PLAN This is a 72-year-old female with partial gastric torsion, hernia, diabetes, hypertension, hyperlipidemia, gastroesophageal reflux disease presented with abdominal pain secondary to gastric torsion improved with nasogastric decompression, developed a complete heart block requiring pacemaker, developed pneumothorax requiring chest tube. No risk factors for line. Serology was tested which is negative screen test. Currently off of antibiotics, afebrile. The patient is at risk for developing nosocomial infections. Benny West MD
--- NOTE | 2018-09-27 11:02 | RAD ---
Date of service: 09/27/2018 HISTORY: monitoring s/p chest tube removal COMPARISON: Multiple serial examinations preceding the most recent study: September 26, 2018. 16:36. FINDINGS: LUNGS: Stable left lower lobe infiltrate. PLEURA: Interval improvement, decrease in left apical pneumothorax. The finding is marked on the study for review. CARDIOVASCULAR: No atherosclerotic calcification present Normal. OSSEOUS STRUCTURES: No significant abnormalities. VISUALIZED UPPER ABDOMEN: Normal. OTHER FINDINGS: None. IMPRESSION: Tiny residual left apical pneumothorax improved compared to prior study. Stable left lower lobe infiltrate/pleural effusion.
--- NOTE | 2018-09-27 11:46 | PN ---
DATE: 09/27/2018 SUBJECTIVE: The patient appears very comfortable this morning. She is not short of breath at rest. PHYSICAL EXAMINATION: VITAL SIGNS: Temperature is 98.4, pulse 88, respirations 18, blood pressure 123/84. Oxygen saturation on nasal cannula is 97%. HEENT: Normocephalic, atraumatic. No JVD. CARDIOVASCULAR: Systolic ejection murmur at the lower left sternal border. No S3 gallop. LUNGS: Decreased breath sounds at the bases. No rhonchi. No wheezing. EXTREMITIES: Mild edema. No cyanosis, no clubbing. Calves are nontender to palpation. GASTROINTESTINAL: Abdomen is soft. It is less distended and less tender to palpation. Bowel sounds are positive. SKIN: No acute rash. NEUROLOGIC: Exam limited at the present time. PERTINENT LABORATORY DATA: Chest x-ray was done yesterday and reviewed. The chest tube has been removed. There is a slight increase in the small left apical pneumothorax. Repeat chest x-ray is ordered. IMPRESSION: 1. Left pneumothorax. 2. Status post permanent pacemaker insertion. 3. Cardiac arrhythmias. 4. Partial gastric torsion. Status post surgery. 5. Mild anemia. PLAN The patient appears very comfortable this morning. She is not short of breath at rest. She does state to feeling much better overall. I did discuss the case with the night nurse at length. The night nurse stated the patient had a good night. On physical exam, there is no significant bronchospasm noted. In addition, there is a significant decrease in the alveolar-arterial gradient. I will continue the patient on incentive spirometry. The chest x-ray done yesterday - findings noted above. Repeat chest x-ray is ordered. Inputs by Surgery and GI are also noted. Clinical status of the patient appears significantly improved overall. However, given the above, future status/prognosis for this patient does remain guarded. I will discuss the above with the attending physician. Richardson Garza MD MTDD
[2018-09-27] MEDS: Morphine 2 mg/ml ISec IVP PRN (11:56)
--- NOTE | 2018-09-27 20:21 | PN ---
DATE: 09/27/2018 SUBJECTIVE: The patient was seen and examined. I do agree with a note of the medical technologist blood bank. The patient had her chest tube taken out yesterday. She states that she is feeling well and her pain is controlled. She is breathing well. She had a chest x-ray that I reviewed. The patient is on Norvasc for her hypertension. She is on heparin for DVT prophylaxis. She is eating well. The patient will need her Wright catheter taken out. She had a small bowel obstruction, had a gastropexy that was done. The patient has diabetes and dyslipidemia. She will most likely need subacute rehab. I did let the nurse know to try to get her out of bed. I will discontinue telemetry. She is open to going to subacute rehab, possibly [facility]. She has been seen by physical therapy today and it was advised that she go to a subacute rehab. Paddy Cross MD
[2018-09-28] MEDS: Morphine 2 mg/ml ISec IVP PRN ×2 (04:42→21:52)
[2018-09-28] MEDS: Pantoprazole 40 mg EC Tab PO SCH (05:05)
[2018-09-28 07:01] LABS: HEMOGLOBIN 10.4 g/dL (12.0-16.0); MEAN CELL VOLUME 86.6 fl (80.0-105.0); MEAN CORPUSCULAR HEMOGLOBIN 26.7 pg (25.0-35.0); MEAN CORPUSCULAR HGB CONC 30.9 g/dl (31.0-37.0); MEAN PLATELET VOLUME 10.3 fl (7.0-11.0); RBC 3.89 10^6/uL (3.5-6.1); RED CELL DISTRIBUTION WIDTH 13.7 % (11.5-14.5); WHITE BLOOD COUNT 6.3 10^3/uL (4.5-11.0)
--- NOTE | 2018-09-28 07:08 | CP.PCM.PN ---
Subjective - Date & Time of Evaluation Date of Evaluation: 09/28/18 Time of Evaluation: 06:25 - Subjective Subjective: Awake, no distress, lying in bed Reason for consultation and follow up: Cardiac evaluation of bradycardia, pauses, status post permanent pacemaker, history of hypertension, status post removal left chest tube insertion for pneumothorax, post EGD, post laparoscopic gastopexy Seen and examined by me and Dr. Carrasco Objective - Vital Signs/Intake and Output Vital Signs (last 24 hours): Temp Pulse Resp BP Pulse Ox 98 F 72 18 105/71 96 09/27/18 23:50 09/27/18 23:50 09/27/18 23:50 09/27/18 23:50 09/27/18 23:50 Intake and Output: 09/28/18 09/28/18 06:59 18:59 Intake Total 780 Output Total 750 Balance 30 - Medications Medications: Current Medications Acetaminophen (Tylenol 325mg Tab) 650 mg PO Q6H PRN PRN Reason: Pain, Mild (1-3) Last Admin: 09/25/18 02:43 Dose: 650 mg Amlodipine Besylate (Norvasc) 10 mg PO DAILY [facility] Last Admin: 09/27/18 09:58 Dose: 10 mg Benzocaine/Menthol (Cepacol Sore Throat) 1 matthieu MT Q2H PRN PRN Reason: Sore Throat Last Admin: 09/21/18 08:21 Dose: 1 matthieu Donepezil HCl (Aricept) 5 mg PO DAILY [facility] Last Admin: 09/27/18 09:58 Dose: 5 mg Heparin Sodium (Porcine) (Heparin) 5,000 units SC Q8 [facility]; Protocol Last Admin: 09/28/18 05:03 Dose: 5,000 units Insulin Human Lispro (Humalog Low) 0 units SC ACHS [facility]; Protocol Last Admin: 09/27/18 21:36 Dose: Not Given Lidocaine (Lidoderm) 1 ea TD DAILY [facility] Last Admin: 09/27/18 09:57 Dose: 1 ea Metoprolol Tartrate (Lopressor) 25 mg PO BID [facility] Last Admin: 09/27/18 17:55 Dose: 25 mg Morphine Sulfate (Morphine) 2 mg IVP Q4H PRN PRN Reason: Pain, moderate (4-7) Last Admin: 09/28/18 04:42 Dose: 2 mg Ondansetron HCl (Zofran Inj) 4 mg IVP Q4H PRN PRN Reason: Nausea/Vomiting Last Admin: 09/27/18 11:57 Dose: 4 mg Pantoprazole Sodium (Protonix Ec Tab) 40 mg PO 0600 [facility] Last Admin: 09/28/18 05:05 Dose: 40 mg Sodium Chloride ([place] Nasal [place]) 0 ml NS Q4H PRN PRN Reason: Nasal congestion Zolpidem Tartrate (Ambien) 5 mg PO HS PRN; Protocol PRN Reason: Insomnia Last Admin: 09/27/18 21:47 Dose: 5 mg - Labs Labs: 09/27/18 07:00 09/27/18 07:00 PT 12.6 SECONDS (9.4-12.5) H 09/25/18 06:00 INR 1.12 09/25/18 06:00 APTT 28.2 Seconds (26.9-38.3) 09/25/18 06:00 - Constitutional Appears: Non-toxic, No Acute Distress - Head Exam Head Exam: NORMAL INSPECTION, NORMOCEPHALIC - Eye Exam Eye Exam: Normal appearance Pupil Exam: NORMAL ACCOMODATION - ENT Exam ENT Exam: Mucous Membranes Moist, Normal Exam - Respiratory Exam Respiratory Exam: Decreased Breath Sounds, Clear to Ausculation Bilateral, NORMAL BREATHING PATTERN - Cardiovascular Exam Cardiovascular Exam: +S1, +S2 Additional comments: PPM - GI/Abdominal Exam GI & Abdominal Exam: Soft, Normal Bowel Sounds - Extremities Exam Extremities Exam: Full ROM, Normal Capillary Refill - Neurological Exam Neurological Exam: Alert, Awake, Oriented x3 - Psychiatric Exam Psychiatric exam: Normal Affect, Normal Mood - Skin Skin Exam: Dry, Normal Color, Warm Assessment and Plan - Assessment and Plan (Free Text) Assessment: A 72 year old female who came in to the ER due to abdominal pain possible intestinal obstruction. On EKG showed bradycardia with pauses. Heart rate did not respond to Dopamine drip. External transvenous pacing wire was inserted by Dr. Jesus and a dual chamber permanent pacemaker [employer], (MRI safe) was inserted by Dr. Carrasco. History of hypertension, diabetes, depression, GERD, lennie tigo. Recent echo showed LVEF of 55-60%, trace MR, severe tricuspid regurgitation, RVSP 67mmHg, moderate to severe pulmonary hypertension. Post PPM insertion complicated with large left pneumothorax requiring left chest tube insertion with resolution thus chest tube discontinued . Post EGD and showed gastritis, gastric polyps. Post laparoscopic gastropexy POD #3. Cardiac status stable. Discharge planning. Plan: No distress, feels better Post laparoscopic gastropexy POD #3 Cardiac status stable Heart rate stable Blood pressure stable On Norvasc 10 mg daily,Heparin 5000 units SC every 8 hours, Lopressor 25 mg BID Continue current treatment Continue current medications Discharge planning Physical therapy, OOB to chair Will follow up Plan and treatment discussed with Dr. Carrasco
--- NOTE | 2018-09-28 07:21 | PN ---
DATE: 09/28/2018 PULMONARY PROGRESS NOTE SUBJECTIVE: The patient appears comfortable this morning. She is not short of breath at rest. PHYSICAL EXAMINATION VITAL SIGNS: Temperature is 98.0, pulse 72, respirations 18, blood pressure 105/71. Oxygen saturation on nasal cannula is 96%. HEENT: Normocephalic, atraumatic. No JVD. CARDIOVASCULAR: Systolic ejection murmur at the lower left sternal border. No S3 gallop. LUNGS: Decreased breath sounds at the bases. No rhonchi. No wheezing. GI : Abdomen is Soft. It is less distended and less tender to palpation. Bowel sounds are positive. EXTREMITIES: Mild edema. No cyanosis, no clubbing. Calves are nontender to palpation. SKIN: No acute rash. NEUROLOGIC: Limited at the present time. PERTINENT LABORATORY DATA: Chest x-ray was done yesterday and reviewed. There is a decreasing left apical pneumothorax noted. There are minimal left basilar changes -- unchanged. Repeat chest x-ray is ordered. IMPRESSION 1. Left pneumothorax. 2. Status post permanent pacemaker insertion. 3. Cardiac arrhythmias. 4. Partial gastric torsion. Status post surgery. 5. Mild anemia. PLAN: The patient appears very comfortable this morning. She is not short of breath at rest. She does state to feeling much better overall. I did discuss the case with the night nurse at length. The night nurse stated that the patient had an uneventful night. On physical exam, there is no significant bronchospasm noted. In addition, the alveolar-arterial gradient is less. I will continue the patient on incentive spirometry and have the patient out of bed as much as possible. As above, the chest x-ray done yesterday -- continues to improve. Repeat chest x-ray is ordered -- pending. Surgical and Infectious Disease follow-ups are noted. Clinical status of the patient is significantly improved -- compared to last week. However, given the above, the future status/prognosis for this patient does remain somewhat guarded. I will discuss the above with Dr. Cross. Richardson Garza MD VERONICA
--- NOTE | 2018-09-28 07:25 | CP.PCM.PN ---
Subjective - Date & Time of Evaluation Date of Evaluation: 09/28/18 Time of Evaluation: 07:15 - Subjective Subjective: Surgery Progress note. Dr. Jeronimo Pt seen and examined at bedside this morning. No N/V/D. Abd pain well tolerated. No F/C. No new complaints. No CP/SOB. Objective - Vital Signs/Intake and Output Vital Signs (last 24 hours): Temp Pulse Resp BP Pulse Ox 98 F 72 18 105/71 96 09/27/18 23:50 09/27/18 23:50 09/27/18 23:50 09/27/18 23:50 09/27/18 23:50 Intake and Output: 09/28/18 09/28/18 06:59 18:59 Intake Total 780 Output Total 750 Balance 30 - Medications Medications: Current Medications Acetaminophen (Tylenol 325mg Tab) 650 mg PO Q6H PRN PRN Reason: Pain, Mild (1-3) Last Admin: 09/25/18 02:43 Dose: 650 mg Amlodipine Besylate (Norvasc) 10 mg PO DAILY [facility] Last Admin: 09/27/18 09:58 Dose: 10 mg Benzocaine/Menthol (Cepacol Sore Throat) 1 matthieu MT Q2H PRN PRN Reason: Sore Throat Last Admin: 09/21/18 08:21 Dose: 1 matthieu Donepezil HCl (Aricept) 5 mg PO DAILY [facility] Last Admin: 09/27/18 09:58 Dose: 5 mg Heparin Sodium (Porcine) (Heparin) 5,000 units SC Q8 [facility]; Protocol Last Admin: 09/28/18 05:03 Dose: 5,000 units Insulin Human Lispro (Humalog Low) 0 units SC ACHS [facility]; Protocol Last Admin: 09/27/18 21:36 Dose: Not Given Lidocaine (Lidoderm) 1 ea TD DAILY [facility] Last Admin: 09/27/18 09:57 Dose: 1 ea Metoprolol Tartrate (Lopressor) 25 mg PO BID [facility] Last Admin: 09/27/18 17:55 Dose: 25 mg Morphine Sulfate (Morphine) 2 mg IVP Q4H PRN PRN Reason: Pain, moderate (4-7) Last Admin: 09/28/18 04:42 Dose: 2 mg Ondansetron HCl (Zofran Inj) 4 mg IVP Q4H PRN PRN Reason: Nausea/Vomiting Last Admin: 09/27/18 11:57 Dose: 4 mg Pantoprazole Sodium (Protonix Ec Tab) 40 mg PO 0600 [facility] Last Admin: 09/28/18 05:05 Dose: 40 mg Sodium Chloride ([place] Nasal [place]) 0 ml NS Q4H PRN PRN Reason: Nasal congestion Zolpidem Tartrate (Ambien) 5 mg PO HS PRN; Protocol PRN Reason: Insomnia Last Admin: 09/27/18 21:47 Dose: 5 mg - Labs Labs: 09/28/18 06:20 09/27/18 07:00 PT 12.6 SECONDS (9.4-12.5) H 09/25/18 06:00 INR 1.12 09/25/18 06:00 APTT 28.2 Seconds (26.9-38.3) 09/25/18 06:00 - Constitutional Appears: Well, Non-toxic, No Acute Distress - Head Exam Head Exam: ATRAUMATIC, NORMAL INSPECTION, NORMOCEPHALIC - Eye Exam Eye Exam: EOMI, Normal appearance. absent: Scleral icterus - ENT Exam ENT Exam: Mucous Membranes Moist - Respiratory Exam Respiratory Exam: NORMAL BREATHING PATTERN. absent: Accessory Muscle Use - Cardiovascular Exam Cardiovascular Exam: RRR. absent: JVD - GI/Abdominal Exam GI & Abdominal Exam: Soft. absent: Distended, Firm, Guarding, Rigid, Tenderness, Rebound Additional comments: dressings clean, dry and intact - Extremities Exam Extremities Exam: Normal Inspection. absent: Calf Tenderness - Neurological Exam Neurological Exam: Alert, Awake, Oriented x3 - Psychiatric Exam Psychiatric exam: Normal Affect, Normal Mood - Skin Skin Exam: Dry, Intact, Normal Color, Warm Assessment and Plan - Assessment and Plan (Free Text) Assessment: 72yo F with Partial Gastric Torsion, s/p laparascopic gastropexy. POD 3 Plan: - cleared to advance diet as tolerated - Patient may follow up with Dr. Jeronimo upon discharge. Call for appointment - Cleared for d/c planning - Pain management Further recs as per Dr. Kandace Barron PGY2 surgery
[2018-09-28 07:37] LABS: ALBUMIN 2.7 g/dL (3.0-4.8); ALT/SGPT 15 U/L (7-56); AST/SGOT 22 U/L (14-36); BLOOD UREA NITROGEN 11 mg/dL (7-21); CALCIUM 8.6 mg/dL (8.4-10.5); GFR NON-AFRICAN AMERICAN > 60
--- NOTE | 2018-09-28 08:25 | CP.PCM.PN ---
<Bisi Rinaldi - Last Filed: 09/28/18 08:25> Subjective - Date & Time of Evaluation Date of Evaluation: 09/28/18 Time of Evaluation: 08:10 - Subjective Subjective: IM Resident progress note for Dr. Cross's service Patient with no acute events overnight. Patient's Wright catheter was removed and patient was able to void. Patient is currently seating comfortably in the chair. States the soreness in her abdomen has improved. The cough has also improved. Denies chest pain. No fever or chills. Objective - Vital Signs/Intake and Output Vital Signs (last 24 hours): Temp Pulse Resp BP Pulse Ox 98.1 F 83 16 109/73 92 L 09/28/18 06:00 09/28/18 06:00 09/28/18 06:00 09/28/18 06:00 09/28/18 06:00 Intake and Output: 09/28/18 09/28/18 06:59 18:59 Intake Total 780 Output Total 750 Balance 30 - Medications Medications: Current Medications Acetaminophen (Tylenol 325mg Tab) 650 mg PO Q6H PRN PRN Reason: Pain, Mild (1-3) Last Admin: 09/25/18 02:43 Dose: 650 mg Amlodipine Besylate (Norvasc) 10 mg PO DAILY [facility] Last Admin: 09/27/18 09:58 Dose: 10 mg Benzocaine/Menthol (Cepacol Sore Throat) 1 matthieu MT Q2H PRN PRN Reason: Sore Throat Last Admin: 09/21/18 08:21 Dose: 1 matthieu Donepezil HCl (Aricept) 5 mg PO DAILY [facility] Last Admin: 09/27/18 09:58 Dose: 5 mg Heparin Sodium (Porcine) (Heparin) 5,000 units SC Q8 [facility]; Protocol Last Admin: 09/28/18 05:03 Dose: 5,000 units Insulin Human Lispro (Humalog Low) 0 units SC ACHS [facility]; Protocol Last Admin: 09/27/18 21:36 Dose: Not Given Lidocaine (Lidoderm) 1 ea TD DAILY [facility] Last Admin: 09/27/18 09:57 Dose: 1 ea Metoprolol Tartrate (Lopressor) 25 mg PO BID [facility] Last Admin: 09/27/18 17:55 Dose: 25 mg Morphine Sulfate (Morphine) 2 mg IVP Q4H PRN PRN Reason: Pain, moderate (4-7) Last Admin: 09/28/18 04:42 Dose: 2 mg Ondansetron HCl (Zofran Inj) 4 mg IVP Q4H PRN PRN Reason: Nausea/Vomiting Last Admin: 09/27/18 11:57 Dose: 4 mg Pantoprazole Sodium (Protonix Ec Tab) 40 mg PO 0600 [facility] Last Admin: 09/28/18 05:05 Dose: 40 mg Sodium Chloride ([place] Nasal [place]) 0 ml NS Q4H PRN PRN Reason: Nasal congestion Zolpidem Tartrate (Ambien) 5 mg PO HS PRN; Protocol PRN Reason: Insomnia Last Admin: 09/27/18 21:47 Dose: 5 mg - Labs Labs: 09/28/18 06:20 09/28/18 06:20 PT 12.6 SECONDS (9.4-12.5) H 09/25/18 06:00 INR 1.12 09/25/18 06:00 APTT 28.2 Seconds (26.9-38.3) 09/25/18 06:00 - Constitutional Appears: No Acute Distress, Cachectic, Chronically Ill - Head Exam Head Exam: ATRAUMATIC, NORMAL INSPECTION, NORMOCEPHALIC - Eye Exam Eye Exam: EOMI, Normal appearance, PERRL. absent: Scleral icterus - ENT Exam ENT Exam: Mucous Membranes Moist - Neck Exam Neck Exam: Normal Inspection - Respiratory Exam Respiratory Exam: Clear to Ausculation Bilateral, NORMAL BREATHING PATTERN. absent: Rales, Rhonchi, Wheezes, Respiratory Distress, Stridor - Cardiovascular Exam Cardiovascular Exam: REGULAR RHYTHM, RRR, +S1, +S2. absent: Bradycardia, Tachycardia, Diastolic murmur, Gallop, Irregular Rhythm, JVD, Rubs, Murmur - GI/Abdominal Exam GI & Abdominal Exam: Soft, Tenderness (mild, around the incision site. ), Normal Bowel Sounds. absent: Distended, Firm, Guarding, Rigid, Organomegaly, Rebound - Extremities Exam Extremities Exam: Normal Inspection. absent: Pedal Edema - Back Exam Back Exam: NORMAL INSPECTION - Neurological Exam Neurological Exam: Alert, Awake, Oriented x3 - Psychiatric Exam Psychiatric exam: Normal Affect, Normal Mood - Skin Skin Exam: Dry, Normal Color, Warm Additional comments: left upper chest with clean dressing. Assessment and Plan - Assessment and Plan (Free Text) Assessment: 1) Distal small bowel obstruction s/p EGD day# 4 and gastropexy POD#3 2) Symptomatic bradycardia due to high degree AV block with syncope s/p permanent pacemaker on 3 3) Large left pneumothorax s/p chest tube removal 4) Hypertension 5) Acute normocytic anemia 6) Hypokalemia- resolved 7) Degenerative joint disease at L4-L5 8) Diabetes type 2 9) Dyslipidemia 10) Tricuspid regurgitation 11) Moderate Pulmonary htn 12) h/o gastric torsion 13) Erosive gastropathy 14) mild dementia Plan: Patient is doing better overall. Will follow with surgery to advance diet. Will continue with PT, pending SIL. Will continue with Norvasc, metoprolol to stabilize HR. ISS for DM. Tylenol prn for fever and zofran prn for nausea. Morphine prn for pain. On Donepezil for mild dementia, and prn hs Ambien for insomnia. On Protonix for gi prophylaxis. Heparin sc for DVT prophylaxis. Patient seen, examined, and case discussed with Dr. Cross. <Paddy Cross S - Last Filed: 09/28/18 11:53> Objective - Vital Signs/Intake and Output Vital Signs (last 24 hours): Temp Pulse Resp BP Pulse Ox 98.1 F 83 16 105/73 92 L 09/28/18 06:00 09/28/18 09:54 09/28/18 06:00 09/28/18 09:55 09/28/18 06:00 Intake and Output: 09/28/18 09/28/18 06:59 18:59 Intake Total 780 Output Total 750 Balance 30 - Medications Medications: Current Medications Acetaminophen (Tylenol 325mg Tab) 650 mg PO Q6H PRN PRN Reason: Pain, Mild (1-3) Last Admin: 09/28/18 09:56 Dose: 650 mg Amlodipine Besylate (Norvasc) 10 mg PO DAILY [facility] Last Admin: 09/28/18 09:55 Dose: 10 mg Benzocaine/Menthol (Cepacol Sore Throat) 1 matthieu MT Q2H PRN PRN Reason: Sore Throat Last Admin: 09/21/18 08:21 Dose: 1 matthieu Donepezil HCl (Aricept) 5 mg PO DAILY [facility] Last Admin: 09/28/18 09:53 Dose: 5 mg Heparin Sodium (Porcine) (Heparin) 5,000 units SC Q8 [facility]; Protocol Last Admin: 09/28/18 05:03 Dose: 5,000 units Insulin Human Lispro (Humalog Low) 0 units SC ACHS [facility]; Protocol Last Admin: 09/28/18 11:36 Dose: Not Given Lidocaine (Lidoderm) 1 ea TD DAILY [facility] Last Admin: 09/28/18 09:54 Dose: 1 ea Metoprolol Tartrate (Lopressor) 25 mg PO BID [facility] Last Admin: 09/28/18 09:54 Dose: 25 mg Morphine Sulfate (Morphine) 2 mg IVP Q4H PRN PRN Reason: Pain, moderate (4-7) Last Admin: 09/28/18 04:42 Dose: 2 mg Ondansetron HCl (Zofran Inj) 4 mg IVP Q4H PRN PRN Reason: Nausea/Vomiting Last Admin: 09/27/18 11:57 Dose: 4 mg Pantoprazole Sodium (Protonix Ec Tab) 40 mg PO 0600 [facility] Last Admin: 09/28/18 05:05 Dose: 40 mg Sodium Chloride ([place] Nasal [place]) 0 ml NS Q4H PRN PRN Reason: Nasal congestion Zolpidem Tartrate (Ambien) 5 mg PO HS PRN; Protocol PRN Reason: Insomnia Last Admin: 09/27/18 21:47 Dose: 5 mg - Labs Labs: 09/28/18 06:20 09/28/18 06:20 PT 12.6 SECONDS (9.4-12.5) H 09/25/18 06:00 INR 1.12 09/25/18 06:00 APTT 28.2 Seconds (26.9-38.3) 09/25/18 06:00 Assessment and Plan - Assessment and Plan (Free Text) Plan: Pt is seen and examined by me. I have reviewed the note of the manager of medical and I agree with the note. I have discussed the assessment and the plan with the resident. I have reviewed the medications and last labs.
--- NOTE | 2018-09-28 09:42 | PN ---
DATE: 09/26/2018 SUBJECTIVE: The patient is in bed in no acute distress, nontoxic. PHYSICAL EXAMINATION VITAL SIGNS: Temperature is 97, blood pressure is 120/80, respiratory rate of 18. HEENT: Examination of HEENT is unremarkable. NECK: Supple. LUNGS: Have decreased breath sounds. HEART: Normal S1 and S2. ABDOMEN: Soft, nontender. LABORATORY DATA: Laboratory examination reveals the patient's white count is 7.8, hemoglobin of 11, platelets of 95. Coagulation is noted and chemistries reveal the BUN of 14, creatinine of 0.6. Urinalysis is noted. Serology is reviewed. Chest x-ray is noted as left lower lobe infiltrate. Dr. Garza's note from today is reviewed, pneumothorax. ASSESSMENT AND PLAN: A 72-year-old female with early this morning, she is doing well. She is not having any symptoms of pneumonia, admitted with partial gastric torsion, hernia, diabetes, hypertension, hyperlipidemia, gastroesophageal reflux disease, presented with abdominal pain, most likely secondary to gastric torsion and improvement with nasogastric tube compression, developed a complete heart block, which required a pacemaker and developed a pneumothorax chest tube placement. The patient's Lyme serology is negative, currently off antibiotics, afebrile. Benny West MD
[2018-09-28] MEDS: Insulin Lispro (humaLOG) LOW Coverage SC SCH ×3 (09:54→17:28)
[2018-09-28] MEDS: Lidocaine 5% Patch TD SCH (09:54)
--- NOTE | 2018-09-28 10:14 | RAD ---
Date of service: 09/28/2018 HISTORY: s/p PTX COMPARISON: 09/27/2018 FINDINGS: LUNGS: No active pulmonary disease. PLEURA: There is a small pneumothorax on the left side seen along the mediastinal border. There is a small apical pneumothorax. Findings are unchanged CARDIOVASCULAR: Aortic calcification Mild cardiomegaly. No pulmonary vascular congestion. OSSEOUS STRUCTURES: No significant abnormalities. VISUALIZED UPPER ABDOMEN: Normal. OTHER FINDINGS: None. IMPRESSION: There is a small pneumothorax on the left side seen along the mediastinal border. There is a small apical pneumothorax. Findings are unchanged
--- NOTE | 2018-09-28 16:26 | PN ---
DATE: 09/28/2018 SUBJECTIVE: The patient was seen and examined. I do agree with the note of the medical technologist chief. I was involved in the plan of care. The patient had her Wright catheter taken out yesterday. She is able to urinate on her own. She is tolerating her diet. We will need to advance her diet. She has small bowel obstruction and had an esophagogastroduodenoscopy. She also had a gastropexy. The patient has a permanent pacemaker because of a AV block. The patient is on Tylenol for pain. She is also getting morphine as needed. The patient is on Ambien for sleeping. She is on heparin for deep vein thrombosis prophylaxis. ASSESSMENT AND PLAN: She will need to go to subacute rehabilitation. She is open to going to [facility]. I will speak to the manager social and the case resource manager. She was seen by physical therapy and they have recommended subacute rehab. Paddy Cross MD
--- NOTE | 2018-09-28 19:23 | CP.PCM.PN ---
Subjective - Date & Time of Evaluation Date of Evaluation: 09/28/18 Time of Evaluation: 16:00 - Subjective Subjective: Complains of constipation. Diet has been advanced to pured diet Objective - Vital Signs/Intake and Output Vital Signs (last 24 hours): Temp Pulse Resp BP Pulse Ox 97 F L 65 19 122/80 98 09/28/18 16:59 09/28/18 17:27 09/28/18 16:59 09/28/18 17:27 09/28/18 16:59 - Medications Medications: Current Medications Acetaminophen (Tylenol 325mg Tab) 650 mg PO Q6H PRN PRN Reason: Pain, Mild (1-3) Last Admin: 09/28/18 09:56 Dose: 650 mg Amlodipine Besylate (Norvasc) 10 mg PO DAILY [facility] Last Admin: 09/28/18 09:55 Dose: 10 mg Benzocaine/Menthol (Cepacol Sore Throat) 1 matthieu MT Q2H PRN PRN Reason: Sore Throat Last Admin: 09/21/18 08:21 Dose: 1 matthieu Donepezil HCl (Aricept) 5 mg PO DAILY [facility] Last Admin: 09/28/18 09:53 Dose: 5 mg Heparin Sodium (Porcine) (Heparin) 5,000 units SC Q8 [facility]; Protocol Last Admin: 09/28/18 13:30 Dose: 5,000 units Insulin Human Lispro (Humalog Low) 0 units SC ACHS [facility]; Protocol Last Admin: 09/28/18 17:28 Dose: Not Given Lidocaine (Lidoderm) 1 ea TD DAILY [facility] Last Admin: 09/28/18 09:54 Dose: 1 ea Metoprolol Tartrate (Lopressor) 25 mg PO BID [facility] Last Admin: 09/28/18 17:27 Dose: 25 mg Morphine Sulfate (Morphine) 2 mg IVP Q4H PRN PRN Reason: Pain, moderate (4-7) Last Admin: 09/28/18 04:42 Dose: 2 mg Ondansetron HCl (Zofran Inj) 4 mg IVP Q4H PRN PRN Reason: Nausea/Vomiting Last Admin: 09/27/18 11:57 Dose: 4 mg Pantoprazole Sodium (Protonix Ec Tab) 40 mg PO 0600 [facility] Last Admin: 09/28/18 05:05 Dose: 40 mg Sodium Chloride ([place] Nasal [place]) 0 ml NS Q4H PRN PRN Reason: Nasal congestion Zolpidem Tartrate (Ambien) 5 mg PO HS PRN; Protocol PRN Reason: Insomnia Last Admin: 09/27/18 21:47 Dose: 5 mg - Labs Labs: 09/28/18 06:20 09/28/18 06:20 PT 12.6 SECONDS (9.4-12.5) H 09/25/18 06:00 INR 1.12 09/25/18 06:00 APTT 28.2 Seconds (26.9-38.3) 09/25/18 06:00 - Head Exam Head Exam: ATRAUMATIC, NORMOCEPHALIC - Eye Exam Eye Exam: EOMI, PERRL - ENT Exam ENT Exam: Mucous Membranes Moist - Neck Exam Neck Exam: Full ROM. absent: Lymphadenopathy - Respiratory Exam Respiratory Exam: NORMAL BREATHING PATTERN. absent: Accessory Muscle Use - Cardiovascular Exam Cardiovascular Exam: +S1, +S2. absent: JVD - GI/Abdominal Exam GI & Abdominal Exam: Soft, Normal Bowel Sounds. absent: Mass - Neurological Exam Neurological Exam: Alert, Awake, Oriented x3 Assessment and Plan - Assessment and Plan (Free Text) Assessment: Status post a gastropexy Diet has been advanced Complaints of constipation Review of the CT showed a large amount of stool in We will start the patient on MiraLAX
--- NOTE | 2018-09-28 22:16 | PN ---
DATE: 09/28/2018 SUBJECTIVE: The patient is seen in bed, in no acute distress, and nontoxic. OBJECTIVE: VITAL SIGNS: Temperature is 98, blood pressure is 110/80, respiratory rate of 18, and heart rate of 65. HEENT: Unremarkable. NECK: Supple. LUNGS: Have decreased breath sounds. HEART: Normal S1 and S2. ABDOMEN: Soft. LABORATORY DATA: Reveals a white count of 6.2, hemoglobin of 10, and platelets of 118. Chemistries reveal a BUN of 11 and creatinine of 0.6. Urinalysis is noted and Lyme serology is noted. REVIEW OF ORDERS: Reveals the patient to be on no antibiotics. ASSESSMENT AND PLAN This is a 72-year-old female with partial gastric torsion, hernia, diabetes mellitus, hypertension, hyperlipidemia, and gastroesophageal reflux disease, who presented with abdominal pain secondary to gastric torsion improved with nasogastric decompression, developed a complete heart block, requiring a pacemaker, developed pneumothorax, requiring a chest tube. Currently off antibiotics, afebrile. The patient is at risk for developing nosocomial infections. Benny West MD
[2018-09-29] MEDS: Pantoprazole 40 mg EC Tab PO SCH (05:34)
[2018-09-29] MEDS: Morphine 2 mg/ml ISec IVP PRN (05:36)
--- NOTE | 2018-09-29 06:48 | CP.PCM.PN ---
Subjective - Date & Time of Evaluation Date of Evaluation: 09/29/18 Time of Evaluation: 06:30 - Subjective Subjective: Awake, no distress, lying in bed, tolerating diet, feels okay Reason for consultation and follow up: Cardiac evaluation of bradycardia, pauses, status post permanent pacemaker, history of hypertension, status post removal left chest tube insertion for pneumothorax, post EGD, post laparoscopic gastropexy Seen and examined by me and Dr. Carrasco Objective - Vital Signs/Intake and Output Vital Signs (last 24 hours): Temp Pulse Resp BP Pulse Ox 97 F L 65 19 122/80 98 09/28/18 16:59 09/28/18 17:27 09/28/18 16:59 09/28/18 17:27 09/28/18 16:59 Intake and Output: 09/28/18 09/29/18 18:59 06:59 Intake Total 120 Balance 120 - Medications Medications: Current Medications Acetaminophen (Tylenol 325mg Tab) 650 mg PO Q6H PRN PRN Reason: Pain, Mild (1-3) Last Admin: 09/28/18 09:56 Dose: 650 mg Amlodipine Besylate (Norvasc) 10 mg PO DAILY [facility] Last Admin: 09/28/18 09:55 Dose: 10 mg Benzocaine/Menthol (Cepacol Sore Throat) 1 matthieu MT Q2H PRN PRN Reason: Sore Throat Last Admin: 09/21/18 08:21 Dose: 1 matthieu Donepezil HCl (Aricept) 5 mg PO DAILY [facility] Last Admin: 09/28/18 09:53 Dose: 5 mg Heparin Sodium (Porcine) (Heparin) 5,000 units SC Q8 [facility]; Protocol Last Admin: 09/29/18 05:53 Dose: 5,000 units Insulin Human Lispro (Humalog Low) 0 units SC ACHS [facility]; Protocol Last Admin: 09/28/18 17:28 Dose: Not Given Lidocaine (Lidoderm) 1 ea TD DAILY [facility] Last Admin: 09/28/18 09:54 Dose: 1 ea Metoprolol Tartrate (Lopressor) 25 mg PO BID [facility] Last Admin: 09/28/18 17:27 Dose: 25 mg Morphine Sulfate (Morphine) 2 mg IVP Q4H PRN PRN Reason: Pain, moderate (4-7) Last Admin: 03/19/19 05:36 Dose: 2 mg Ondansetron HCl (Zofran Inj) 4 mg IVP Q4H PRN PRN Reason: Nausea/Vomiting Last Admin: 09/27/18 11:57 Dose: 4 mg Pantoprazole Sodium (Protonix Ec Tab) 40 mg PO 0600 [facility] Last Admin: 09/29/18 05:34 Dose: 40 mg Polyethylene Glycol (Miralax) 17 gm PO BID [facility] Sodium Chloride ([place] Nasal [place]) 0 ml NS Q4H PRN PRN Reason: Nasal congestion Zolpidem Tartrate (Ambien) 5 mg PO HS PRN; Protocol PRN Reason: Insomnia Last Admin: 09/27/18 21:47 Dose: 5 mg - Labs Labs: 09/28/18 06:20 09/28/18 06:20 PT 12.6 SECONDS (9.4-12.5) H 09/25/18 06:00 INR 1.12 09/25/18 06:00 APTT 28.2 Seconds (26.9-38.3) 09/25/18 06:00 - Constitutional Appears: Non-toxic, No Acute Distress - Head Exam Head Exam: NORMAL INSPECTION, NORMOCEPHALIC - Eye Exam Eye Exam: Normal appearance Pupil Exam: NORMAL ACCOMODATION - ENT Exam ENT Exam: Mucous Membranes Moist, Normal Exam - Respiratory Exam Respiratory Exam: Decreased Breath Sounds, Clear to Ausculation Bilateral, NORMAL BREATHING PATTERN - Cardiovascular Exam Cardiovascular Exam: +S1, +S2 Additional comments: PPM - GI/Abdominal Exam GI & Abdominal Exam: Soft, Normal Bowel Sounds - Extremities Exam Extremities Exam: Full ROM, Normal Capillary Refill - Neurological Exam Neurological Exam: Alert, Awake, Oriented x3 - Psychiatric Exam Psychiatric exam: Normal Affect, Normal Mood - Skin Skin Exam: Dry, Normal Color, Warm Assessment and Plan - Assessment and Plan (Free Text) Assessment: A 72 year old female who came in to the ER due to abdominal pain possible intestinal obstruction. On EKG showed bradycardia with pauses. Heart rate did not respond to Dopamine drip. External transvenous pacing wire was inserted by Dr. Jesus and a dual chamber permanent pacemaker [employer], (MRI safe) was inserted by Dr. Carrasco. History of hypertension, diabetes, depression, GERD, vertigo. Recent echo showed LVEF of 55-60%, trace MR, severe tricuspid regurgitation, RVSP 67mmHg, moderate to severe pulmonary hypertension. Post PPM insertion complicated with large left pneumothorax requiring left chest tube insertion with resolution thus chest tube discontinued . Post EGD and showed gastritis, gastric polyps. Post laparoscopic gastropexy POD #4. Cardiac status stable. Physical therapy, OOB to chair. discharge planning. Plan: Complaints of constipation On Miralax No distress, feels better Post laparoscopic gastropexy POD #4 Cardiac status stable Heart rate stable Blood pressure stable Hemoglobin/Hematocrit stable Glucose controlled. On Norvasc 10 mg daily,Heparin 5000 units SC every 8 hours, Lopressor 25 mg BID Continue current treatment Continue current medications Discharge planning Awaiting Rehab placement Will follow up Plan and treatment discussed with Dr. Carrasco
[2018-09-29] MEDS: Insulin Lispro (humaLOG) LOW Coverage SC SCH ×4 (09:16→22:02)
[2018-09-29] MEDS: Lidocaine 5% Patch TD SCH (09:23)
[2018-09-29] MEDS: POLYETHYLENE GLYCOL 3350 17 GM/Dose PACKET PO SCH ×2 (09:23→19:13)
--- NOTE | 2018-09-29 10:11 | PN ---
DATE: 09/29/2018 PULMONARY NOTE SUBJECTIVE: The patient appears very comfortable this morning. She is not short of breath at rest. OBJECTIVE: VITALS (Last noted in the computer): Temperature is 97, pulse 65, respirations 19, blood pressure 122/80. Oxygen saturation on nasal cannula is 98%. HEENT: Normocephalic, atraumatic. No JVD. CARDIOVASCULAR: Systolic ejection murmur at the lower left sternal border. No S3 gallop. LUNGS: Better breath sounds at the bases. No rhonchi. No wheezing. EXTREMITIES: Mild edema. No cyanosis, no clubbing. Calves are nontender to palpation. GASTROINTESTINAL: Abdomen is soft. It is less distended and less tender to palpation. Bowel sounds are positive. SKIN: No acute rash. NEUROLOGIC: Limited at the present time. PERTINENT LABORATORY DATA: Chest x-ray was done yesterday and reviewed. There is a very small, persistent, left apical pneumothorax noted. The left lower lobe changes are decreased, and are now resolving. IMPRESSION: 1. Left pneumothorax. 2. Status post permanent pacemaker insertion. 3. Cardiac arrhythmias. 4. Partial gastric torsion. Status post surgery. 5. Mild anemia. PLAN: The patient appears very comfortable this morning. She is not short of breath at rest. She does state to feeling much better overall. I did discuss the case with the night nurse at length. The night nurse stated the patient had a good night. I did review the last chest x-ray done. Findings are noted above. The chest x-ray findings are much improved - compared to last week. On physical exam, there is no significant bronchospasm noted. In addition, there is no significant alveolar-arterial gradient. I will continue with the frequent incentive spirometry, and have the patient out of bed as much as possible. Inputs by Surgery, Cardiology, and Gastroenterology are also noted. Clinical status of the patient is significantly improved - compared to last week. However, given the above, the future status/prognosis for this patient does remain somewhat guarded. I will discuss the above with the attending physician. Richardson Garza MD [email or web address]
--- NOTE | 2018-09-29 11:46 | CP.PCM.PN ---
<Bisi Rinaldi - Last Filed: 09/29/18 11:43> Subjective - Date & Time of Evaluation Date of Evaluation: 09/29/18 Time of Evaluation: 07:55 - Subjective Subjective: IM Resident progress note for Dr. Cross's service. Patient with no acute events overnight. Patient tolerated the pureed diet. Abdominal pain has improved, and the shortness of breath continued to improve. Denies fever or chills. Resting comfortably on the chair. Objective - Vital Signs/Intake and Output Vital Signs (last 24 hours): Temp Pulse Resp BP Pulse Ox 98.2 F 69 20 122/81 98 09/29/18 08:59 09/29/18 09:22 09/29/18 08:59 09/29/18 09:22 09/29/18 08:59 Intake and Output: 09/29/18 09/29/18 06:59 18:59 Intake Total 120 Balance 120 - Medications Medications: Current Medications Acetaminophen (Tylenol 325mg Tab) 650 mg PO Q6H PRN PRN Reason: Pain, Mild (1-3) Last Admin: 09/28/18 09:56 Dose: 650 mg Amlodipine Besylate (Norvasc) 10 mg PO DAILY [facility] Last Admin: 09/29/18 09:22 Dose: 10 mg Benzocaine/Menthol (Cepacol Sore Throat) 1 matthieu MT Q2H PRN PRN Reason: Sore Throat Last Admin: 09/21/18 08:21 Dose: 1 matthieu Donepezil HCl (Aricept) 5 mg PO DAILY [facility] Last Admin: 09/29/18 09:23 Dose: 5 mg Heparin Sodium (Porcine) (Heparin) 5,000 units SC Q8 [facility]; Protocol Last Admin: 09/29/18 05:53 Dose: 5,000 units Insulin Human Lispro (Humalog Low) 0 units SC ACHS [facility]; Protocol Last Admin: 09/29/18 11:39 Dose: Not Given Lidocaine (Lidoderm) 1 ea TD DAILY [facility] Last Admin: 09/29/18 09:23 Dose: 1 ea Metoprolol Tartrate (Lopressor) 25 mg PO BID [facility] Last Admin: 09/29/18 09:22 Dose: 25 mg Ondansetron HCl (Zofran Inj) 4 mg IVP Q4H PRN PRN Reason: Nausea/Vomiting Last Admin: 09/27/18 11:57 Dose: 4 mg Pantoprazole Sodium (Protonix Ec Tab) 40 mg PO 0600 [facility] Last Admin: 09/29/18 05:34 Dose: 40 mg Polyethylene Glycol (Miralax) 17 gm PO BID [facility] Last Admin: 09/29/18 09:23 Dose: 17 gm Sodium Chloride ([place] Nasal [place]) 0 ml NS Q4H PRN PRN Reason: Nasal congestion Zolpidem Tartrate (Ambien) 5 mg PO HS PRN; Protocol PRN Reason: Insomnia Last Admin: 09/27/18 21:47 Dose: 5 mg - Labs Labs: 09/28/18 06:20 09/28/18 06:20 PT 12.6 SECONDS (9.4-12.5) H 09/25/18 06:00 INR 1.12 09/25/18 06:00 APTT 28.2 Seconds (26.9-38.3) 09/25/18 06:00 - Constitutional Appears: No Acute Distress, Cachectic, Chronically Ill - Head Exam Head Exam: ATRAUMATIC, NORMAL INSPECTION, NORMOCEPHALIC - Eye Exam Eye Exam: EOMI, Normal appearance, PERRL. absent: Scleral icterus Pupil Exam: NORMAL ACCOMODATION - ENT Exam ENT Exam: Mucous Membranes Moist - Neck Exam Neck Exam: Normal Inspection - Respiratory Exam Respiratory Exam: Clear to Ausculation Bilateral, NORMAL BREATHING PATTERN. absent: Rales, Rhonchi, Wheezes, Respiratory Distress, Stridor - Cardiovascular Exam Cardiovascular Exam: REGULAR RHYTHM, RRR, +S1, +S2. absent: Bradycardia, Tachycardia, Diastolic murmur, Gallop, Irregular Rhythm, JVD, Rubs, Murmur - GI/Abdominal Exam GI & Abdominal Exam: Soft, Normal Bowel Sounds. absent: Distended, Firm, Guarding, Rigid, Tenderness, Rebound Additional comments: Surgical incision site clean and intact. - Extremities Exam Extremities Exam: Normal Inspection. 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 Patient continues to improve. Is afebrile, and hemodynamically stable. Will continue with Norvasc, metoprolol for htn and tachycardia. Continue with ISS for DM. Tylenol prn for fever and pain. On Donepezil for mild dementia, and prn hs Ambien for insomnia. On Protonix for gi prophylaxis. Miralax was added for constipation. Heparin sc for DVT prophylaxis. Patient seen, examined, and case discussed with Dr. Cross. <Paddy Cross S - Last Filed: 09/29/18 17:50> Objective - Vital Signs/Intake and Output Vital Signs (last 24 hours): Temp Pulse Resp BP Pulse Ox 98.4 F 77 19 120/80 91 L 09/29/18 16:37 09/29/18 16:37 09/29/18 16:37 09/29/18 16:37 09/29/18 16:37 Intake and Output: 09/29/18 09/29/18 06:59 18:59 Intake Total 120 Balance 120 - Medications Medications: Current Medications Acetaminophen (Tylenol 325mg Tab) 650 mg PO Q6H PRN PRN Reason: Pain, Mild (1-3) Last Admin: 09/28/18 09:56 Dose: 650 mg Amlodipine Besylate (Norvasc) 10 mg PO DAILY [facility] Last Admin: 09/29/18 09:22 Dose: 10 mg Benzocaine/Menthol (Cepacol Sore Throat) 1 matthieu MT Q2H PRN PRN Reason: Sore Throat Last Admin: 09/21/18 08:21 Dose: 1 matthieu Donepezil HCl (Aricept) 5 mg PO DAILY [facility] Last Admin: 09/29/18 09:23 Dose: 5 mg Heparin Sodium (Porcine) (Heparin) 5,000 units SC Q8 [facility]; Protocol Last Admin: 09/29/18 16:05 Dose: 5,000 units Insulin Human Lispro (Humalog Low) 0 units SC ACHS [facility]; Protocol Last Admin: 09/29/18 11:39 Dose: Not Given Lidocaine (Lidoderm) 1 ea TD DAILY [facility] Last Admin: 09/29/18 09:23 Dose: 1 ea Metoprolol Tartrate (Lopressor) 25 mg PO BID [facility] Last Admin: 09/29/18 09:22 Dose: 25 mg Ondansetron HCl (Zofran Inj) 4 mg IVP Q4H PRN PRN Reason: Nausea/Vomiting Last Admin: 09/27/18 11:57 Dose: 4 mg Pantoprazole Sodium (Protonix Ec Tab) 40 mg PO 0600 [facility] Last Admin: 09/29/18 05:34 Dose: 40 mg Polyethylene Glycol (Miralax) 17 gm PO BID [facility] Last Admin: 09/29/18 09:23 Dose: 17 gm Sodium Chloride ([place] Nasal [place]) 0 ml NS Q4H PRN PRN Reason: Nasal congestion Zolpidem Tartrate (Ambien) 5 mg PO HS PRN; Protocol PRN Reason: Insomnia Last Admin: 09/27/18 21:47 Dose: 5 mg - Labs Labs: 09/28/18 06:20 09/28/18 06:20 PT 12.6 SECONDS (9.4-12.5) H 09/25/18 06:00 INR 1.12 09/25/18 06:00 APTT 28.2 Seconds (26.9-38.3) 09/25/18 06:00 Assessment and Plan - Assessment and Plan (Free Text) Plan: Pt seen and examined by me. I have reviewed the note of the medical policy specialist and I agree with it. I have discussed the assessment and plan with the resident. I have reviewed the medications and the last labs.
--- NOTE | 2018-09-29 14:00 | PN ---
DATE: 09/29/2018 SUBJECTIVE: The patient is in bed in no acute distress. Seen earlier today. OBJECTIVE: VITAL SIGNS: On exam, temperature is 98, blood pressure is 120/70, respiratory rate 16. HEENT: Unremarkable. NECK: Supple. LUNGS: Have decreased breath sounds. HEART: Normal S1 and S2. ABDOMEN: Soft. LABORATORY EXAMINATION: Reveals the patient have a white count of 6.3, hemoglobin of 10, platelets of 118. Chemistries reveals a creatinine of 0.6. Urinalysis is noted and Lyme is negative. ASSESSMENT AND PLAN: This is a 72-year-old female with partial gastric torsion hernia, diabetes mellitus, hypertension, hyperlipidemia, gastroesophageal reflux disease, who presented with abdominal pain secondary to gastric torsion the patient had developed a complete heart block requiring a pacemaker and then developed a pneumothorax requiring chest tube, Lyme serology is negative and currently off of antibiotics. The patient is at risk for developing nosocomial infections. Benny West MD
--- NOTE | 2018-09-29 14:07 | CP.PCM.PN ---
Subjective - Date & Time of Evaluation Date of Evaluation: 09/29/18 Time of Evaluation: 06:50 - Subjective Subjective: Surgery Progress note. Dr. Jeronimo Pt seen and examined at bedside. No acute events overnight. No N/V/D. Tolerating diet. No new complaints. No F/C. Plan for d/c to rehab today as per Primary team Objective - Vital Signs/Intake and Output Vital Signs (last 24 hours): Temp Pulse Resp BP Pulse Ox 98.2 F 69 20 122/81 98 09/29/18 08:59 09/29/18 09:22 09/29/18 08:59 09/29/18 09:22 09/29/18 08:59 Intake and Output: 09/29/18 09/29/18 06:59 18:59 Intake Total 120 Balance 120 - Medications Medications: Current Medications Acetaminophen (Tylenol 325mg Tab) 650 mg PO Q6H PRN PRN Reason: Pain, Mild (1-3) Last Admin: 09/28/18 09:56 Dose: 650 mg Amlodipine Besylate (Norvasc) 10 mg PO DAILY [facility] Last Admin: 09/29/18 09:22 Dose: 10 mg Benzocaine/Menthol (Cepacol Sore Throat) 1 matthieu MT Q2H PRN PRN Reason: Sore Throat Last Admin: 09/21/18 08:21 Dose: 1 matthieu Donepezil HCl (Aricept) 5 mg PO DAILY [facility] Last Admin: 09/29/18 09:23 Dose: 5 mg Heparin Sodium (Porcine) (Heparin) 5,000 units SC Q8 [facility]; Protocol Last Admin: 09/29/18 05:53 Dose: 5,000 units Insulin Human Lispro (Humalog Low) 0 units SC ACHS [facility]; Protocol Last Admin: 09/29/18 11:39 Dose: Not Given Lidocaine (Lidoderm) 1 ea TD DAILY [facility] Last Admin: 09/29/18 09:23 Dose: 1 ea Metoprolol Tartrate (Lopressor) 25 mg PO BID [facility] Last Admin: 09/29/18 09:22 Dose: 25 mg Ondansetron HCl (Zofran Inj) 4 mg IVP Q4H PRN PRN Reason: Nausea/Vomiting Last Admin: 09/27/18 11:57 Dose: 4 mg Pantoprazole Sodium (Protonix Ec Tab) 40 mg PO 0600 [facility] Last Admin: 09/29/18 05:34 Dose: 40 mg Polyethylene Glycol (Miralax) 17 gm PO BID [facility] Last Admin: 09/29/18 09:23 Dose: 17 gm Sodium Chloride ([place] Nasal [place]) 0 ml NS Q4H PRN PRN Reason: Nasal congestion Zolpidem Tartrate (Ambien) 5 mg PO HS PRN; Protocol PRN Reason: Insomnia Last Admin: 09/27/18 21:47 Dose: 5 mg - Labs Labs: 09/28/18 06:20 09/28/18 06:20 PT 12.6 SECONDS (9.4-12.5) H 09/25/18 06:00 INR 1.12 09/25/18 06:00 APTT 28.2 Seconds (26.9-38.3) 09/25/18 06:00 - Constitutional Appears: Well, Non-toxic, No Acute Distress - Head Exam Head Exam: ATRAUMATIC, NORMAL INSPECTION, NORMOCEPHALIC - Eye Exam Eye Exam: EOMI, Normal appearance. absent: Scleral icterus - ENT Exam ENT Exam: Mucous Membranes Moist - Respiratory Exam Respiratory Exam: NORMAL BREATHING PATTERN. absent: Accessory Muscle Use, Respiratory Distress - Cardiovascular Exam Cardiovascular Exam: RRR. absent: JVD - GI/Abdominal Exam GI & Abdominal Exam: Soft. absent: Distended, Guarding, Rigid, Rebound Additional comments: incisions clean dry and intact - Extremities Exam Extremities Exam: Normal Inspection. absent: Calf Tenderness - Neurological Exam Neurological Exam: Alert, Awake, Oriented x3 - Psychiatric Exam Psychiatric exam: Normal Affect, Normal Mood - Skin Skin Exam: Dry, Intact, Normal Color, Warm Assessment and Plan - Assessment and Plan (Free Text) Assessment: 72yo F with Partial Gastric Torsion, s/p laparascopic gastropexy. POD 4 Plan: - Cleared for d/c to rehab from surgery standpoint - No diet restrictions from surgery standpoint - Pain management - Follow up with Dr. Jeronimo in 10 days. Call for appointment Further recs as per Dr. Kandace Barron PGY2 surgery
--- NOTE | 2018-09-29 18:52 | RAD ---
Date of service: 09/29/2018 HISTORY: Shortness of breath COMPARISON: 09/28/2018 TECHNIQUE: Chest PA and lateral FINDINGS: LINES AND TUBES: None. LUNG AND PLEURA: The lungs are well inflated. There is discoid atelectasis in the right lower lobe. There is haziness in the left lower lobe. There is blunting of both costophrenic angles. There is a small left apical and medial pneumothorax. HEART AND MEDIASTINUM: The heart is not enlarged. No aortic atherosclerotic calcifications present. The hilar and mediastinal contours are within normal limits. SKELETAL STRUCTURES: The bony structures are within normal limits for the patient's age. VISUALIZED UPPER ABDOMEN: Normal. OTHER FINDINGS: None. IMPRESSION: Persistent small left apical and medial pneumothorax. Suspect small effusions, worse on the left. Haziness in the left lower lobe may represent atelectasis or pneumonia. Follow-up is advised. Discoid atelectasis in the right lower lobe.
--- NOTE | 2018-09-29 21:48 | CP.PCM.PN ---
Subjective - Date & Time of Evaluation Date of Evaluation: 09/29/18 Time of Evaluation: 09:30 - Subjective Subjective: This patient was seen and evaluated here earlier. Patient is on MiraLAX for constipation. Tolerating diet Objective - Vital Signs/Intake and Output Vital Signs (last 24 hours): Temp Pulse Resp BP Pulse Ox 98.4 F 77 19 120/80 91 L 09/29/18 16:37 09/29/18 19:11 09/29/18 16:37 09/29/18 19:11 09/29/18 16:37 - Medications Medications: Current Medications Acetaminophen (Tylenol 325mg Tab) 650 mg PO Q6H PRN PRN Reason: Pain, Mild (1-3) Last Admin: 09/29/18 21:05 Dose: 650 mg Amlodipine Besylate (Norvasc) 10 mg PO DAILY [facility] Last Admin: 09/29/18 09:22 Dose: 10 mg Benzocaine/Menthol (Cepacol Sore Throat) 1 matthieu MT Q2H PRN PRN Reason: Sore Throat Last Admin: 09/21/18 08:21 Dose: 1 matthieu Donepezil HCl (Aricept) 5 mg PO DAILY [facility] Last Admin: 09/29/18 09:23 Dose: 5 mg Heparin Sodium (Porcine) (Heparin) 5,000 units SC Q8 [facility]; Protocol Last Admin: 09/29/18 21:08 Dose: 5,000 units Insulin Human Lispro (Humalog Low) 0 units SC ACHS [facility]; Protocol Last Admin: 09/29/18 19:08 Dose: Not Given Lidocaine (Lidoderm) 1 ea TD DAILY [facility] Last Admin: 09/29/18 09:23 Dose: 1 ea Metoprolol Tartrate (Lopressor) 25 mg PO BID [facility] Last Admin: 09/29/18 19:11 Dose: 25 mg Ondansetron HCl (Zofran Inj) 4 mg IVP Q4H PRN PRN Reason: Nausea/Vomiting Last Admin: 09/27/18 11:57 Dose: 4 mg Pantoprazole Sodium (Protonix Ec Tab) 40 mg PO 0600 [facility] Last Admin: 09/29/18 05:34 Dose: 40 mg Polyethylene Glycol (Miralax) 17 gm PO BID [facility] Last Admin: 09/29/18 19:13 Dose: 17 gm Sodium Chloride ([place] Nasal [place]) 0 ml NS Q4H PRN PRN Reason: Nasal congestion Zolpidem Tartrate (Ambien) 5 mg PO HS PRN; Protocol PRN Reason: Insomnia Last Admin: 09/27/18 21:47 Dose: 5 mg - Labs Labs: 09/28/18 06:20 09/28/18 06:20 PT 12.6 SECONDS (9.4-12.5) H 09/25/18 06:00 INR 1.12 09/25/18 06:00 APTT 28.2 Seconds (26.9-38.3) 09/25/18 06:00 - Constitutional Appears: Well, No Acute Distress - Head Exam Head Exam: ATRAUMATIC, NORMOCEPHALIC - Eye Exam Eye Exam: EOMI - ENT Exam ENT Exam: Mucous Membranes Moist - Neck Exam Neck Exam: Full ROM. absent: Lymphadenopathy - Respiratory Exam Respiratory Exam: NORMAL BREATHING PATTERN. absent: Accessory Muscle Use - Cardiovascular Exam Cardiovascular Exam: +S1. absent: JVD - GI/Abdominal Exam GI & Abdominal Exam: Soft, Normal Bowel Sounds. absent: Mass - Neurological Exam Neurological Exam: Alert, Awake, Oriented x3 - Psychiatric Exam Psychiatric exam: Normal Affect Assessment and Plan - Assessment and Plan (Free Text) Assessment: Status post a gastropexy for probable gastric volvulus Gastric erosions Constipation Other problems include status post permanent pacemaker for bradyarrhythmia Status post chest tube placement and removal for pneumothorax Diabetes mellitus hypertension dyslipidemia Plan Advised the patient eats small quantities of milk multiple times Continue the MiraLAX and titrate the dose The pathology of the gastric biopsy was reviewed negative for H. pylori gastric polyps benign
[2018-09-29] MEDS ORDERED: Morphine 2 mg/ml ISec IVP PRN (22:14)
--- NOTE | 2018-09-29 23:24 | PN ---
DATE: 09/29/2018 The patient was seen and examined. I do agree with the note of the medical review specialist. I have gone over the plan of care. The patient is noted comfortable. She is using Ambien for sleep. She is starting to ambulate better. She has a small bowel obstruction that is improved. She had a left pneumothorax that had improved and the chest tube has been removed. The patient has hypertension that is controlled. She had diabetes type 2. She is waiting for subacute rehab. The patient is being seen by physical therapy. The insurance authorization is pending. She is on heparin for DVT prophylaxis. She is on MiraLax for constipation. I will order a chest x-ray to evaluate her pneumothorax. Paddy Cross MD
[2018-09-30] MEDS: Pantoprazole 40 mg EC Tab PO SCH (05:40)
--- NOTE | 2018-09-30 06:40 | CP.PCM.PN ---
Subjective - Date & Time of Evaluation Date of Evaluation: 09/30/18 Time of Evaluation: 06:35 - Subjective Subjective: Awake, no distress, complaining of constipation, out to commode Reason for consultation and follow up: Cardiac evaluation of bradycardia, pauses, status post permanent pacemaker, history of hypertension, status post removal left chest tube insertion for pneumothorax, post EGD, post laparoscopic gastropexy Seen and examined by me and Dr. Carrasco Objective - Vital Signs/Intake and Output Vital Signs (last 24 hours): Temp Pulse Resp BP Pulse Ox 98.4 F 77 19 120/80 91 L 09/29/18 16:37 09/29/18 19:11 09/29/18 16:37 09/29/18 19:11 09/29/18 16:37 - Medications Medications: Current Medications Acetaminophen (Tylenol 325mg Tab) 650 mg PO Q6H PRN PRN Reason: Pain, Mild (1-3) Last Admin: 09/29/18 21:05 Dose: 650 mg Amlodipine Besylate (Norvasc) 10 mg PO DAILY [facility] Last Admin: 09/29/18 09:22 Dose: 10 mg Benzocaine/Menthol (Cepacol Sore Throat) 1 matthieu MT Q2H PRN PRN Reason: Sore Throat Last Admin: 09/21/18 08:21 Dose: 1 matthieu Donepezil HCl (Aricept) 5 mg PO DAILY [facility] Last Admin: 09/29/18 09:23 Dose: 5 mg Heparin Sodium (Porcine) (Heparin) 5,000 units SC Q8 [facility]; Protocol Last Admin: 09/30/18 05:41 Dose: 5,000 units Insulin Human Lispro (Humalog Low) 0 units SC ACHS [facility]; Protocol Last Admin: 09/29/18 22:02 Dose: Not Given Lidocaine (Lidoderm) 1 ea TD DAILY [facility] Last Admin: 09/29/18 09:23 Dose: 1 ea Metoprolol Tartrate (Lopressor) 25 mg PO BID [facility] Last Admin: 09/29/18 19:11 Dose: 25 mg Morphine Sulfate (Morphine) 1 mg IVP ONCE PRN PRN Reason: Pain, severe (8-10) Last Admin: 09/29/18 22:22 Dose: 1 mg Ondansetron HCl (Zofran Inj) 4 mg IVP Q4H PRN PRN Reason: Nausea/Vomiting Last Admin: 09/27/18 11:57 Dose: 4 mg Pantoprazole Sodium (Protonix Ec Tab) 40 mg PO 0600 [facility] Last Admin: 09/30/18 05:40 Dose: 40 mg Polyethylene Glycol (Miralax) 17 gm PO BID [facility] Last Admin: 09/29/18 19:13 Dose: 17 gm Sodium Chloride ([place] Nasal [place]) 0 ml NS Q4H PRN PRN Reason: Nasal congestion Zolpidem Tartrate (Ambien) 5 mg PO HS PRN; Protocol PRN Reason: Insomnia Last Admin: 09/27/18 21:47 Dose: 5 mg - Labs Labs: 09/28/18 06:20 09/28/18 06:20 PT 12.6 SECONDS (9.4-12.5) H 09/25/18 06:00 INR 1.12 09/25/18 06:00 APTT 28.2 Seconds (26.9-38.3) 09/25/18 06:00 - Constitutional Appears: Non-toxic, No Acute Distress - Head Exam Head Exam: NORMAL INSPECTION, NORMOCEPHALIC - Eye Exam Eye Exam: Normal appearance Pupil Exam: NORMAL ACCOMODATION - ENT Exam ENT Exam: Mucous Membranes Moist, Normal Exam - Respiratory Exam Respiratory Exam: Decreased Breath Sounds, Clear to Ausculation Bilateral, NORMAL BREATHING PATTERN - Cardiovascular Exam Cardiovascular Exam: +S1, +S2 Additional comments: PPM - GI/Abdominal Exam GI & Abdominal Exam: Soft, Normal Bowel Sounds - Extremities Exam Extremities Exam: Full ROM, Normal Capillary Refill - Neurological Exam Neurological Exam: Alert, Awake, Oriented x3 - Psychiatric Exam Psychiatric exam: Normal Affect, Normal Mood - Skin Skin Exam: Dry, Normal Color, Warm Assessment and Plan - Assessment and Plan (Free Text) Assessment: A 72 year old female who came in to the ER due to abdominal pain possible intestinal obstruction. On EKG showed bradycardia with pauses. Heart rate did not respond to Dopamine drip. External transvenous pacing wire was inserted by Dr. Jesus and a dual chamber permanent pacemaker [employer], (MRI safe) was inserted by Dr. Carrasco. History of hypertension, diabetes, depression, GERD, vertigo. Recent echo showed LVEF of 55-60%, trace MR, severe tricuspid regurgitation, RVSP 67mmHg, moderate to severe pulmonary hypertension. Post PPM insertion complicated with large left pneumothorax requiring left chest tube insertion with resolution thus chest tube discontinued . Post EGD and showed gastritis, gastric polyps. Post laparoscopic gastropexy POD #5. Cardiac status stable. Discharge planning. Constipated. Plan: Complaints of constipation On Miralax but no result, will give one dose of Lactulose GI on consult No distress, feels better Post laparoscopic gastropexy POD #5 Cardiac status stable Heart rate stable Blood pressure stable Glucose controlled On Norvasc 10 mg daily,Heparin 5000 units SC every 8 hours, Lopressor 25 mg BID Continue current treatment Continue current medications Discharge planning Awaiting Rehab placement Will follow up Plan and treatment discussed with Dr. Carrasco
[2018-09-30] MEDS: Insulin Lispro (humaLOG) LOW Coverage SC SCH ×4 (08:07→21:46)
--- NOTE | 2018-09-30 09:40 | CP.PCM.PN ---
<Bisi Rinaldi - Last Filed: 09/30/18 13:14> Subjective - Date & Time of Evaluation Date of Evaluation: 09/30/18 Time of Evaluation: 06:40 - Subjective Subjective: IM resident progress note for Dr. Cross's service Patient complained of abdominal pain overnight, was giving morphine with some improvement. Denies nausea or vomiting. No bowel movement yet. Patient is also complaining of left leg intermittent pain. States the breathing continues to improve. No chest pain. No fever or chills. Objective - Vital Signs/Intake and Output Vital Signs (last 24 hours): Temp Pulse Resp BP Pulse Ox 97.8 F 66 20 121/76 98 09/30/18 08:41 09/30/18 08:41 09/30/18 08:41 09/30/18 08:41 09/30/18 08:41 - Medications Medications: Current Medications Acetaminophen (Tylenol 325mg Tab) 650 mg PO Q6H PRN PRN Reason: Pain, Mild (1-3) Last Admin: 09/29/18 21:05 Dose: 650 mg Amlodipine Besylate (Norvasc) 10 mg PO DAILY [facility] Last Admin: 09/29/18 09:22 Dose: 10 mg Benzocaine/Menthol (Cepacol Sore Throat) 1 matthieu MT Q2H PRN PRN Reason: Sore Throat Last Admin: 09/21/18 08:21 Dose: 1 matthieu Donepezil HCl (Aricept) 5 mg PO DAILY [facility] Last Admin: 09/29/18 09:23 Dose: 5 mg Heparin Sodium (Porcine) (Heparin) 5,000 units SC Q8 [facility]; Protocol Last Admin: 09/30/18 05:41 Dose: 5,000 units Insulin Human Lispro (Humalog Low) 0 units SC ACHS [facility]; Protocol Last Admin: 09/30/18 08:07 Dose: Not Given Lidocaine (Lidoderm) 1 ea TD DAILY [facility] Last Admin: 09/29/18 09:23 Dose: 1 ea Metoprolol Tartrate (Lopressor) 25 mg PO BID [facility] Last Admin: 09/29/18 19:11 Dose: 25 mg Ondansetron HCl (Zofran Inj) 4 mg IVP Q4H PRN PRN Reason: Nausea/Vomiting Last Admin: 09/27/18 11:57 Dose: 4 mg Pantoprazole Sodium (Protonix Ec Tab) 40 mg PO 0600 [facility] Last Admin: 09/30/18 05:40 Dose: 40 mg Polyethylene Glycol (Miralax) 17 gm PO BID [facility] Last Admin: 09/29/18 19:13 Dose: 17 gm Sodium Chloride ([place] Nasal [place]) 0 ml NS Q4H PRN PRN Reason: Nasal congestion Tramadol HCl (Ultram) 50 mg PO TID PRN PRN Reason: Pain, moderate (4-7) Zolpidem Tartrate (Ambien) 5 mg PO HS PRN; Protocol PRN Reason: Insomnia Last Admin: 09/27/18 21:47 Dose: 5 mg - Labs Labs: 09/28/18 06:20 09/28/18 06:20 PT 12.6 SECONDS (9.4-12.5) H 09/25/18 06:00 INR 1.12 09/25/18 06:00 APTT 28.2 Seconds (26.9-38.3) 09/25/18 06:00 - Constitutional Appears: Cachectic, Chronically Ill - Head Exam Head Exam: ATRAUMATIC, NORMAL INSPECTION, NORMOCEPHALIC - Eye Exam Eye Exam: EOMI, Normal appearance, PERRL Pupil Exam: NORMAL ACCOMODATION - ENT Exam ENT Exam: Mucous Membranes Moist - Neck Exam Neck Exam: Normal Inspection - Respiratory Exam Respiratory Exam: Clear to Ausculation Bilateral, NORMAL BREATHING PATTERN. absent: Rales, Rhonchi, Wheezes, Respiratory Distress, Stridor - Cardiovascular Exam Cardiovascular Exam: REGULAR RHYTHM, RRR, +S1, +S2. absent: Bradycardia, Tachycardia, Gallop, JVD, Rubs, Murmur - GI/Abdominal Exam GI & Abdominal Exam: Soft, Tenderness (diffuse ), Normal Bowel Sounds. absent: Distended, Firm, Guarding, Rigid, Rebound Additional comments: halley on 3 different incision site. - Extremities Exam Extremities Exam: Normal Inspection. 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 For pain tramadol prn for pain. Will order left lower extremities ultrasound to rule out DVT. Will continue with Norvasc for htn, on metoprolol for tachycardia. Zofran prn for nausea. On protonix for DVT prophylaxis. Heparin sc for dvt prophylaxis. Ambien hs prn for insomnia. ISS for diabetes. Patient is awaiting insurance approval for [facility]. Patient seen, examined and case discussed with Dr. Cross. <Paddy Cross S - Last Filed: 09/30/18 18:18> Objective - Vital Signs/Intake and Output Vital Signs (last 24 hours): Temp Pulse Resp BP Pulse Ox 98.9 F 85 20 126/76 99 09/30/18 17:13 09/30/18 18:00 09/30/18 17:13 09/30/18 18:00 09/30/18 17:13 - Medications Medications: Current Medications Acetaminophen (Tylenol 325mg Tab) 650 mg PO Q6H PRN PRN Reason: Pain, Mild (1-3) Last Admin: 09/29/18 21:05 Dose: 650 mg Amlodipine Besylate (Norvasc) 10 mg PO DAILY [facility] Last Admin: 09/30/18 10:33 Dose: 10 mg Benzocaine/Menthol (Cepacol Sore Throat) 1 matthieu MT Q2H PRN PRN Reason: Sore Throat Last Admin: 09/21/18 08:21 Dose: 1 matthieu Donepezil HCl (Aricept) 5 mg PO DAILY [facility] Last Admin: 09/30/18 10:29 Dose: 5 mg Enoxaparin Sodium (Lovenox) 60 mg SC Q12H [facility]; Protocol Last Admin: 09/30/18 14:33 Dose: 60 mg Home Med (Home Med) 1 unit PO BID [facility] Last Admin: 09/30/18 18:00 Dose: 1 unit Insulin Human Lispro (Humalog Low) 0 units SC ACHS [facility]; Protocol Last Admin: 09/30/18 16:29 Dose: Not Given Lidocaine (Lidoderm) 1 ea TD DAILY [facility] Last Admin: 09/30/18 10:29 Dose: 1 ea Metoprolol Tartrate (Lopressor) 25 mg PO BID [facility] Last Admin: 09/30/18 18:00 Dose: 25 mg Ondansetron HCl (Zofran Inj) 4 mg IVP Q4H PRN PRN Reason: Nausea/Vomiting Last Admin: 09/27/18 11:57 Dose: 4 mg Pantoprazole Sodium (Protonix Ec Tab) 40 mg PO 0600 [facility] Last Admin: 09/30/18 05:40 Dose: 40 mg Polyethylene Glycol (Miralax) 17 gm PO BID PRN PRN Reason: Constipation Sodium Chloride ([place] Nasal [place]) 0 ml NS Q4H PRN PRN Reason: Nasal congestion Tramadol HCl (Ultram) 50 mg PO TID PRN PRN Reason: Pain, moderate (4-7) Warfarin Sodium (Coumadin) 10 mg PO 1800 [facility]; Protocol Zolpidem Tartrate (Ambien) 5 mg PO HS PRN; Protocol PRN Reason: Insomnia Last Admin: 09/27/18 21:47 Dose: 5 mg - Labs Labs: 09/28/18 06:20 09/28/18 06:20 PT 12.6 SECONDS (9.4-12.5) H 09/25/18 06:00 INR 1.12 09/25/18 06:00 APTT 28.2 Seconds (26.9-38.3) 09/25/18 06:00 Assessment and Plan - Assessment and Plan (Free Text) Plan: Pt seen and examined by me. I have reviewed the note of the paramedical aide and I agree with it. I have discussed the assessment and plan with the resident. I have reviewed the medications and the last labs.
--- NOTE | 2018-09-30 09:43 | PN ---
DATE: 09/30/2018 PULMONARY NOTE SUBJECTIVE: The patient appears quite comfortable this morning. She is not short of breath at rest. PHYSICAL EXAMINATION: VITAL SIGNS: (Last noted in the computer): Temperature is 98.4, pulse 77, respirations 18, blood pressure 120/80. Oxygen saturation on room air - 91%. Oxygen saturation on nasal cannula - 98%. HEENT: Normocephalic, atraumatic. No JVD. CARDIOVASCULAR: Systolic ejection murmur at the lower left sternal border. No S3 gallop. LUNGS: Better breath sounds at the bases. No rhonchi. No wheezing. GI: Abdomen is soft. It is much less distended and tender to palpation. Bowel sounds are positive. EXTREMITIES: Mild edema. No cyanosis, no clubbing. Calves are nontender to palpation. SKIN: No acute rash. NEUROLOGIC: Exam limited at the present time. IMPRESSION: 1. Left pneumothorax. 2. Status post permanent pacemaker insertion. 3. Cardiac arrhythmias. 4. Partial gastric torsion. Status post surgery. 5. Mild anemia. PLAN: The patient appears very comfortable this morning. She is not short of breath at rest. She does state to feeling much better overall. I did discuss the case with the night nurse at length. The night nurse stated the patient had a good night overall. The patient did experience some abdominal pain earlier in the shift - now resolved. On physical exam, there is no significant bronchospasm noted. In addition, the alveolar-arterial gradient is less. I will continue the patient on frequent incentive spirometry and have her out of bed as much as possible. Inputs by Cardiology, GI, and Surgery are also noted. Clinical status of the patient has significantly improved overall. However, given the above, the future status/prognosis for this patient does remain guarded. I will discuss the above with Dr. Cross. Richardson Garza MD MTDMarcos
[2018-09-30] MEDS: Lidocaine 5% Patch TD SCH (10:29)
[2018-09-30] MEDS: POLYETHYLENE GLYCOL 3350 17 GM/Dose PACKET PO SCH (10:33)
--- NOTE | 2018-09-30 11:59 | US ---
PROCEDURE: Left lower extremity venous US HISTORY: Leg pain and swelling. Evaluate for DVT. PHYSICIAN(S): Jeronimo Butcher MD. TECHNIQUE: Duplex sonography and color-flow Doppler with graded compression were used to evaluate the deep venous system of the left lower extremity. FINDINGS: There is a focal occlusive thrombus in the right common femoral vein. It is somewhat echogenic. This could represent acute on chronic thrombus. The visualized deep venous system of the left lower extremity is sonographically normal and compressible. Normal wave forms and augmentation are seen. There is no sonographic evidence for deep venous thrombosis in the visualized segments of the left lower extremity. IMPRESSION: 1. No sonographic evidence for deep venous thrombosis in the visualized segments of the left lower extremity. 2. Occlusive thrombus in the right common femoral vein. It is somewhat echogenic. A complete ultrasound of the right venous system may be useful
[2018-09-30] MEDS ORDERED: Docusate-Senna 50 mg-8.6 mg Tab PO PRN (12:33)
--- NOTE | 2018-09-30 12:37 | CP.PCM.PN ---
<Julián Morataya - Last Filed: 09/30/18 17:10> Subjective - Date & Time of Evaluation Date of Evaluation: 09/30/18 Time of Evaluation: 07:35 - Subjective Subjective: Julián Morataya PGY2 GI progres Note for Dr. Jerez Patient was seen and examined at bedside. Overnight, the patient had severe abdominal pain, and is still unable to pass large amounts of stool. She states that she normally takes Linzess at home, but our hospital cannot provide it. Objective - Vital Signs/Intake and Output Vital Signs (last 24 hours): Temp Pulse Resp BP Pulse Ox 97.8 F 66 20 121/76 98 09/30/18 08:41 09/30/18 10:30 09/30/18 08:41 09/30/18 10:33 09/30/18 08:41 - Medications Medications: Current Medications Acetaminophen (Tylenol 325mg Tab) 650 mg PO Q6H PRN PRN Reason: Pain, Mild (1-3) Last Admin: 09/29/18 21:05 Dose: 650 mg Amlodipine Besylate (Norvasc) 10 mg PO DAILY [facility] Last Admin: 09/30/18 10:33 Dose: 10 mg Benzocaine/Menthol (Cepacol Sore Throat) 1 matthieu MT Q2H PRN PRN Reason: Sore Throat Last Admin: 09/21/18 08:21 Dose: 1 matthieu Donepezil HCl (Aricept) 5 mg PO DAILY [facility] Last Admin: 09/30/18 10:29 Dose: 5 mg Heparin Sodium (Porcine) (Heparin) 5,000 units SC Q8 [facility]; Protocol Last Admin: 09/30/18 05:41 Dose: 5,000 units Insulin Human Lispro (Humalog Low) 0 units SC ACHS [facility]; Protocol Last Admin: 09/30/18 12:25 Dose: Not Given Lidocaine (Lidoderm) 1 ea TD DAILY [facility] Last Admin: 09/30/18 10:29 Dose: 1 ea Metoprolol Tartrate (Lopressor) 25 mg PO BID [facility] Last Admin: 09/30/18 10:30 Dose: 25 mg Ondansetron HCl (Zofran Inj) 4 mg IVP Q4H PRN PRN Reason: Nausea/Vomiting Last Admin: 09/27/18 11:57 Dose: 4 mg Pantoprazole Sodium (Protonix Ec Tab) 40 mg PO 0600 [facility] Last Admin: 09/30/18 05:40 Dose: 40 mg Polyethylene Glycol (Miralax) 17 gm PO BID [facility] Last Admin: 09/30/18 10:33 Dose: 17 gm Senna/Docusate Sodium (Senokot S 50 Mg-8.6 Mg) 2 tab PO BID PRN PRN Reason: Constipation Sodium Chloride ([place] Nasal [place]) 0 ml NS Q4H PRN PRN Reason: Nasal congestion Tramadol HCl (Ultram) 50 mg PO TID PRN PRN Reason: Pain, moderate (4-7) Zolpidem Tartrate (Ambien) 5 mg PO HS PRN; Protocol PRN Reason: Insomnia Last Admin: 09/27/18 21:47 Dose: 5 mg - Labs Labs: 09/28/18 06:20 09/28/18 06:20 PT 12.6 SECONDS (9.4-12.5) H 09/25/18 06:00 INR 1.12 09/25/18 06:00 APTT 28.2 Seconds (26.9-38.3) 09/25/18 06:00 - Constitutional Appears: Well, Non-toxic, No Acute Distress - Head Exam Head Exam: ATRAUMATIC, NORMAL INSPECTION - Eye Exam Eye Exam: EOMI, Normal appearance, PERRL - ENT Exam ENT Exam: Mucous Membranes Moist, Normal Oropharynx - Neck Exam Neck Exam: Full ROM, Normal Inspection - Respiratory Exam Respiratory Exam: NORMAL BREATHING PATTERN. absent: Respiratory Distress - Cardiovascular Exam Cardiovascular Exam: RRR, +S1, +S2 - GI/Abdominal Exam GI & Abdominal Exam: Soft, Hypoactive Bowel Sounds - Extremities Exam Extremities Exam: Full ROM, Normal Inspection - Neurological Exam Neurological Exam: Alert, Awake - Psychiatric Exam Psychiatric exam: Normal Affect, Normal Mood - Skin Skin Exam: Normal Color, Warm Assessment and Plan - Assessment and Plan (Free Text) Assessment: 72-year-old black female with history of partial gastric torsion, hiatal hernia, diabetes, hypertension, hyperlipidemia, GERD presenting with abdominal pain, most likely due to gastric torsion, which is improving w/ NGT decompression. Hospital course complicated by complete heart block for which patient received PPM, and pneumothorax and chest tube placement. Pneumothorax improved and chest tube was removed. Patient is post EGD and Gastropexy by surgical team. Patient now tolerating diet but is constipated. LE US today shows acute R common femoral thrombus. Plan: - tolerating diet - Miralax BID PRN for constipation - Home med Amitiza (verified by pharmacy will be added) - awaiting pathology - PTX for GI ppx - Warfarin will be added instead of DVD ppx due to acute R femoral DVT - no further plans for endoscopy - further recs per Dr. Jerez Case was reviewed and discussed with Dr. Jerez <Gaston Jerez V - Last Filed: 09/30/18 19:26> Objective - Vital Signs/Intake and Output Vital Signs (last 24 hours): Temp Pulse Resp BP Pulse Ox 98.9 F 85 20 126/76 99 09/30/18 17:13 09/30/18 18:00 09/30/18 17:13 09/30/18 18:00 09/30/18 17:13 Intake and Output: 09/30/18 10/01/18 18:59 06:59 Intake Total 1020 Output Total 900 Balance 120 - Medications Medications: Current Medications Acetaminophen (Tylenol 325mg Tab) 650 mg PO Q6H PRN PRN Reason: Pain, Mild (1-3) Last Admin: 09/29/18 21:05 Dose: 650 mg Amlodipine Besylate (Norvasc) 10 mg PO DAILY [facility] Last Admin: 09/30/18 10:33 Dose: 10 mg Benzocaine/Menthol (Cepacol Sore Throat) 1 matthieu MT Q2H PRN PRN Reason: Sore Throat Last Admin: 09/21/18 08:21 Dose: 1 matthieu Donepezil HCl (Aricept) 5 mg PO DAILY [facility] Last Admin: 09/30/18 10:29 Dose: 5 mg Enoxaparin Sodium (Lovenox) 60 mg SC Q12H [facility]; Protocol Last Admin: 09/30/18 14:33 Dose: 60 mg Home Med (Home Med) 1 unit PO BID [facility] Last Admin: 09/30/18 18:00 Dose: 1 unit Insulin Human Lispro (Humalog Low) 0 units SC ACHS [facility]; Protocol Last Admin: 09/30/18 16:29 Dose: Not Given Lidocaine (Lidoderm) 1 ea TD DAILY [facility] Last Admin: 09/30/18 10:29 Dose: 1 ea Metoprolol Tartrate (Lopressor) 25 mg PO BID [facility] Last Admin: 09/30/18 18:00 Dose: 25 mg Ondansetron HCl (Zofran Inj) 4 mg IVP Q4H PRN PRN Reason: Nausea/Vomiting Last Admin: 09/27/18 11:57 Dose: 4 mg Pantoprazole Sodium (Protonix Ec Tab) 40 mg PO 0600 [facility] Last Admin: 09/30/18 05:40 Dose: 40 mg Polyethylene Glycol (Miralax) 17 gm PO BID PRN PRN Reason: Constipation Sodium Chloride ([place] Nasal [place]) 0 ml NS Q4H PRN PRN Reason: Nasal congestion Tramadol HCl (Ultram) 50 mg PO TID PRN PRN Reason: Pain, moderate (4-7) Last Admin: 09/30/18 18:28 Dose: 50 mg Warfarin Sodium (Coumadin) 10 mg PO 1800 [facility]; Protocol Zolpidem Tartrate (Ambien) 5 mg PO HS PRN; Protocol PRN Reason: Insomnia Last Admin: 09/27/18 21:47 Dose: 5 mg - Labs Labs: 09/28/18 06:20 09/28/18 06:20 PT 12.6 SECONDS (9.4-12.5) H 09/25/18 06:00 INR 1.12 09/25/18 06:00 APTT 28.2 Seconds (26.9-38.3) 09/25/18 06:00 Attending/Attestation - Attestation I have personally seen and examined this patient.: Yes I have fully participated in the care of the patient.: Yes I have reviewed all pertinent clinical information, including history, physical exam and plan: Yes Notes (Text): Was seen and evaluated here earlier along with the phlebotomist medical lab assistant. This is an addendum to the GI progress report dictated by the resident. Patient is now on anticoagulation for DVT. Tolerating diet. History of chronic constipation on Amitiza can resume her home medication. Gastric erosions on PPI status post a gastropexy Patient was advised low fiber diet small quantities of food 09/30/18 19:24
--- NOTE | 2018-09-30 13:46 | PN ---
DATE: 09/30/2018 SUBJECTIVE: The patient is in bed in no acute distress, was seen earlier today. She is comfortable. OBJECTIVE: VITAL SIGNS: On exam, temperature is 97, blood pressure is 120/70, respiratory rate 18, heart rate of 66. HEENT: Unremarkable. NECK: Supple. LUNGS: Have decreased breath sounds. HEART: Normal S1 and S2. ABDOMEN: Soft, nontender. LABORATORY EXAMINATION: Reveals a white count of 6.3, hemoglobin of 10 and the creatinine is 0.6. Review of orders reveals the patient is off of antibiotics. ASSESSMENT AND PLAN: This is a 72-year-old female with partial gastric torsion hernia, diabetes mellitus, hypertension, hyperlipidemia, gastroesophageal reflux disease, presented with abdominal pain secondary to gastric torsion, developed complete heart block in the hospital requiring a pacemaker and then developed pneumothorax and the patient is off of antibiotics at this point and her Lyme serology is negative. Review of orders confirms the patient to be off of antibiotics. The patient is at risk for developing nosocomial infections. Benny West MD cc: MD Dylan (Delete if not dictated.)
[2018-09-30] MEDS: Enoxaparin 60 mg Syringe SC SCH (14:33)
[2018-09-30] MEDS ORDERED: POLYETHYLENE GLYCOL 3350 17 GM/Dose PACKET PO PRN (17:12)
[2018-09-30] MEDS: AMITIZA (LUBIPROSTONE) 24MCG PO SCH (18:00)
[2018-09-30] MEDS ORDERED: Morphine 2 mg/ml ISec IVP ONE (20:21)
--- NOTE | 2018-09-30 22:05 | PN ---
DATE: 09/30/2018 SUBJECTIVE: The patient was seen and examined. I do agree with the note of the anesthesiology medical doctor. I was involved in the plan of care. The patient has been complaining of left leg pain, initially she was complaining that it was coming from the left side of her chest. Chest x-ray done did not show any worsening of her pneumothorax. Lower extremity Doppler done showed that she has a new DVT. The patient will be started on treatment. She was already on heparin for DVT prophylaxis and we will need to place the patient on anticoagulation. She is on Zofran for nausea. She is on metoprolol for tachycardia. She is on Norvasc for hypertension. She was supposed to be discharged to subacute rehab, but I will hold her for today. I will ask Hematology to see the patient. The patient has small bowel obstruction that is improved. Her pain is controlled with her current medication. She is going to continue with lactulose. She is going to be started on Coumadin for anticoagulation. She is on Lovenox full dose. The patient is going to have her lab work repeated tomorrow. Paddy Cross MD
[2018-10-01] MEDS: Enoxaparin 60 mg Syringe SC SCH ×2 (04:28→17:09)
[2018-10-01] MEDS: Pantoprazole 40 mg EC Tab PO SCH (05:40)
[2018-10-01 06:49] LABS: INR 1.18; PROTHROMBIN TIME 13.3 SECONDS (9.4-12.5)
[2018-10-01 06:51] LABS: BASO # 0.04 K/mm3 (0.0-2.0); BASO % 0.6 % (0.0-3.0); EOS # 0.2 (0.0-0.7); EOS % 3.1 % (1.5-5.0); HEMOGLOBIN 10.9 g/dL (12.0-16.0); LYMPH # 1.5 (1.2-3.4); MEAN CELL VOLUME 84.4 fl (80.0-105.0); MEAN PLATELET VOLUME 10.1 fl (7.0-11.0); MONO # 0.6 (0.1-0.6); MONO % 9.2 % (1.0-6.0); RBC 4.04 10^6/uL (3.5-6.1); RED CELL DISTRIBUTION WIDTH 13.7 % (11.5-14.5); WHITE BLOOD COUNT 6.4 10^3/uL (4.5-11.0)
--- NOTE | 2018-10-01 07:10 | CP.PCM.PN ---
<Bisi Rinaldi - Last Filed: 10/01/18 12:54> Subjective - Date & Time of Evaluation Date of Evaluation: 10/01/18 Time of Evaluation: 07:25 - Subjective Subjective: IM Resident progress note for Dr. Cross's service Overnight patient complained of severe back pain and was giving morphine with some relief. Patient states this morning the back pain is on the left lower back side, and radiated across the abdomen. The back pain is worst when she lies flat on the bed and better when she seats up on the chair. Patient states she had large bowel movement lst night. No fever or chills. No nausea or vomiting, tolerating po. Denies dysurea. Objective - Vital Signs/Intake and Output Vital Signs (last 24 hours): Temp Pulse Resp BP Pulse Ox 99.3 F 87 20 141/85 96 09/30/18 20:00 09/30/18 20:00 09/30/18 20:00 09/30/18 20:00 09/30/18 20:00 - Medications Medications: Current Medications Acetaminophen (Tylenol 325mg Tab) 650 mg PO Q6H PRN PRN Reason: Pain, Mild (1-3) Last Admin: 09/29/18 21:05 Dose: 650 mg Amlodipine Besylate (Norvasc) 10 mg PO DAILY [facility] Last Admin: 09/30/18 10:33 Dose: 10 mg Benzocaine/Menthol (Cepacol Sore Throat) 1 matthieu MT Q2H PRN PRN Reason: Sore Throat Last Admin: 09/21/18 08:21 Dose: 1 matthieu Donepezil HCl (Aricept) 5 mg PO DAILY [facility] Last Admin: 09/30/18 10:29 Dose: 5 mg Enoxaparin Sodium (Lovenox) 60 mg SC Q12H [facility]; Protocol Last Admin: 10/01/18 04:28 Dose: 60 mg Home Med (Home Med) 1 unit PO BID [facility] Last Admin: 09/30/18 18:00 Dose: 1 unit Insulin Human Lispro (Humalog Low) 0 units SC ACHS [facility]; Protocol Last Admin: 09/30/18 21:46 Dose: Not Given Lidocaine (Lidoderm) 1 ea TD DAILY [facility] Last Admin: 09/30/18 10:29 Dose: 1 ea Metoprolol Tartrate (Lopressor) 25 mg PO BID [facility] Last Admin: 09/30/18 18:00 Dose: 25 mg Ondansetron HCl (Zofran Inj) 4 mg IVP Q4H PRN PRN Reason: Nausea/Vomiting Last Admin: 09/27/18 11:57 Dose: 4 mg Pantoprazole Sodium (Protonix Ec Tab) 40 mg PO 0600 [facility] Last Admin: 10/01/18 05:40 Dose: 40 mg Polyethylene Glycol (Miralax) 17 gm PO BID PRN PRN Reason: Constipation Sodium Chloride ([place] Nasal [place]) 0 ml NS Q4H PRN PRN Reason: Nasal congestion Tramadol HCl (Ultram) 50 mg PO TID PRN PRN Reason: Pain, moderate (4-7) Last Admin: 10/01/18 04:28 Dose: 50 mg Warfarin Sodium (Coumadin) 10 mg PO 1800 [facility]; Protocol Zolpidem Tartrate (Ambien) 5 mg PO HS PRN; Protocol PRN Reason: Insomnia Last Admin: 09/30/18 21:33 Dose: 5 mg - Labs Labs: 09/28/18 06:20 09/28/18 06:20 PT 13.3 SECONDS (9.4-12.5) H 10/01/18 06:30 INR 1.18 10/01/18 06:30 APTT 28.2 Seconds (26.9-38.3) 09/25/18 06:00 - Constitutional Appears: No Acute Distress, Cachectic, Chronically Ill - Head Exam Head Exam: ATRAUMATIC, NORMAL INSPECTION, NORMOCEPHALIC - Eye Exam Eye Exam: EOMI, Normal appearance, PERRL. absent: Scleral icterus Pupil Exam: NORMAL ACCOMODATION - ENT Exam ENT Exam: Mucous Membranes Moist - Neck Exam Neck Exam: Normal Inspection. absent: Lymphadenopathy, Meningismus - Respiratory Exam Respiratory Exam: Clear to Ausculation Bilateral, NORMAL BREATHING PATTERN. absent: Prolonged Expiratory Phase, Rales, Rhonchi, Wheezes, Respiratory Distress, Stridor - Cardiovascular Exam Cardiovascular Exam: REGULAR RHYTHM, RRR, +S1, +S2. absent: Bradycardia, Tachycardia, Clicks, Diastolic murmur, Gallop, Irregular Rhythm, JVD, Rubs, Murmur - GI/Abdominal Exam GI & Abdominal Exam: Soft, Tenderness (around the incision site.), Normal Bowel Sounds. absent: Distended, Firm, Guarding, Rigid, Diminished Bowel Sounds, Hyperactive Bowel Sounds, Organomegaly, Rebound Additional comments: + multiple halley of the surgical incisions, no signs of infection. - Extremities Exam Extremities Exam: Full ROM, Normal Inspection. absent: Pedal Edema, Tenderness - Back Exam Back Exam: muscle spasm, tenderness (on the left SI joint). absent: CVA tenderness (L), CVA tenderness (R), paraspinal tenderness, vertebral tenderness Additional comments: No decubutie - Neurological Exam Neurological Exam: Alert, Awake, Oriented x3 - Psychiatric Exam Psychiatric exam: Normal Affect, Normal Mood - Skin Skin Exam: Dry, Erythema, Normal Color, Warm Assessment and Plan - Assessment and Plan (Free Text) Assessment: 1) Distal small bowel obstruction s/p EGD day# 7 and gastropexy POD#6 2) Symptomatic bradycardia due to high degree AV block with syncope s/p permanent pacemaker on 3 3) Large left pneumothorax s/p chest tube removal 4) Acute on chronic DVT 5) Left sided back pain- likely musculoskeletal 6) Hypertension 7) Acute normocytic anemia 8) Thrombocytopenia 9) Hypokalemia- resolved 10) Left lower extremity pain 11) Degenerative joint disease at L4-L5 12) Diabetes type 2 13) Dyslipidemia 14) Tricuspid regurgitation 15) Moderate Pulmonary htn 16) h/o gastric torsion 17) Erosive gastropathy 18) mild dementia 19) Constipation 20) Mild transaminitis 21) h/O IBS Plan: Patient was started on therapeutic Lovenox 60 mg q12 ivp for the DVT yesterday to be bridged with Coumadin 5 mg today. Will check INR tomorrow. For back pain, likely musculoskeletal, will obtain CT of the lumbar spine, apply lidoderm patch. Pain management with tramadol for moderate pain and percocet for severe pain. For mild transaminitis, will discontinue Tylenol, and add hep panel. Repeat chest X-ray this morning with resolution of pneumothorax and no new bowel obstruction noted. On Miralax prn for constipation. continue with Norvasc for htn, on metoprolol for tachycardia. Zofran prn for nausea. On protonix for DVT prophylaxis. Ambien hs prn for insomnia. ISS for diabetes. Patient is also on amitiza for IBS. Patient will need PT for her back pain. Awaiting therapeutic INR for discharge to [facility]. Patient seen, examined and case discussed with Dr. Cross. <Paddy Cross - Last Filed: 10/01/18 13:30> Objective - Vital Signs/Intake and Output Vital Signs (last 24 hours): Temp Pulse Resp BP Pulse Ox 98.5 F 76 20 136/80 94 L 10/01/18 09:02 10/01/18 09:32 10/01/18 09:02 10/01/18 09:33 10/01/18 09:02 - Medications Medications: Current Medications Amlodipine Besylate (Norvasc) 10 mg PO DAILY [facility] Last Admin: 10/01/18 09:33 Dose: 10 mg Benzocaine/Menthol (Cepacol Sore Throat) 1 matthieu MT Q2H PRN PRN Reason: Sore Throat Last Admin: 09/21/18 08:21 Dose: 1 matthieu Cyclobenzaprine HCl (Flexeril) 5 mg PO HS [facility] Donepezil HCl (Aricept) 5 mg PO DAILY [facility] Last Admin: 10/01/18 09:30 Dose: 5 mg Enoxaparin Sodium (Lovenox) 60 mg SC Q12H [facility]; Protocol Last Admin: 10/01/18 04:28 Dose: 60 mg Home Med (Home Med) 1 unit PO BID [facility] Last Admin: 10/01/18 09:31 Dose: 1 unit Insulin Human Lispro (Humalog Low) 0 units SC ACHS [facility]; Protocol Last Admin: 10/01/18 12:31 Dose: Not Given Lidocaine (Lidoderm) 1 ea TD DAILY [facility] Last Admin: 10/01/18 12:32 Dose: Not Given Metoprolol Tartrate (Lopressor) 25 mg PO BID [facility] Last Admin: 10/01/18 09:32 Dose: 25 mg Ondansetron HCl (Zofran Inj) 4 mg IVP Q4H PRN PRN Reason: Nausea/Vomiting Last Admin: 10/01/18 10:12 Dose: 4 mg Oxycodone/Acetaminophen (Percocet 5/325 Mg Tab) 1 tab PO Q6H PRN PRN Reason: Pain, severe (8-10) Stop: 10/04/18 09:35 Last Admin: 10/01/18 12:35 Dose: 1 tab Pantoprazole Sodium (Protonix Ec Tab) 40 mg PO 0600 [facility] Last Admin: 10/01/18 05:40 Dose: 40 mg Polyethylene Glycol (Miralax) 17 gm PO BID PRN PRN Reason: Constipation Sodium Chloride ([place] Nasal [place]) 0 ml NS Q4H PRN PRN Reason: Nasal congestion Tramadol HCl (Ultram) 50 mg PO Q6 PRN PRN Reason: Pain, moderate (4-7) Warfarin Sodium (Coumadin) 5 mg PO 1800 [facility] - Labs Labs: 10/01/18 06:30 10/01/18 06:30 PT 13.3 SECONDS (9.4-12.5) H 10/01/18 06:30 INR 1.18 10/01/18 06:30 APTT 28.2 Seconds (26.9-38.3) 09/25/18 06:00 Assessment and Plan - Assessment and Plan (Free Text) Plan: Pt seen and examined by me. I have reviewed the note of the medical assembler and I agree with it. I have discussed the assessment and plan with the resident. I have reviewed the medications and the last labs.
[2018-10-01 07:11] LABS: ALB/GLOB RATIO 1.1 (1.1-1.8); ALT/SGPT 65 U/L (7-56); AST/SGOT 98 U/L (14-36); BLOOD UREA NITROGEN 7 mg/dL (7-21); CALCIUM 9.1 mg/dL (8.4-10.5); GFR NON-AFRICAN AMERICAN > 60
[2018-10-01] MEDS ORDERED: Morphine 2 mg/ml ISec IVP ONE (07:45)
--- NOTE | 2018-10-01 07:51 | CP.PCM.PN ---
Subjective - Date & Time of Evaluation Date of Evaluation: 10/01/18 Time of Evaluation: 07:15 - Subjective Subjective: Awake, no distress, complaining of severe pain 10/10 on left side of abdomen Reason for consultation and follow up: Cardiac evaluation of bradycardia, pauses, status post permanent pacemaker, history of hypertension, status post re moval left chest tube insertion for pneumothorax, post EGD, post laparoscopic gastropexy Seen and examined by me and Dr. Carrasco Objective - Vital Signs/Intake and Output Vital Signs (last 24 hours): Temp Pulse Resp BP Pulse Ox 99.3 F 87 20 141/85 96 09/30/18 20:00 09/30/18 20:00 09/30/18 20:00 09/30/18 20:00 09/30/18 20:00 - Medications Medications: Current Medications Acetaminophen (Tylenol 325mg Tab) 650 mg PO Q6H PRN PRN Reason: Pain, Mild (1-3) Last Admin: 09/29/18 21:05 Dose: 650 mg Amlodipine Besylate (Norvasc) 10 mg PO DAILY [facility] Last Admin: 09/30/18 10:33 Dose: 10 mg Benzocaine/Menthol (Cepacol Sore Throat) 1 matthieu MT Q2H PRN PRN Reason: Sore Throat Last Admin: 09/21/18 08:21 Dose: 1 matthieu Donepezil HCl (Aricept) 5 mg PO DAILY [facility] Last Admin: 09/30/18 10:29 Dose: 5 mg Enoxaparin Sodium (Lovenox) 60 mg SC Q12H [facility]; Protocol Last Admin: 10/01/18 04:28 Dose: 60 mg Home Med (Home Med) 1 unit PO BID [facility] Last Admin: 09/30/18 18:00 Dose: 1 unit Insulin Human Lispro (Humalog Low) 0 units SC ACHS [facility]; Protocol Last Admin: 09/30/18 21:46 Dose: Not Given Lidocaine (Lidoderm) 1 ea TD DAILY [facility] Last Admin: 09/30/18 10:29 Dose: 1 ea Metoprolol Tartrate (Lopressor) 25 mg PO BID [facility] Last Admin: 09/30/18 18:00 Dose: 25 mg Morphine Sulfate (Morphine) 1 mg IVP STAT ONE Stop: 10/01/18 07:46 Ondansetron HCl (Zofran Inj) 4 mg IVP Q4H PRN PRN Reason: Nausea/Vomiting Last Admin: 09/27/18 11:57 Dose: 4 mg Pantoprazole Sodium (Protonix Ec Tab) 40 mg PO 0600 [facility] Last Admin: 10/01/18 05:40 Dose: 40 mg Polyethylene Glycol (Miralax) 17 gm PO BID PRN PRN Reason: Constipation Sodium Chloride ([place] Nasal [place]) 0 ml NS Q4H PRN PRN Reason: Nasal congestion Tramadol HCl (Ultram) 50 mg PO TID PRN PRN Reason: Pain, moderate (4-7) Last Admin: 10/01/18 04:28 Dose: 50 mg Warfarin Sodium (Coumadin) 10 mg PO 1800 [facility]; Protocol Zolpidem Tartrate (Ambien) 5 mg PO HS PRN; Protocol PRN Reason: Insomnia Last Admin: 09/30/18 21:33 Dose: 5 mg - Labs Labs: 10/01/18 06:30 10/01/18 06:30 PT 13.3 SECONDS (9.4-12.5) H 10/01/18 06:30 INR 1.18 10/01/18 06:30 APTT 28.2 Seconds (26.9-38.3) 09/25/18 06:00 - Constitutional Appears: Non-toxic, No Acute Distress - Head Exam Head Exam: NORMAL INSPECTION, NORMOCEPHALIC - Eye Exam Eye Exam: Normal appearance Pupil Exam: NORMAL ACCOMODATION - ENT Exam ENT Exam: Mucous Membranes Moist - Respiratory Exam Respiratory Exam: Decreased Breath Sounds, Clear to Ausculation Bilateral, NORMAL BREATHING PATTERN - Cardiovascular Exam Cardiovascular Exam: +S1, +S2 Additional comments: PPM - GI/Abdominal Exam GI & Abdominal Exam: Soft, Normal Bowel Sounds Additional comments: left side of abdomen pain to touch, pain 10/10 - Extremities Exam Extremities Exam: Full ROM, Normal Capillary Refill - Neurological Exam Neurological Exam: Alert, Awake, Oriented x3 - Psychiatric Exam Psychiatric exam: Anxious - Skin Skin Exam: Dry, Normal Color, Warm Assessment and Plan - Assessment and Plan (Free Text) Assessment: A 72 year old female who came in to the ER due to abdominal pain possible intestinal obstruction. On EKG showed bradycardia with pauses. Heart rate did not respond to Dopamine drip. External transvenous pacing wire was inserted by Dr. Jesus and a dual chamber permanent pacemaker [employer], (MRI safe) was inserted by Dr. Carrasco. History of hypertension, diabetes, depression, GERD, vertigo. Recent echo showed LVEF of 55-60%, trace MR, severe tricuspid r egurgitation, RVSP 67mmHg, moderate to severe pulmonary hypertension. Post PPM insertion complicated with large left pneumothorax requiring left chest tube insertion with resolution thus chest tube discontinued . Post EGD and showed gastritis, gastric polyps. Post laparoscopic gastropexy .Cardiac status stable. Lactulose given for constipation with positive results. Discharge planning. Complaints of leg pain, US of lower extremity showed, thrombus on right common femoral vein. On anticoagulation. Plan: Complaining of severe left side abdominal pain 10/10 Morphine PRN ordered Cardiac status stable Heart rate stable Blood pressure stable Glucose controlled On Norvasc 10 mg daily,Lovenox 60 mg every 12 hours Lopressor 25 mg BID, Coumadin 10 mg daily Continue current treatment Continue current medications Discharge planning Awaiting Rehab placement Will follow up Plan and treatment discussed with Dr. Carrasco
[2018-10-01] MEDS ORDERED: Morphine 2 mg/ml ISec IVP PRN (07:54)
[2018-10-01] MEDS: Insulin Lispro (humaLOG) LOW Coverage SC SCH ×4 (08:08→21:30)
--- NOTE | 2018-10-01 08:15 | CP.PCM.PN ---
<Julián Morataya - Last Filed: 10/01/18 12:14> Subjective - Date & Time of Evaluation Date of Evaluation: 10/01/18 Time of Evaluation: 07:40 - Subjective Subjective: Julián Morataya PGY2 GI progres Note for Dr. Jerez Patient was seen and examined at bedside. The patient continues to have severe left sided chest wall pain. She is in no respiratory distress and the pain is not pleuritic but more positional. Otherwise, patient had BM's and we restarted her Amitiza (home med) yesterday per her wishes. Objective - Vital Signs/Intake and Output Vital Signs (last 24 hours): Temp Pulse Resp BP Pulse Ox 99.3 F 87 20 141/85 96 09/30/18 20:00 09/30/18 20:00 09/30/18 20:00 09/30/18 20:00 09/30/18 20:00 - Medications Medications: Current Medications Acetaminophen (Tylenol 325mg Tab) 650 mg PO Q6H PRN PRN Reason: Pain, Mild (1-3) Last Admin: 09/29/18 21:05 Dose: 650 mg Amlodipine Besylate (Norvasc) 10 mg PO DAILY [facility] Last Admin: 09/30/18 10:33 Dose: 10 mg Benzocaine/Menthol (Cepacol Sore Throat) 1 matthieu MT Q2H PRN PRN Reason: Sore Throat Last Admin: 09/21/18 08:21 Dose: 1 matthieu Donepezil HCl (Aricept) 5 mg PO DAILY [facility] Last Admin: 09/30/18 10:29 Dose: 5 mg Enoxaparin Sodium (Lovenox) 60 mg SC Q12H [facility]; Protocol Last Admin: 10/01/18 04:28 Dose: 60 mg Home Med (Home Med) 1 unit PO BID [facility] Last Admin: 09/30/18 18:00 Dose: 1 unit Insulin Human Lispro (Humalog Low) 0 units SC ACHS [facility]; Protocol Last Admin: 10/01/18 08:08 Dose: Not Given Lidocaine (Lidoderm) 1 ea TD DAILY [facility] Last Admin: 09/30/18 10:29 Dose: 1 ea Metoprolol Tartrate (Lopressor) 25 mg PO BID [facility] Last Admin: 09/30/18 18:00 Dose: 25 mg Morphine Sulfate (Morphine) 1 mg IVP Q6H PRN PRN Reason: Pain, severe (8-10) Ondansetron HCl (Zofran Inj) 4 mg IVP Q4H PRN PRN Reason: Nausea/Vomiting Last Admin: 09/27/18 11:57 Dose: 4 mg Pantoprazole Sodium (Protonix Ec Tab) 40 mg PO 0600 [facility] Last Admin: 10/01/18 05:40 Dose: 40 mg Polyethylene Glycol (Miralax) 17 gm PO BID PRN PRN Reason: Constipation Sodium Chloride ([place] Nasal [place]) 0 ml NS Q4H PRN PRN Reason: Nasal congestion Warfarin Sodium (Coumadin) 10 mg PO 1800 [facility]; Protocol Zolpidem Tartrate (Ambien) 5 mg PO HS PRN; Protocol PRN Reason: Insomnia Last Admin: 09/30/18 21:33 Dose: 5 mg - Labs Labs: 10/01/18 06:30 10/01/18 06:30 PT 13.3 SECONDS (9.4-12.5) H 10/01/18 06:30 INR 1.18 10/01/18 06:30 APTT 28.2 Seconds (26.9-38.3) 09/25/18 06:00 - Constitutional Appears: Well, Non-toxic, No Acute Distress - Head Exam Head Exam: ATRAUMATIC, NORMAL INSPECTION - Eye Exam Eye Exam: EOMI, Normal appearance, PERRL - ENT Exam ENT Exam: Mucous Membranes Moist, Normal Oropharynx - Neck Exam Neck Exam: Full ROM, Normal Inspection - Respiratory Exam Respiratory Exam: NORMAL BREATHING PATTERN. absent: Respiratory Distress - Cardiovascular Exam Cardiovascular Exam: RRR, +S1, +S2 - GI/Abdominal Exam GI & Abdominal Exam: Soft, Hypoactive Bowel Sounds - Extremities Exam Extremities Exam: Full ROM, Normal Inspection - Neurological Exam Neurological Exam: Alert, Awake - Psychiatric Exam Psychiatric exam: Normal Affect, Normal Mood - Skin Skin Exam: Normal Color, Warm Assessment and Plan - Assessment and Plan (Free Text) Assessment: 72-year-old black female with history of partial gastric torsion, hiatal hernia, diabetes, hypertension, hyperlipidemia, GERD presenting with abdominal pain, most likely due to gastric torsion, which is improving w/ NGT decompression. Hospital course complicated by complete heart block for which patient received PPM, and pneumothorax and chest tube placement. Pneumothorax improved and chest tube was removed. Patient is post EGD and Gastropexy by surgical team. Pathology showed mild chronic gastritis. LE US shows acute R common femoral thrombus, and patient started on Coumadin. Patient is tolerating her diet and constipation resolved. Plan: - tolerating diet - Home med Amitiza added - Miralax BID PRN for constipation - CXR ordered to r/o free air or recurrent pneumothorax given her complaint of increasing pain - PTX for GI ppx - Warfarin will be added instead of DVT ppx due to acute R femoral DVT - no further plans for endoscopy - further recs per Dr. Jerez Case was reviewed and discussed with Dr. Jerez <Gaston Jerez V - Last Filed: 10/01/18 19:31> Objective - Vital Signs/Intake and Output Vital Signs (last 24 hours): Temp Pulse Resp BP Pulse Ox 98.7 F 85 20 126/76 91 L 10/01/18 18:20 10/01/18 18:20 10/01/18 18:20 10/01/18 18:20 10/01/18 18:20 - Medications Medications: Current Medications Amlodipine Besylate (Norvasc) 10 mg PO DAILY [facility] Last Admin: 10/01/18 09:33 Dose: 10 mg Benzocaine/Menthol (Cepacol Sore Throat) 1 matthieu MT Q2H PRN PRN Reason: Sore Throat Last Admin: 09/21/18 08:21 Dose: 1 matthieu Cyclobenzaprine HCl (Flexeril) 5 mg PO HS [facility] Donepezil HCl (Aricept) 5 mg PO DAILY [facility] Last Admin: 10/01/18 09:30 Dose: 5 mg Enoxaparin Sodium (Lovenox) 60 mg SC Q12H [facility]; Protocol Last Admin: 10/01/18 17:09 Dose: 60 mg Home Med (Home Med) 1 unit PO BID [facility] Last Admin: 10/01/18 17:07 Dose: 1 unit Insulin Human Lispro (Humalog Low) 0 units SC ACHS [facility]; Protocol Last Admin: 10/01/18 17:12 Dose: Not Given Lidocaine (Lidoderm) 1 ea TD DAILY [facility] Last Admin: 10/01/18 12:32 Dose: Not Given Metoprolol Tartrate (Lopressor) 25 mg PO BID [facility] Last Admin: 10/01/18 17:07 Dose: 25 mg Ondansetron HCl (Zofran Inj) 4 mg IVP Q4H PRN PRN Reason: Nausea/Vomiting Last Admin: 10/01/18 18:26 Dose: 4 mg Oxycodone/Acetaminophen (Percocet 5/325 Mg Tab) 1 tab PO Q6H PRN PRN Reason: Pain, severe (8-10) Stop: 10/04/18 09:35 Last Admin: 10/01/18 12:35 Dose: 1 tab Pantoprazole Sodium (Protonix Ec Tab) 40 mg PO 0600 [facility] Last Admin: 10/01/18 05:40 Dose: 40 mg Polyethylene Glycol (Miralax) 17 gm PO BID PRN PRN Reason: Constipation Sodium Chloride ([place] Nasal [place]) 0 ml NS Q4H PRN PRN Reason: Nasal congestion Tramadol HCl (Ultram) 50 mg PO Q6 PRN PRN Reason: Pain, moderate (4-7) Last Admin: 10/01/18 15:04 Dose: 50 mg Warfarin Sodium (Coumadin) 5 mg PO 1800 [facility] Last Admin: 10/01/18 17:07 Dose: 5 mg - Labs Labs: 10/01/18 06:30 10/01/18 06:30 PT 13.3 SECONDS (9.4-12.5) H 10/01/18 06:30 INR 1.18 10/01/18 06:30 APTT 28.2 Seconds (26.9-38.3) 09/25/18 06:00 Attending/Attestation - Attestation I have personally seen and examined this patient.: Yes I have fully participated in the care of the patient.: Yes I have reviewed all pertinent clinical information, including history, physical exam and plan: Yes Notes (Text): This is an addendum to the GI progress report dictated by the resident. The patient was seen and evaluated along with the resident. Tolerating diet. History of chronic constipation patient was on amities at home will change the MiraLAX to once daily as needed. Continue PPI history of gastric erosion status post gastropexy DVT now on anticoagulation 10/01/18 19:29
--- NOTE | 2018-10-01 08:27 | PN ---
DATE: 10/01/2018 PULMONARY NOTE SUBJECTIVE: The patient appears comfortable this morning. She is not short of breath at rest. She does complain of some right calf pain. OBJECTIVE: VITALS (Last noted in the computer): Temperature is 99.3, pulse 87, respirations 18/20, blood pressure 141/85. Oxygen saturation on nasal cannula is 96% to 99%. HEENT: Normocephalic, atraumatic. No JVD. CARDIOVASCULAR: Systolic ejection murmur at the lower left sternal border. No S3 gallop. LUNGS: Better breath sounds at the bases. No rhonchi. No wheezing. EXTREMITIES: There is mild edema in both lower extremities. There is no cyanosis or clubbing. The right calf is mildly tender to palpation. The left calf is nontender to palpation. GASTROINTESTINAL: Abdomen is soft. It is not distended and nontender to palpation this morning. Bowel sounds are positive. SKIN: No acute rash. NEUROLOGIC: Limited at the present time. PERTINENT LABORATORY DATA: Duplex ultrasound was done yesterday. There is an occlusive thrombus in the right common femoral vein. IMPRESSION: 1. Left pneumothorax. 2. Status post permanent pacemaker insertion. 3. Cardiac arrhythmias. 4. Partial gastric torsion. Status post surgery. 5. Mild anemia. 6. Right lower extremity deep venous thrombosis. PLAN: The patient appears comfortable this morning. She is not short of breath at rest. She does complain of some right calf pain. I did discuss the case with the night nurse at length. The night nurse stated the patient had an uneventful night. On physical exam, there is no significant bronchospasm noted. In addition, there is no significant alveolar-arterial gradient. Doppler ultrasound is noted above. The patient is now on anticoagulation. Inputs by Gastroenterology and Infectious Disease are also noted. Clinical status of the patient is certainly improved - compared to the initial presentation. However, again, the future status/prognosis for this patient does remain guarded. I will discuss the above with Dr. Cross. Richardson Garza MD VERONICA
[2018-10-01] MEDS: AMITIZA (LUBIPROSTONE) 24MCG PO SCH ×2 (09:31→17:07)
[2018-10-01] MEDS: Lidocaine 5% Patch TD SCH ×2 (09:32→12:32)
--- NOTE | 2018-10-01 10:08 | RAD ---
Date of service: 10/01/2018 HISTORY: severe left sided after gastric surgery/chest tube COMPARISON: 09/29/2018 FINDINGS: LUNGS: No active pulmonary disease. Linear atelectasis at the right lung base PLEURA: No significant pleural effusion identified, no pneumothorax apparent. CARDIOVASCULAR: No aortic atherosclerotic calcification present. Mild cardiomegaly. Dual lead pacemaker no pulmonary vascular congestion. OSSEOUS STRUCTURES: No significant abnormalities. VISUALIZED UPPER ABDOMEN: Normal. OTHER FINDINGS: None. IMPRESSION: No active disease.
--- NOTE | 2018-10-01 10:56 | RAD ---
Date of service: 10/01/2018 PROCEDURE: Radiographs of the Lumbar Spine. HISTORY: Lumbosacral joint pain COMPARISON: No prior. FINDINGS: BONES: Normal alignment. No listhesis. No fracture. DISC SPACES: There is facet arthropathy at L4-5 and L5-S1 OTHER FINDINGS: None. IMPRESSION: Facet arthropathy at L4-5 and L5-S1
--- NOTE | 2018-10-01 11:25 | CT ---
Date of service: 10/01/2018 PROCEDURE: CT Lumbar Spine without contrast HISTORY: Evaluate Lumbosacral joint, back pain COMPARISON: None available. TECHNIQUE: Axial computed tomography images were obtained of the lumbar spine without the use of intravenous contrast. Coronal and sagittal reformatted images were created and reviewed. Radiation dose: Total exam DLP = 653.99 mGy-cm. This CT exam was performed using one or more of the following dose reduction techniques: Automated exposure control, adjustment of the mA and/or kV according to patient size, and/or use of iterative reconstruction technique. FINDINGS: VERTEBRAE: Unremarkable. No fracture. Normal alignment. DISCS/SPINAL CANAL/NEURAL FORAMINA: L1-2: Severe facet arthropathy. L2-3: Large disc bulge and severe disc degeneration. Mild central stenosis and moderate foraminal stenosis. Facet arthropathy L3-4: Unremarkable. L4-5: Severe facet arthropathy at L4-5. Mild anterior subluxation L5-S1: Mild disc bulge PARASPINAL SOFT TISSUES: Unremarkable. OTHER FINDINGS: None. IMPRESSION: Multilevel disc and facet degeneration. See comment
[2018-10-01] MEDS: Oxycodone/Acetaminophen 5/325 mg Tab PO PRN ×2 (12:35→20:16)
--- NOTE | 2018-10-01 14:40 | PN ---
DATE: 10/01/2018 SUBJECTIVE: The patient is in bed in no acute distress, nontoxic. PHYSICAL EXAMINATION: VITAL SIGNS: Temperature is 98, blood pressure is 130/80, respiratory rate 20, heart rate of 76. HEENT: Unremarkable. NECK: Supple. LUNGS: Decreased breath sounds. HEART: Normal, S1, S2. ABDOMEN: Soft, nontender. LABORATORY DATA: Examination reveals a white count of 6.4, hemoglobin of 10, platelets of 172. Chemistries are noted. Urinalysis is noted. MEDICATIONS: Review of orders reveals the patient to be off antibiotics. ASSESSMENT AND PLAN: A 72-year-old female initially with partial gastric torsion hernia, diabetes, hypertension, hyperlipidemia, gastroesophageal reflux disease, presented with abdominal pain and had gastric torsion, in the hospital developed complete heart block requiring a pacemaker, developed pneumothorax which required a chest tube, did have Lyme serology which was negative. Currently off antibiotics, afebrile. The patient had a CT of the lumbar spine today and multilevel disc disease and degeneration. The patient also had a chest x-ray, no active disease. Dr. Carrasco's addendum is reviewed and Dr. Garza's progress note is reviewed. The patient has left pneumothorax and permanent pacemaker, cardiac arrhythmias, partial gastric torsion status post surgery, and right lower extremity deep venous thrombosis. Benny West MD
--- NOTE | 2018-10-01 16:05 | PN ---
DATE: 10/01/2018 SUBJECTIVE: The patient was seen and examined. I do agree with the note of the medical assembly. The patient continues to complain of pain to this left side. She had a chest x-ray done that shows no active disease. She had a CT scan of the lumbar spine ordered, shows multiple disc and facet degeneration. There is a L2-L3 disc bulge with severe disc herniation. This is most likely causing her pain. The patient does have left leg DVT and has been placed on Coumadin. She is currently comfortable. ASSESSMENT AND PLAN: She will be placed on tramadol 1 every 6 hours for her pain. I will also add Percocet for severe pain. I did discuss with her that she has chronic back issues and this is what is causing most of her pain. She is going to need physical therapy to help. The patient is tolerating her diet. Her left pneumothorax has resolved. The patient is being followed by Hematology and I did speak to Dr. Martinez the front end loader operator on the case. She is going to continue with MiraLax for constipation. . She is on Norvasc for her hypertension... She is waiting to go to a subacute rehab facility. Paddy Cross MD
[2018-10-02] MEDS: Enoxaparin 60 mg Syringe SC SCH ×2 (01:33→17:20)
[2018-10-02] MEDS: Pantoprazole 40 mg EC Tab PO SCH (06:06)
--- NOTE | 2018-10-02 07:19 | CP.PCM.PN ---
Subjective - Date & Time of Evaluation Date of Evaluation: 10/02/18 Time of Evaluation: 06:25 - Subjective Subjective: Awake, no distress, still complaining of tolerable abdominal pain Reason for consultation and follow up: Cardiac evaluation of bradycardia, pauses, status post permanent pacemaker, history of hypertension, status post removal left chest tube insertion for pneumothorax, post EGD, post laparoscopic gastropexy Seen and examined by me and Dr. Carrasco Objective - Vital Signs/Intake and Output Vital Signs (last 24 hours): Temp Pulse Resp BP Pulse Ox 98.7 F 85 20 126/76 91 L 10/01/18 18:20 10/01/18 18:20 10/01/18 18:20 10/01/18 18:20 10/01/18 18:20 Intake and Output: 10/02/18 10/02/18 06:59 18:59 Intake Total 240 Output Total 550 Balance -310 - Medications Medications: Current Medications Amlodipine Besylate (Norvasc) 10 mg PO DAILY [facility] Last Admin: 10/01/18 09:33 Dose: 10 mg Benzocaine/Menthol (Cepacol Sore Throat) 1 matthieu MT Q2H PRN PRN Reason: Sore Throat Last Admin: 09/21/18 08:21 Dose: 1 matthieu Cyclobenzaprine HCl (Flexeril) 5 mg PO HS [facility] Last Admin: 10/01/18 21:08 Dose: 5 mg Donepezil HCl (Aricept) 5 mg PO DAILY [facility] Last Admin: 10/01/18 09:30 Dose: 5 mg Enoxaparin Sodium (Lovenox) 60 mg SC Q12H [facility]; Protocol Last Admin: 10/02/18 01:33 Dose: 60 mg Home Med (Home Med) 1 unit PO BID [facility] Last Admin: 10/01/18 17:07 Dose: 1 unit Insulin Human Lispro (Humalog Low) 0 units SC ACHS [facility]; Protocol Last Admin: 10/01/18 21:30 Dose: Not Given Lidocaine (Lidoderm) 1 ea TD DAILY [facility] Last Admin: 10/01/18 12:32 Dose: Not Given Metoprolol Tartrate (Lopressor) 25 mg PO BID [facility] Last Admin: 10/01/18 17:07 Dose: 25 mg Ondansetron HCl (Zofran Inj) 4 mg IVP Q4H PRN PRN Reason: Nausea/Vomiting Last Admin: 10/01/18 18:26 Dose: 4 mg Oxycodone/Acetaminophen (Percocet 5/325 Mg Tab) 1 tab PO Q6H PRN PRN Reason: Pain, severe (8-10) Stop: 10/04/18 09:35 Last Admin: 10/01/18 20:16 Dose: 1 tab Pantoprazole Sodium (Protonix Ec Tab) 40 mg PO 0600 TRISTA Last Admin: 10/02/18 06:06 Dose: 40 mg Polyethylene Glycol (Miralax) 17 gm PO BID PRN PRN Reason: Constipation Sodium Chloride ([place] Nasal [place]) 0 ml NS Q4H PRN PRN Reason: Nasal congestion Tramadol HCl (Ultram) 50 mg PO Q6 PRN PRN Reason: Pain, moderate (4-7) Last Admin: 10/02/18 06:50 Dose: 50 mg Warfarin Sodium (Coumadin) 5 mg PO 1800 TRISTA Last Admin: 10/01/18 17:07 Dose: 5 mg - Labs Labs: 10/01/18 06:30 10/01/18 06:30 PT 13.3 SECONDS (9.4-12.5) H 10/01/18 06:30 INR 1.18 10/01/18 06:30 APTT 28.2 Seconds (26.9-38.3) 09/25/18 06:00 - Constitutional Appears: Non-toxic, No Acute Distress - Head Exam Head Exam: NORMAL INSPECTION, NORMOCEPHALIC - Eye Exam Eye Exam: Normal appearance Pupil Exam: NORMAL ACCOMODATION - ENT Exam ENT Exam: Mucous Membranes Moist, Normal Exam - Respiratory Exam Respiratory Exam: Decreased Breath Sounds, Clear to Ausculation Bilateral, NORMAL BREATHING PATTERN - Cardiovascular Exam Cardiovascular Exam: +S1, +S2 Additional comments: PPM - GI/Abdominal Exam GI & Abdominal Exam: Soft, Normal Bowel Sounds - Extremities Exam Extremities Exam: Full ROM, Normal Capillary Refill - Neurological Exam Neurological Exam: Alert, Awake, Oriented x3 - Psychiatric Exam Psychiatric exam: Normal Affect, Normal Mood - Skin Skin Exam: Dry, Normal Color, Warm Assessment and Plan - Assessment and Plan (Free Text) Assessment: A 72 year old female who came in to the ER due to abdominal pain possible intestinal obstruction. On EKG showed bradycardia with pauses. Heart rate did not respond to Dopamine drip. External transvenous pacing wire was inserted by Dr. Hannallah and a dual chamber permanent pacemaker [employer], (MRI safe) was inserted by Dr. Carrasco. History of hypertension, diabetes, depression, GERD, vertigo. Recent echo showed LVEF of 55-60%, trace MR, severe tricuspid regurgitation, RVSP 67mmHg, moderate to severe pulmonary hypertension. Post PPM insertion complicated with large left pneumothorax requiring left chest tube insertion with resolution thus chest tube discontinued . Post EGD and showed gastritis, gastric polyps. Post laparoscopic gastropexy .Cardiac status stable. Lactulose given for constipation with positive results. Discharge planning. Complaints of leg pain, US of lower extremity showed, thrombus on right common femoral vein. On anticoagulation. Complaining of severe left side abdominal pain,Chest X ray done result unremarkable, CT of lumbar done and showed multilevel disc facet degeneration.Clinically stable. Plan: Feels better, no distress, mild abdominal pain PRN pain medication given Cardiac status stable Heart rate stable Blood pressure stable Glucose controlled On Norvasc 10 mg daily,Lovenox 60 mg every 12 hours Lopressor 25 mg BID, Coumadin 10 mg daily Continue current treatment Continue current medications Discharge planning OOB to chair/ambulate Awaiting Rehab placement Will follow up Plan and treatment discussed with Dr. Carrasco
--- NOTE | 2018-10-02 07:25 | CP.PCM.PN ---
<Julián Morataya - Last Filed: 10/02/18 10:49> Subjective - Date & Time of Evaluation Date of Evaluation: 10/02/18 Time of Evaluation: 06:24 - Subjective Subjective: Julián Morataya PGY2 GI progres Note for Dr. Jerez Patient was seen and examined at bedside. The patient's pain is improving, and her BM are soft. She is on her home bowel regimen. Objective - Vital Signs/Intake and Output Vital Signs (last 24 hours): Temp Pulse Resp BP Pulse Ox 98.7 F 85 20 126/76 91 L 10/01/18 18:20 10/01/18 18:20 10/01/18 18:20 10/01/18 18:20 10/01/18 18:20 Intake and Output: 10/02/18 10/02/18 06:59 18:59 Intake Total 240 Output Total 550 Balance -310 - Medications Medications: Current Medications Amlodipine Besylate (Norvasc) 10 mg PO DAILY [facility] Last Admin: 10/01/18 09:33 Dose: 10 mg Benzocaine/Menthol (Cepacol Sore Throat) 1 matthieu MT Q2H PRN PRN Reason: Sore Throat Last Admin: 09/21/18 08:21 Dose: 1 matthieu Cyclobenzaprine HCl (Flexeril) 5 mg PO HS [facility] Last Admin: 10/01/18 21:08 Dose: 5 mg Donepezil HCl (Aricept) 5 mg PO DAILY [facility] Last Admin: 10/01/18 09:30 Dose: 5 mg Enoxaparin Sodium (Lovenox) 60 mg SC Q12H [facility]; Protocol Last Admin: 10/02/18 01:33 Dose: 60 mg Home Med (Home Med) 1 unit PO BID [facility] Last Admin: 10/01/18 17:07 Dose: 1 unit Insulin Human Lispro (Humalog Low) 0 units SC ACHS [facility]; Protocol Last Admin: 10/01/18 21:30 Dose: Not Given Lidocaine (Lidoderm) 1 ea TD DAILY [facility] Last Admin: 10/01/18 12:32 Dose: Not Given Metoprolol Tartrate (Lopressor) 25 mg PO BID [facility] Last Admin: 10/01/18 17:07 Dose: 25 mg Ondansetron HCl (Zofran Inj) 4 mg IVP Q4H PRN PRN Reason: Nausea/Vomiting Last Admin: 10/01/18 18:26 Dose: 4 mg Oxycodone/Acetaminophen (Percocet 5/325 Mg Tab) 1 tab PO Q6H PRN PRN Reason: Pain, severe (8-10) Stop: 10/04/18 09:35 Last Admin: 10/01/18 20:16 Dose: 1 tab Pantoprazole Sodium (Protonix Ec Tab) 40 mg PO 0600 TRISTA Last Admin: 10/02/18 06:06 Dose: 40 mg Polyethylene Glycol (Miralax) 17 gm PO BID PRN PRN Reason: Constipation Sodium Chloride ([place] Nasal [place]) 0 ml NS Q4H PRN PRN Reason: Nasal congestion Tramadol HCl (Ultram) 50 mg PO Q6 PRN PRN Reason: Pain, moderate (4-7) Last Admin: 10/02/18 06:50 Dose: 50 mg Warfarin Sodium (Coumadin) 5 mg PO 1800 TRISTA Last Admin: 10/01/18 17:07 Dose: 5 mg - Labs Labs: 10/01/18 06:30 10/01/18 06:30 PT 13.3 SECONDS (9.4-12.5) H 10/01/18 06:30 INR 1.18 10/01/18 06:30 APTT 28.2 Seconds (26.9-38.3) 09/25/18 06:00 - Constitutional Appears: Well, Non-toxic, No Acute Distress - Head Exam Head Exam: ATRAUMATIC, NORMAL INSPECTION - Eye Exam Eye Exam: EOMI, Normal appearance, PERRL - ENT Exam ENT Exam: Mucous Membranes Moist, Normal Oropharynx - Neck Exam Neck Exam: Full ROM, Normal Inspection - Respiratory Exam Respiratory Exam: NORMAL BREATHING PATTERN. absent: Respiratory Distress - Cardiovascular Exam Cardiovascular Exam: RRR, +S1, +S2 - GI/Abdominal Exam GI & Abdominal Exam: Soft, Hypoactive Bowel Sounds - Extremities Exam Extremities Exam: Full ROM, Normal Inspection - Neurological Exam Neurological Exam: Alert, Awake - Psychiatric Exam Psychiatric exam: Normal Affect, Normal Mood - Skin Skin Exam: Normal Color, Warm Assessment and Plan - Assessment and Plan (Free Text) Assessment: 72-year-old black female with history of partial gastric torsion, hiatal hernia, diabetes, hypertension, hyperlipidemia, GERD presenting with abdominal pain, most likely due to gastric torsion, which is improving w/ NGT decompression. Hospital course complicated by complete heart block for which patient received PPM, and pneumothorax and chest tube placement. Pneumothorax improved and chest tube was removed. Patient is post EGD and Gastropexy by surgical team. Pathology showed mild chronic gastritis. LE US shows acute R common femoral thrombus, and patient started on Coumadin. Patient is tolerating her diet and constipation resolved. Plan: - tolerating diet - cont home med Amitiza - Miralax BID PRN for constipation - CXR ordered to r/o free air or recurrent pneumothorax given her complaint of increasing pain - Protonix for GI ppx, continued from home dose - cont Warfarin will be added instead of DVT ppx due to acute R femoral DVT - no further plans for endoscopy - further recs per Dr. Jerez This note is not finalized until signed Case was reviewed and discussed with Dr. Jerez <Gaston Jerez V - Last Filed: 10/02/18 21:29> Objective - Vital Signs/Intake and Output Vital Signs (last 24 hours): Temp Pulse Resp BP Pulse Ox 98.2 F 62 18 123/74 99 10/02/18 18:00 10/02/18 18:00 10/02/18 18:00 10/02/18 18:00 10/02/18 18:00 - Labs Labs: 10/01/18 06:30 10/02/18 05:47 PT 13.2 SECONDS (9.4-12.5) H 10/02/18 07:30 INR 1.17 10/02/18 07:30 APTT 28.2 Seconds (26.9-38.3) 09/25/18 06:00 Attending/Attestation - Attestation I have fully participated in the care of the patient.: Yes I have reviewed all pertinent clinical information, including history, physical exam and plan: Yes Notes (Text): This is an addendum to the GI progress report dictated by the medical technologist blood bank. Patient is on Amitiza now. MiraLAX only on a as needed basis for her chronic constipation. Gastric erosions on PPI. Patient is on anticoagulation for DVT. Tolerating the diet advised to take small quantities of food soft diet to well multiple times. 10/02/18 21:27
[2018-10-02 08:09] LABS: INR 1.17; PROTHROMBIN TIME 13.2 SECONDS (9.4-12.5)
--- NOTE | 2018-10-02 08:09 | PN ---
DATE: 10/02/2018 PULMONARY PROGRESS NOTE SUBJECTIVE: The patient appears comfortable this morning. She is not short of breath at rest. She has much less right calf pain. PHYSICAL EXAMINATION VITAL SIGNS: Temperature is 98.7, pulse is 85, respirations 18/20, blood pressure 126/76. Oxygen saturation on room air - 91%. Oxygen saturation on nasal cannula - 99%. HEENT: Normocephalic, atraumatic. No JVD. CARDIOVASCULAR: Systolic ejection murmur at the lower left sternal border. No S3 gallop. LUNGS: Better breath sounds at the bases. No rhonchi. No wheezing. EXTREMITIES: There is mild edema in both lower extremities. There is no cyanosis or clubbing. The right calf is nontender to palpation this morning. The left calf is also nontender to palpation. GI : Abdomen is Soft. It is not distended and nontender to palpation. Bowel sounds are positive. SKIN: No acute rash. NEUROLOGIC: Limited at the present time. IMPRESSION 1. Left pneumothorax. 2. Status post permanent pacemaker insertion. 3. Cardiac arrhythmias. 4. Partial gastric torsion. Status post surgery. 5. Mild anemia. 6. Right lower extremity deep venous thrombosis. PLAN: The patient appears comfortable this morning. She is not short of breath at rest. She has less right calf pain. She does state to feeling better overall. I did discuss the case with the night nurse at length. The night nurse stated the patient had an uneventful night. On physical exam, there is no significant bronchospasm noted. In addition, there is no significant alveolar-arterial gradient. I will continue the patient out of bed, and using her incentive spirometer frequently. The patient remains on anticoagulation for her deep venous thrombosis. Inputs by Cardiology and Infectious Disease are also noted. Clinical status of the patient is significantly improved - compared to last week. However, given the above, the future status/prognosis for this patient does remain guarded. I will discuss the above with Dr. Cross. Richardson Garza MD [facility]
[2018-10-02 08:42] LABS: ALB/GLOB RATIO 1.2 (1.1-1.8); ALBUMIN 3.2 g/dL (3.0-4.8); ALT/SGPT 104 U/L (7-56); AST/SGOT 126 U/L (14-36); BLOOD UREA NITROGEN 8 mg/dL (7-21); CALCIUM 9.1 mg/dL (8.4-10.5); GFR NON-AFRICAN AMERICAN > 60
[2018-10-02] MEDS: AMITIZA (LUBIPROSTONE) 24MCG PO SCH ×2 (09:14→17:18)
[2018-10-02] MEDS: Lidocaine 5% Patch TD SCH (09:15)
[2018-10-02] MEDS: Insulin Lispro (humaLOG) LOW Coverage SC SCH ×3 (09:15→17:19)
[2018-10-02] MEDS: POLYETHYLENE GLYCOL 3350 17 GM/Dose PACKET PO SCH ×2 (09:16→17:21)
[2018-10-02] MEDS: Oxycodone/Acetaminophen 5/325 mg Tab PO PRN (09:16)
[2018-10-02 09:24] VITALS: RESP 18
--- NOTE | 2018-10-02 09:47 | CP.PCM.DIS ---
<Bisi Rinaldi - Last Filed: 10/02/18 11:58> Provider - Provider Date of Admission: 09/19/18 19:55 Attending physician: Paddy Cross MD Primary care physician: NO PRIMARY CARE PROVIDER Consults: 09/19/18 18:45 Physician Consult Routine Comment: Consulting Provider: Willy Hill Consulting Physician: Willy Hill Reason for Consult: abdominal pain 09/19/18 18:48 Physician Consult Routine Comment: Consulting Provider: Gaston Jerez V Consulting Physician: Gaston Jerez V Reason for Consult: hx of gastric torsion 09/19/18 19:09 Physician Consult Routine Comment: Consulting Provider: Omkar Jeroinmo Consulting Physician: Omkar Jeronimo Reason for Consult: acute abdomen 09/19/18 21:35 Infectious Disease Consult Routine Comment: Consulting Provider: Benny West Consulting Physician: Benny West Reason for Consult: colitis, bowel obstruction 09/20/18 10:39 Cardiology Consult Routine Comment: Consulting Provider: Dilcia Zhang Consulting Physician: Dilcia Zhang Reason for Consult: Bradycardia with episodes of 3rd degree HB and sinus pause 09/22/18 09:56 Vascular Surgery Routine Comment: Consulting Provider: Jeronimo Butcher Physician Instructions: Reason For Exam: Large Left Pneumothrax 09/22/18 15:27 Physician Consult Routine Comment: Consulting Provider: Chava Barraza Consulting Physician: Chava Barraza Reason for Consult: Left pneumothorax 09/24/18 11:12 Pulmonology Consult Routine Comment: Consulting Provider: Richardson Garza Consulting Physician: Richardson Garza Reason for Consult: s/p pneumothorax 09/30/18 13:12 Hematology Oncology Consult Routine Comment: Consulting Provider: Yenny Martinez Consulting Physician: Yenny Martinez Reason for Consult: acute on chronic dvt Time Spent in preparation of Discharge (in minutes): 50 Diagnosis - Discharge Diagnosis (1) Volvulus Status: Resolved (2) High degree atrioventricular block Status: Acute (3) Presence of permanent cardiac pacemaker Status: Acute (4) DVT (deep venous thrombosis) Status: Acute (5) Pneumothorax Status: Resolved (6) Back pain at L4-L5 level Status: Chronic (7) OA (osteoarthritis of spine) Status: Chronic (8) Hypertension Status: Chronic (9) Diabetes Status: Chronic (10) Dementia Status: Chronic (11) IBS (irritable bowel syndrome) Status: Acute (12) Bowel obstruction Status: Chronic (13) Dyslipidemia Status: Acute (14) Transaminitis Status: Acute Comment: Follow up cmp in 1 week. (15) Erosive gastritis Status: Acute (16) Tricuspid regurgitation Status: Acute (17) Moderate to severe pulmonary hypertension Status: Acute (18) Thrombocytopenia Status: Acute (19) Acute anemia Status: Acute Hospital Course - Lab Results Lab Results: Micro Results 09/19/18 22:15 Blood Blood Culture - Final NO GROWTH AFTER 5 DAYS 09/19/18 22:15 Blood Gram Stain - Final TEST NOT PERFORMED 09/19/18 22:00 Blood Blood Culture - Final NO GROWTH AFTER 5 DAYS 09/19/18 22:00 Blood Gram Stain - Final TEST NOT PERFORMED 09/19/18 22:50 Nose MRSA Culture (Admit) - Final MRSA NOT DETECTED 09/20/18 00:35 Urine Random Urine Culture - Final No Growth (<1,000 CFU/ML) Most Recent Lab Values WBC 6.4 10^3/uL (4.5-11.0) 10/01/18 06:30 RBC 4.04 10^6/uL (3.5-6.1) 10/01/18 06:30 Hgb 10.9 g/dL (12.0-16.0) L 10/01/18 06:30 Hct 34.1 % (36.0-48.0) L 10/01/18 06:30 MCV 84.4 fl (80.0-105.0) 10/01/18 06:30 MCH 27.0 pg (25.0-35.0) 10/01/18 06:30 MCHC 32.0 g/dl (31.0-37.0) 10/01/18 06:30 RDW 13.7 % (11.5-14.5) 10/01/18 06:30 Plt Count 172 10^3/uL (120.0-450.0) 10/01/18 06:30 MPV 10.1 fl (7.0-11.0) 10/01/18 06:30 Neut % (Auto) 63.1 % (50.0-68.0) 10/01/18 06:30 Lymph % (Auto) 24.0 % (22.0-35.0) 10/01/18 06:30 [place] % (Auto) 9.2 % (1.0-6.0) H 10/01/18 06:30 Eos % (Auto) 3.1 % (1.5-5.0) 10/01/18 06:30 Baso % (Auto) 0.6 % (0.0-3.0) 10/01/18 06:30 Lymph # (Auto) 1.5 (1.2-3.4) 10/01/18 06:30 [place] # (Auto) 0.6 (0.1-0.6) 10/01/18 06:30 Eos # (Auto) 0.2 (0.0-0.7) 10/01/18 06:30 Baso # (Auto) 0.04 K/mm3 (0.0-2.0) 10/01/18 06:30 Absolute Neuts (auto) 4.02 (1.4-6.5) 10/01/18 06:30 PT 13.2 SECONDS (9.4-12.5) H 10/02/18 07:30 INR 1.17 10/02/18 07:30 APTT 28.2 Seconds (26.9-38.3) 09/25/18 06:00 pCO2 45 mm/Hg (35-45) 09/20/18 12:03 pO2 138.0 mm/Hg (80-100) H 09/20/18 12:03 HCO3 26.6 mmol/L (21-28) 09/20/18 12:03 ABG pH 7.38 (7.35-7.45) 09/20/18 12:03 ABG Total CO2 28.0 mmol.L (22-28) 09/20/18 12:03 ABG O2 Saturation 100.0 % (95-98) H 09/20/18 12:03 ABG O2 Content 18.0 ML/dl (15-23) 09/20/18 12:03 ABG Base Excess 1.0 mmol/L (-2.0-3.0) 09/20/18 12:03 ABG Hemoglobin 13.1 g/dL (11.7-17.4) 09/20/18 12:03 ABG Carboxyhemoglobin 2.1 % (0.5-1.5) H 09/20/18 12:03 POC ABG HHb (Measured) 0 % (0-5) 09/20/18 12:03 ABG Methemoglobin 1.1 % (0.0-3.0) 09/20/18 12:03 ABG O2 Capacity 18.0 mL/dl (16-24) 09/20/18 12:03 VBG pH 7.34 (7.32-7.43) 09/19/18 19:20 VBG pCO2 56.0 (40-60) 09/19/18 19:20 VBG HCO3 30.2 mmol/l (21-28) H 09/19/18 19:20 VBG Total CO2 31.9 mmol.L (22-28) H 09/19/18 19:20 VBG O2 Sat (Calc) 84.6 % (40-65) H 09/19/18 19:20 VBG Base Excess 3.1 mmol/L (0.0-2.0) H 09/19/18 19:20 VBG Potassium 4.5 mmol/L (3.6-5.2) 09/19/18 19:20 Hgb O2 Saturation 96.7 % (95.0-98.0) 09/20/18 12:03 Sodium 141.0 mmol/L (132-148) 09/19/18 19:20 Chloride 105.0 mmol/L (98-107) 09/19/18 19:20 Glucose 169 mg/dl (65-105) H 09/19/18 19:20 Lactate 1.7 mmol/L (0.7-2.1) 09/19/18 19:20 FiO2 28.0 % 09/20/18 12:03 Sodium 138 mmol/L (132-148) 10/02/18 05:47 Potassium 4.0 mmol/L (3.6-5.0) 10/02/18 05:47 Chloride 99 mmol/L (98-107) 10/02/18 05:47 Carbon Dioxide 35 mmol/L (21-33) H 10/02/18 05:47 Anion Gap 8 (10-20) L 10/02/18 05:47 BUN 8 mg/dL (7-21) 10/02/18 05:47 Creatinine 0.7 mg/dl (0.7-1.2) 10/02/18 05:47 Est GFR ( Amer) > 60 10/02/18 05:47 Est GFR (Non-Af Amer) > 60 10/02/18 05:47 POC Glucose (mg/dL) 109 mg/dL (65-110) 10/02/18 07:13 Random Glucose 108 mg/dL (70-110) 10/02/18 05:47 Calcium 9.1 mg/dL (8.4-10.5) 10/02/18 05:47 Phosphorus 3.1 mg/dL (2.5-4.5) 09/28/18 06:20 Magnesium 2.0 mg/dL (1.7-2.2) 10/02/18 05:47 Total Bilirubin 0.3 mg/dL (0.2-1.3) 10/02/18 05:47 AST 126 U/L (14-36) H D 10/02/18 05:47 ALT 104 U/L (7-56) H 10/02/18 05:47 Alkaline Phosphatase 68 U/L (38-126) 10/02/18 05:47 Lactate Dehydrogenase 623 U/L (333-699) 09/19/18 19:20 Total Creatine Kinase 250 U/L (35-230) H 09/19/18 19:20 CK-MB (CK-2) 1.0 ng/mL (0.0-3.6) 09/19/18 19:20 CK-MB (CK-2) % Cancelled 09/19/18 19:20 Troponin I < 0.01 ng/mL 09/20/18 09:20 Total Protein 5.8 g/dL (5.8-8.3) 10/02/18 05:47 Albumin 3.2 g/dL (3.0-4.8) 10/02/18 05:47 Globulin 2.6 gm/dL 10/02/18 05:47 Albumin/Globulin Ratio 1.2 (1.1-1.8) 10/02/18 05:47 Amylase 115 U/L (35-125) 09/19/18 19:20 Lipase 90 U/L (23-300) 09/19/18 19:20 TSH 3rd Generation 1.24 mIU/mL (0.46-4.68) 09/20/18 11:00 Venous Blood Potassium 4.5 mmol/L (3.6-5.2) 09/19/18 19:20 Urine Color Light yellow (YELLOW) 09/20/18 00:35 Urine Appearance Sl cloudy (CLEAR) 09/20/18 00:35 Urine pH 7.0 (4.7-8.0) 09/20/18 00:35 Ur Specific [place] 1.020 (1.005-1.035) 09/20/18 00:35 Urine Protein Negative mg/dL (<30 mg/dL) 09/20/18 00:35 Urine Glucose (UA) Negative mg/dL (NEGATIVE) 09/20/18 00:35 Urine Ketones Negative mg/dL (NEGATIVE) 09/20/18 00:35 Urine Blood Negative (NEGATIVE) 09/20/18 00:35 Urine Nitrate Negative (NEGATIVE) 09/20/18 00:35 Urine Bilirubin Negative (NEGATIVE) 09/20/18 00:35 Urine Urobilinogen 0.2 E.U./dL (<1 E.U./dL) 09/20/18 00:35 Ur Leukocyte Esterase Small Samir/uL (NEGATIVE) H 09/20/18 00:35 Urine RBC 0 - 2 /hpf (0-2) 09/20/18 00:35 Urine WBC 1 - 3 /hpf (0-6) 09/20/18 00:35 Ur Epithelial Cells 0 - 2 /hpf (0-5) 09/20/18 00:35 Urine Bacteria Occ /hpf (NONE) 09/20/18 00:35 Lyme Disease Screen <0.90 index 09/22/18 05:35 Lyme IgG 18 kDa Band TEST NOT PERFORMED 09/22/18 05:35 Lyme IgG W Blot Interp TEST NOT PERFORMED 09/22/18 05:35 Blood Type B POSITIVE 09/25/18 07:10 Blood Type Confirm B POSITIVE 09/19/18 20:51 Antibody Screen Negative 09/25/18 07:10 BBK History Checked Patient has bt 09/25/18 07:10 - Hospital Course Hospital Course: Patient is a 72 y/o female with PMHx of partial gastric torsion, Hiatal hernia, HTN, DM, PUD, GERD, constipation, arthritis, B/L varicose veins, glaucoma, hx of dizziness/ vertigo who presented with abdominal pain, nausea and vomiting and was found to have bowel obstruction suspicious for recurrent volvulus. NGT was inserted to decompress the stomach. While awaiting surgical decision, patient was found to have high degree av block with syncopal episodes. Patient ended up having permanent pacemaker. Pacemaker insertion was complicated with left sided pneumothorax. Chest tube was inserted for the pneumothorax leading to its resolution. Patient had endoscopy to evaluate the gi tract revealing gastric erosions. Patient also had gastropexy to avoid recurrent volvulus. Post operatively, despite being on DVT prophylaxis, patient was found to have acute on chronic DVT of the lower extremity. Patient was started on Lovenox sc while getting bridged with Coumadin. Patient complained of severe back pain, CT revealed multi level degenerative changes. Patient is on opioid prn for pain, will get ibuprofen for 5 days, and flexeril 5 mg bid for muscle spasm. Patient also developed transaminitis, and will need a repeat blood work in 1 week. Patient is to be discharged to [facility]. Discharge diet: moderate carbohydrate controlled diet, with 2 gram sodium Activity: resume normal activity as tolerated. - Date & Time of H&P Date of H&P: 09/20/18 Time of H&P: 20:47 Discharge Exam - Head Exam Head Exam: NORMAL INSPECTION, NORMOCEPHALIC - Eye Exam Eye Exam: EOMI, Normal appearance, PERRL. absent: Scleral icterus Pupil Exam: NORMAL ACCOMODATION - ENT Exam ENT Exam: Mucous Membranes Moist - Neck Exam Neck exam: Normal Inspection - Respiratory Exam Respiratory Exam: Clear to PA & Lateral, NORMAL BREATHING PATTERN, UNREMARKABLE. absent: Decreased Breath Sounds, Rales, Rhonchi, Wheezes, Respiratory Distress, Stridor - Cardiovascular Exam Cardiovascular Exam: REGULAR RHYTHM, RRR, +S1, +S2. absent: Bradycardia, Tachycardia, Diastolic murmur, Gallop, Irregular Rhythm, JVD, Rubs, Systolic Murmur - GI/Abdominal Exam GI & Abdominal Exam: Normal Bowel Sounds, Unremarkable. absent: Distended, Firm, Guarding, Hernia, Organomegaly, Pulsatile Mass, Rebound, Rigid, Soft, Tenderness Additional comments: + halley Clean surgical incisions. - Extremities Exam Extremities exam: normal inspection - Back Exam Back exam: muscle spasm (mild ), tenderness - Neurological Exam Neurological exam: Alert, Oriented x3 - Psychiatric Exam Psychiatric exam: Normal Affect, Normal Mood - Skin Skin Exam: Dry, Normal Color, Warm Discharge Plan - Follow Up Plan Condition: CRITICAL Disposition: REHAB FACILITY/REHAB UNIT Instructions: Deep Vein Thrombosis (Blood Clots in the Legs) (DC), Pacemaker Insertion (DC), Heart Block, Adult (DC) Additional Instructions: Please follow up with your primary care doctor in 1 week Patient need repeat blood work in 1 week to reevaluate for transaminitis Take your medications as prescribed Take the Motrin for 5 days total for the back pain Your surgical halley are due to be removed on 10/05/18, can go to the emergency room to get it removed, or in the rehab facility. Patient need to continue getting Lovenox bridged with Coumadin until INR of 2, then discontinue Lovenox and continue with coumadin only. Follow up with the correspondence school teacher in 1-2 weeks. Referrals: Dilcia Carrasco MD [Staff Provider] - Erick Yan MD [Staff Provider] - PCPHARLEEN [Primary Care Provider] - Gaston Jerez MD [Medical Doctor] - <Paddy Cross - Last Filed: 10/02/18 12:39> Provider - Provider Date of Admission: 09/19/18 19:55 Attending physician: Paddy Cross MD Primary care physician: HARLEEN PRIMARY CARE PROVIDER Consults: 09/19/18 18:45 Physician Consult Routine Comment: Consulting Provider: Willy Hill Consulting Physician: Willy Hill Reason for Consult: abdominal pain 09/19/18 18:48 Physician Consult Routine Comment: Consulting Provider: Gaston Jerez V Consulting Physician: Gaston Jerez V Reason for Consult: hx of gastric torsion 09/19/18 19:09 Physician Consult Routine Comment: Consulting Provider: Omkar Jeronimo Consulting Physician: Omkar Jeronimo Reason for Consult: acute abdomen 09/19/18 21:35 Infectious Disease Consult Routine Comment: Consulting Provider: Benny West Consulting Physician: Benny West Reason for Consult: colitis, bowel obstruction 09/20/18 10:39 Cardiology Consult Routine Comment: Consulting Provider: Dilcia Zhang Consulting Physician: Dilcia Zhang Reason for Consult: Bradycardia with episodes of 3rd degree HB and sinus pause 09/22/18 09:56 Vascular Surgery Routine Comment: Consulting Provider: Jeronimo Butcher Physician Instructions: Reason For Exam: Large Left Pneumothrax 09/22/18 15:27 Physician Consult Routine Comment: Consulting Provider: Chava Barraza Consulting Physician: Chava Barraza Reason for Consult: Left pneumothorax 09/24/18 11:12 Pulmonology Consult Routine Comment: Consulting Provider: Richardson Garza Consulting Physician: Richardson Garza Reason for Consult: s/p pneumothorax 09/30/18 13:12 Hematology Oncology Consult Routine Comment: Consulting Provider: Yenny Martinez Consulting Physician: Yenny Martinez Reason for Consult: acute on chronic dvt Hospital Course - Lab Results Lab Results: Micro Results 09/19/18 22:15 Blood Blood Culture - Final NO GROWTH AFTER 5 DAYS 09/19/18 22:15 Blood Gram Stain - Final TEST NOT PERFORMED 09/19/18 22:00 Blood Blood Culture - Final NO GROWTH AFTER 5 DAYS 09/19/18 22:00 Blood Gram Stain - Final TEST NOT PERFORMED 09/19/18 22:50 Nose MRSA Culture (Admit) - Final MRSA NOT DETECTED 09/20/18 00:35 Urine Random Urine Culture - Final No Growth (<1,000 CFU/ML) Most Recent Lab Values WBC 6.4 10^3/uL (4.5-11.0) 10/01/18 06:30 RBC 4.04 10^6/uL (3.5-6.1) 10/01/18 06:30 Hgb 10.9 g/dL (12.0-16.0) L 10/01/18 06:30 Hct 34.1 % (36.0-48.0) L 10/01/18 06:30 MCV 84.4 fl (80.0-105.0) 10/01/18 06:30 MCH 27.0 pg (25.0-35.0) 10/01/18 06:30 MCHC 32.0 g/dl (31.0-37.0) 10/01/18 06:30 RDW 13.7 % (11.5-14.5) 10/01/18 06:30 Plt Count 172 10^3/uL (120.0-450.0) 10/01/18 06:30 MPV 10.1 fl (7.0-11.0) 10/01/18 06:30 Neut % (Auto) 63.1 % (50.0-68.0) 10/01/18 06:30 Lymph % (Auto) 24.0 % (22.0-35.0) 10/01/18 06:30 [place] % (Auto) 9.2 % (1.0-6.0) H 10/01/18 06:30 Eos % (Auto) 3.1 % (1.5-5.0) 10/01/18 06:30 Baso % (Auto) 0.6 % (0.0-3.0) 10/01/18 06:30 Lymph # (Auto) 1.5 (1.2-3.4) 10/01/18 06:30 [place] # (Auto) 0.6 (0.1-0.6) 10/01/18 06:30 Eos # (Auto) 0.2 (0.0-0.7) 10/01/18 06:30 Baso # (Auto) 0.04 K/mm3 (0.0-2.0) 10/01/18 06:30 Absolute Neuts (auto) 4.02 (1.4-6.5) 10/01/18 06:30 PT 13.2 SECONDS (9.4-12.5) H 10/02/18 07:30 INR 1.17 10/02/18 07:30 APTT 28.2 Seconds (26.9-38.3) 09/25/18 06:00 pCO2 45 mm/Hg (35-45) 09/20/18 12:03 pO2 138.0 mm/Hg (80-100) H 09/20/18 12:03 HCO3 26.6 mmol/L (21-28) 09/20/18 12:03 ABG pH 7.38 (7.35-7.45) 09/20/18 12:03 ABG Total CO2 28.0 mmol.L (22-28) 09/20/18 12:03 ABG O2 Saturation 100.0 % (95-98) H 09/20/18 12:03 ABG O2 Content 18.0 ML/dl (15-23) 09/20/18 12:03 ABG Base Excess 1.0 mmol/L (-2.0-3.0) 09/20/18 12:03 ABG Hemoglobin 13.1 g/dL (11.7-17.4) 09/20/18 12:03 ABG Carboxyhemoglobin 2.1 % (0.5-1.5) H 09/20/18 12:03 POC ABG HHb (Measured) 0 % (0-5) 09/20/18 12:03 ABG Methemoglobin 1.1 % (0.0-3.0) 09/20/18 12:03 ABG O2 Capacity 18.0 mL/dl (16-24) 09/20/18 12:03 VBG pH 7.34 (7.32-7.43) 09/19/18 19:20 VBG pCO2 56.0 (40-60) 09/19/18 19:20 VBG HCO3 30.2 mmol/l (21-28) H 09/19/18 19:20 VBG Total CO2 31.9 mmol.L (22-28) H 09/19/18 19:20 VBG O2 Sat (Calc) 84.6 % (40-65) H 09/19/18 19:20 VBG Base Excess 3.1 mmol/L (0.0-2.0) H 09/19/18 19:20 VBG Potassium 4.5 mmol/L (3.6-5.2) 09/19/18 19:20 Hgb O2 Saturation 96.7 % (95.0-98.0) 09/20/18 12:03 Sodium 141.0 mmol/L (132-148) 09/19/18 19:20 Chloride 105.0 mmol/L (98-107) 09/19/18 19:20 Glucose 169 mg/dl (65-105) H 09/19/18 19:20 Lactate 1.7 mmol/L (0.7-2.1) 09/19/18 19:20 FiO2 28.0 % 09/20/18 12:03 Sodium 138 mmol/L (132-148) 10/02/18 05:47 Potassium 4.0 mmol/L (3.6-5.0) 10/02/18 05:47 Chloride 99 mmol/L (98-107) 10/02/18 05:47 Carbon Dioxide 35 mmol/L (21-33) H 10/02/18 05:47 Anion Gap 8 (10-20) L 10/02/18 05:47 BUN 8 mg/dL (7-21) 10/02/18 05:47 Creatinine 0.7 mg/dl (0.7-1.2) 10/02/18 05:47 Est GFR ( Amer) > 60 10/02/18 05:47 Est GFR (Non-Af Amer) > 60 10/02/18 05:47 POC Glucose (mg/dL) 125 mg/dL (65-110) H 10/02/18 11:30 Random Glucose 108 mg/dL (70-110) 10/02/18 05:47 Calcium 9.1 mg/dL (8.4-10.5) 10/02/18 05:47 Phosphorus 3.1 mg/dL (2.5-4.5) 09/28/18 06:20 Magnesium 2.0 mg/dL (1.7-2.2) 10/02/18 05:47 Total Bilirubin 0.3 mg/dL (0.2-1.3) 10/02/18 05:47 AST 126 U/L (14-36) H D 10/02/18 05:47 ALT 104 U/L (7-56) H 10/02/18 05:47 Alkaline Phosphatase 68 U/L (38-126) 10/02/18 05:47 Lactate Dehydrogenase 623 U/L (333-699) 09/19/18 19:20 Total Creatine Kinase 250 U/L (35-230) H 09/19/18 19:20 CK-MB (CK-2) 1.0 ng/mL (0.0-3.6) 09/19/18 19:20 CK-MB (CK-2) % Cancelled 09/19/18 19:20 Troponin I < 0.01 ng/mL 09/20/18 09:20 Total Protein 5.8 g/dL (5.8-8.3) 10/02/18 05:47 Albumin 3.2 g/dL (3.0-4.8) 10/02/18 05:47 Globulin 2.6 gm/dL 10/02/18 05:47 Albumin/Globulin Ratio 1.2 (1.1-1.8) 10/02/18 05:47 Amylase 115 U/L (35-125) 09/19/18 19:20 Lipase 90 U/L (23-300) 09/19/18 19:20 TSH 3rd Generation 1.24 mIU/mL (0.46-4.68) 09/20/18 11:00 Venous Blood Potassium 4.5 mmol/L (3.6-5.2) 09/19/18 19:20 Urine Color Light yellow (YELLOW) 09/20/18 00:35 Urine Appearance Sl cloudy (CLEAR) 09/20/18 00:35 Urine pH 7.0 (4.7-8.0) 09/20/18 00:35 Ur Specific [place] 1.020 (1.005-1.035) 09/20/18 00:35 Urine Protein Negative mg/dL (<30 mg/dL) 09/20/18 00:35 Urine Glucose (UA) Negative mg/dL (NEGATIVE) 09/20/18 00:35 Urine Ketones Negative mg/dL (NEGATIVE) 09/20/18 00:35 Urine Blood Negative (NEGATIVE) 09/20/18 00:35 Urine Nitrate Negative (NEGATIVE) 09/20/18 00:35 Urine Bilirubin Negative (NEGATIVE) 09/20/18 00:35 Urine Urobilinogen 0.2 E.U./dL (<1 E.U./dL) 09/20/18 00:35 Ur Leukocyte Esterase Small Samir/uL (NEGATIVE) H 09/20/18 00:35 Urine RBC 0 - 2 /hpf (0-2) 09/20/18 00:35 Urine WBC 1 - 3 /hpf (0-6) 09/20/18 00:35 Ur Epithelial Cells 0 - 2 /hpf (0-5) 09/20/18 00:35 Urine Bacteria Occ /hpf (NONE) 09/20/18 00:35 Lyme Disease Screen <0.90 index 09/22/18 05:35 Lyme IgG 18 kDa Band TEST NOT PERFORMED 09/22/18 05:35 Lyme IgG W Blot Interp TEST NOT PERFORMED 09/22/18 05:35 Blood Type B POSITIVE 09/25/18 07:10 Blood Type Confirm B POSITIVE 09/19/18 20:51 Antibody Screen Negative 09/25/18 07:10 BBK History Checked Patient has bt 09/25/18 07:10 - Hospital Course Hospital Course: Pt seen and examined by me. I have reviewed the note of the medical imaging director and I agree with it. I have discussed the assessment and plan with the resident. I have reviewed the medications and the last labs.
[2018-10-02 17:23] VITALS: BP 123/74; PULSE 62
[2018-10-02 18:30] VITALS: TEMP 98.2; O2SAT 99
--- NOTE | 2018-10-03 02:36 | DS ---
HOSPITAL COURSE: The patient was seen and examined. I do agree with a note of medical staffing coordinator. I was involved in the plan of care. The patient had an extensive medical close to in the hospital stay here. She had bowel obstruction that had improved. She has been taken to the OR and this issue has resolved. She has developed left leg DVT and has been placed on anticoagulation. She also developed left-sided pneumothorax that had a chest tube that was placed which has improved. The patient had a symptomatic bradycardia and had emergent pacemaker that was placed. She continues to have back issues, it looks like she has multiple degenerative changes in the back by CAT scan that was done. She is going to need anti-inflammatory medications as well as muscles relaxers. She is getting physical therapy. The patient is going to be discharged home. She is going to be placed on NSAIDs as scheduled. She is going to be on a PPI for GI prophylaxis. She is going to be discharged to a subacute rehab facility. CONDITION: Stable. ACTIVITIES: Increase as tolerated. Paddy Cross MD
--- NOTE | 2018-10-13 04:17 | OP ---
PROCEDURE DATE: 09/25/2018 PREOPERATIVE DIAGNOSIS: Gastric volvulus. POSTOPERATIVE DIAGNOSIS: Gastric volvulus. SURGERIES: 1. Exploratory laparoscopy. 2. Laparoscopic enterolysis. 3. Gastroscopy. 4. Laparoscopic gastropexy. SURGEON: Omkar Jeronimo MD ANESTHESIA: General endotracheal. DESCRIPTION OF THE PROCEDURE: The patient was brought to the operating room and placed on the operating table in the supine position. After smooth induction of general endotracheal anesthesia, Venodyne boots were placed in both legs and prophylactic IV antibiotics were given. The entire abdomen was prepped and draped in the usual sterile fashion. The area around the umbilicus was infiltrated with local anesthetic and incised with a 15 blade. A Veress needle was inserted, then the pneumoperitoneum up to 15 mmHg was also accomplished. A zero-degree 5-mm laparoscope video camera mounted on a Visiport was inserted through the abdominal wall layers. Then, the camera was switched to 5-mm 30-degree laparoscope video camera and the abdomen was inspected. Multiple adhesions were encountered, and two more 5-mm ports were inserted under direct laparoscopic visualization. Endo Grasper and Endo Misty were inserted through the 5-mm ports and all the adhesions were taken down in a sharp and blunt fashion. The and using a Ashok needle over the 2-0 silk which was passed transabdominally through and through, the greater curvature of the stomach was secured with abdominal wall in four different points starting from the fundus and ending in the prepyloric region, and the knots were tied externally tacking the gastric wall to the abdominal wall. The gastroscope was inserted to ensure the correct position of the stomach without any torsions or any perforations or bleeding internally. All skin incisions were closed with 4-0 continuous subcuticular Monocryl stitch and Dermabond was applied. At the end of the surgery, the counts of the instrument, gauze and needles were correct x2. The patient tolerated the surgery well and was transferred in stable condition to the recovery room. Omkar Jeronimo MD
== END 2018-10-02 20:26 | DRG 327 ==
LOC: ED 18:05 → ERH 19:55 → CCU 22:34 → 2RNO 09-22 06:44 → 3RSO 09-27 11:24
PROVIDERS: ADMIT Internal Medicine Nephrology; ATTEND Internal Medicine Nephrology
PROC: 0D9670Z Drainage of Stomach with Drainage Device, Via Natural or Artificial Opening (ICD-10-PCS; 2018-09-20)
PROC: 0T9B70Z Drainage of Bladder with Drainage Device, Via Natural or Artificial Opening (ICD-10-PCS; 2018-09-20)
PROC: 02H63JZ Insertion of Pacemaker Lead into Right Atrium, Percutaneous Approach (ICD-10-PCS; 2018-09-21)
PROC: 02HK3JZ Insertion of Pacemaker Lead into Right Ventricle, Percutaneous Approach (ICD-10-PCS; 2018-09-21)
PROC: 0JH606Z Insertion of Pacemaker, Dual Chamber into Chest Subcutaneous Tissue and Fascia, Open Approach (ICD-10-PCS; 2018-09-21)
PROC: 5A1223Z Performance of Cardiac Pacing, Continuous (ICD-10-PCS; 2018-09-21)
PROC: 0W9B30Z Drainage of Left Pleural Cavity with Drainage Device, Percutaneous Approach (ICD-10-PCS; 2018-09-22)
PROC: 0DB68ZX Excision of Stomach, Via Natural or Artificial Opening Endoscopic, Diagnostic (ICD-10-PCS; 2018-09-24)
PROC: 0DJ08ZZ Inspection of Upper Intestinal Tract, Via Natural or Artificial Opening Endoscopic (ICD-10-PCS; 2018-09-25)
PROC: 0DS64ZZ Reposition Stomach, Percutaneous Endoscopic Approach (ICD-10-PCS; principal; 2018-09-25 07:30)
PROC: 0TPB70Z Removal of Drainage Device from Bladder, Via Natural or Artificial Opening (ICD-10-PCS; 2018-09-27)
DX: K56.2 Volvulus (principal); I44.2 Atrioventricular block, complete; I82.412 Acute embolism and thrombosis of left femoral vein; J95.811 Postprocedural pneumothorax; I49.5 Sick sinus syndrome; K31.89 Other diseases of stomach and duodenum; K29.50 Unspecified chronic gastritis without bleeding; K58.9 Irritable bowel syndrome, unspecified; I10 Essential (primary) hypertension; E11.9 Type 2 diabetes mellitus without complications; I27.20 Pulmonary hypertension, unspecified; I07.1 Rheumatic tricuspid insufficiency; D69.6 Thrombocytopenia, unspecified; D64.9 Anemia, unspecified; E78.5 Hyperlipidemia, unspecified; K21.9 Gastro-esophageal reflux disease without esophagitis; M51.26 Other intervertebral disc displacement, lumbar region; M47.896 Other spondylosis, lumbar region; I25.10 Atherosclerotic heart disease of native coronary artery without angina pectoris; K44.9 Diaphragmatic hernia without obstruction or gangrene; E87.6 Hypokalemia; I83.93 Asymptomatic varicose veins of bilateral lower extremities; H40.9 Unspecified glaucoma; F03.90 Unspecified dementia, unspecified severity, without behavioral disturbance, psychotic disturbance, mood disturbance, and anxiety; E78.00 Pure hypercholesterolemia, unspecified; R33.9 Retention of urine, unspecified; Y83.8 Other surgical procedures as the cause of abnormal reaction of the patient, or of later complication, without mention of misadventure at the time of the procedure; F32.9 Major depressive disorder, single episode, unspecified; Z79.84 Long term (current) use of oral hypoglycemic drugs; Z87.11 Personal history of peptic ulcer disease; Z88.0 Allergy status to penicillin